=== PATIENT | female | born 1940 | race Caucasian/White ===

== ENCOUNTER → 2023-06-25 11:31 | Outpatient (REF) | payer MEDICARE, OTHER, SELFPAY ==
[2023-06-25 15:02] LABS: % Basophils 0.6 % (0-2); % Immature Granulocytes 0.4 % (0-0.5); % Lymphocytes 13.4 % (20.5-51.1); % Monocytes 6.2 % (1.7-9.3); % Neutrophils 77.4 % (42.2-75.2); Absolute Basophils 0.1 10^3/uL (0-0.2); Absolute Eosinophils 0.2 10^3/uL (0-0.7); Absolute Lymphocytes 1.5 10^3/uL (1.2-3.4); Absolute Monocytes 0.7 10^3/uL (0.1-0.6); Absolute Neutrophils 8.6 10^3/uL (1.4-6.5); Hematocrit 37.7 % (37.0-47.0); Hemoglobin 12.6 g/dL (12.0-16.0); Mean Corp Hgb Conc. 33.4 g/dL (33.0-37.0); Mean Corpuscular Hgb 29.5 pg (27.0-31.0); Mean Corpuscular Volume 88.3 fL (81.0-99.0); Mean Platelet Volume 9.8 fL (7.4-10.4); Nucleated Red Blood Cells % 0 %; Platelet Count 238 10^3/uL (130-400); Red Blood Cell Count 4.27 10^6/uL (4.20-5.40); Red Cell Dist. Width 14.4 % (11.5-14.5); White Blood Cell Count 11.2 10^3/uL (4.8-10.8)
[2023-06-25 15:28] LABS: ALT (SGPT) 12 U/L (0-35); AST (SGOT) 21 U/L (14-36); Albumin 3.6 g/dl (3.5-5.0); Alkaline Phosphatase 104 U/L (38-126); Blood Urea Nitrogen 19 mg/dl (7-17); Calcium 10.4 mg/dl (8.4-10.2); Carbon Dioxide 27 mmol/L (22-30); Chloride 99 mmol/L (98-107); Glucose 121 mg/dl (70-99); Potassium 3.9 mmol/L (3.5-5.1); Sodium 134 mmol/L (135-145); Total Bilirubin 0.6 mg/dl (0.2-1.3); Total Protein 6.5 g/dl (6.3-8.2); eGFR 55.55
== END ==
LOC: HWLAB 11:31
PROVIDERS: ATTENDING PHYSICIAN Internal Medicine Hematology & Oncology; FAMILY PHYSICIAN Family Medicine
DX: C50.111 Malignant neoplasm of central portion of right female breast (principal); C34.31 Malignant neoplasm of lower lobe, right bronchus or lung; E55.9 Vitamin D deficiency, unspecified; R92.8 Other abnormal and inconclusive findings on diagnostic imaging of breast
CPT/HCPCS: 36415; 80053; 85025

== ENCOUNTER → 2023-07-15 11:36 | Outpatient (REF) | payer MEDICARE, OTHER, SELFPAY ==
[2023-07-15 16:03] LABS: % Basophils 0.8 % (0-2); % Eosinophils 1.6 % (0-6); % Immature Granulocytes 0.3 % (0-0.5); % Monocytes 7.7 % (1.7-9.3); % Neutrophils 75.6 % (42.2-75.2); Absolute Basophils 0.1 10^3/uL (0-0.2); Absolute Eosinophils 0.2 10^3/uL (0-0.7); Absolute Lymphocytes 1.4 10^3/uL (1.2-3.4); Absolute Monocytes 0.8 10^3/uL (0.1-0.6); Absolute Neutrophils 7.4 10^3/uL (1.4-6.5); Hematocrit 37.9 % (37.0-47.0); Hemoglobin 12.6 g/dL (12.0-16.0); Mean Corp Hgb Conc. 33.2 g/dL (33.0-37.0); Mean Corpuscular Hgb 29.4 pg (27.0-31.0); Mean Corpuscular Volume 88.3 fL (81.0-99.0); Mean Platelet Volume 10.8 fL (7.4-10.4); Nucleated Red Blood Cells % 0 %; Platelet Count 246 10^3/uL (130-400); Red Blood Cell Count 4.29 10^6/uL (4.20-5.40); Red Cell Dist. Width 14.9 % (11.5-14.5); White Blood Cell Count 9.7 10^3/uL (4.8-10.8)
[2023-07-15 16:18] LABS: ALT (SGPT) 11 U/L (0-35); AST (SGOT) 20 U/L (14-36); Albumin 3.9 g/dl (3.5-5.0); Alkaline Phosphatase 103 U/L (38-126); Blood Urea Nitrogen 24 mg/dl (7-17); Calcium 10.1 mg/dl (8.4-10.2); Carbon Dioxide 26 mmol/L (22-30); Chloride 98 mmol/L (98-107); Glucose 111 mg/dl (70-99); Potassium 3.8 mmol/L (3.5-5.1); Sodium 135 mmol/L (135-145); Total Bilirubin 0.7 mg/dl (0.2-1.3); Total Protein 6.7 g/dl (6.3-8.2); eGFR 49.55
== END ==
LOC: HWLAB 11:36
PROVIDERS: ATTENDING PHYSICIAN Internal Medicine Hematology & Oncology; FAMILY PHYSICIAN Family Medicine
DX: C50.111 Malignant neoplasm of central portion of right female breast (principal); C34.31 Malignant neoplasm of lower lobe, right bronchus or lung; E55.9 Vitamin D deficiency, unspecified; R92.8 Other abnormal and inconclusive findings on diagnostic imaging of breast
CPT/HCPCS: 36415; 80053; 85025

== ENCOUNTER → 2023-08-06 12:01 | Outpatient (REF) | payer MEDICARE, OTHER, SELFPAY ==
[2023-08-06 16:40] LABS: % Basophils 0.6 % (0-2); % Eosinophils 1.2 % (0-6); % Immature Granulocytes 0.5 % (0-0.5); % Lymphocytes 8.5 % (20.5-51.1); % Neutrophils 79.2 % (42.2-75.2); Absolute Basophils 0.1 10^3/uL (0-0.2); Absolute Eosinophils 0.1 10^3/uL (0-0.7); Absolute Immature Granulocytes 0.1 10^3/uL (0-0.05); Absolute Lymphocytes 0.9 10^3/uL (1.2-3.4); Absolute Monocytes 1.1 10^3/uL (0.1-0.6); Absolute Neutrophils 8.4 10^3/uL (1.4-6.5); Hemoglobin 11.2 g/dL (12.0-16.0); Mean Corp Hgb Conc. 32.9 g/dL (33.0-37.0); Mean Corpuscular Hgb 29.1 pg (27.0-31.0); Mean Corpuscular Volume 88.3 fL (81.0-99.0); Mean Platelet Volume 10.7 fL (7.4-10.4); Nucleated Red Blood Cells % 0 %; Platelet Count 236 10^3/uL (130-400); Red Blood Cell Count 3.85 10^6/uL (4.20-5.40); Red Cell Dist. Width 15.3 % (11.5-14.5); White Blood Cell Count 10.5 10^3/uL (4.8-10.8)
[2023-08-06 17:17] LABS: ALT (SGPT) 10 U/L (0-35); AST (SGOT) 19 U/L (14-36); Albumin 3.2 g/dl (3.5-5.0); Alkaline Phosphatase 99 U/L (38-126); Blood Urea Nitrogen 28 mg/dl (7-17); Carbon Dioxide 25 mmol/L (22-30); Chloride 100 mmol/L (98-107); Creatine Phosphokinase 50 U/L (30-135); Glucose 97 mg/dl (70-99); Sodium 132 mmol/L (135-145); Total Bilirubin 0.6 mg/dl (0.2-1.3); Total Protein 5.9 g/dl (6.3-8.2); eGFR > 60.00
[2023-08-06 17:31] LABS: TSH 0.35 uIU/ml (0.47-4.68)
== END ==
LOC: HWLAB 12:01
PROVIDERS: ATTENDING PHYSICIAN Internal Medicine Hematology & Oncology; FAMILY PHYSICIAN Family Medicine
DX: C50.111 Malignant neoplasm of central portion of right female breast (principal); C34.31 Malignant neoplasm of lower lobe, right bronchus or lung; E55.9 Vitamin D deficiency, unspecified; R92.8 Other abnormal and inconclusive findings on diagnostic imaging of breast; E03.9 Hypothyroidism, unspecified; M79.10 Myalgia, unspecified site; T46.6X5A Adverse effect of antihyperlipidemic and antiarteriosclerotic drugs, initial encounter; M54.2 Cervicalgia; M54.59 Other low back pain
CPT/HCPCS: 36415; 72052; 72072; 72110; 80053; 82550; 84443; 85025

== ENCOUNTER 2023-08-09 15:56 | Outpatient (RCR) | payer MEDICARE, OTHER, SELFPAY ==
[2023-08-09 17:28] LABS: Blood Urea Nitrogen 26 mg/dl (7-17); Calcium 8.9 mg/dl (8.4-10.2); Carbon Dioxide 22 mmol/L (22-30); Chloride 103 mmol/L (98-107); Glucose 85 mg/dl (70-99); Potassium 3.1 mmol/L (3.5-5.1); Sodium 133 mmol/L (135-145); eGFR 55.55
== END 2023-09-07 23:59 | disposition home or self-care (01) ==
LOC: OID 15:56
PROVIDERS: ATTENDING PHYSICIAN Internal Medicine Hematology & Oncology
DX: C50.411 Malignant neoplasm of upper-outer quadrant of right female breast (principal)
CPT/HCPCS: 80048

== ENCOUNTER → 2023-08-11 11:44 | Outpatient (REF) | payer MEDICARE, OTHER, SELFPAY | LOC: HWLAB 11:44 | PROVIDERS: ATTENDING PHYSICIAN Internal Medicine Hematology & Oncology; FAMILY PHYSICIAN Family Medicine | DX: C50.111 Malignant neoplasm of central portion of right female breast (principal); C34.31 Malignant neoplasm of lower lobe, right bronchus or lung | CPT/HCPCS: 87045; 87046; 87324; 87427; 87449 ==

== ENCOUNTER → 2023-08-13 12:28 | Outpatient (REF) | payer MEDICARE, OTHER, SELFPAY ==
[2023-08-13 16:07] LABS: % Basophils 0.2 % (0-2); % Eosinophils 0.9 % (0-6); % Immature Granulocytes 0.6 % (0-0.5); % Lymphocytes 7.2 % (20.5-51.1); % Monocytes 8.8 % (1.7-9.3); % Neutrophils 82.3 % (42.2-75.2); Absolute Eosinophils 0.1 10^3/uL (0-0.7); Absolute Immature Granulocytes 0.1 10^3/uL (0-0.05); Absolute Lymphocytes 0.9 10^3/uL (1.2-3.4); Absolute Monocytes 1.1 10^3/uL (0.1-0.6); Absolute Neutrophils 10.6 10^3/uL (1.4-6.5); Hematocrit 31.7 % (37.0-47.0); Hemoglobin 10.6 g/dL (12.0-16.0); Mean Corp Hgb Conc. 33.4 g/dL (33.0-37.0); Mean Corpuscular Hgb 28.9 pg (27.0-31.0); Mean Corpuscular Volume 86.4 fL (81.0-99.0); Mean Platelet Volume 10.1 fL (7.4-10.4); Nucleated Red Blood Cells % 0 %; Platelet Count 286 10^3/uL (130-400); Red Blood Cell Count 3.67 10^6/uL (4.20-5.40); Red Cell Dist. Width 15.8 % (11.5-14.5); White Blood Cell Count 12.9 10^3/uL (4.8-10.8)
[2023-08-13 16:34] LABS: ALT (SGPT) 11 U/L (0-35); AST (SGOT) 18 U/L (14-36); Albumin 2.9 g/dl (3.5-5.0); Alkaline Phosphatase 101 U/L (38-126); Blood Urea Nitrogen 32 mg/dl (7-17); Calcium 9.1 mg/dl (8.4-10.2); Carbon Dioxide 22 mmol/L (22-30); Chloride 105 mmol/L (98-107); Glucose 84 mg/dl (70-99); Sodium 131 mmol/L (135-145); Total Bilirubin 0.5 mg/dl (0.2-1.3); Total Protein 5.5 g/dl (6.3-8.2); eGFR 49.55
== END ==
LOC: HWLAB 12:28
PROVIDERS: ATTENDING PHYSICIAN Internal Medicine Hematology & Oncology; FAMILY PHYSICIAN Family Medicine
DX: C50.111 Malignant neoplasm of central portion of right female breast (principal); C34.31 Malignant neoplasm of lower lobe, right bronchus or lung; E55.9 Vitamin D deficiency, unspecified; R92.8 Other abnormal and inconclusive findings on diagnostic imaging of breast
CPT/HCPCS: 36415; 74022; 80053; 85025

== ENCOUNTER 2023-08-16 18:16 | Inpatient (IN) | payer MEDICARE, OTHER, SELFPAY ==
[2023-08-16] VITALS (8 sets, daily range): BP systolic 95–130; BP diastolic 46–55; BMI 22.3; BMI 23.1
--- NOTE | 2023-08-16 11:40 | ED.GENMED ---
History of Present Illness
General
Chief Complaint: Abdominal Pain
Source: patient
Exam Limitations: none
Time Seen by Provider: 08/16/23 10:28
Nursing documentation reviewed up to this point in time: agreed with
Travel History
Have you had any contact with someone who has COVID-19?: No
Do you have any symptoms of coronavirus? Fever > 100 degrees, chills, cough, shortness of breath, sore throat, loss of taste or smell, muscle aches, or headache?: No
History of Present Illness
History of Present Illness:
Patient presents ED secondary to increased generalized weakness, along with decreased appetite and intermittent nonbloody diarrhea over the past 3 weeks. Patient also reports abdominal pain, radiating up to her shoulder, similar to when she
experienced pancreatitis in the past. 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 In addition, patient had an outpatient x-ray, which has showed 'constipation'. However, in light of patient's ongoing
symptoms, patient was referred to ED for further evaluation and treatment. Denies headache. Denies dizziness. Patient has been experiencing mild shortness of breath with exertion recently. Denies back pain. Denies leg pain or swelling. Denies
recent change in medications or diet.
Past History
Past History
ED Past Medical History: Other
ED Past Surgical History: Cholecystectomy
Social History
Tobacco: Non-smoker
Alcohol: None
Drug: None
Living: with family
Review of Systems
Review of Systems
Allergies reviewed?: Yes
All Other Systems: ROS reviewed and negative except as documented in HPI and ROS
Constitutional: Reports no symptoms
EENT: Reports no symptoms
Respiratory: Reports no symptoms
Cardiac: Reports no symptoms
ABD/GI: Reports abdominal pain and diarrhea; Denies nausea or vomiting
: Reports no symptoms
Musculoskeletal: Reports no symptoms
Skin: Reports no symptoms
Neurological: Reports weakness
Phy Exam
Physical Exam
Physical Exam:
Physical Exam
General: mild distress, not acutely ill. afebrile.
Head: nc/at. eomi
Neck: supple. no meningeal signs.
Heart: s1/s2 regular rate and rhythm, no murmur. equal radial pulses.
Lungs: no acute respiratory distress. clear bilaterally
Abdomen: normal bowel sounds. not tender.
Neuro: alert and oriented. no focal neurological deficits
Skin: no rash
Psychiatric: well kept. interactive and cooperative
Extremities: no edema. no calf tenderness.
Course
Orders/Labs/Results
Orders:
Orders
08/16/23 10:41
CT Abd/pel W Iv And Oral Contr Urgent
Comment:
Reason For Exam: midabdominal pain
Norovirus by PCR Urgent
CLEVE Source: Feces/Stool
Specimen Description:
Date Specimen was Collected: 08/17/23
Time Specimen was Collected: 03:16
0.9% Sodium Chloride 1000 ml [Nss] 1,000 ml IV BOLUS
Iohexol [Omnipaque] See Protocol PO NOW STA
08/16/23 11:29
Dexamethasone Sod Phosphate [Decadron] 10 mg IV NOW STA
Diphenhydramine [Benadryl] 25 mg IV NOW STA
08/16/23 11:44
Lactic Acid Q4H
Comment: CANCEL 2nd LACTIC ACID IF 1st LACTIC ACID IS LESS THAN 2
08/16/23 12:36
Complete Blood Count/With Diff Urgent
Comprehensive Metabolic Panel Urgent
Lipase Urgent
Magnesium Urgent
08/16/23 15:06
Magnesium Sulfate 1 grams 0.9% Sodium Chloride 100 ml [Nss] 100 ml IV NOW
08/16/23 15:55
Dextrose 50%-Water [Dextrose 50% Syringe] 25 grams IV NOW STA
08/16/23 16:00
Dextrose 5%/0.9%Sodchl 1000 ml [D5/0.9% Sodium Chloride] 1,000 ml IV 100 mls/hr
08/16/23 17:10
Add On- LAB Urgent
Tests Added?: tsh w/ reflex
Magnesium Sulfate 4 Gram/100Ml [Magnesium Sulfate] 4 gram in 100 ml IV NOW
08/16/23 17:16
ECG [Electrocardiogram (*1)] Urgent
Reason for Study: Bradycardia / Tachycardia
08/16/23 17:17
TSH Reflex To Free T4 Urgent
Comment: ADD ON
08/16/23 17:38
Admit/Transfer Patient As Directed
Co-Sign Provider:
Level of Care: Inpatient admission
Assign to:: Telemetry
Physician / Group: Quintin
Diagnosis: C Diff Colitis/Enteritis
Reason for Telemetry: Arrhythmia
Date to Stop Telemetry: 08/19/23
Time to Stop Telemetry: 11:00
Reason for Hospitalization: IVFs, oral vancomycin
Expected length of stay greater than two midnights?: Yes
ELOS- Estimated Length of Stay in days: 3
I certify the patient meets the requirements for IP care: Yes
Vancomycin HCl [Firvanq] 125 mg PO NOW STA
08/16/23 17:39
Code Status As Directed
Resuscitation Status: Full Code
08/16/23 19:45
Acetaminophen [Tylenol] 650 mg PO Q4HPRN PRN
Dextrose 50%-Water [Dextrose 50% Syringe] 12.5 grams IV [id number] PRN
Enoxaparin Sodium [Lovenox] 40 mg SC QPM
Glucagon [GlucaGen] 1 mg IM PRN PRN
08/16/23 19:45
Activity As Directed
Activity Level: Out of Bed-Early Mobility
With Assistance
Bedside Glucose Monitoring As Directed
Frequency: AC&HS
Comment: Change to q6h if pt on TPN, tube feeding or not eating
I&O [Intake/ Output] As Directed
Frequency: q12h
Vital Signs As Directed
Frequency: Per unit guidelines
Additional Instructions:: BPs with manual cuff
Weight As Directed
Frequency: Daily
Ot Eval And Treat Routine
Pt Eval And Treat Routine
Activity Level: Out of Bed-Early Mobility
DX Deep Vein Thrombosis Video Routine
08/16/23 22:00
Amlodipine [Norvasc] 5 mg PO HS
08/17/23 05:20
Basic Metabolic Panel IN AM
Complete Blood Count/No Diff IN AM
Magnesium IN AM
08/17/23 Breakfast
Low Residue
At Your Request: Full Participation
Levothyroxine [Synthroid] 100 mcg PO DAILY @ 0600
08/17/23 08:00
Lactobac/Bifidobac [Visbiome] 1 cap PO DAILY
Lisinopril [Zestril] 10 mg PO DAILY
08/17/23 10:00
Potassium Chloride [KCl] 20 meq PO DAILY@1000
08/17/23 15:00
Aspirin Low Dose EC [Aspir Low (Enteric Coated)] 81 mg PO DAILY@1500
08/19/23 11:00
DC Protocol for Telemetry ONCE
Abnormal Lab Results
08/16/23 08/16/23 08/16/23
12:36 15:54 16:20
WBC 12.5 H 10^3/uL
(4.8-10.8)
RBC 3.52 L 10^6/uL
(4.20-5.40)
Hgb 10.2 L g/dL
(12.0-16.0)
Hct 30.0 L %
(37.0-47.0)
RDW 15.9 H %
(11.5-14.5)
Abs Immat Gran (auto) 0.1 H 10^3/uL
(0-0.05)
Absolute Neuts (auto) 10.4 H 10^3/uL
(1.4-6.5)
Absolute Lymphs (auto) 1.0 L 10^3/uL
(1.2-3.4)
Absolute Monos (auto) 0.8 H 10^3/uL
(0.1-0.6)
Immature Gran % 0.6 H %
(0-0.5)
Neutrophils % 83.7 H %
(42.2-75.2)
Lymphocytes % 8.0 L %
(20.5-51.1)
Sodium 132 L mmol/L
(135-145)
Carbon Dioxide 20 L mmol/L
(22-30)
BUN 28 H mg/dl
(7-17)
Glucose 66 L mg/dl
(70-99)
Magnesium 1.1 L mg/dl
(1.6-2.3)
Total Protein 5.3 L g/dl
(6.3-8.2)
Albumin 2.7 L g/dl
(3.5-5.0)
POC Glucose 34 L* mg/dl 109 H mg/dl
(70-99) (70-99)
08/16/23
17:22
WBC
RBC
Hgb
Hct
RDW
Abs Immat Gran (auto)
Absolute Neuts (auto)
Absolute Lymphs (auto)
Absolute Monos (auto)
Immature Gran %
Neutrophils %
Lymphocytes %
Sodium
Carbon Dioxide
BUN
Glucose
Magnesium
Total Protein
Albumin
POC Glucose 155 H mg/dl
(70-99)
04/08/24 12:36
08/16/23 12:36
Vital Signs
Initial and Last Documented VS:
Initial Vital Signs
Temp Pulse Resp BP
97.9 F 69 16 95/55
08/16/23 10:02 08/16/23 10:02 08/16/23 10:02 08/16/23 10:02
Last Documented Vital Signs
Temp Pulse Resp BP Pulse Ox
97.4 F 62 18 147/66 99
08/17/23 03:13 08/17/23 03:13 08/17/23 03:13 08/17/23 03:13 08/17/23 03:13
MDM/Problems Addressed
MDM/Problems Addressed:
CT report reviewed: sig. colitis. Will start abx, along with IVF
Accucheck: 35. D50 amp given. In light of ongoing diarrhea, along with decreased appetite and oral intake, along with noted hypoglycemia, patient will be admitted for further evaluation and treatment. Will start D5NS gtt, along with frequent
accuchecks, until BS stabilizes.
Pt will need to be in isolation, until c.dif toxin study available.
Critical care statement: A total of 40 minutes of critical care time was provided for this patient. This includes management of unstable vital signs, evaluation of the patient at bedside, reviewing the patient's pertinent medical records, review of
old EKGs and review of pertinent medical records. This time with separate from time utilized to perform the aforementioned documented procedures
*Critical Care Note
Total Time (30-74mins, 75-104mins- exclusive of procedures): 40 min
ED Attending Note
-
Portions of this chart may have been created with voice recognition software.� Occasional wrong word or��sound alike� substitutions may have occurred due to the inherent limitations of voice recognition software.
Discharge Plan
Departure
Patient Disposition: Admit
Date of Disposition: 08/16/23
Time of Disposition: 16:11
Presentation/result/management discussed w/ accepting MD/DO: Hospitalist
Discharge Problem:
Colitis, Hypoglycemia
Interventions
Interventions:
*Risk Screen - Suicide Last Done: 08/16/23 20:26
*General Assessment Last Done: 08/16/23 13:00
*Neglect/Abuse Screening Last Done: 08/16/23 13:00
ED- Fall Risk Assessment Last Done: 08/16/23 13:00
*ED COVID-19 Vaccine History Last Done: 08/16/23 20:26
*Nursing Disposition Last Done: 08/16/23 19:24
[facility] Assessment Last Done: 08/16/23 16:00
Discharge Date and Time
Discharge Date/Time: 08/16/23 19:25
[2023-08-16] MEDS: OMNIPAQUE 50 ML PO (11:52)
[2023-08-16 12:12] LABS: Lactic Acid 1.1 mmol/L (0.7-2.0)
[2023-08-16 12:48] LABS: % Basophils 0.6 % (0-2); % Eosinophils 0.7 % (0-6); % Immature Granulocytes 0.6 % (0-0.5); % Monocytes 6.4 % (1.7-9.3); % Neutrophils 83.7 % (42.2-75.2); Absolute Basophils 0.1 10^3/uL (0-0.2); Absolute Eosinophils 0.1 10^3/uL (0-0.7); Absolute Immature Granulocytes 0.1 10^3/uL (0-0.05); Absolute Monocytes 0.8 10^3/uL (0.1-0.6); Absolute Neutrophils 10.4 10^3/uL (1.4-6.5); Hemoglobin 10.2 g/dL (12.0-16.0); Mean Corpuscular Volume 85.2 fL (81.0-99.0); Mean Platelet Volume 9.3 fL (7.4-10.4); Nucleated Red Blood Cells % 0 %; Platelet Count 274 10^3/uL (130-400); Red Blood Cell Count 3.52 10^6/uL (4.20-5.40); Red Cell Dist. Width 15.9 % (11.5-14.5); White Blood Cell Count 12.5 10^3/uL (4.8-10.8)
[2023-08-16] MEDS: NSS 1000 IV (12:50)
[2023-08-16] MEDS: BENADRYL 25 MG IV (12:50)
[2023-08-16] MEDS: DECADRON 10 MG IV (12:50)
[2023-08-16 13:01] LABS: ALT (SGPT) < 10 U/L (0-35); AST (SGOT) 16 U/L (14-36); Albumin 2.7 g/dl (3.5-5.0); Alkaline Phosphatase 107 U/L (38-126); Blood Urea Nitrogen 28 mg/dl (7-17); Calcium 9.1 mg/dl (8.4-10.2); Carbon Dioxide 20 mmol/L (22-30); Chloride 104 mmol/L (98-107); Glucose 66 mg/dl (70-99); Magnesium 1.1 mg/dl (1.6-2.3); Potassium 3.7 mmol/L (3.5-5.1); Sodium 132 mmol/L (135-145); Total Bilirubin 0.6 mg/dl (0.2-1.3); Total Protein 5.3 g/dl (6.3-8.2); eGFR > 60.00
[2023-08-16 13:17] LABS: Lipase 155 U/L (23-300)
[2023-08-16] MEDS: MAGNESIUM SULFATE 102 GRAMS IV (15:47)
[2023-08-16 15:56] LABS: Glucose - Point of Care 34 mg/dl (70-99)
[2023-08-16] MEDS: DEXTROSE 50% SYRINGE 25 GRAMS IV (15:58)
[2023-08-16 16:22] LABS: Glucose - Point of Care 109 mg/dl (70-99)
[2023-08-16] MEDS: D5/0.9% SODIUM CHLORIDE 1000 IV (16:46)
--- NOTE | 2023-08-16 17:23 | HPS.HSE ---
Addendum entered and electronically signed by Donnie Ribeiro MD 08/16/23 18:06:
see update note addendum
Original Note:
Family Physician
-
Family Physician: Chriss Dobson
Chief Complaint
-
Diarrhea
History of Present Illness
Patient is an 83 y/o female past medical history of metastatic lung cancer, breast cancer, hypertension and hypothyroidism who presents with diarrhea. Patient reports diarrhea for last several weeks. She describes the stools as watery, but
non-bloody. She reports generalized weakness and fatigue, and poor appetite. She denies any fevers, sweats or chills. She denies abdominal pain. She is currently receiving Keytruda every 3 weeks. She denies recent travel or recent antibiotics.
Medical History
Past Medical History
Past Medical History: Reports Other
Additional Past Medical History:
Metastatic Non-Small Cell Lung CA s/p Right Upper Lobectomy
Breast CA s/p lumpectomy and radiation
Renal Cancer s/p Ablation
Essential Hypertension
Hyperlipidemia
Hypothyroidism
Raynaud's
Past Surgical History: Reports Other
Additional Past Surgical History:
Hysterectomy
Lumpectomy
Right Upper Lobectomy
Social History
Tobacco: Smoker (1/2 PPD)
Alcohol: None
Family History
Family History: Not pertinent
Allergies / Home Medications
Allergies reflects when Allergies were last updated in [employer].
Home Medications with original date entered in [employer]
Allergy/Medication List:
Allergies
Allergy/AdvReac Type Severity Reaction Status Date / Time
Iodinated Contrast Media Allergy Rash Verified 08/16/23 10:04
[IV Dye, Iodine Containing]
Home Medications
amlodipine 5 mg tablet 5 mg PO HS Blood pressure 07/04/10
levothyroxine 100 mcg tablet 100 mcg PO DAILY Thyroid 07/04/10
Bifidobacterium infantis 4 mg capsule (Align) 4 mg PO DAILY Supplement 02/19/22
aspirin 81 mg tablet,delayed release 81 mg PO DAILY@1500 Blood clot prevention/tx 02/19/22
ibuprofen 200 mg tablet 400 mg PO BIDPRN PRN mild pain 02/19/22
lisinopril 20 mg-hydrochlorothiazide 25 mg tablet 0.5 tab PO HS Blood pressure 02/19/22
loperamide 2 mg capsule 2 - 4 mg PO DAILYPRN PRN diarrhea 08/16/23
potassium chloride 10 mEq tablet,extended release 20 meq PO DAILY@1000 08/16/23
Review of Systems
-
A 12 point ROS was completed and negative except as noted: Yes
Constitutional: Denies Fever or Chills
Respiratory: Denies Cough or Trouble Breathing
Cardiac: Denies Chest Pain or Palpitations
Abdomen/GI: Reports See HPI
Physical Exam
Vital Signs
Vital Signs
Temp Pulse Resp BP Pulse Ox
97.1 F 50 11 121/51 95
08/16/23 14:46 08/16/23 16:45 08/16/23 16:45 08/16/23 16:07 08/16/23 16:00
Physical Exam
General: Comfortable and Conversant
HEENT: Anicteric and Moist mucous membranes
Respiratory: Clear and Non Labored Respirations
Cardiac: S1/S2, Regular Rhythm and Bradycardia
GI: Soft, Non Tender, Non Distended and Other (Bowel sounds hyperactive slightly high pitched)
Musculoskeletal: No Clubbing, Cyanosis (Bilateral fingers, chronic per patient) and No Edema
Skin: Warm and Dry
Neuro: Awake, Alert, Oriented and Nonfocal/grossly intact
Psych: Calm
Laboratory Results
-
08/16/23 12:36
08/16/23 12:36
Laboratory Results
Lactic Acid Cancelled 08/16/23 14:45
Total Bilirubin 0.6 mg/dl (0.2-1.3) 08/16/23 12:36
AST 16 U/L (14-36) 08/16/23 12:36
ALT < 10 U/L (0-35) 08/16/23 12:36
Alkaline Phosphatase 107 U/L (38-126) 08/16/23 12:36
Lipase 155 U/L (23-300) 08/16/23 12:36
Data Reviewed
-
Lab Data: Labs Reviewed by me
Impression/Plan
-
Enteritis/Colitis likely secondary to C Diff
-Stool cultures was C diff antigen positive, but toxin negative however given persistent symptoms and CT scan findings
-Start Vancomycin 125mg PO Q6h
Hypoglycemia
-Encourage oral intake
-Continue D5 IVFs
-Monitor sugars
Hypomagnesemia
-Continue replacement
-Recheck level in AM
Metastatic Non-Small Cell Lung CA
-Patient on Keytruda as outpatient
Essential Hypertension
-Continue lisinopril and amlodipine with hold parameters
-Hold HCTZ
Hypothyroidism
-Check TSH
-Continue levothyroxine
DVT Proph: Lovenox
Code Status: Full Code
[2023-08-16 17:24] LABS: Glucose - Point of Care 155 mg/dl (70-99)
--- NOTE | 2023-08-16 17:39 | W.PN.UPDATE ---
Update Note
Progress Note Update
I saw and examined the patient.
The ABEBA Leong's note was reviewed and I agree with the note.
Comment: 83 y/o F with hx of non small cell Lung ca on Keytruda, presents with abd pain and 3 weeks of nonbloody diarrhea. Recent outpatient workup revealed Cdiff Ag+, toxin -. Today a CT showed colitis. She denies any other complaints.
In ER, patient was low on mag and repleted, also fluids were given. An amp of dextrose was given for hypoglycemia. Patient was admitted.
Physical Exam
General: Comfortable and Conversant
HEENT: Anicteric and Moist mucous membranes
Respiratory: Clear and Non Labored Respirations
Cardiac: S1/S2, Regular Rhythm and Bradycardia
GI: Soft, Non Tender, Non Distended and Other (Bowel sounds hyperactive slightly high pitched)
Musculoskeletal: No Clubbing, Cyanosis (Bilateral fingers, chronic per patient) and No Edema
Skin: Warm and Dry
Neuro: Awake, Alert, Oriented and Nonfocal/grossly intact
Psych: Calm
Assessment:
Presumptive C. Diff colitis
Hypomagnesemia
Hyponatremia, hypovolemic
Asymptomatic sinus bradycardia
Hx non small cell Lung ca on Keytruda
Hypothyroidism
Essential HTN
Plan:
for bradycardia, check EKG and monitor on tele
replete Mag; repeat AM level
IVF (with dextrose)
hold Keytruda
start empiric PO Vanco for suspected C diff colitis
continue BP meds; but hold HCTZ
continue thyroid replacement; check TSH
DVT ppx: Lovenox
Code: Full
[2023-08-16 18:22] LABS: TSH Reflex To Free T4 0.78 uIU/ml (0.47-4.68)
[2023-08-16] MEDS: FIRVANQ 125 MG PO (18:37)
[2023-08-16] MEDS: MAGNESIUM SULFATE 100 IV (18:39)
--- NOTE | 2023-08-16 20:46 | PTCARENOTE ---
Patient admitted from ED. Patient is AAO x3, on RA, in no acute distress. Tele monitor applied. Enhanced contact precautions initiated for c. diff. Patient oriented to room and call byers is within reach.
[2023-08-16] MEDS: NORVASC PO (20:59)
[2023-08-16] MEDS: LOVENOX 40 MG SC (21:02)
[2023-08-17] MEDS: D5/0.9% SODIUM CHLORIDE 1000 IV (02:14)
[2023-08-17 03:11] LABS: Glucose - Point of Care 255 mg/dl (70-99)
[2023-08-17 03:13] VITALS: BP 147/66
[2023-08-17 05:42] LABS: Hematocrit 27.3 % (37.0-47.0); Hemoglobin 9.2 g/dL (12.0-16.0); Mean Corp Hgb Conc. 33.7 g/dL (33.0-37.0); Mean Corpuscular Hgb 29.2 pg (27.0-31.0); Mean Corpuscular Volume 86.7 fL (81.0-99.0); Mean Platelet Volume 9.6 fL (7.4-10.4); Platelet Count 230 10^3/uL (130-400); Red Blood Cell Count 3.15 10^6/uL (4.20-5.40); Red Cell Dist. Width 15.3 % (11.5-14.5); White Blood Cell Count 10.6 10^3/uL (4.8-10.8)
[2023-08-17 06:00] VITALS: BMI 23.1
[2023-08-17] MEDS: SYNTHROID 100 MCG PO (06:05)
[2023-08-17 06:15] LABS: Blood Urea Nitrogen 25 mg/dl (7-17); Calcium 8.7 mg/dl (8.4-10.2); Carbon Dioxide 18 mmol/L (22-30); Chloride 106 mmol/L (98-107); Estimated Creatinine Clearance 37 ml/min; Glucose 217 mg/dl (70-99); Magnesium 2.4 mg/dl (1.6-2.3); Potassium 3.7 mmol/L (3.5-5.1); Sodium 130 mmol/L (135-145); eGFR > 60.00
[2023-08-17 07:30] VITALS: BP 141/66
--- NOTE | 2023-08-17 07:32 | W.PN.HOSP.TC ---
Today's Communication/Plan
-
low residue diet
imodium prn
monitor off abx as per ID
PT/OT
Assessment / Plan
Assessment / Plan
Physical Exam
General: Comfortable and Conversant
HEENT: Anicteric and Moist mucous membranes
Respiratory: Clear and Non Labored Respirations
Cardiac: S1/S2, Regular Rhythm and Bradycardia
GI: Soft, Non Tender, Non Distended, Bowel Sounds present
Musculoskeletal: No Clubbing, Cyanosis Bilateral fingers (chronic per patient), No Edema
Skin: Warm and Dry
Neuro: Awake, Alert, Oriented and Nonfocal/grossly intact
Psych: Calm
83F metastatic lung cancer, breast cancer, hypertension, and hypothyroidism who presents with diarrhea several weeks. reportedly watery non-bloody. Pt also reports generalized weakness fatigue poor appetite. She denies fevers, sweats, chills,
abdominal pain. Receiving Keytruda every 3 weeks. Denied recent travel or recent antibiotics.
Enteritis/Colitis unclear etiology
-CT appreciated signs suggestive infectious vs inflammatory enterocolitis, stable cystic lesion RLQ likely mucocele, multiple nodular opacities each lung base unchange from PET/CT 03/26/23, calcification ectasia abd aorta 2.8 cm
-Stool cultures C diff antigen positive, but toxin negative
-ID eval appreciated monitoring off abx
-Oncology eval appreciated possible side effect Keytruda, considering steroid tx immune mediated colitis
-GI eval appreciated prn imodium, considering flex sig/bx
Hypoglycemia
Mild hyperglycemia
-A1c 5.6 non-diabetic
-Encourage oral intake
-Monitor sugars
-low dose sliding scale for now
Hypomagnesemia
-repleted
-resolved
Metastatic Non-Small Cell Lung CA
-Patient on Keytruda as outpatient
Essential Hypertension
-Continue lisinopril and amlodipine with hold parameters
-Hold HCTZ
Hypothyroidism
-TSH wnl
-Continue levothyroxine
DVT Proph: Lovenox
PT/OT appreciated SNF rehab
Code Status: Full Code
I spent a total of 58 minutes with the patient or on the floor. More than 50% of this time involved counseling and coordination of care.
Anticipated Discharge: 24 - 48 hours
Subjective/Interval History
-
Date of Service: August 17, 2023
Reports feeling relatively well, diarrhea improving, sitting up comfortably in bed.
Objective Data
-
Labs:
Laboratory Results
08/17/23
05:20
WBC 10.6
Hgb 9.2 L
Hct 27.3 L
Plt Count 230
Sodium 130 L
Potassium 3.7
Chloride 106
Carbon Dioxide 18 L
BUN 25 H
Creatinine 0.9
Glucose 217 H
Calcium 8.7
Vital Signs:
Vital Signs
Temp Pulse Resp BP Pulse Ox
97.4 F 62 18 147/66 99
08/17/23 03:13 08/17/23 03:13 08/17/23 03:13 08/17/23 03:13 08/17/23 03:13
I&O
08/16/23 08/17/23 08/18/23
06:59 06:59 06:59
Intake Total 2099
Balance 2099
[2023-08-17] MEDS: VISBIOME 1 CAP PO (08:36)
[2023-08-17] MEDS: ZESTRIL 10 MG PO (08:36)
--- NOTE | 2023-08-17 09:45 | CON.ONC ---
Impression
Impression
Non small cell lung cancer (Keytruda)
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
Infectious or inflammatory enterocolitis seen on imaging
C. diff antigen+, toxin -
Anemia (baseline Hgb 12-13)
Current smoker 1/2 ppd
Leukocytosis (improved)
Neutrophilia
Muscle weakness
Plan
Plan
08/16 WBC 10.6, Hgb 9.2, Hct 27.3, PLT 230
Monitor CBC w/ diff daily
Holding Keytruda
GI consult
Continue oral vanco
Monitor stools
Consider steroids
Await GI consult. [facility] office updated of patient's admission. We will follow.
Patient History
History of Present Illness
Dee Dunn is an 83 year old female known to Dr. Altamirano at [facility] for history of lung cancer controlled on Keytruda; last dose received on 07/19/23. She was seen in the office yesterday, 08/15, with Dr. Altamirano. Her Keytruda was held due to
complaints of persistent abdominal pain, diarrhea, and bloating. Stool culture and C. diff were collected at the office. Outpatient obstruction series showed nonspecific gas pattern and patient with reports of poor oral intake/unable to hydrate. She
was referred to the ER for further evaluation to rule out pancreatitis. In the ED, she reported generalized weakness, decreased appetite, intermittent nonbloody diarrhea x3 weeks with abdominal pain radiating up to her shoulder, similar to when she
experienced pancreatitis in the past. Denies fever/chills. She has been admitted for further evaluation and treatment.
Past-Medical/Surgical History
Stage�IB�non�small�cell�lung�carcinoma
Synchronous�right�breast�carcinoma
Hyperlipidemia
Raynaud's�syndrome
Hypothyroidism
Hypertension
Vitamin D deficiency
Tonsillectomy
Hysterectomy
Cholecystectomy
Patient Medication
�Medication �Instructions �Recorded �Confirmed �Last Taken �Type
amlodipine 5 mg tablet 5 mg PO HS Blood pressure 07/04/10 08/16/23 08/15/23 History
levothyroxine 100 mcg tablet 100 mcg PO DAILY Thyroid 07/04/10 08/16/23 08/15/23 History
Bifidobacterium infantis 4 mg 4 mg PO DAILY Supplement 02/19/22 08/16/23 08/15/23 History
capsule (Align)
aspirin 81 mg tablet,delayed 81 mg PO DAILY@1500 Blood clot 02/19/22 08/16/23 08/15/23 History
release prevention/tx
ibuprofen 200 mg tablet 400 mg PO BIDPRN PRN mild pain 02/19/22 08/16/23 08/16/23 History
lisinopril 20 0.5 tab PO HS Blood pressure 02/19/22 08/16/23 08/15/23 History
mg-hydrochlorothiazide 25 mg tablet
loperamide 2 mg capsule 2 - 4 mg PO DAILYPRN PRN diarrhea 08/16/23 08/16/23 2 Days Ago History
~08/14/23
potassium chloride 10 mEq 20 meq PO DAILY@1000 08/16/23 08/16/23 08/15/23 History
tablet,extended release
Active Medications
Generic Name Dose Route Start Last Admin
Trade Name Freq PRN Reason Stop Dose Admin
Acetaminophen 650 mg 08/16/23 19:45
Acetaminophen 325 Mg Tablet PO 09/13/23 19:44
Q4HPRN PRN
mild pain/ fever>100.5F
Amlodipine Besylate 5 mg 08/16/23 22:00 08/16/23 20:59
Amlodipine 5 Mg Tablet PO 09/13/23 21:59 Not Given
HS MARIIA
Aspirin 81 mg 08/17/23 15:00
Aspirin 81 Mg (Enteric Coated) Tablet PO 09/14/23 14:59
DAILY@1500 MARIIA
Dextrose 12.5 grams 08/16/23 19:45
Dextrose 50% (0.5 Grams/Ml) 50 Ml Syringe IV 09/13/23 19:44
[id number] PRN
hypoglycemia
Protocol
Enoxaparin Sodium 40 mg 08/16/23 19:45 08/16/23 21:02
Enoxaparin Sodium 40 Mg/0.4 Ml Syringe SC 09/13/23 19:44 40 mg
QPM MARIIA Administration
Glucagon 1 mg 08/16/23 19:45
Glucagon 1 Mg Vial IM 09/13/23 19:44
PRN PRN
hypoglycemia
Protocol
Insulin Aspart 0 units 08/17/23 11:30
Insulin Aspart Low Resistance 300 Units/3 Ml Pen.Injctr SC 09/14/23 11:29
AC MARIIA
Protocol
Lactobacillus/Bifidobacterium 1 cap 08/17/23 08:00 08/17/23 08:36
Lactobac/Bifidobac (Visbiome) PO 09/14/23 07:59 1 cap
DAILY MARIIA Administration
Levothyroxine Sodium 100 mcg 08/17/23 06:00 08/17/23 06:05
Levothyroxine 100 Mcg Tablet PO 09/14/23 05:59 100 mcg
DAILY @ 0600 MARIIA Administration
Lisinopril 10 mg 08/17/23 08:00 08/17/23 08:36
Lisinopril 10 Mg Tablet PO 09/14/23 07:59 10 mg
DAILY MARIIA Administration
Potassium Chloride 20 meq 08/17/23 10:00
Potassium Chloride 10 Meq Extended Release Tablet PO 09/14/23 09:59
DAILY@1000 MARIIA
Sodium Chloride 0 flush 08/16/23 20:00
Sodium Chloride 0.9% (Flush) Syringe IV 09/13/23 19:59
PER PROTOCOL MARIIA
Vancomycin HCl 125 mg 08/17/23 08:15
Vancomycin Oral Solution 50 Mg/Ml In Oral Syringe PO
Q6 MARIIA
Review of Systems
-
History Source: Patient, Family, Physician, Coordinated Provider and Records
Constitutional: Reports No Appetite
EENT: Reports No Symptoms
Respiratory: Reports No Symptoms
Cardiac: Reports No Symptoms
GI: Reports Pain and Bloated
Breast: Reports N/A
: Reports No Symptoms
Musculoskeletal: Reports Muscle Weakness
Skin: Reports No Symptoms
Neuro: Reports Dizzy
Endocrine: Reports No Symptoms
Hematologic/Lymphatic: Reports No Symptoms
Allergy / Immunology: Reports No Symptoms
Psych: Reports No Symptoms
Physical Exam
-
Patient is sitting in the chair. She states she feels bloated/gassy and experiences worse discomfort with consuming meals. She has tolerated cream of wheat, jello, coffee, and water. Last BM was this morning which she describes as 'pile of green
mush'. She denies fever, chills, evidence of blood in urine or stool. She has history of Raynaud's and notes her fingertips are usually blue/purple with the left hand being colder than the right hand.
General: No Apparent Distress, Comfortable, Conversant and Appears Chronically Ill
HEENT: Negative Jaundice
Cardiology: S1 and S2
Pulmonary: Clear
GI: Normal Bowel Sounds and Distended (softly distended, bloating/belching)
Genito-Urinary: Deferred by me
Musculoskeletal: Cyanosis (fingertips), Edema, Right Lower Extrem (trace) and Edema, Left Lower Extrem (trace)
Extremities: Pulses Present
Neurology: Non Focal
Skin: Warm, Dry and Other (Hx raynauds, blue/purple finger tips with trace edema of hands)
Hematologic / Lymphatic: No Lymphadenopathy and No Petechiae
Psych: Calm
Labs
Lab Results
WBC 10.6 10^3/uL (4.8-10.8) 08/17/23 05:20
RBC 3.15 10^6/uL (4.20-5.40) L 08/17/23 05:20
Hgb 9.2 g/dL (12.0-16.0) L 08/17/23 05:20
Hct 27.3 % (37.0-47.0) L 08/17/23 05:20
MCV 86.7 fL (81.0-99.0) 08/17/23 05:20
MCH 29.2 pg (27.0-31.0) 08/17/23 05:20
MCHC 33.7 g/dL (33.0-37.0) 08/17/23 05:20
RDW 15.3 % (11.5-14.5) H 08/17/23 05:20
Plt Count 230 10^3/uL (130-400) 08/17/23 05:20
MPV 9.6 fL (7.4-10.4) 08/17/23 05:20
Abs Immat Gran (auto) 0.1 10^3/uL (0-0.05) H 08/16/23 12:36
Absolute Neuts (auto) 10.4 10^3/uL (1.4-6.5) H 08/16/23 12:36
Absolute Lymphs (auto) 1.0 10^3/uL (1.2-3.4) L 08/16/23 12:36
Absolute Monos (auto) 0.8 10^3/uL (0.1-0.6) H 08/16/23 12:36
Absolute Eos (auto) 0.1 10^3/uL (0-0.7) 08/16/23 12:36
Absolute Basos (auto) 0.1 10^3/uL (0-0.2) 08/16/23 12:36
Immature Gran % 0.6 % (0-0.5) H 08/16/23 12:36
Neutrophils % 83.7 % (42.2-75.2) H 08/16/23 12:36
Lymphocytes % 8.0 % (20.5-51.1) L 08/16/23 12:36
Monocytes % 6.4 % (1.7-9.3) 08/16/23 12:36
Eosinophils % 0.7 % (0-6) 08/16/23 12:36
Basophils % 0.6 % (0-2) 08/16/23 12:36
Creatinine 0.9 mg/dL (0.6-1.0) 08/17/23 05:20
Vital Signs
Vital Signs
Temp Pulse Resp BP Pulse Ox
97.4 F 60 14 141/66 97
08/17/23 07:30 08/17/23 07:30 08/17/23 07:30 08/17/23 08:36 08/17/23 07:30
08/13/23 CXR/Abd xray: Nonspecific bowel gas pattern with several dilated small bowel loops identified measuring up to 4.3 cm. There also appears to be a large amount of stool within the distal colon.Mild volume loss within the right hemithorax with
mild bibasilar ground glass opacities which represent chronic scarring/atelectasis. Presence of airspace disease/pneumonia cannot be entirely excluded. No large effusions.
08/16/23 CT abdomen/pelvis: Bowel wall thickening involving both large and small intestine as detailed above, most consistent with infectious or inflammatory enterocolitis. No evidence of intestinal obstruction. No extraluminal air or intra-abdominal
abscess formation. Stable cystic lesion within the right lower quadrant, likely representing mucocele. Multiple nodular opacities at each lung base as detailed above, grossly unchanged compared to prior PET/CT dated 03/26/2023. Please see discussion
from prior PET/CT.Advanced calcification and ectasia of the abdominal aorta, which measures 2.8 cm in greatest orthogonal dimension.Small hiatal hernia.
[2023-08-17] MEDS: KCL 20 MEQ PO (09:50)
[2023-08-17] MEDS: FIRVANQ 125 MG PO ×2 (09:50→12:34)
[2023-08-17 09:51] VITALS: BP 120/60; BP 125/60; PULSE 74
[2023-08-17 10:35] LABS: Erythrocyte Sed Rate 40 mm/hour (0-20)
[2023-08-17 11:03] VITALS: BP 94/43
[2023-08-17 11:13] LABS: Glycohemoglobin (HgbA1c) 5.6 % (4.0-5.6)
--- NOTE | 2023-08-17 11:39 | CM ---
Patient seen bedside.
IA completed.
Patient lives alone in an apartment with elevator access.
Patient does not use assistive devices.
Patient does not drive.
Patient has had [facility] in the past, not current.
PCP: Dr Lundberg
Pharmacy: [facility]
Plan: home with possible VN needs, sister will transport.
[2023-08-17 11:59] LABS: Glucose - Point of Care 215 mg/dl (70-99)
[2023-08-17] MEDS: NOVOLOG FLEXPEN-LOW RESISTANCE 2 UNITS SC (12:49)
--- NOTE | 2023-08-17 15:05 | CON.ID ---
Consultation
-
Date/Time Consultation Requested: 08/17/2023 08:51
Date/Time Consultation Performed: 08/17/23 1421
Requesting Provider: Dr. Avalos
Performing Provider: Dr. Gonzalez
Reason for Consultation: Diarrhea
Chief Complaint / Past History
History of Present Illness
Dee Dunn is an 83-year-old female being evaluated at the request of Dr. Avalos in regards to diarrhea. History is obtained from chart review, along with patient interview. The patient has an underlying history of metastatic non-small cell lung
cancer, and reports that she has been on Keytruda for approximately 1-1/2 years. She notes over the past 3 to 4 weeks she has had some increasing weakness along with decreasing appetite. Approximately 3 weeks ago she developed more soft stool that
she describes as 'ragged', but was not liquid. Over the past 2 weeks she has had some intermittent soft 'pudding-like' stool. During this period of time she has not had any liquid stool. She denies any fevers or chills. She denies any shortness
of breath. She denies any abdominal discomfort.
She reports over the past several days that her stooling has improved. Outpatient C. difficile testing on 08/11/2023 was antigen positive/toxin negative.
Past History
Additional Past Medical History:
Metastatic NSCLC
Hx breast CA
HTN
Hypothyroidism
Dyslipidemia
Renal CA s/p ablation
Additional Past Surgical History:
Right upper lobe lobectomy
Lumpectomy/XRT
Allergy History:
Iodinated Contrast Media [IV Dye, Iodine Containing] Allergy (Verified 08/16/23 10:04)
Rash
Medications Reviewed: Yes
Current Antibiotics:
Vancomycin p.o.
Social History
Tobacco: Smoker (1/2 PPD)
Alcohol: None
Drug: None
Living: With Family
Employment: Retired
Review of Systems
Vital Signs
Temp Pulse Resp BP Pulse Ox
97.5 F 62 16 94/43 95
08/17/23 11:03 08/17/23 11:03 08/17/23 11:03 08/17/23 11:03 08/17/23 11:03
Physical Exam
Physical Exam
Constitutional: No Acute Distress, Comfortable, Non-toxic and Other (frail)
Eyes: Pupils Equal, Pupils Round, No Conjunctival Hemorrhage and Sclera Anicteric
Oral: No Thrush and No Ulcers
Cardiovascular: Regular Rate and S1/S2; Negative S3/S4
Pulmonary: Clear; Negative Wheezes, Rales or Rhonchi
Gastrointestinal: Soft, Non Tender, Non Distended, Normal Bowel Sounds, No Rebound and No Guarding
Genito-Urinary: Negative Kelly
Extremities: Edema (race); Negative Cyanosis or Erythema
Neurological: Awake, Alert and Oriented
Psychological: Calm
Lab / Diagnostic Study Results
08/17/23 05:20
08/17/23 05:20
Abs Immat Gran (auto) 0.1 10^3/uL (0-0.05) H 08/16/23 12:36
Absolute Neuts (auto) 10.4 10^3/uL (1.4-6.5) H 08/16/23 12:36
Absolute Lymphs (auto) 1.0 10^3/uL (1.2-3.4) L 08/16/23 12:36
Absolute Monos (auto) 0.8 10^3/uL (0.1-0.6) H 08/16/23 12:36
Absolute Basos (auto) 0.1 10^3/uL (0-0.2) 08/16/23 12:36
Immature Gran % 0.6 % (0-0.5) H 08/16/23 12:36
Neutrophils % 83.7 % (42.2-75.2) H 08/16/23 12:36
Lymphocytes % 8.0 % (20.5-51.1) L 08/16/23 12:36
Monocytes % 6.4 % (1.7-9.3) 08/16/23 12:36
Eosinophils % 0.7 % (0-6) 08/16/23 12:36
Basophils % 0.6 % (0-2) 08/16/23 12:36
ESR Cancelled 08/17/23 10:11
Lactic Acid Cancelled 08/16/23 14:45
C-Reactive Protein 41.90 mg/L (0.0-10.00) H 08/17/23 05:20
Microbiology Results
Micro:
08/17/23 03:20 - Final
Feces/Stool Negative for Norovirus GI and GII.
Imaging:
08/16/2023 CT abdomen/pelvis with IV and oral contrast: Bowel wall thickening involving both large and small intestines is most consistent with infectious or inflammatory enterocolitis. No evidence of intestinal obstruction. No extraluminal air or
intra-abdominal abscess formation. Multiple nodular opacities at each lung base are noted. These are grossly unchanged when compared to a prior PET/CT dated 03/26/2023.
Assessment / Plan
Generalized weakness
Loose stool / reported 'darrhea'
Metastatic NSCLC; on Keytruda
Hx breast CA
HTN
Hypothyroidism
Dyslipidemia
Renal CA s/p ablation
Recommendations:
Currently, clinical symptomatology is not entirely consistent with active C. difficile infection, as one would expect more consistent diarrhea and scottie watery stool rather than intermittent, soft stooling. Leukocytosis would also be expected.
Testing is consistent with the presence of the C. difficile, but without toxin formation.
Suspect bowel inflammation may be secondary to another etiology, possibly Keytruda.
For now, will discontinue further vancomycin with close observation.
Monitor white count and temperature curve.
Monitor stool output and consistency.
[2023-08-17 15:34] VITALS: BP 139/61
--- NOTE | 2023-08-17 16:11 | CON.GI ---
Consultation
-
Date/Time Consultation Requested: 08/17/23 3:50pm
Date/Time Consultation Performed: 08/17/23 4:12pm
Requesting Provider: Obdulia Bazzi
Performing Provider: Hugh Najera
Reason for Consultation: Colitis, Keytruda
Medical History
Chief Complaint / HPI
Chief Complaint: Colitis, Keytruda
History of Present Illness:
Patient is an 83-year-old female who presents with loose stools over the last 3 weeks. She has been on Keytruda for the the last 18 months for metastatic lung cancer. She has been responding well to the medication and wasn't having issues until the
last 3 weeks. Her stools have been up to 3 times per day now, where she typically had been more constipated. They will be loose at times but never really watery. She denies abdominal pain or bleeding or weight loss. She had her last Keytruda
dose in the middle of July. Her most recent dose was supposed to be August 08 but was held due to the change in bowel movement. She had stool studies checked that were positive for C. difficile antigen but negative for toxin. Stool culture was
negative. She presented to the ER due to ongoing symptoms and dehydration. CAT scan shows colitis and enteritis. She had colonoscopy in [address] Monroy. This showed diverticulosis and several polyps (adenoma, serrated
adenoma).
Past Medical History
Past Medical History: HTN, Hypercholesterolemia, Hypothyroidism and Other (Metastatic non-small cell lung CA, Breast CA, Renal CA)
Past Surgical History: Other (RUL lobectomy, lumpectomy, hysterectomy)
Social History
Tobacco: Smoker
Alcohol: None
Family History
Family History: Reviewed & Not Pertinent
Allergies / Home Medications
Allergy/AdvReac Type Severity Reaction Status Date / Time
Iodinated Contrast Media Allergy Rash Verified 08/16/23 10:04
[IV Dye, Iodine Containing]
�Medication �Instructions �Recorded
amlodipine 5 mg tablet 5 mg PO HS Blood pressure 07/04/10
levothyroxine 100 mcg tablet 100 mcg PO DAILY Thyroid 07/04/10
Bifidobacterium infantis 4 mg 4 mg PO DAILY Supplement 02/19/22
capsule (Align)
aspirin 81 mg tablet,delayed 81 mg PO DAILY@1500 Blood clot 02/19/22
release prevention/tx
ibuprofen 200 mg tablet 400 mg PO BIDPRN PRN mild pain 02/19/22
lisinopril 20 0.5 tab PO HS Blood pressure 02/19/22
mg-hydrochlorothiazide 25 mg tablet
loperamide 2 mg capsule 2 - 4 mg PO DAILYPRN PRN diarrhea 08/16/23
potassium chloride 10 mEq 20 meq PO DAILY@1000 08/16/23
tablet,extended release
Review of Systems
-
All other systems: A 12 pt ROS was Negative except as stated above in HPI
Vital Signs
Temp Pulse Resp BP Pulse Ox
97.6 F 55 14 139/61 99
08/17/23 15:34 08/17/23 15:34 08/17/23 15:34 08/17/23 15:34 08/17/23 15:34
Physical Exam
Exam
General: No Apparent Distress
HEENT: Normocephalic and Atraumatic
Respiratory: Non Labored Respirations
GI: Soft, Non Tender and Non Distended
Skin: Warm and Dry
Neuro: Awake and Alert
Psych: Calm
Results
WBC 10.6 10^3/uL (4.8-10.8) 08/17/23 05:20
Hgb 9.2 g/dL (12.0-16.0) L 08/17/23 05:20
Hct 27.3 % (37.0-47.0) L 08/17/23 05:20
MCV 86.7 fL (81.0-99.0) 08/17/23 05:20
Plt Count 230 10^3/uL (130-400) 08/17/23 05:20
Absolute Neuts (auto) 10.4 10^3/uL (1.4-6.5) H 08/16/23 12:36
Sodium 130 mmol/L (135-145) L 08/17/23 05:20
Potassium 3.7 mmol/L (3.5-5.1) 08/17/23 05:20
Chloride 106 mmol/L (98-107) 08/17/23 05:20
Carbon Dioxide 18 mmol/L (22-30) L 08/17/23 05:20
BUN 25 mg/dl (7-17) H 08/17/23 05:20
Creatinine 0.9 mg/dL (0.6-1.0) 08/17/23 05:20
Calcium 8.7 mg/dl (8.4-10.2) 08/17/23 05:20
Total Bilirubin 0.6 mg/dl (0.2-1.3) 08/16/23 12:36
AST 16 U/L (14-36) 08/16/23 12:36
ALT < 10 U/L (0-35) 08/16/23 12:36
Alkaline Phosphatase 107 U/L (38-126) 08/16/23 12:36
Lipase 155 U/L (23-300) 08/16/23 12:36
Diagnostic Image Results:
Prior GI Procedures:
EGD:
Colonoscopy:
Assessment / Plan
-
Summary: 83yo female presents with loose stools over last 3 weeks. She is on Keytruday for metastatic lung CA and most recent dose August 08 was held due to loose stools. OP C diff 4/3 Ag positive, but toxin negative. Stool Cx negative. She denies
abd pain, rectal bleeding, wt loss, f/c, recent abx. CT shows colitis/enteritis. Colonoscopy 2020- diverticulosis, polyps. She was initially started on PO vanco, which was stopped by ID since her presentation was not consistent with acute C diff
(intermittent soft stooling rather than consistent scottie watery stool). CRP 41.9
08/16/23 CT AP- Mild thickening sigmoid, descending, transverse colon and multiple SB loops predominantly L abdomen.
Impression:
Loose stools x 3 weeks
C diff Ag positive, toxin negative 08/10
Metastatic lung CA on Keytruda, dose held 08/08
Recommendations:
I would agree that her symptoms are fairly mild and not entirely consistent with acute C diff
Monitor BMs on low residue diet
If having scottie diarrhea, check repeat stool C diff to see if she is indeed toxin positive.
If C diff negative, then may need to initiate steroids to treat possible immune checkpoint inhibitor colitis, though a little unusual 18 months into rx, and Oncology would like to continue Keytruda since she is responding well.
If symptoms remain fairly mild, can treat symptomatically, prn imodium, pepto bismol.
If diagnosis unclear, consider flex sig/bx
-
-
Thank you for consultation and allowing me to participate in the patient's care. Please call the teacher of family and consumer science GI physician during the after hours with any questions or concerns.
[2023-08-17] MEDS: ASPIR LOW (ENTERIC COATED) 81 MG PO (16:13)
[2023-08-17 16:44] LABS: Glucose - Point of Care 114 mg/dl (70-99)
[2023-08-17] MEDS: NOVOLOG FLEXPEN-LOW RESISTANCE SC (16:49)
[2023-08-17] MEDS: LOVENOX 40 MG SC (17:30)
[2023-08-17 20:08] VITALS: BP 135/60
[2023-08-17 21:48] LABS: Glucose - Point of Care 145 mg/dl (70-99)
[2023-08-17] MEDS: NORVASC 5 MG PO (22:17)
[2023-08-18] VITALS (7 sets, daily range): BP systolic 140–168; BP diastolic 51–89; BMI 23.5
[2023-08-18 05:22] LABS: Hemoglobin 8.7 g/dL (12.0-16.0); Mean Corp Hgb Conc. 32.2 g/dL (33.0-37.0); Mean Corpuscular Hgb 28.2 pg (27.0-31.0); Mean Corpuscular Volume 87.4 fL (81.0-99.0); Mean Platelet Volume 9.5 fL (7.4-10.4); Platelet Count 242 10^3/uL (130-400); Red Blood Cell Count 3.09 10^6/uL (4.20-5.40); Red Cell Dist. Width 15.7 % (11.5-14.5); White Blood Cell Count 14.8 10^3/uL (4.8-10.8)
[2023-08-18 05:45] LABS: Blood Urea Nitrogen 26 mg/dl (7-17); Calcium 9.1 mg/dl (8.4-10.2); Carbon Dioxide 22 mmol/L (22-30); Chloride 109 mmol/L (98-107); Estimated Creatinine Clearance 37 ml/min; Glucose 88 mg/dl (70-99); Magnesium 1.8 mg/dl (1.6-2.3); Phosphorus 2.4 mg/dl (2.5-4.5); Potassium 4.1 mmol/L (3.5-5.1); Sodium 133 mmol/L (135-145); eGFR > 60.00
[2023-08-18] MEDS: SYNTHROID 100 MCG PO (06:08)
[2023-08-18] MEDS: TYLENOL 650 MG PO ×2 (06:29→21:23)
--- NOTE | 2023-08-18 07:28 | W.PN.HOSP.TC ---
Today's Communication/Plan
-
npo after midnight flex sigmoidoscopy
ok to discontinue routine FS and sliding scale
monitor H&H
follow up Iron TIBC B12
Assessment / Plan
Assessment / Plan
Physical Exam
General: Comfortable and Conversant
HEENT: Anicteric and Moist mucous membranes
Respiratory: Clear and Non Labored Respirations
Cardiac: S1/S2, Regular Rhythm and Bradycardia
GI: Soft, Non Tender, Non Distended, Bowel Sounds present
Musculoskeletal: No Clubbing, Cyanosis Bilateral fingers (chronic per patient), No Edema
Skin: Warm and Dry
Neuro: Awake, Alert, Oriented and Nonfocal/grossly intact
Psych: Calm
83F metastatic lung cancer, breast cancer, hypertension, and hypothyroidism who presents with diarrhea several weeks. reportedly watery non-bloody. Pt also reports generalized weakness fatigue poor appetite. She denies fevers, sweats, chills,
abdominal pain. Receiving Keytruda every 3 weeks. Denied recent travel or recent antibiotics.
Enteritis/Colitis unclear etiology
-CT appreciated signs suggestive infectious vs inflammatory enterocolitis, stable cystic lesion RLQ likely mucocele, multiple nodular opacities each lung base unchange from PET/CT 03/26/23, calcification ectasia abd aorta 2.8 cm
-Stool cultures C diff antigen positive, but toxin negative
-ID eval appreciated monitoring off abx
-Oncology eval appreciated possible side effect Keytruda, considering steroid tx immune mediated colitis
-GI eval appreciated prn imodium, npo after midnight for flex sig/bx 08/18
Hypoglycemia
Mild hyperglycemia
-A1c 5.6 non-diabetic
-Encourage oral intake
-Monitor sugars
-sugars relatively well controlled at this time
-ok to discontinue routine FS, sliding scale Insulin discontinued
Hypomagnesemia
-repleted
-resolved
mild hypophosphatemia
-monitor and replete as necessary
-neutrophos PO ordered for 1 day
Metastatic Non-Small Cell Lung CA
-Patient on Keytruda as outpatient
Mild Anemia
check Iron studies, B12
monitor H&H
Essential Hypertension
-Continue lisinopril and amlodipine with hold parameters
-Hold HCTZ
Hypothyroidism
-TSH wnl
-Continue levothyroxine
DVT Proph: Lovenox
PT/OT appreciated SNF rehab
Code Status: Full Code
I spent a total of 58 minutes with the patient or on the floor. More than 50% of this time involved counseling and coordination of care.
Anticipated Discharge: 24 - 48 hours
Subjective/Interval History
-
Date of Service: August 18, 2023
No acute distress resting comfortably in bed. Reports diarrhea resolved.
Objective Data
-
Labs:
Laboratory Results
08/18/23
04:45
WBC 14.8 H
Hgb 8.7 L
Hct 27.0 L
Plt Count 242
Sodium 133 L
Potassium 4.1
Chloride 109 H
Carbon Dioxide 22
BUN 26 H
Creatinine 0.9
Glucose 88
Calcium 9.1
Vital Signs:
Vital Signs
Temp Pulse Resp BP Pulse Ox
98.3 F 54 16 143/51 97
08/18/23 03:48 08/18/23 03:48 08/18/23 03:48 08/18/23 03:48 08/18/23 03:48
I&O
08/17/23 08/18/23 08/19/23
06:59 06:59 06:59
Intake Total 2099 600 / 600
Balance 2099 600 / 600
[2023-08-18 07:43] LABS: Glucose - Point of Care 98 mg/dl (70-99)
--- NOTE | 2023-08-18 08:46 | W.PN.GI.CBS2 ---
Today's Communication / Plan
-
-- Collect stools for WBCs, flexible sigmoidoscopy tomorrow
Assessment / Plan
-
Summary: 83yo female presents with loose stools over last 3 weeks. She is on Keytruda for metastatic lung CA and most recent dose August 08 was held due to loose stools. OP C diff 08/10 Ag positive, but toxin negative. Stool Cx negative. She denies
abd pain, rectal bleeding, wt loss, f/c, recent abx. CT shows colitis/enteritis. Colonoscopy 2020- diverticulosis, polyps. She was initially started on PO vanco, which was stopped by ID since her presentation was not consistent with acute C diff
(intermittent soft stooling rather than consistent scottie watery stool). CRP 41.9
08/16/23 CT AP- Mild thickening sigmoid, descending, transverse colon and multiple SB loops predominantly L abdomen.
Impression:
Loose stools x 3 weeks
C diff Ag positive, toxin negative 08/10
Metastatic lung CA on Keytruda, dose held 08/08
Recommendations:
I would agree that her symptoms are fairly mild and not entirely consistent with acute C diff
Monitor BMs on low residue diet
If having scottie diarrhea, check repeat stool C diff to see if she is indeed toxin positive.
If C diff negative, then may need to initiate steroids to treat possible immune checkpoint inhibitor colitis, though a little unusual 18 months into rx, and Oncology would like to continue Keytruda since she is responding well.
If symptoms remain fairly mild, can treat symptomatically, prn imodium, pepto bismol.
If diagnosis unclear, consider flex sig/bx
08/18/23 -agree with Dr. Najera, I doubt this is checkpoint inhibitor colitis based on the timing. She would have grade 1 symptoms which she could continue the Keytruda. Since her diagnosis is in question and this led to her hospitalization we will
perform a flexible sigmoidoscopy tomorrow to help with diagnosis. N.p.o. after midnight, 2 enemas in the morning. Check stools for WBCs.
-Discussed with Dr. Moreno who was in the room
Subjective
Subjective
Date of Service: August 18, 2023
Not having diarrhea but more bloody like stools but multiple which is out of her ordinary. Is always been constipated in the past. Some mild bloating but no significant abdominal pain. No bleeding.
Objective
Data Reviewed
Laboratory Data:
Laboratory Results
08/18/23 04:45
08/18/23 04:45
Laboratory Results
Phosphorus 2.4 mg/dl (2.5-4.5) L 08/18/23 04:45
Magnesium 1.8 mg/dl (1.6-2.3) 08/18/23 04:45
Total Bilirubin 0.6 mg/dl (0.2-1.3) 08/16/23 12:36
AST 16 U/L (14-36) 08/16/23 12:36
ALT < 10 U/L (0-35) 08/16/23 12:36
Alkaline Phosphatase 107 U/L (38-126) 08/16/23 12:36
Lipase 155 U/L (23-300) 08/16/23 12:36
Vital Signs and I&O:
Vital Signs
Temp Pulse Resp BP Pulse Ox
98.3 F 54 16 143/51 97
08/18/23 03:48 08/18/23 03:48 08/18/23 03:48 08/18/23 03:48 08/18/23 03:48
I&O
08/17/23 08/18/23 08/19/23
06:59 06:59 06:59
Intake Total 2099 600 / 600
Balance 2099 600 / 600
Physical Exam
Physical Exam
HEENT: Anicteric
Cardiology: Normal Sinus Rhythm
Pulmonary: Wheezes
GI: Soft
Extremities: No Edema
Neuro: Non Focal
--- NOTE | 2023-08-18 09:13 | W.PN.ONC2 ---
Today's Communication / Plan
-
Flex sig 08/18
Impression
Impression
Non small cell lung cancer (Keytruda)
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
Infectious or inflammatory enterocolitis seen on imaging
C. diff antigen+, toxin -
Anemia (baseline Hgb 12-13)
Current smoker 1/2 ppd
Leukocytosis (improved)
Neutrophilia
Muscle weakness
Plan
Plan
Agree w Flex sig. Last Keytruda on 07/19/2023 (cycle # 20). Has received since 06/01/2022.
Suspect not immunotherapy related colitis but Flex sig w biopsy can help determine if I/O should be restarted or stopped particularly as she has received 75% (18 /24 mo) of her treatment.
Subjective/Objective
Chief Complaint
ACS Heme Onc
Subjective
just 1x stool. Soft and mushy. Seen with Dr. Bolanos. For Flex sig in 08/18
Vital Signs:
Vital Signs
Temp Pulse Resp BP Pulse Ox
97.5 F 46 16 161/56 98
08/18/23 08:00 08/18/23 08:00 08/18/23 08:00 08/18/23 08:00 08/18/23 08:00
Lab Results:
Laboratory Data
WBC 14.8 10^3/uL (4.8-10.8) H 08/18/23 04:45
Hgb 8.7 g/dL (12.0-16.0) L 08/18/23 04:45
Plt Count 242 10^3/uL (130-400) 08/18/23 04:45
eGFR > 60.00 08/18/23 04:45
Physical Exam
HEENT: No Jaundice
Cardiology: S1 and S2
Pulmonary: Clear
Extremities: No C/C/E
[2023-08-18] MEDS: NOVOLOG FLEXPEN-LOW RESISTANCE SC ×2 (09:17→13:12)
[2023-08-18] MEDS: VISBIOME 1 CAP PO (09:28)
[2023-08-18] MEDS: ZESTRIL 10 MG PO (09:28)
[2023-08-18] MEDS: KCL 20 MEQ PO (09:37)
--- NOTE | 2023-08-18 11:54 | W.PN.ID1 ---
Date of Service
Date of Service: August 18, 2023
Today's Communication
Observe off abx.
Assessment / Plan
Generalized weakness
Loose stool / reported 'darrhea'
Leukocytosis.
Metastatic NSCLC; on Keytruda
Hx breast CA
HTN
Hypothyroidism
Dyslipidemia
Renal CA s/p ablation
Recommendations:
Currently, clinical symptomatology is not entirely consistent with active C. difficile infection, as one would expect more consistent diarrhea and scottie watery stool rather than intermittent, soft stooling. Patient reports no stool since yesterday.
Testing is consistent with the presence of the C. difficile, but without toxin formation.
Suspect bowel inflammation may be secondary to another etiology, possibly Keytruda.
Observe off abx.
Monitor white count and temperature curve.
Monitor stool output and consistency.
Await flex sig.
Chief Complaint
-: Other (Diarrhea)
Subjective / Review of Systems
Seen / examined. No abdominal pain. No stooling since yesterday.
Review of Systems: No Fever, No Chills and No Abdominal Pain
Vital Signs / Physical Exam
Vital Signs
Vital Signs
Temp Pulse Resp BP Pulse Ox
97.5 F 46 16 161/56 98
08/18/23 08:00 08/18/23 08:00 08/18/23 08:00 08/18/23 08:00 08/18/23 08:00
Physical Exam
Constitutional: No Acute Distress, Comfortable, Chronically Ill and Non-toxic
Cardiovascular: S1/S2; Negative S3/S4
Pulmonary: Non Labored
Gastrointestinal: Soft, Non Tender, Non Distended, Normal Bowel Sounds, No Rebound and No Guarding
Neurological: Awake and Alert
Psychological: Calm
Objective Data
Lab Data
Lab Results
08/18/23 04:45
ESR Cancelled 04/09/24 10:11
Estimated Creat Clear 37 ml/min 08/18/23 04:45
Lactic Acid Cancelled 08/16/23 14:45
Total Bilirubin 0.6 mg/dl (0.2-1.3) 08/16/23 12:36
AST 16 U/L (14-36) 08/16/23 12:36
ALT < 10 U/L (0-35) 08/16/23 12:36
Alkaline Phosphatase 107 U/L (38-126) 08/16/23 12:36
C-Reactive Protein 41.90 mg/L (0.0-10.00) H 08/17/23 05:20
Most recent labs reviewed.
Micro Results:
08/17/23 03:20 - Final
Feces/Stool Negative for Norovirus GI and GII.
Imaging:
08/16/2023 CT abdomen/pelvis with IV and oral contrast: Bowel wall thickening involving both large and small intestines is most consistent with infectious or inflammatory enterocolitis. No evidence of intestinal obstruction. No extraluminal air or
intra-abdominal abscess formation. Multiple nodular opacities at each lung base are noted. These are grossly unchanged when compared to a prior PET/CT dated 03/26/2023.
[2023-08-18 12:01] LABS: Glucose - Point of Care 114 mg/dl (70-99)
[2023-08-18] MEDS: NEUTRA-PHOS POWDER PACKET 250 MG PO ×3 (13:16→21:24)
[2023-08-18 14:00] LABS: Hematocrit 29.7 % (37.0-47.0); Hemoglobin 9.7 g/dL (12.0-16.0)
--- NOTE | 2023-08-18 15:16 | CM ---
Addendum entered by Yadira Garvey 08/18/23 16:25:
Patient is on Keytruda q 3 weeks, patient with questions if this could be completed in a skilled facility, she receives the medication at [facility] and has already missed 2 appointments. She will discuss with her Oncologist as she does not wish to
miss doses.
Will f/u with patient in am.
Original Note:
Patient seen bedside.
PT/OT recommending skilled rehab.
Options list reviewed with patient. she wants to discuss with family.
patient for a procedure tomorrow, will touch base with patient in am.
Plan: possible skilled rehab vs home with [facility].
[2023-08-18] MEDS: ASPIR LOW (ENTERIC COATED) 81 MG PO (15:27)
[2023-08-18 17:03] LABS: Glucose - Point of Care 150 mg/dl (70-99)
[2023-08-18] MEDS: NOVOLOG FLEXPEN-LOW RESISTANCE 1 UNITS SC (19:10)
[2023-08-18] MEDS: LOVENOX 40 MG SC (19:11)
[2023-08-18 21:17] LABS: Glucose - Point of Care 122 mg/dl (70-99)
[2023-08-18] MEDS: NORVASC 5 MG PO (21:24)
[2023-08-19] VITALS (10 sets, daily range): BP systolic 16–168; BP diastolic 45–70; PULSE 61; BMI 23.5
[2023-08-19 05:02] LABS: Hematocrit 27.3 % (37.0-47.0); Mean Corpuscular Hgb 28.4 pg (27.0-31.0); Mean Corpuscular Volume 86.1 fL (81.0-99.0); Mean Platelet Volume 9.5 fL (7.4-10.4); Platelet Count 221 10^3/uL (130-400); Red Blood Cell Count 3.17 10^6/uL (4.20-5.40); Red Cell Dist. Width 15.7 % (11.5-14.5); White Blood Cell Count 11.7 10^3/uL (4.8-10.8)
[2023-08-19] MEDS: SYNTHROID 100 MCG PO (05:11)
[2023-08-19 05:33] LABS: Blood Urea Nitrogen 22 mg/dl (7-17); Calcium 8.9 mg/dl (8.4-10.2); Carbon Dioxide 23 mmol/L (22-30); Chloride 105 mmol/L (98-107); Estimated Creatinine Clearance 47 ml/min; Glucose 75 mg/dl (70-99); Iron 44 ug/dl (37-170); Magnesium 1.5 mg/dl (1.6-2.3); Phosphorus 2.5 mg/dl (2.5-4.5); Potassium 4.1 mmol/L (3.5-5.1); Sodium 132 mmol/L (135-145); eGFR > 60.00
[2023-08-19 05:42] LABS: Percent Saturation 21 % (20-50); Total Iron Binding Capacity 208 ug/dl (265-497)
[2023-08-19 06:16] LABS: Vitamin B12 558 pg/ml (239-931)
[2023-08-19 08:22] LABS: Glucose - Point of Care 79 mg/dl (70-99)
[2023-08-19] MEDS: ZESTRIL 10 MG PO (08:53)
[2023-08-19] MEDS: VISBIOME 1 CAP PO (08:53)
[2023-08-19] MEDS: KCL 20 MEQ PO (09:06)
--- NOTE | 2023-08-19 09:48 | W.PN.HOSP.TC ---
Today's Communication/Plan
-
await further recs from GI/ID/Onc
Assessment / Plan
Assessment / Plan
83F metastatic lung cancer, breast cancer, hypertension, and hypothyroidism who presents with diarrhea several weeks. reportedly watery non-bloody. Pt also reports generalized weakness fatigue poor appetite. She denies fevers, sweats, chills,
abdominal pain. Receiving Keytruda every 3 weeks. Denied recent travel or recent antibiotics.
Enteritis/Colitis unclear etiology
- CT appreciated signs suggestive infectious vs inflammatory enterocolitis, stable cystic lesion RLQ likely mucocele, multiple nodular opacities each lung base unchanged from PET/CT 03/26/23, calcification ectasia abd aorta 2.8 cm
- Stool cultures C diff antigen positive, but toxin negative
- off Abx per ID
- GI/Onc/ID following
- stool studies so far negative
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 Biopsies pending.
Hypoglycemia
Mild hyperglycemia
- A1c 5.6 non-diabetic
- Encourage oral intake
- Monitor sugars
- sugars relatively well controlled at this time
Hypomagnesemia
- add daily Mag
mild hypophosphatemia
- monitor and replete as necessary
- neutrophos PO ordered for 1 day
Metastatic Non-Small Cell Lung CA
- Patient on Keytruda as outpatient for nearly 18 months
- Onc following
Acute anemia, suspected malignancy related
- iron, B12 ok
- follow H/H
Essential Hypertension
- Continue lisinopril and amlodipine with hold parameters
- Hold HCTZ
Hypothyroidism
- TSH normal
- continue levothyroxine
DVT Proph: Lovenox
Code Status: Full Code
Anticipated Discharge: 24 - 48 hours
Subjective/Interval History
-
Date of Service: August 19, 2023
doing well, for flex sig today
Objective Data
-
Labs:
Laboratory Results
08/19/23 08/19/23
04:36 04:37
WBC 11.7 H
Hgb 9.0 L
Hct 27.3 L
Plt Count 221
Sodium 132 L
Potassium 4.1
Chloride 105
Carbon Dioxide 23
BUN 22 H
Creatinine 0.7
Glucose 75
Calcium 8.9
Vital Signs:
Vital Signs
Temp Pulse Resp BP Pulse Ox
98.4 F 50 16 146/63 97
08/19/23 07:30 08/19/23 07:30 08/19/23 07:30 08/19/23 07:30 08/19/23 07:30
I&O
08/18/23 08/19/23 08/20/23
06:59 06:59 06:59
Intake Total 600 / 600 480 / 480
Balance 600 / 600 480 / 480
Physical Exam
-
General: No Apparent Distress
HEENT: Normocephalic and Atraumatic
Respiratory: Negative Wheezes or Rales
Cardiac: Regular Rhythm and S1/S2
GI: Soft and Nontender
Musculoskeletal: No Edema
Neuro: AO x 3
Hematologic / Lymphatic: No Lymphadenopathy
Psych: Calm
Data Reviewed
-
Total Time Spent with Patient (in minutes): 42
Labs: Labs Reviewed by me
--- NOTE | 2023-08-19 11:15 | W.PN.ONC ---
Today's Communication / Plan
-
Would favor treatment of C. difficile despite lack of toxin
Patient has had has had significant efficacy from pembrolizumab battling an otherwise fatal disease
Suspect there may be some synergies between infection and PD-L1 colonic inflammation
Appreciate that the colitis appeared mild on direct visualization
Continue symptomatic management
Replete sodium
Monitor chemistries and CBC
Impression
Impression
Non small cell lung cancer (Keytruda)
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
Infectious or inflammatory enterocolitis seen on imaging
C. diff antigen+, toxin -
Anemia (baseline Hgb 12-13)
Current smoker 1/2 ppd
Leukocytosis (improved)
Neutrophilia
Muscle weakness
Plan
Plan
Agree w Flex sig. Last Keytruda on 07/19/2023 (cycle # 20). Has received since 06/01/2022.
Suspect not immunotherapy related colitis but Flex sig w biopsy can help determine if I/O should be restarted or stopped particularly as she has received 75% (18 /24 mo) of her treatment.
Subjective/Objective
Subjective/Objective
No cramping pain still having watery stool. Results of sigmoidoscopy appreciated
Vital Signs:
Vital Signs
Temp Pulse Resp BP Pulse Ox
97.6 F 48 23 139/49 95
08/19/23 10:47 08/19/23 11:00 08/19/23 11:00 08/19/23 11:00 08/19/23 11:02
Physical exam unchanged
Lab Results:
Laboratory Data
WBC 11.7 10^3/uL (4.8-10.8) H 08/19/23 04:37
Hgb 9.0 g/dL (12.0-16.0) L 08/19/23 04:37
Plt Count 221 10^3/uL (130-400) 08/19/23 04:37
eGFR > 60.00 08/19/23 04:36
[2023-08-19] MEDS: NEUTRA-PHOS POWDER PACKET 250 MG PO (11:44)
[2023-08-19] MEDS: MAGNESIUM OXIDE 500 MG PO (11:49)
[2023-08-19 12:10] LABS: Glucose - Point of Care 45 mg/dl (70-99)
[2023-08-19 12:38] LABS: Glucose - Point of Care 55 mg/dl (70-99)
[2023-08-19 12:57] LABS: Glucose - Point of Care 53 mg/dl (70-99)
[2023-08-19 13:32] LABS: Glucose - Point of Care 71 mg/dl (70-99)
[2023-08-19 15:53] LABS: Glucose - Point of Care 102 mg/dl (70-99)
--- NOTE | 2023-08-19 16:36 | W.PN.ID1 ---
Date of Service
Date of Service: August 19, 2023
Today's Communication
Begin 14-day course of enteral vancomycin.
Assessment / Plan
Generalized weakness
Loose stool / reported 'darrhea'
Leukocytosis.
Metastatic NSCLC; on Keytruda
Hx breast CA
HTN
Hypothyroidism
Dyslipidemia
Renal CA s/p ablation
Recommendations:
Currently, clinical symptomatology is not entirely consistent with active C. difficile infection, as one would expect more consistent diarrhea and scottie watery stool rather than intermittent, soft stooling.
Testing is consistent with the presence of the C. difficile organism, but without toxin formation.
Flex sig showed no ulcerations, and only scattered erythema.
Discussed with [facility].
Given immunosuppression, and the low risk of oral vancomycin with potential benefit, will initiate a 14-day course.
Monitor white count and temperature curve.
Monitor stool output and consistency.
����������������������������������������������������������
Chief Complaint
-: Other (Diarrhea)
Subjective / Review of Systems
Review of Systems: No Fever, No Chills, Abdominal Pain (mild) and No Diarrhea
Vital Signs / Physical Exam
Vital Signs
Vital Signs
Temp Pulse Resp BP Pulse Ox
97.4 F 51 16 164/64 96
08/19/23 11:30 08/19/23 11:30 08/19/23 11:30 08/19/23 11:30 08/19/23 11:30
Physical Exam
Constitutional: No Acute Distress, Comfortable, Chronically Ill and Non-toxic
Eyes: Sclera Anicteric
Cardiovascular: S1/S2; Negative S3/S4
Pulmonary: Clear and Non Labored
Gastrointestinal: Soft, Non Distended, Normal Bowel Sounds, No Rebound and No Guarding
Neurological: Awake and Alert
Psychological: Calm
Objective Data
Lab Data
Lab Results
08/19/23 04:37
08/19/23 04:36
ESR Cancelled 08/17/23 10:11
Estimated Creat Clear 47 ml/min 08/19/23 04:36
Lactic Acid Cancelled 08/16/23 14:45
Total Bilirubin 0.6 mg/dl (0.2-1.3) 08/16/23 12:36
AST 16 U/L (14-36) 08/16/23 12:36
ALT < 10 U/L (0-35) 08/16/23 12:36
Alkaline Phosphatase 107 U/L (38-126) 08/16/23 12:36
C-Reactive Protein 41.90 mg/L (0.0-10.00) H 08/17/23 05:20
Most recent labs reviewed.
Micro Results:
08/19/23 09:44 Stool Leukocytes - Final
Feces/Stool
08/17/23 03:20 - Final
Feces/Stool Negative for Norovirus GI and GII.
Imaging:
08/16/2023 CT abdomen/pelvis with IV and oral contrast: Bowel wall thickening involving both large and small intestines is most consistent with infectious or inflammatory enterocolitis. No evidence of intestinal obstruction. No extraluminal air or
intra-abdominal abscess formation. Multiple nodular opacities at each lung base are noted. These are grossly unchanged when compared to a prior PET/CT dated 03/26/2023.
[2023-08-19] MEDS: LOVENOX 40 MG SC (18:32)
[2023-08-19] MEDS: ASPIR LOW (ENTERIC COATED) 81 MG PO (18:32)
[2023-08-19] MEDS: FIRVANQ 125 MG PO ×2 (18:35→22:53)
[2023-08-19 18:49] LABS: Glucose - Point of Care 64 mg/dl (70-99)
[2023-08-19 19:09] LABS: Glucose - Point of Care 108 mg/dl (70-99)
[2023-08-19 21:01] LABS: Glucose - Point of Care 140 mg/dl (70-99)
[2023-08-19] MEDS: NORVASC 5 MG PO (22:53)
[2023-08-19 22:57] LABS: Glucose - Point of Care 136 mg/dl (70-99)
[2023-08-20] VITALS (7 sets, daily range): BP systolic 119–162; BP diastolic 59–66; PULSE 83; BMI 23.3
[2023-08-20 03:43] LABS: Glucose - Point of Care 109 mg/dl (70-99)
[2023-08-20 05:08] LABS: Mean Corp Hgb Conc. 33.3 g/dL (33.0-37.0); Mean Corpuscular Hgb 28.7 pg (27.0-31.0); Mean Platelet Volume 9.6 fL (7.4-10.4); Platelet Count 224 10^3/uL (130-400); Red Blood Cell Count 3.14 10^6/uL (4.20-5.40); Red Cell Dist. Width 15.5 % (11.5-14.5); White Blood Cell Count 14.3 10^3/uL (4.8-10.8)
[2023-08-20 05:38] LABS: Blood Urea Nitrogen 19 mg/dl (7-17); Calcium 8.4 mg/dl (8.4-10.2); Carbon Dioxide 25 mmol/L (22-30); Chloride 99 mmol/L (98-107); Estimated Creatinine Clearance 47 ml/min; Glucose 86 mg/dl (70-99); Magnesium 1.2 mg/dl (1.6-2.3); Phosphorus 2.6 mg/dl (2.5-4.5); Potassium 3.8 mmol/L (3.5-5.1); Sodium 129 mmol/L (135-145); eGFR > 60.00
[2023-08-20] MEDS: SYNTHROID 100 MCG PO (06:04)
[2023-08-20] MEDS: FIRVANQ 125 MG PO ×4 (06:04→23:14)
[2023-08-20 07:58] LABS: Glucose - Point of Care 88 mg/dl (70-99)
[2023-08-20] MEDS: MAGNESIUM OXIDE 500 MG PO (08:48)
[2023-08-20] MEDS: MAGNESIUM SULFATE 108 GRAMS IV (08:48)
[2023-08-20] MEDS: VISBIOME 1 CAP PO (08:48)
[2023-08-20] MEDS: KCL 20 MEQ PO (08:48)
[2023-08-20] MEDS: ZESTRIL 10 MG PO (08:48)
--- NOTE | 2023-08-20 09:52 | W.PN.HOSP.TC ---
Today's Communication/Plan
-
continue C. Diff treatment with PO vanco; monitor stools/output
Mag repletion
repeat Labs in AM
Assessment / Plan
Assessment / Plan
Assessment:
Enteritis/Colitis
- CT appreciated signs suggestive infectious vs inflammatory enterocolitis, stable cystic lesion RLQ likely mucocele, multiple nodular opacities each lung base unchanged from PET/CT 03/26/23, calcification ectasia abd aorta 2.8 cm
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 Biopsies pending.
- Stool cultures C diff antigen positive, but toxin negative
- d/w GI/ID/Onc - will empirically treat with PO Vanco and assess for response. Continue contact precautions.
Hypoglycemia
Mild hyperglycemia
- A1c 5.6 non-diabetic
- Encourage oral intake
- Monitor sugars
Hypomagnesemia
- continue PO Mag
- IV 4gm Mag x 1
mild hypophosphatemia
- repleted, now resolved
Metastatic Non-Small Cell Lung CA
- Patient on Keytruda as outpatient for nearly 18 months
- resume outpatient per Oncology schedule
Acute anemia, suspected malignancy related
- iron, B12 ok
- follow H/H
Essential Hypertension
- Continue lisinopril and amlodipine with hold parameters
- Hold HCTZ
Hypothyroidism
- TSH normal
- continue levothyroxine
Hyponatremia, hypovolemic in setting of diarrhea
- encourage oral intake, hydration
DVT ppx: Lovenox
Code Status: Full Code
Anticipated Discharge: 24 - 48 hours
Subjective/Interval History
-
Date of Service: August 20, 2023
on commode with diarrhea, multiple movements last evening
denies any pain
no fever/chills
Objective Data
-
Labs:
Laboratory Results
08/20/23
04:33
WBC 14.3 H
Hgb 9.0 L
Hct 27.0 L
Plt Count 224
Sodium 129 L
Potassium 3.8
Chloride 99
Carbon Dioxide 25
BUN 19 H
Creatinine 0.7
Glucose 86
Calcium 8.4
Vital Signs:
Vital Signs
Temp Pulse Resp BP Pulse Ox
98.2 F 59 14 146/59 96
08/20/23 07:00 08/20/23 07:00 08/20/23 07:00 08/20/23 07:00 08/20/23 07:00
I&O
08/19/23 08/20/23 08/21/23
06:59 06:59 06:59
Intake Total 480 / 480 900 / 900
Balance 480 / 480 900 / 900
Physical Exam
-
General: No Apparent Distress
HEENT: Normocephalic and Atraumatic
Respiratory: Negative Wheezes or Rales
Cardiac: Regular Rhythm and S1/S2
GI: Soft and Nontender
Musculoskeletal: No Edema
Neuro: AO x 3
Hematologic / Lymphatic: No Lymphadenopathy
Psych: Calm
Data Reviewed
-
Total Time Spent with Patient (in minutes): 42
Labs: Labs Reviewed by me
--- NOTE | 2023-08-20 09:56 | W.PN.GI.CBS2 ---
Addendum entered and electronically signed by Sera Vera Do, MD 08/20/23 13:49:
I saw and examined the patient.
The TRANSPORTATION ECONOMICS TEACHER's note was reviewed and I agree with the note.
Comment: Only had 2 'pudding' like stools entire admission. Denies abd pain. Tolerating diet. Vitals stable, exam NTTP port in R chest
Impression
- Diarrhea
Ddx Cdiff +/- immunotherapy colitis.
Recommendations
- Await bx from flex sigm
- Tolerating diet
- C/w oral vanco per ID
At this juncture no new GI recs, will sign off. Dr Bolanos will call her with results of bx next week. Please call for questions.
Original Note:
Today's Communication / Plan
-
s/p flex as noted less likely checkpoint inhibitor colitis await bx
cont diet as tolerated
only 2 loose stools since admission and eating well
biggest complaint is fatigue
for mag replacement
encouraged ambulation
cont PO vanco, probiotics stopped
Assessment / Plan
-
Summary: 83yo female presents with loose stools over last 3 weeks. She is on Keytruda for metastatic lung CA and most recent dose August 08 was held due to loose stools. OP C diff 4/3 Ag positive, but toxin negative. Stool Cx negative. She denies
abd pain, rectal bleeding, wt loss, f/c, recent abx. CT shows colitis/enteritis. Colonoscopy 2020- diverticulosis, polyps. She was initially started on PO vanco, which was stopped by ID since her presentation was not consistent with acute C diff
(intermittent soft stooling rather than consistent scottie watery stool). CRP 41.9
08/16/23 CT AP- Mild thickening sigmoid, descending, transverse colon and multiple SB loops predominantly L abdomen.
08/19/23 flex sig Doubt check point inhibitor colits. No ulcerations seen, scattered erythema, poor prep, hemorrhoid, congested mucosa in colon, erythema in sigmoid bx pending
Impression:
Loose stools x 3 weeks s/p flex 08/18
C diff Ag positive, toxin negative 08/10
Metastatic lung CA on Keytruda, dose held 08/08
Recommendations:
s/p flex as noted less likely checkpoint inhibitor colitis await bx
cont diet as tolerated
only 2 loose stools since admission and eating well
biggest complaint is fatigue
for mag replacement
encouraged ambulation
cont PO vanco, probiotics stopped
Subjective
Subjective
Date of Service: August 20, 2023
some diarrhea this am but only 2 stools since admission, low lactose diet -- complaints of increased fatigue
Objective
Data Reviewed
Laboratory Data:
Laboratory Results
08/20/23 04:33
08/20/23 04:33
Laboratory Results
Phosphorus 2.6 mg/dl (2.5-4.5) 08/20/23 04:33
Magnesium 1.2 mg/dl (1.6-2.3) L 08/20/23 04:33
Total Bilirubin 0.6 mg/dl (0.2-1.3) 08/16/23 12:36
AST 16 U/L (14-36) 08/16/23 12:36
ALT < 10 U/L (0-35) 08/16/23 12:36
Alkaline Phosphatase 107 U/L (38-126) 08/16/23 12:36
Lipase 155 U/L (23-300) 08/16/23 12:36
Vital Signs and I&O:
Vital Signs
Temp Pulse Resp BP Pulse Ox
98.2 F 59 14 146/59 96
08/20/23 07:00 08/20/23 07:00 08/20/23 07:00 08/20/23 07:00 08/20/23 07:00
I&O
08/19/23 08/20/23 08/21/23
06:59 06:59 06:59
Intake Total 480 / 480 900 / 900
Balance 480 / 480 900 / 900
Physical Exam
Physical Exam
HEENT: Anicteric and Moist mucous membranes
Cardiology: Normal Sinus Rhythm
Pulmonary: Clear
GI: Soft, Non Distended and Non Tender
Extremities: No Edema
Neuro: Non Focal
[2023-08-20 11:41] LABS: Glucose - Point of Care 119 mg/dl (70-99)
[2023-08-20] MEDS: ASPIR LOW (ENTERIC COATED) 81 MG PO (14:10)
--- NOTE | 2023-08-20 15:22 | W.PN.ID1 ---
Date of Service
Date of Service: August 20, 2023
Today's Communication
Continue abx.
Assessment / Plan
Generalized weakness
Loose stool / darrhea
Leukocytosis.
C. diff testing : Ag (+) / Toxin (-)
Metastatic NSCLC; on Keytruda
Hx breast CA
HTN
Hypothyroidism
Dyslipidemia
Renal CA s/p ablation
Recommendations:
Testing is consistent with the presence of the C. difficile organism, but without toxin formation.
Flex sig showed no ulcerations, and only scattered erythema.
Given immunosuppression, and the low risk of oral vancomycin with potential benefit, continue with 14-day course.
Monitor white count and temperature curve.
Monitor stool output and consistency.
����������������������������������������������������������
Chief Complaint
-: Other (Diarrhea)
Subjective / Review of Systems
Review of Systems: No Fever, No Chills, No Abdominal Pain and No Diarrhea
Vital Signs / Physical Exam
Vital Signs
Vital Signs
Temp Pulse Resp BP Pulse Ox
98.2 F 56 16 143/64 95
08/20/23 11:00 08/20/23 11:00 08/20/23 11:00 08/20/23 11:00 08/20/23 11:00
Physical Exam
Constitutional: No Acute Distress, Cachetic and Other (frail)
Eyes: No Conjunctival Hemorrhage and Sclera Anicteric
Cardiovascular: S1/S2; Negative S3/S4
Pulmonary: Non Labored
Gastrointestinal: Soft, Non Distended, Normal Bowel Sounds, No Rebound and No Guarding
Neurological: Awake and Alert
Psychological: Calm
Objective Data
Lab Data
Lab Results
08/20/23 04:33
08/20/23 04:33
ESR Cancelled 08/17/23 10:11
Estimated Creat Clear 47 ml/min 08/20/23 04:33
Lactic Acid Cancelled 08/16/23 14:45
Total Bilirubin 0.6 mg/dl (0.2-1.3) 08/16/23 12:36
AST 16 U/L (14-36) 08/16/23 12:36
ALT < 10 U/L (0-35) 08/16/23 12:36
Alkaline Phosphatase 107 U/L (38-126) 08/16/23 12:36
C-Reactive Protein 41.90 mg/L (0.0-10.00) H 08/17/23 05:20
Most recent labs reviewed.
Micro Results:
08/19/23 09:44 Stool Leukocytes - Final
Feces/Stool
08/17/23 03:20 - Final
Feces/Stool Negative for Norovirus GI and GII.
Imaging:
08/16/2023 CT abdomen/pelvis with IV and oral contrast: Bowel wall thickening involving both large and small intestines is most consistent with infectious or inflammatory enterocolitis. No evidence of intestinal obstruction. No extraluminal air or
intra-abdominal abscess formation. Multiple nodular opacities at each lung base are noted. These are grossly unchanged when compared to a prior PET/CT dated 03/26/2023.
--- NOTE | 2023-08-20 15:26 | CM ---
Addendum entered by Dahlia Galvan 08/20/23 16:22:
referrals sent, [facility] is intrested pending patient being negative for CDIFF.
Original Note:
Patient is asking for referrals to local facilities for her to review which facility has an opening. CM will send referrals to SNF options.
[2023-08-20 16:55] LABS: Glucose - Point of Care 115 mg/dl (70-99)
[2023-08-20] MEDS: LOVENOX 40 MG SC (17:54)
[2023-08-20] MEDS: NORVASC 5 MG PO (21:00)
[2023-08-20 21:40] LABS: Glucose - Point of Care 102 mg/dl (70-99)
[2023-08-20] MEDS: MELATONIN 3 MG PO (21:48)
[2023-08-21 04:43] VITALS: BP 146/60
[2023-08-21 04:48] VITALS: BMI 23.3
[2023-08-21] MEDS: FIRVANQ 125 MG PO ×4 (05:58→23:10)
[2023-08-21] MEDS: SYNTHROID 100 MCG PO (05:58)
[2023-08-21 07:20] VITALS: BP 135/67
[2023-08-21] MEDS: ZESTRIL 10 MG PO (07:53)
[2023-08-21] MEDS: MAGNESIUM OXIDE 500 MG PO (07:53)
[2023-08-21 08:12] LABS: Glucose - Point of Care 81 mg/dl (70-99)
[2023-08-21 08:29] LABS: Hematocrit 29.5 % (37.0-47.0); Hemoglobin 10.1 g/dL (12.0-16.0); Mean Corp Hgb Conc. 34.2 g/dL (33.0-37.0); Mean Corpuscular Hgb 29.7 pg (27.0-31.0); Mean Corpuscular Volume 86.8 fL (81.0-99.0); Mean Platelet Volume 9.7 fL (7.4-10.4); Platelet Count 255 10^3/uL (130-400); Red Cell Dist. Width 15.4 % (11.5-14.5); White Blood Cell Count 16.7 10^3/uL (4.8-10.8)
[2023-08-21 08:55] LABS: Blood Urea Nitrogen 16 mg/dl (7-17); Calcium 9.4 mg/dl (8.4-10.2); Carbon Dioxide 26 mmol/L (22-30); Chloride 96 mmol/L (98-107); Estimated Creatinine Clearance 47 ml/min; Glucose 116 mg/dl (70-99); Magnesium 1.9 mg/dl (1.6-2.3); Phosphorus 2.5 mg/dl (2.5-4.5); Potassium 4.1 mmol/L (3.5-5.1); Sodium 129 mmol/L (135-145); eGFR > 60.00
[2023-08-21] MEDS: KCL 20 MEQ PO (09:10)
--- NOTE | 2023-08-21 11:02 | W.PN.HOSP.TC ---
Today's Communication/Plan
-
IVF x 1 bag
DC planning to SNF
Assessment / Plan
Assessment / Plan
Assessment:
Enteritis/Colitis
- CT appreciated signs suggestive infectious vs inflammatory enterocolitis, stable cystic lesion RLQ likely mucocele, multiple nodular opacities each lung base unchanged from PET/CT 03/26/23, calcification ectasia abd aorta 2.8 cm
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 Biopsies pending.
- Stool cultures C diff antigen positive, but toxin negative
- d/w GI/ID/Onc - will empirically treat with PO Vanco x 2 weeks and assess for response. Continue contact precautions.
Hypoglycemia
Mild hyperglycemia
- A1c 5.6 non-diabetic
- Encourage oral intake
- Monitor sugars
Hypomagnesemia
- s/p IV riders
- continue PO Mag
- todays level 1.9
mild hypophosphatemia
- repleted, now resolved
Metastatic Non-Small Cell Lung CA
- Patient on Keytruda as outpatient for nearly 18 months
- resume outpatient after C. Diff treatment and after SNF stay - this was discussed with Dr. Pretty Oncology.
Acute anemia, suspected malignancy related
- iron, B12 ok
- follow H/H
Essential Hypertension
- Continue lisinopril and amlodipine with hold parameters
- Hold HCTZ
Hypothyroidism
- TSH normal
- continue levothyroxine
Hyponatremia, hypovolemic in setting of diarrhea
- encourage oral intake, hydration
- IVF x 1 bag today
DVT ppx: Lovenox
Code Status: Full Code
Anticipated Discharge: 24 - 48 hours
Subjective/Interval History
-
Date of Service: August 21, 2023
diarrhea improving, reports stools are less watery
Objective Data
-
Labs:
Laboratory Results
08/21/23
08:04
WBC 16.7 H
Hgb 10.1 L
Hct 29.5 L
Plt Count 255
Sodium 129 L
Potassium 4.1
Chloride 96 L
Carbon Dioxide 26
BUN 16
Creatinine 0.7
Glucose 116 H
Calcium 9.4
Vital Signs:
Vital Signs
Temp Pulse Resp BP Pulse Ox
99.5 F 60 14 146/60 98
08/21/23 07:20 08/21/23 07:53 08/21/23 07:20 08/21/23 07:53 08/21/23 07:20
I&O
08/20/23 08/21/23 08/22/23
06:59 06:59 06:59
Intake Total 900 / 900 300 / 300
Balance 900 / 900 300 / 300
Physical Exam
-
General: No Apparent Distress
HEENT: Normocephalic and Atraumatic
Respiratory: Negative Wheezes or Rales
Cardiac: Regular Rhythm and S1/S2
GI: Soft
Genito-urinary: No Costovertebral Tender
Musculoskeletal: No Edema
Neuro: AO x 3
Hematologic / Lymphatic: No Lymphadenopathy
Psych: Calm
Data Reviewed
-
Total Time Spent with Patient (in minutes): 42
Labs: Labs Reviewed by me
[2023-08-21 11:10] VITALS: BP 147/67
[2023-08-21] MEDS: NSS 1000 IV (11:10)
[2023-08-21 12:30] LABS: Glucose - Point of Care 62 mg/dl (70-99)
[2023-08-21 12:48] LABS: Glucose - Point of Care 64 mg/dl (70-99)
[2023-08-21 13:04] LABS: Glucose - Point of Care 70 mg/dl (70-99)
--- NOTE | 2023-08-21 13:48 | W.PN.ID1 ---
Date of Service
Date of Service: August 21, 2023
Today's Communication
plan for oral vancomycin finalized
Assessment / Plan
Generalized weakness
Loose stool / darrhea
Leukocytosis.
C. diff testing : Ag (+) / Toxin (-)
Metastatic NSCLC; on Keytruda
Hx breast CA
HTN
Hypothyroidism
Dyslipidemia
Renal CA s/p ablation
Recommendations:
Testing is consistent with the presence of the C. difficile organism, but without toxin formation.
Flex sig showed no ulcerations, and only scattered erythema.
Given immunosuppression continue with 14-day course.
Monitor white count and temperature curve.
Monitor stool output and consistency.
����������������������������������������������������������
Chief Complaint
-: Other (Diarrhea)
Subjective / Review of Systems
afebrile
bp stable
mild increase in leukocytosis
cr stable
Vital Signs / Physical Exam
Vital Signs
Vital Signs
Temp Pulse Resp BP Pulse Ox
99.7 F 57 14 147/67 91
08/21/23 11:10 08/21/23 11:10 08/21/23 11:10 08/21/23 11:10 08/21/23 11:10
Physical Exam
Constitutional: No Acute Distress and Chronically Ill
Cardiovascular: Regular Rate
Pulmonary: Symmetric and Non Labored
Gastrointestinal: Non Distended
Neurological: Awake
Objective Data
Lab Data
Lab Results
08/21/23 08:04
08/21/23 08:04
ESR Cancelled 08/17/23 10:11
Estimated Creat Clear 47 ml/min 08/21/23 08:04
Lactic Acid Cancelled 08/16/23 14:45
Total Bilirubin 0.6 mg/dl (0.2-1.3) 08/16/23 12:36
AST 16 U/L (14-36) 08/16/23 12:36
ALT < 10 U/L (0-35) 08/16/23 12:36
Alkaline Phosphatase 107 U/L (38-126) 08/16/23 12:36
C-Reactive Protein 41.90 mg/L (0.0-10.00) H 08/17/23 05:20
Most recent labs reviewed.
Micro Results:
08/19/23 09:44 Stool Leukocytes - Final
Feces/Stool
08/17/23 03:20 - Final
Feces/Stool Negative for Norovirus GI and GII.
Imaging:
08/16/2023 CT abdomen/pelvis with IV and oral contrast: Bowel wall thickening involving both large and small intestines is most consistent with infectious or inflammatory enterocolitis. No evidence of intestinal obstruction. No extraluminal air or
intra-abdominal abscess formation. Multiple nodular opacities at each lung base are noted. These are grossly unchanged when compared to a prior PET/CT dated 03/26/2023.
[2023-08-21] MEDS: ASPIR LOW (ENTERIC COATED) 81 MG PO (14:22)
[2023-08-21 15:30] VITALS: BP 136/103
[2023-08-21] MEDS: LOVENOX 40 MG SC (16:47)
[2023-08-21 17:03] LABS: Glucose - Point of Care 48 mg/dl (70-99)
[2023-08-21 17:24] LABS: Glucose - Point of Care 70 mg/dl (70-99)
[2023-08-21 19:20] VITALS: BP 154/76
[2023-08-21 21:19] LABS: Glucose - Point of Care 174 mg/dl (70-99)
[2023-08-21] MEDS: NORVASC 5 MG PO (21:24)
[2023-08-21] MEDS: TYLENOL 650 MG PO (23:11)
[2023-08-21 23:22] VITALS: BP 163/57
[2023-08-22 03:15] VITALS: BP 147/59
[2023-08-22 05:40] LABS: Hematocrit 24.1 % (37.0-47.0); Hemoglobin 8.1 g/dL (12.0-16.0); Mean Corp Hgb Conc. 33.6 g/dL (33.0-37.0); Mean Corpuscular Hgb 28.9 pg (27.0-31.0); Mean Corpuscular Volume 86.1 fL (81.0-99.0); Mean Platelet Volume 9.8 fL (7.4-10.4); Platelet Count 214 10^3/uL (130-400); Red Cell Dist. Width 15.8 % (11.5-14.5); White Blood Cell Count 12.1 10^3/uL (4.8-10.8)
[2023-08-22 06:00] VITALS: BMI 23.7
[2023-08-22 06:01] LABS: Blood Urea Nitrogen 19 mg/dl (7-17); Calcium 8.9 mg/dl (8.4-10.2); Carbon Dioxide 25 mmol/L (22-30); Chloride 101 mmol/L (98-107); Estimated Creatinine Clearance 41 ml/min; Glucose 98 mg/dl (70-99); Potassium 4.4 mmol/L (3.5-5.1); Sodium 129 mmol/L (135-145); eGFR > 60.00
[2023-08-22] MEDS: FIRVANQ 125 MG PO ×4 (06:09→23:14)
[2023-08-22] MEDS: SYNTHROID 100 MCG PO (06:09)
[2023-08-22 07:15] LABS: Glucose - Point of Care 99 mg/dl (70-99)
[2023-08-22 07:25] VITALS: BP 161/65
[2023-08-22] MEDS: ZESTRIL 10 MG PO (07:36)
[2023-08-22] MEDS: MAGNESIUM OXIDE 500 MG PO (07:36)
[2023-08-22] MEDS: KCL 20 MEQ PO (10:31)
[2023-08-22] MEDS: TYLENOL 650 MG PO ×2 (10:34→21:11)
[2023-08-22 11:10] VITALS: BP 134/57
--- NOTE | 2023-08-22 11:42 | W.PN.HOSP.TC ---
Today's Communication/Plan
-
OFR and monitor Na
DC planning SNF
Assessment / Plan
Assessment / Plan
Assessment:
Enteritis/Colitis
- CT appreciated signs suggestive infectious vs inflammatory enterocolitis, stable cystic lesion RLQ likely mucocele, multiple nodular opacities each lung base unchanged from PET/CT 03/26/23, calcification ectasia abd aorta 2.8 cm
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 Biopsies pending.
- Stool cultures C diff antigen positive, but toxin negative
- d/w GI/ID/Onc - will empirically treat with PO Vanco x 2 weeks and assess for response. Continue contact precautions.
Hypoglycemia
Mild hyperglycemia
- A1c 5.6 non-diabetic
- Encourage oral intake
- Monitor sugars
Hypomagnesemia
- s/p IV riders
- continue PO Mag
- todays level 1.9
mild hypophosphatemia
- repleted, now resolved
Metastatic Non-Small Cell Lung CA
- Patient on Keytruda as outpatient for nearly 18 months
- resume outpatient after C. Diff treatment and after SNF stay - this was discussed with Dr. Pretty Oncology.
Acute anemia, suspected malignancy related
- iron, B12 ok
- follow H/H
Essential Hypertension
- Continue lisinopril and amlodipine with hold parameters
- Hold HCTZ
Hypothyroidism
- TSH normal
- continue levothyroxine
Hyponatremia, hypovolemic in setting of diarrhea
- s/p IVF
- oral fluid restriction added
DVT ppx: Lovenox
Code Status: Full Code
Anticipated Discharge: 24 - 48 hours
Subjective/Interval History
-
Date of Service: August 22, 2023
denies any new complaints
stools firming up she reports
Objective Data
-
Labs:
Laboratory Results
08/22/23
04:50
WBC 12.1 H
Hgb 8.1 L
Hct 24.1 L
Plt Count 214
Sodium 129 L
Potassium 4.4
Chloride 101
Carbon Dioxide 25
BUN 19 H
Creatinine 0.8
Glucose 98
Calcium 8.9
Vital Signs:
Vital Signs
Temp Pulse Resp BP Pulse Ox
98.1 F 57 16 134/57 97
08/22/23 11:10 08/22/23 11:10 08/22/23 11:10 08/22/23 11:10 08/22/23 11:10
I&O
08/21/23 08/22/23 08/23/23
06:59 06:59 06:59
Intake Total 300 / 300 1640 / 1640
Balance 300 / 300 1640 / 1640
Physical Exam
-
General: No Apparent Distress
HEENT: Normocephalic and Atraumatic
Respiratory: Negative Wheezes or Rales
Cardiac: Regular Rhythm and S1/S2
GI: Soft and Nontender
Musculoskeletal: No Edema
Neuro: AO x 3
Hematologic / Lymphatic: No Lymphadenopathy
Psych: Calm
Data Reviewed
-
Total Time Spent with Patient (in minutes): 41
Labs: Labs Reviewed by me
[2023-08-22 11:59] LABS: Glucose - Point of Care 109 mg/dl (70-99)
[2023-08-22] MEDS: ASPIR LOW (ENTERIC COATED) 81 MG PO (13:42)
--- NOTE | 2023-08-22 15:04 | CM ---
Patient with Dx Enteritis/Colitis. PT & OT recommend skilled rehab. Confirmed with nurse patient has no further diarrhea.
Per Dr Ribeiro notes: resume outpatient Keytruda after C. Diff treatment and after SNF stay.
Spoke with [facility]; they are able to accept the patient tomorrow. The for report [phone], fax [phone]. They are hoping patient can arrive at 11a-12noon - informed her that patient's sister will provide transport 12
noon time was suggested.
Met with patient and informed her that [facility] has accepted and can take her tomorrow- patient agrees to [facility] tomorrow. She is happiest about the location of [facility] over other SNFs. IMM completed.
Patient aware that she will not qualify for ambulance (ambulance form submitted to [facility] at patient's insistance, and they declined ambulance saying she would not qualify), she was given information provided by [facility] that w/c van would be
$120 and she would need to call with payment- she does not have her CC with her and does not want to ask her sister to pay (phone # to pay for w/c van- [phone], their first available time is 3:30pm). She called her sister for a ride by her
vehicle and sister agrees to transport- suggested noon transport time.
Plan [facility] tomorrow with sister transporting by noon.
[2023-08-22 16:22] VITALS: BP 155/83
[2023-08-22] MEDS: LOVENOX 40 MG SC (17:07)
[2023-08-22 19:00] VITALS: BP 147/64
[2023-08-22 21:09] LABS: Glucose - Point of Care 159 mg/dl (70-99)
[2023-08-22] MEDS: NORVASC 5 MG PO (21:10)
[2023-08-22 23:00] VITALS: BP 132/49
[2023-08-23 03:00] VITALS: BP 142/59
[2023-08-23 05:20] LABS: Hemoglobin 7.9 g/dL (12.0-16.0); Mean Corp Hgb Conc. 32.9 g/dL (33.0-37.0); Mean Corpuscular Hgb 28.8 pg (27.0-31.0); Mean Corpuscular Volume 87.6 fL (81.0-99.0); Mean Platelet Volume 9.6 fL (7.4-10.4); Platelet Count 222 10^3/uL (130-400); Red Blood Cell Count 2.74 10^6/uL (4.20-5.40); Red Cell Dist. Width 15.8 % (11.5-14.5); White Blood Cell Count 10.8 10^3/uL (4.8-10.8)
[2023-08-23 05:50] LABS: Blood Urea Nitrogen 20 mg/dl (7-17); Calcium 8.8 mg/dl (8.4-10.2); Carbon Dioxide 23 mmol/L (22-30); Chloride 107 mmol/L (98-107); Estimated Creatinine Clearance 47 ml/min; Glucose 79 mg/dl (70-99); Potassium 4.1 mmol/L (3.5-5.1); Sodium 131 mmol/L (135-145); eGFR > 60.00
[2023-08-23] MEDS: FIRVANQ 125 MG PO ×2 (06:11→11:22)
[2023-08-23] MEDS: SYNTHROID 100 MCG PO (06:11)
[2023-08-23 07:30] VITALS: BP 146/52
[2023-08-23 08:15] LABS: Glucose - Point of Care 166 mg/dl (70-99)
[2023-08-23] MEDS: ZESTRIL 10 MG PO (08:28)
[2023-08-23] MEDS: MAGNESIUM OXIDE 500 MG PO (08:28)
--- NOTE | 2023-08-23 09:13 | W.PN.ONC ---
Today's Communication / Plan
-
08/22 WBC 10.8, Hgb 7.9, Hct 24, PLT 222
Monitor CBC at SNF
Discharge to SNF ([facility])
Follow up with Dr. Altamirano is planned for 08/29 at 0800 in the [place] office for resumption of Keytruda. Office updated. Will coordinate follow up care via SNF.
Impression
Impression
Non small cell lung cancer (Keytruda)
Infectious or inflammatory enterocolitis seen on imaging
C. diff antigen+, toxin -
Anemia (baseline Hgb 12-13)
Current smoker 1/2 ppd
Weakness
Subjective/Objective
Subjective/Objective
patient is eager for discharge. she states she is feeling better as far as diarrhea and ambulating with a walker. she notes weakness.
Vital Signs:
Vital Signs
Temp Pulse Resp BP Pulse Ox
98.1 F 57 18 146/52 97
08/23/23 07:30 08/23/23 07:30 08/23/23 07:30 08/23/23 08:28 08/23/23 07:30
physical exam unchanged.
Lab Results:
Laboratory Data
WBC 10.8 10^3/uL (4.8-10.8) 08/23/23 04:49
Hgb 7.9 g/dL (12.0-16.0) L 08/23/23 04:49
Plt Count 222 10^3/uL (130-400) 08/23/23 04:49
eGFR > 60.00 08/23/23 04:49
[2023-08-23] MEDS: KCL 20 MEQ PO (09:55)
--- NOTE | 2023-08-23 11:11 | CM ---
Addendum entered by Yadira Garvey 08/23/23 11:30:
Updates and PASRR via [facility].
Original Note:
Patient seen bedside.
Patient for transfer to [facility] today.
Patients sister will transport.
Per patient, she is interested in [facility] skilled stay, Tess from [facility] updated.
[facility]
report# [phone]
fax# [phone].
[2023-08-23 11:15] VITALS: BP 131/80
--- NOTE | 2023-08-23 11:19 | W.PN.HOSP.TC ---
Today's Communication/Plan
-
dc to SNF
Assessment / Plan
Assessment / Plan
Assessment:
Enteritis/Colitis
- CT appreciated signs suggestive infectious vs inflammatory enterocolitis, stable cystic lesion RLQ likely mucocele, multiple nodular opacities each lung base unchanged from PET/CT 03/26/23, calcification ectasia abd aorta 2.8 cm
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 Biopsies pending.
- Stool cultures C diff antigen positive, but toxin negative
- d/w GI/ID/Onc - will empirically treat with PO Vanco x 5/14 days. continue contact precautions.
Hypoglycemia
Mild hyperglycemia
- A1c 5.6 non-diabetic
- Encourage oral intake
- Monitor sugars
Hypomagnesemia
- s/p IV riders
- continue PO Mag
mild hypophosphatemia
- repleted, now resolved
Metastatic Non-Small Cell Lung CA
- Patient on Keytruda as outpatient for nearly 18 months
- resume outpatient after C. Diff treatment and after SNF stay - this was discussed with Dr. Pretty Oncology.
Acute anemia, suspected malignancy related
- iron, B12 ok
- follow H/H
Essential Hypertension
- Continue lisinopril and amlodipine with hold parameters
- stop HCTZ
Hypothyroidism
- TSH normal
- continue levothyroxine
Hyponatremia, hypovolemic in setting of diarrhea
- s/p IVF
- oral fluid restriction; 1500 cc
DVT ppx: Lovenox
Code Status: Full Code
Anticipated Discharge: Today
Subjective/Interval History
-
Date of Service: August 23, 2023
denies any new complaints
for SNF today
Objective Data
-
Labs:
Laboratory Results
08/23/23
04:49
WBC 10.8
Hgb 7.9 L
Hct 24.0 L
Plt Count 222
Sodium 131 L
Potassium 4.1
Chloride 107
Carbon Dioxide 23
BUN 20 H
Creatinine 0.7
Glucose 79
Calcium 8.8
Vital Signs:
Vital Signs
Temp Pulse Resp BP Pulse Ox
98.1 F 57 18 146/52 97
08/23/23 07:30 08/23/23 07:30 08/23/23 07:30 08/23/23 08:28 08/23/23 07:30
I&O
08/22/23 08/23/23 08/24/23
06:59 06:59 06:59
Intake Total 1640 / 1640 1080 / 1080
Balance 1640 / 1640 1080 / 1080
Physical Exam
-
General: No Apparent Distress
HEENT: Normocephalic and Atraumatic
Respiratory: Negative Wheezes or Rales
Cardiac: Regular Rhythm and S1/S2
GI: Soft and Nontender
Musculoskeletal: No Edema
Neuro: AO x 3
Hematologic / Lymphatic: No Lymphadenopathy
Psych: Calm
Data Reviewed
-
Total Time Spent with Patient (in minutes): 42
Labs: Labs Reviewed by me
--- NOTE | 2023-08-23 11:25 | W.DS.TRANS ---
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
-
Discharge Instructions:
Discharge Diagnosis/Procedures C. Diff colitis
Diet Restrict fluids to 64 oz,Other diet
Additional Diets low lactose
Activity As tolerated
Bathing Restrictions None
Other Services PT,OT
Instructions:
Stand-Alone Forms:
Changes to Home Medications: Yes
Discharge Medications:
DC Medications w/original date entered in [employer]
amlodipine 5 mg tablet 5 mg PO HS Blood pressure 07/04/10
levothyroxine 100 mcg tablet 100 mcg PO DAILY Thyroid 07/04/10
aspirin 81 mg tablet,delayed release 81 mg PO DAILY@1500 Blood clot prevention/tx 02/19/22
potassium chloride 10 mEq tablet,extended release 20 meq PO DAILY@1000 08/16/23
lisinopril 10 mg tablet 10 mg PO DAILY #30 tabs 08/23/23
magnesium oxide 500 mg PO DAILY #30 tabs 08/23/23
vancomycin 50 mg/mL oral solution (Firvanq) 125 mg (2.5 mL) PO Q6 #40 mL 08/23/23
Home Medication Changes
HCTZ stopped
Pending Results: No
Total time spent discharging patient (in min): 42
== END 2023-08-23 12:49 | DRG 372 ==
LOC: 4 WEST ACU 18:16
PROVIDERS: Internal Medicine; Nurse Practitioner Family; Physician Assistant Medical; ADMITTING PHYSICIAN Internal Medicine; CONSULT PHYSICIAN Internal Medicine; CONSULT PHYSICIAN Internal Medicine Hematology & Oncology; CONSULT PHYSICIAN Internal Medicine Infectious Disease; EMERGENCY PHYSICIAN Emergency Medicine; FAMILY PHYSICIAN Family Medicine
PROC: 0DBN8ZX Excision of Sigmoid Colon, Via Natural or Artificial Opening Endoscopic, Diagnostic (ICD-10-PCS; 2023-08-19)
DX: A04.72 Enterocolitis due to Clostridium difficile, not specified as recurrent (principal); C34.90 Malignant neoplasm of unspecified part of unspecified bronchus or lung; E87.1 Hypo-osmolality and hyponatremia; E16.2 Hypoglycemia, unspecified; E83.42 Hypomagnesemia; E03.9 Hypothyroidism, unspecified; I10 Essential (primary) hypertension; M62.81 Muscle weakness (generalized); D63.0 Anemia in neoplastic disease; E83.39 Other disorders of phosphorus metabolism; T50.905A Adverse effect of unspecified drugs, medicaments and biological substances, initial encounter; K64.9 Unspecified hemorrhoids; Z79.82 Long term (current) use of aspirin
CPT/HCPCS: 88305; 36415; 74022; 74177; 80048; 80053; 82607; 82962; 83036; 83540; 83550; 83605; 83690; 83735; 84100; 84443; 85014; 85018; 85025; 85027; 85652; 86140; 86850; 86900; 86901; 87798; 88342; 89055; 93005; 96361; 96374; 96375; 97110; 97116; 97163; 97166; 97535; 99291; Q9967

== ENCOUNTER → 2023-09-10 12:45 | Outpatient (REF) | payer MEDICARE, OTHER, SELFPAY ==
[2023-09-10 15:15] LABS: % Basophils 0.7 % (0-2); % Eosinophils 3.1 % (0-6); % Immature Granulocytes 0.6 % (0-0.5); % Monocytes 7.3 % (1.7-9.3); % Neutrophils 77.3 % (42.2-75.2); Absolute Basophils 0.1 10^3/uL (0-0.2); Absolute Eosinophils 0.3 10^3/uL (0-0.7); Absolute Immature Granulocytes 0.1 10^3/uL (0-0.05); Absolute Lymphocytes 1.2 10^3/uL (1.2-3.4); Absolute Monocytes 0.8 10^3/uL (0.1-0.6); Absolute Neutrophils 8.4 10^3/uL (1.4-6.5); Hematocrit 31.5 % (37.0-47.0); Hemoglobin 10.7 g/dL (12.0-16.0); Mean Corpuscular Hgb 31.3 pg (27.0-31.0); Mean Corpuscular Volume 92.1 fL (81.0-99.0); Mean Platelet Volume 9.5 fL (7.4-10.4); Nucleated Red Blood Cells % 0 %; Platelet Count 367 10^3/uL (130-400); Red Blood Cell Count 3.42 10^6/uL (4.20-5.40); Red Cell Dist. Width 17.2 % (11.5-14.5); White Blood Cell Count 10.8 10^3/uL (4.8-10.8)
[2023-09-10 15:24] LABS: ALT (SGPT) 15 U/L (0-35); AST (SGOT) 21 U/L (14-36); Albumin 3.6 g/dl (3.5-5.0); Alkaline Phosphatase 120 U/L (38-126); Blood Urea Nitrogen 21 mg/dl (7-17); Calcium 10.4 mg/dl (8.4-10.2); Carbon Dioxide 22 mmol/L (22-30); Chloride 102 mmol/L (98-107); Glucose 96 mg/dl (70-99); Potassium 5.4 mmol/L (3.5-5.1); Sodium 132 mmol/L (135-145); Total Bilirubin 0.4 mg/dl (0.2-1.3); Total Protein 6.6 g/dl (6.3-8.2); eGFR > 60.00
== END ==
LOC: HWLAB 12:45
PROVIDERS: ATTENDING PHYSICIAN Internal Medicine Hematology & Oncology; FAMILY PHYSICIAN Family Medicine
DX: C50.111 Malignant neoplasm of central portion of right female breast (principal); C34.31 Malignant neoplasm of lower lobe, right bronchus or lung; E55.9 Vitamin D deficiency, unspecified; R92.8 Other abnormal and inconclusive findings on diagnostic imaging of breast
CPT/HCPCS: 36415; 80053; 85025

== ENCOUNTER → 2023-09-24 12:15 | Outpatient (REF) | payer MEDICARE, OTHER, SELFPAY ==
[2023-09-24 15:40] LABS: ALT (SGPT) 10 U/L (0-35); AST (SGOT) 19 U/L (14-36); Albumin 3.9 g/dl (3.5-5.0); Alkaline Phosphatase 124 U/L (38-126); Blood Urea Nitrogen 26 mg/dl (7-17); Calcium 10.5 mg/dl (8.4-10.2); Carbon Dioxide 25 mmol/L (22-30); Chloride 99 mmol/L (98-107); Glucose 87 mg/dl (70-99); Sodium 132 mmol/L (135-145); Total Bilirubin 0.4 mg/dl (0.2-1.3); Total Protein 6.9 g/dl (6.3-8.2); eGFR > 60.00
[2023-09-24 15:52] LABS: % Basophils 0.7 % (0-2); % Eosinophils 3.3 % (0-6); % Immature Granulocytes 0.4 % (0-0.5); % Monocytes 6.6 % (1.7-9.3); Absolute Basophils 0.1 10^3/uL (0-0.2); Absolute Eosinophils 0.3 10^3/uL (0-0.7); Absolute Lymphocytes 1.2 10^3/uL (1.2-3.4); Absolute Monocytes 0.6 10^3/uL (0.1-0.6); Absolute Neutrophils 7.5 10^3/uL (1.4-6.5); Hematocrit 34.6 % (37.0-47.0); Hemoglobin 11.2 g/dL (12.0-16.0); Mean Corp Hgb Conc. 32.4 g/dL (33.0-37.0); Mean Corpuscular Hgb 29.6 pg (27.0-31.0); Mean Corpuscular Volume 91.5 fL (81.0-99.0); Mean Platelet Volume 10.7 fL (7.4-10.4); Nucleated Red Blood Cells % 0 %; Platelet Count 284 10^3/uL (130-400); Red Blood Cell Count 3.78 10^6/uL (4.20-5.40); Red Cell Dist. Width 16.5 % (11.5-14.5); White Blood Cell Count 9.8 10^3/uL (4.8-10.8)
== END ==
LOC: HWLAB 12:15
PROVIDERS: ATTENDING PHYSICIAN Internal Medicine Hematology & Oncology; FAMILY PHYSICIAN Family Medicine
DX: C50.111 Malignant neoplasm of central portion of right female breast (principal); C34.31 Malignant neoplasm of lower lobe, right bronchus or lung; E55.9 Vitamin D deficiency, unspecified; R92.8 Other abnormal and inconclusive findings on diagnostic imaging of breast
CPT/HCPCS: 36415; 80053; 85025

== ENCOUNTER → 2023-10-15 11:58 | Outpatient (REF) | payer MEDICARE, OTHER, SELFPAY ==
[2023-10-15 15:09] LABS: % Basophils 0.7 % (0-2); % Eosinophils 1.8 % (0-6); % Immature Granulocytes 0.3 % (0-0.5); % Lymphocytes 10.7 % (20.5-51.1); % Monocytes 5.7 % (1.7-9.3); % Neutrophils 80.8 % (42.2-75.2); Absolute Basophils 0.1 10^3/uL (0-0.2); Absolute Eosinophils 0.2 10^3/uL (0-0.7); Absolute Monocytes 0.5 10^3/uL (0.1-0.6); Absolute Neutrophils 7.4 10^3/uL (1.4-6.5); Hematocrit 36.3 % (37.0-47.0); Hemoglobin 12.1 g/dL (12.0-16.0); Mean Corp Hgb Conc. 33.3 g/dL (33.0-37.0); Mean Corpuscular Hgb 30.6 pg (27.0-31.0); Mean Corpuscular Volume 91.9 fL (81.0-99.0); Nucleated Red Blood Cells % 0 %; Platelet Count 257 10^3/uL (130-400); Red Blood Cell Count 3.95 10^6/uL (4.20-5.40); Red Cell Dist. Width 14.2 % (11.5-14.5); White Blood Cell Count 9.1 10^3/uL (4.8-10.8)
[2023-10-15 15:30] LABS: ALT (SGPT) < 10 U/L (0-35); AST (SGOT) 20 U/L (14-36); Alkaline Phosphatase 121 U/L (38-126); Blood Urea Nitrogen 32 mg/dl (7-17); Calcium 10.8 mg/dl (8.4-10.2); Carbon Dioxide 24 mmol/L (22-30); Chloride 97 mmol/L (98-107); Glucose 106 mg/dl (70-99); Potassium 4.7 mmol/L (3.5-5.1); Sodium 129 mmol/L (135-145); Total Bilirubin 0.6 mg/dl (0.2-1.3); Total Protein 6.9 g/dl (6.3-8.2); eGFR > 60.00
== END ==
LOC: HWLAB 11:58
PROVIDERS: ATTENDING PHYSICIAN Internal Medicine Hematology & Oncology; FAMILY PHYSICIAN Family Medicine
DX: C50.111 Malignant neoplasm of central portion of right female breast (principal); C34.31 Malignant neoplasm of lower lobe, right bronchus or lung; E55.9 Vitamin D deficiency, unspecified; R92.8 Other abnormal and inconclusive findings on diagnostic imaging of breast
CPT/HCPCS: 36415; 80053; 85025

== ENCOUNTER → 2023-10-22 12:06 | Outpatient (REF) | payer MEDICARE, OTHER, SELFPAY ==
[2023-10-22 15:37] LABS: % Basophils 0.6 % (0-2); % Eosinophils 2.4 % (0-6); % Immature Granulocytes 0.4 % (0-0.5); % Lymphocytes 9.4 % (20.5-51.1); % Monocytes 1.7 % (1.7-9.3); % Neutrophils 85.5 % (42.2-75.2); Absolute Basophils 0.1 10^3/uL (0-0.2); Absolute Eosinophils 0.2 10^3/uL (0-0.7); Absolute Lymphocytes 0.8 10^3/uL (1.2-3.4); Absolute Monocytes 0.2 10^3/uL (0.1-0.6); Absolute Neutrophils 7.6 10^3/uL (1.4-6.5); Hematocrit 34.1 % (37.0-47.0); Hemoglobin 11.3 g/dL (12.0-16.0); Mean Corp Hgb Conc. 33.1 g/dL (33.0-37.0); Mean Corpuscular Hgb 29.7 pg (27.0-31.0); Mean Corpuscular Volume 89.5 fL (81.0-99.0); Mean Platelet Volume 11.2 fL (7.4-10.4); Nucleated Red Blood Cells % 0 %; Platelet Count 237 10^3/uL (130-400); Red Blood Cell Count 3.81 10^6/uL (4.20-5.40); White Blood Cell Count 8.9 10^3/uL (4.8-10.8)
[2023-10-22 15:41] LABS: ALT (SGPT) 10 U/L (0-35); AST (SGOT) 21 U/L (14-36); Albumin 3.9 g/dl (3.5-5.0); Alkaline Phosphatase 108 U/L (38-126); Blood Urea Nitrogen 28 mg/dl (7-17); Calcium 10.2 mg/dl (8.4-10.2); Carbon Dioxide 26 mmol/L (22-30); Chloride 96 mmol/L (98-107); Glucose 107 mg/dl (70-99); Potassium 4.5 mmol/L (3.5-5.1); Sodium 130 mmol/L (135-145); Total Bilirubin 0.4 mg/dl (0.2-1.3); Total Protein 6.6 g/dl (6.3-8.2); eGFR > 60.00
== END ==
LOC: HWLAB 12:06
PROVIDERS: ATTENDING PHYSICIAN Internal Medicine Hematology & Oncology; FAMILY PHYSICIAN Family Medicine
DX: C50.111 Malignant neoplasm of central portion of right female breast (principal); C34.31 Malignant neoplasm of lower lobe, right bronchus or lung; E55.9 Vitamin D deficiency, unspecified; R92.8 Other abnormal and inconclusive findings on diagnostic imaging of breast
CPT/HCPCS: 36415; 80053; 85025

== ENCOUNTER → 2023-10-25 11:08 | Outpatient (REF) | payer MEDICARE, OTHER, SELFPAY | LOC: DHVS 11:08 | PROVIDERS: ATTENDING PHYSICIAN Surgery Vascular Surgery; FAMILY PHYSICIAN Internal Medicine Hematology & Oncology; REFERRING PHYSICIAN Family Medicine | DX: I71.43 Infrarenal abdominal aortic aneurysm, without rupture (principal) | CPT/HCPCS: 76770 ==

== ENCOUNTER → 2023-11-05 12:29 | Outpatient (REF) | payer MEDICARE, OTHER, SELFPAY ==
[2023-11-05 15:17] LABS: % Basophils 1.4 % (0-2); % Eosinophils 2.4 % (0-6); % Immature Granulocytes 0.5 % (0-0.5); % Monocytes 7.6 % (1.7-9.3); % Neutrophils 68.1 % (42.2-75.2); Absolute Basophils 0.1 10^3/uL (0-0.2); Absolute Eosinophils 0.1 10^3/uL (0-0.7); Absolute Lymphocytes 0.8 10^3/uL (1.2-3.4); Absolute Monocytes 0.3 10^3/uL (0.1-0.6); Absolute Neutrophils 2.9 10^3/uL (1.4-6.5); Hematocrit 30.9 % (37.0-47.0); Hemoglobin 10.9 g/dL (12.0-16.0); Mean Corp Hgb Conc. 35.3 g/dL (33.0-37.0); Mean Corpuscular Hgb 31.3 pg (27.0-31.0); Mean Corpuscular Volume 88.8 fL (81.0-99.0); Mean Platelet Volume 10.2 fL (7.4-10.4); Nucleated Red Blood Cells % 0 %; Platelet Count 261 10^3/uL (130-400); Red Blood Cell Count 3.48 10^6/uL (4.20-5.40); Red Cell Dist. Width 13.6 % (11.5-14.5); White Blood Cell Count 4.2 10^3/uL (4.8-10.8)
[2023-11-05 15:25] LABS: ALT (SGPT) 14 U/L (0-35); AST (SGOT) 24 U/L (14-36); Alkaline Phosphatase 109 U/L (38-126); Blood Urea Nitrogen 25 mg/dl (7-17); Calcium 10.4 mg/dl (8.4-10.2); Carbon Dioxide 24 mmol/L (22-30); Chloride 94 mmol/L (98-107); Glucose 93 mg/dl (70-99); Sodium 127 mmol/L (135-145); Total Bilirubin 0.4 mg/dl (0.2-1.3); Total Protein 6.6 g/dl (6.3-8.2); eGFR > 60.00
== END ==
LOC: HWLAB 12:29
PROVIDERS: ATTENDING PHYSICIAN Internal Medicine Hematology & Oncology; FAMILY PHYSICIAN Family Medicine
DX: C50.111 Malignant neoplasm of central portion of right female breast (principal); C34.31 Malignant neoplasm of lower lobe, right bronchus or lung; E55.9 Vitamin D deficiency, unspecified; R92.8 Other abnormal and inconclusive findings on diagnostic imaging of breast
CPT/HCPCS: 36415; 80053; 85025

== ENCOUNTER → 2023-11-12 12:05 | Outpatient (REF) | payer MEDICARE, OTHER, SELFPAY ==
[2023-11-12 14:49] LABS: % Basophils 0.8 % (0-2); % Eosinophils 0.8 % (0-6); % Immature Granulocytes 0.3 % (0-0.5); % Lymphocytes 12.1 % (20.5-51.1); % Monocytes 2.2 % (1.7-9.3); % Neutrophils 83.8 % (42.2-75.2); Absolute Basophils 0.1 10^3/uL (0-0.2); Absolute Eosinophils 0.1 10^3/uL (0-0.7); Absolute Lymphocytes 0.9 10^3/uL (1.2-3.4); Absolute Monocytes 0.2 10^3/uL (0.1-0.6); Absolute Neutrophils 6.1 10^3/uL (1.4-6.5); Hematocrit 33.9 % (37.0-47.0); Mean Corp Hgb Conc. 32.4 g/dL (33.0-37.0); Mean Corpuscular Hgb 30.1 pg (27.0-31.0); Mean Corpuscular Volume 92.6 fL (81.0-99.0); Mean Platelet Volume 10.4 fL (7.4-10.4); Nucleated Red Blood Cells % 0 %; Platelet Count 213 10^3/uL (130-400); Red Blood Cell Count 3.66 10^6/uL (4.20-5.40); Red Cell Dist. Width 13.7 % (11.5-14.5); White Blood Cell Count 7.3 10^3/uL (4.8-10.8)
[2023-11-12 14:56] LABS: ALT (SGPT) 13 U/L (0-35); AST (SGOT) 24 U/L (14-36); Albumin 3.9 g/dl (3.5-5.0); Alkaline Phosphatase 117 U/L (38-126); Blood Urea Nitrogen 30 mg/dl (7-17); Calcium 10.1 mg/dl (8.4-10.2); Carbon Dioxide 23 mmol/L (22-30); Chloride 97 mmol/L (98-107); Glucose 96 mg/dl (70-99); Potassium 4.3 mmol/L (3.5-5.1); Sodium 130 mmol/L (135-145); Total Bilirubin 0.5 mg/dl (0.2-1.3); Total Protein 6.6 g/dl (6.3-8.2); eGFR > 60.00
== END ==
LOC: HWLAB 12:05
PROVIDERS: ATTENDING PHYSICIAN Internal Medicine Hematology & Oncology; FAMILY PHYSICIAN Family Medicine
DX: C50.111 Malignant neoplasm of central portion of right female breast (principal); C34.31 Malignant neoplasm of lower lobe, right bronchus or lung; E55.9 Vitamin D deficiency, unspecified; R92.8 Other abnormal and inconclusive findings on diagnostic imaging of breast
CPT/HCPCS: 36415; 80053; 85025

== ENCOUNTER → 2023-11-23 12:27 | Outpatient (REF) | payer MEDICARE, OTHER, SELFPAY | LOC: HWWDC 12:27 | PROVIDERS: ATTENDING PHYSICIAN Family Medicine Geriatric Medicine; FAMILY PHYSICIAN Family Medicine | DX: Z12.31 Encounter for screening mammogram for malignant neoplasm of breast (principal) | CPT/HCPCS: 77063; 77067 ==

== ENCOUNTER → 2023-11-26 12:05 | Outpatient (REF) | payer MEDICARE, OTHER, SELFPAY ==
[2023-11-26 16:01] LABS: AST (SGOT) 23 U/L (14-36); Albumin 3.9 g/dl (3.5-5.0); Blood Urea Nitrogen 20 mg/dl (7-17); Carbon Dioxide 24 mmol/L (22-30); Glucose 97 mg/dl (70-99); Total Bilirubin 0.3 mg/dl (0.2-1.3); Total Protein 6.3 g/dl (6.3-8.2); eGFR > 60.00
[2023-11-26 16:09] LABS: % Basophils 1.3 % (0-2); % Eosinophils 2.5 % (0-6); % Immature Granulocytes 0.5 % (0-0.5); % Lymphocytes 17.5 % (20.5-51.1); % Monocytes 8.8 % (1.7-9.3); % Neutrophils 69.4 % (42.2-75.2); ALT (SGPT) 15 U/L (0-35); Absolute Basophils 0.1 10^3/uL (0-0.2); Absolute Eosinophils 0.2 10^3/uL (0-0.7); Absolute Monocytes 0.5 10^3/uL (0.1-0.6); Absolute Neutrophils 4.1 10^3/uL (1.4-6.5); Alkaline Phosphatase 100 U/L (38-126); Chloride 96 mmol/L (98-107); Hematocrit 31.8 % (37.0-47.0); Hemoglobin 10.9 g/dL (12.0-16.0); Mean Corp Hgb Conc. 34.3 g/dL (33.0-37.0); Mean Corpuscular Hgb 30.8 pg (27.0-31.0); Mean Corpuscular Volume 89.8 fL (81.0-99.0); Mean Platelet Volume 10.5 fL (7.4-10.4); Nucleated Red Blood Cells % 0 %; Platelet Count 294 10^3/uL (130-400); Red Blood Cell Count 3.54 10^6/uL (4.20-5.40); Red Cell Dist. Width 13.9 % (11.5-14.5); Sodium 128 mmol/L (135-145); White Blood Cell Count 5.9 10^3/uL (4.8-10.8)
== END ==
LOC: HWLAB 12:05
PROVIDERS: ATTENDING PHYSICIAN Internal Medicine Hematology & Oncology; FAMILY PHYSICIAN Family Medicine
DX: C50.111 Malignant neoplasm of central portion of right female breast (principal); C34.31 Malignant neoplasm of lower lobe, right bronchus or lung; E55.9 Vitamin D deficiency, unspecified; R92.8 Other abnormal and inconclusive findings on diagnostic imaging of breast
CPT/HCPCS: 36415; 80053; 85025

== ENCOUNTER → 2023-11-30 13:34 | Outpatient (REF) | payer MEDICARE, OTHER, SELFPAY ==
[2023-11-30 11:14] LABS: Magnesium 1.6 mg/dl (1.6-2.3)
== END ==
LOC: OIDL 13:34
PROVIDERS: ATTENDING PHYSICIAN Internal Medicine Hematology & Oncology
DX: C50.111 Malignant neoplasm of central portion of right female breast (principal)
CPT/HCPCS: 83735

== ENCOUNTER → 2023-12-03 12:09 | Outpatient (REF) | payer MEDICARE, OTHER, SELFPAY ==
[2023-12-03 15:58] LABS: % Basophils 1.3 % (0-2); % Eosinophils 1.9 % (0-6); % Immature Granulocytes 0.1 % (0-0.5); % Lymphocytes 12.3 % (20.5-51.1); % Monocytes 3.4 % (1.7-9.3); Absolute Basophils 0.1 10^3/uL (0-0.2); Absolute Eosinophils 0.1 10^3/uL (0-0.7); Absolute Lymphocytes 0.8 10^3/uL (1.2-3.4); Absolute Monocytes 0.2 10^3/uL (0.1-0.6); Absolute Neutrophils 5.5 10^3/uL (1.4-6.5); Hemoglobin 11.1 g/dL (12.0-16.0); Mean Corp Hgb Conc. 33.6 g/dL (33.0-37.0); Mean Corpuscular Hgb 30.4 pg (27.0-31.0); Mean Corpuscular Volume 90.4 fL (81.0-99.0); Mean Platelet Volume 10.5 fL (7.4-10.4); Nucleated Red Blood Cells % 0 %; Platelet Count 258 10^3/uL (130-400); Red Blood Cell Count 3.65 10^6/uL (4.20-5.40); Red Cell Dist. Width 14.4 % (11.5-14.5); White Blood Cell Count 6.8 10^3/uL (4.8-10.8)
[2023-12-03 17:09] LABS: ALT (SGPT) 12 U/L (0-35); AST (SGOT) 20 U/L (14-36); Albumin 3.9 g/dl (3.5-5.0); Alkaline Phosphatase 107 U/L (38-126); Blood Urea Nitrogen 27 mg/dl (7-17); Calcium 10.1 mg/dl (8.4-10.2); Carbon Dioxide 24 mmol/L (22-30); Chloride 100 mmol/L (98-107); Glucose 101 mg/dl (70-99); Potassium 4.1 mmol/L (3.5-5.1); Sodium 131 mmol/L (135-145); Total Bilirubin 0.4 mg/dl (0.2-1.3); Total Protein 6.4 g/dl (6.3-8.2); eGFR > 60.00
== END ==
LOC: HWLAB 12:09
PROVIDERS: ATTENDING PHYSICIAN Internal Medicine Hematology & Oncology; FAMILY PHYSICIAN Family Medicine
DX: C50.111 Malignant neoplasm of central portion of right female breast (principal); C34.31 Malignant neoplasm of lower lobe, right bronchus or lung; E55.9 Vitamin D deficiency, unspecified; R92.8 Other abnormal and inconclusive findings on diagnostic imaging of breast
CPT/HCPCS: 36415; 80053; 85025

== ENCOUNTER 2023-12-08 16:18 | Observation (INO) | payer MEDICARE, OTHER, SELFPAY ==
--- NOTE | 2023-12-08 09:14 | ED.GENMED ---
History of Present Illness
General
Chief Complaint: Back Pain
Source: patient and ambulance crew
Exam Limitations: none
Time Seen by Provider: 12/08/23 09:12
Nursing documentation reviewed up to this point in time: agreed with
History of Present Illness
History of Present Illness:
83 yo female from [facility] where she lives alone, hx of breast CA, lung CA, HTN, HLD Spinal stenosis, L5-6 herniation, being treated for lung CA w [place], on Katruda and ? States she coughed hard once this a.m. and
felt sudden severe pain in mid back at level of umbilicus and has had severe pain here since with any movement. Denies saddle anesthesia, loss of bowel or bladder control.
Past History
Past History
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
ED Past Surgical History: Cholecystectomy, Gynecological and Other ( hysterectomy, R lumpectomy with CA treated, now 11/2023 suspicious spot on mammogram, awaiting f/u mammogram,)
Social History
Tobacco: Smoker
Alcohol: None
Drug: None
Living: alone
Review of Systems
Review of Systems
Allergies reviewed?: Yes
All Other Systems: ROS reviewed and negative except as documented in HPI and ROS
Constitutional: Denies fever or chills
Respiratory: Denies trouble breathing
Cardiac: Denies chest pain
ABD/GI: Denies abdominal pain, nausea, vomiting, diarrhea or constipated
: Denies dysuria, frequency, incontinence or difficulty voiding
Musculoskeletal: Reports back pain (low back )
Skin: Reports no symptoms
Neurological: Reports no symptoms
Phy Exam
Physical Exam
Physical Exam:
GENERAL: No acute distress. A&Ox3.
CONSTITUTIONAL: Afebrile.
EYES: clear, conjunctivae normal
ENMT: moist mucus membranes
RESPIRATORY: Regular respirations, nonlabored, lungs clear.
CARDIOVASCULAR: Regular rate and rhythm, no murmurs, no rubs.
GI: Soft, nontender, normal BS
MUSCULOSKELETAL: Wincing with pain with any movement. No spinal bony tenderness, hips nontender, tender area mid upper left buttock and left lower back ST. Well perfused.
SKIN: Warm, dry, pink
PSYCH: Normal mood and affect. Well kept, interactive and appropriate
NEUROLOGIC: Awake, alert and oriented. No focal neurological deficits. Sensation to touch equal bilaterally
Course
Orders/Labs/Results
Orders:
Orders
12/08/23 09:31
Morphine Sulfate 4 mg IV NOW STA
12/08/23 09:32
CR Lumbar Spine 2 Or 3 Views Urgent
Comment:
Reason For Exam: pain post cough, being tx for lung ca
CR Thoracic Spine 3 Views Urgent
Comment:
Reason For Exam: pain post cough, being tx for lung ca
12/08/23 13:18
Physical Therapy Consult [Pt Eval And Treat] Urgent
Activity Level: Ambulate
12/08/23 13:20
Hydrocodone 5/APAP 325 [[place] 5/325] 1 tablet PO NOW STA
12/08/23 13:26
Case Management Consult ONCE
Case Management Consult: Discharge Planning
Comment: Pt with back pain, unable to move without pain, P/T to eval, she lives alone, will need rehab if she
can't walk
12/08/23 15:33
CBC/No Diff [Complete Blood Count/No Diff] Stat
CMP [Comprehensive Metabolic Panel] Stat
12/08/23 15:52
Dexamethasone Sod Phosphate [Decadron] 10 mg IV NOW STA
12/08/23 15:55
Admit/Transfer Patient As Directed
Co-Sign Provider:
Level of Care: Observation services
Assign to:: Medical/Surgical
Physician / Group: DO
Diagnosis: back pain
PRN Pain Medication Management As Directed
May give lesser potent ordered pain med per pt: Yes
preference::
Protocol:: Medication orders for pain may be administered in a
manner that supports deferring to patient preference
when the pt is:
- Requesting an ordered lesser potent pain medication.
Least to most potent pain medications are defined
as: acetaminophen < NSAID < tramadol < opioids
(morphine, oxycodone, hydromorphone).
- Requesting a lesser dose of the same medication IF
ORDERED.
- Requesting a less intrusive route of administration
if both routes are prescribed by the provider (PO <
IV).
12/08/23 15:56
Code Status As Directed
Resuscitation Status: Do not resuscitate
Reached after discussion with pt or family/Healthcare POA: Yes
DNR Bracelet Application ONCE
Vital Signs
Initial and Last Documented VS:
Initial Vital Signs
Temp Pulse Resp
98.1 F 61 16
12/08/23 09:12 12/08/23 09:12 12/08/23 09:12
Last Documented Vital Signs
Temp Pulse Resp BP
98.1 F 61 16 157/63
12/08/23 09:12 12/08/23 09:12 12/08/23 09:12 12/08/23 09:37
MDM/Problems Addressed
Differential Diagnosis Includes:
L or T spine pathologic fracture, low back strain
MDM/Problems Addressed:
83 yo female from [facility] where she lives alone, hx of breast CA, lung CA, HTN, HLD Spinal stenosis, L5-6 herniation, being treated for lung CA w [place], on Katruda and ? States she coughed hard once this a.m. and
felt sudden severe pain in mid back at level of umbilicus and has had severe pain here since with any movement. Denies saddle anesthesia, loss of bowel or bladder control.
Afebrile, pain with any movement
No cauda equina
1:15 PM:
X-ray thoracic spine radiology report read: No acute fracture or malalignment radiographically noted
X-ray lumbar spine radiology report read: No acute fracture or malalignment identified. 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 Large volume of stool within the colon
Patient informed of results
Patient is wondering how she is going to get around at home as she lives alone and she is having significant pain.
PT consulted for evaluation
1:45 PM:
Physical therapy and, patient is unable to stand due to pain
Case management consulted
2:45 PM: Case management in, patient does not qualify for rehab at this time, hospitalist notified of admission
*Critical Care Note
Total Time (30-74mins, 75-104mins- exclusive of procedures): Not Applicable
ED Attending Note
-
Portions of this chart may have been created with voice recognition software.� Occasional wrong word or��sound alike� substitutions may have occurred due to the inherent limitations of voice recognition software.
Discharge Plan
Departure
Patient Disposition: Admit
Date of Disposition: 12/08/23
Time of Disposition: 14:43
Admit to: Med/Surg
Presentation/result/management discussed w/ accepting MD/DO: Hospitalist
Patient with high blood pressure during this ER visit?: No
Condition: Fair
Discharge Problem:
Acute low back pain, Intractable low back pain
Prescriptions:
No Action
amlodipine 5 MG tablet
5 mg PO HS
levothyroxine 100 MCG tablet
100 mcg PO DAILY
aspirin 81 mg Tablet,Delayed Release (Dr/Ec)
81 mg PO DAILY@1600
polyethylene glycol 3350 [Miralax] 17 gram Powder In Packet
17 g PO DAILY PRN (Reason: CONSTIPATION)
ibuprofen [Ibuprofen IB] 200 mg Tablet
400 mg PO TIDPRN PRN (Reason: MILD PAIN)
lisinopril-hydrochlorothiazide 20-25 mg tablet
0.5 tab PO HS
Align 4 mg Capsule
4 mg PO DAILY
Keytruda 25 mg/mL Solution
200 mg IV Q3W
magnesium oxide 500 mg magnesium tablet
400 mg PO DAILY
Referrals:
Chriss Dobson MD [Family Provider] -
Interventions
Interventions:
*Risk Screen - Suicide Last Done: 12/08/23 09:12
*General Assessment Last Done: 12/08/23 09:12
*Neglect/Abuse Screening Last Done: 12/08/23 09:12
ED- Fall Risk Assessment Last Done: 12/08/23 11:47
*ED COVID-19 Vaccine History Last Done: 12/08/23 09:12
ED-Musculoskeletal Assessment Last Done: 12/08/23 09:12
Discharge Date and Time
Print Language: NOR[place] KORE[place]
[2023-12-08 09:37] VITALS: BP 157/63
[2023-12-08] MEDS: MORPHINE SULFATE 4 MG IV (09:40)
[2023-12-08] MEDS: NORCO 5/325 1 TABLET PO (13:26)
[2023-12-08 13:57] VITALS: BP 145/65; PULSE 86; O2SAT 100
--- NOTE | 2023-12-08 15:01 | CM ---
Addendum entered by Susanna Son RN 12/08/23 18:04:
OBS letter given. CM spoke with patient and updated that SNF could be covered through waiver. Patient stated that she would prefer to return home with [facility] home care. She is worried that she will not be able to get her chemo if she is in SNF. CM
will continue to follow as needed.
Addendum entered by Susanna Son RN 12/08/23 17:42:
CM reviewed medical records. Patient lives alone in an apartment. Patient has had a history of [facility]. Patient was reluctant to go to SNF due to potential cost. Patient as per Dayana is eligible for SNF waiver. CM will continue to follow as
needed.
Original Note:
CM received update from Dayana at [facility]. Patient is eligible for [facility] Waiver program.
--- NOTE | 2023-12-08 15:31 | HPS.HSE ---
Addendum entered and electronically signed by John Newton MD 12/08/23 16:33:
83-year-old female with a past medical history of non-small cell lung cancer on Keytruda and chemo, hypertension, anemia, and cigarette nicotine dependency presents with intractable back pain radiating her left thigh and buttock after coughing.
Lumbar spinal x-rays shows degenerative disc disease, large volume of stool within the colon.
Will give IV dexamethasone 10 mg x 1, start prednisone 40 mg p.o. tomorrow.
Treat with Tylenol 1 g 3 times daily, lidocaine patch, Toradol 15 mg IV every 6 hours as needed, oxycodone as needed.
Consult PT.
I have personally seen and examined the patient, and agree with the plan of care as documented by OTTONIEL Bazzi.
Advance care planning discussed, patient is a DNR.
All other issues as outlined by the advanced care practitioner.
Original Note:
Family Physician
-
Family Physician: Chriss Dobson
Chief Complaint
-
right sided hip pain radiating to left LE butt, thigh
History of Present Illness
83 yo female from [facility] where she lives alone, hx of breast CA, lung CA, HTN, HLD Spinal stenosis, L5-6 herniation, lung cancer presented to us with sudden severe left sided back, buttocks, left LE thigh pain since the
cough last night. patient stated constant pain since then, worsening with movement. she can barely walk. denied any numbness, tingling. denied any incontinence of urine and stool. denied FREIRE, dizzy or syncopal episode.denied chest pain, sob.denied
abdominal pain,n,v,d. denied dysuria or hematuria.
admitting for further management.
Medical History
Past Medical History
Past Medical History: Reports Other
Additional Past Medical History:
Metastatic Non-Small Cell Lung CA s/p
Breast CA s/p lumpectomy and radiation
Renal Cancer s/p Ablation
Essential Hypertension
Hyperlipidemia
Hypothyroidism
Raynaud's
Past Surgical History: Reports Other
Additional Past Surgical History:
Right Upper Lobectomy
lumpectomy
Hysterectomy
Social History
Tobacco: Smoker
Alcohol: None
Drug: None
Personal: Single
Living: Alone
Family History
Family History: Not pertinent
Allergies / Home Medications
Allergies reflects when Allergies were last updated in [facility].
Home Medications with original date entered in [facility]
Allergy/Medication List:
Allergies
Allergy/AdvReac Type Severity Reaction Status Date / Time
Iodinated Contrast Media Allergy Rash Verified 08/16/23 10:04
[IV Dye, Iodine Containing]
Home Medications
amlodipine 5 mg tablet 5 mg PO HS Blood pressure 07/04/10
levothyroxine 100 mcg tablet 100 mcg PO DAILY Thyroid 07/04/10
aspirin 81 mg tablet,delayed release 81 mg PO DAILY@1600 Blood clot prevention/tx 02/19/22
Bifidobacterium infantis 4 mg capsule (Align) 4 mg PO DAILY Supplement 12/08/23
ibuprofen 200 mg tablet 400 mg PO TIDPRN PRN MILD PAIN 12/08/23
lisinopril 20 mg-hydrochlorothiazide 25 mg tablet 0.5 tab PO HS Blood Pressure 12/08/23
magnesium oxide 400 mg PO DAILY Supplement 12/08/23
pembrolizumab 25 mg/mL intravenous solution (Keytruda) 200 mg IV Q3W Cancer 12/08/23
polyethylene glycol 3350 17 gram oral powder packet (Miralax) 17 g PO DAILY PRN CONSTIPATION 12/08/23
Review of Systems
-
Constitutional: Reports No Symptoms
EENT: Reports No Symptoms
Respiratory: Reports No Symptoms
Cardiac: Reports No Symptoms
Abdomen/GI: Reports No Symptoms
: Reports No Symptoms
Musculoskeletal: Reports Other (back pain radiaing to left thigh, buttocks)
Skin: Reports No Symptoms
Neurological: Reports No Symptoms
Endocrine: Reports No Symptoms
Hematologic/Lymphatic: Reports No Symptoms
Psych: Reports No Symptoms
Physical Exam
Vital Signs
Vital Signs
Temp Pulse Resp BP
98.1 F 61 16 157/63
12/08/23 09:12 12/08/23 09:12 12/08/23 09:12 12/08/23 09:37
Physical Exam
General: Well Developed, Well Nourished and No Apparent Distress
HEENT: NormoCephalic, Moist mucous membranes and Atraumatic
Respiratory: Clear
Cardiac: S1/S2 and Regular Rhythm; No Murmur or Rub
GI: Soft, Non Tender, Non Distended and Normal Bowel Sounds; No Organomegaly
Rectal: Deferred by Provider
Musculoskeletal: No Clubbing, No Cyanosis and No Edema
Skin: No Rash
Neuro: AO x 3 and Nonfocal/grossly intact
Psych: Calm
Data Reviewed
-
Diagnostic Radiology: Report Reviewed by me
Impression/Plan
-
#intractable low back pain likely nerve branch are muscle spasm
-thoracic spine x ray with No acute fracture or malalignment thoracic spine identified radiographically.
-lumbar spine x ray with o acute fracture or malalignment identified radiographically. Multilevel advanced degenerative changes as seen prior.Large volume of stool within the colon.
-Dexamethasone 10 Mg IV x 1 in the ER
-Initiated on prednisone 40 Mg daily from tomorrow
-Tylenol 1 g 3 times daily
-Lidocaine patch total 50
-toradol Every 6 hours as needed for pain
-Oxy as needed for breakthrough pain
- PT/OT consulted
# Constipation
= MiraLAX and senna,Colace twice a day
#Metastatic Non-Small Cell Lung CA
- Patient on Keytruda as outpatient for nearly 18 months
-[facility]
#Essential Hypertension
- Continue lisinopril and amlodipine with hold parameters
#Hypothyroidism
- continue levothyroxine
DVT ppx: Lovenox
Code Status: DNR
[2023-12-08] MEDS: DECADRON 10 MG IV (16:03)
[2023-12-08 16:28] LABS: Hematocrit 31.5 % (37.0-47.0); Hemoglobin 10.7 g/dL (12.0-16.0); Mean Corpuscular Hgb 29.2 pg (27.0-31.0); Mean Corpuscular Volume 86.1 fL (81.0-99.0); Mean Platelet Volume 10.8 fL (7.4-10.4); Platelet Count 233 10^3/uL (130-400); Red Blood Cell Count 3.66 10^6/uL (4.20-5.40); Red Cell Dist. Width 14.4 % (11.5-14.5); White Blood Cell Count 6.5 10^3/uL (4.8-10.8)
[2023-12-08 16:40] LABS: ALT (SGPT) 13 U/L (0-35); Albumin 3.7 g/dl (3.5-5.0); Alkaline Phosphatase 103 U/L (38-126); Blood Urea Nitrogen 26 mg/dl (7-17); Calcium 9.5 mg/dl (8.4-10.2); Carbon Dioxide 24 mmol/L (22-30); Estimated Creatinine Clearance 47 ml/min; Potassium 4.5 mmol/L (3.5-5.1); Sodium 130 mmol/L (135-145); Total Bilirubin 0.5 mg/dl (0.2-1.3); Total Protein 6.3 g/dl (6.3-8.2); eGFR > 60.00
[2023-12-08 16:50] LABS: AST (SGOT) 27 U/L (14-36); Chloride 98 mmol/L (98-107); Glucose 56 mg/dl (70-99)
[2023-12-08 18:22] VITALS: BP 145/64
[2023-12-08 20:55] VITALS: BP 136/57; BMI 21.2
[2023-12-08] MEDS: LOVENOX 40 MG SC (20:57)
[2023-12-08] MEDS: ASPIR LOW (ENTERIC COATED) 81 MG PO (20:57)
[2023-12-08] MEDS: SENOKOT-S 2 TABLET PO (20:58)
[2023-12-08] MEDS: COLACE 100 MG PO (20:58)
[2023-12-08] MEDS: MIRALAX 17 GRAMS PO (20:58)
[2023-12-08] MEDS: NORVASC 5 MG PO (22:36)
[2023-12-08] MEDS: ORETIC 12.5 MG PO (22:37)
[2023-12-08] MEDS: ZESTRIL 10 MG PO (22:37)
[2023-12-08] MEDS: ROXICODONE 5 MG PO (22:38)
[2023-12-08] MEDS: TYLENOL PO (22:41)
[2023-12-08 23:24] VITALS: BP 136/56
[2023-12-09 05:25] VITALS: BMI 21.2
[2023-12-09 06:00] VITALS: BMI 21.2
[2023-12-09 06:17] LABS: Hematocrit 32.7 % (37.0-47.0); Hemoglobin 11.2 g/dL (12.0-16.0); Mean Corp Hgb Conc. 34.3 g/dL (33.0-37.0); Mean Corpuscular Hgb 29.3 pg (27.0-31.0); Mean Corpuscular Volume 85.6 fL (81.0-99.0); Mean Platelet Volume 10.2 fL (7.4-10.4); Platelet Count 241 10^3/uL (130-400); Red Blood Cell Count 3.82 10^6/uL (4.20-5.40); White Blood Cell Count 5.1 10^3/uL (4.8-10.8)
[2023-12-09] MEDS: SYNTHROID 100 MCG PO (06:26)
[2023-12-09 06:53] LABS: Blood Urea Nitrogen 32 mg/dl (7-17); Carbon Dioxide 23 mmol/L (22-30); Chloride 101 mmol/L (98-107); Estimated Creatinine Clearance 43 ml/min; Glucose 133 mg/dl (70-99); Potassium 4.9 mmol/L (3.5-5.1); Sodium 130 mmol/L (135-145); eGFR > 60.00
[2023-12-09] MEDS: ROXICODONE 5 MG PO ×4 (07:58→20:23)
[2023-12-09] MEDS: SENOKOT-S 2 TABLET PO ×2 (07:58→20:23)
[2023-12-09] MEDS: DELTASONE 40 MG PO (07:58)
[2023-12-09] MEDS: MIRALAX 17 GRAMS PO ×2 (07:58→20:23)
[2023-12-09] MEDS: TYLENOL 1000 MG PO (07:58)
[2023-12-09] MEDS: VISBIOME 1 CAP PO (07:58)
[2023-12-09] MEDS: COLACE 100 MG PO ×2 (07:58→20:22)
[2023-12-09 08:00] VITALS: BP 139/58
--- NOTE | 2023-12-09 08:51 | W.PN.HOSP.TC ---
Today's Communication/Plan
-
see bold
Assessment / Plan
Assessment / Plan
HPI: 83-year-old female with a past medical history of non-small cell lung cancer on Keytruda and chemo, hypertension, anemia, and cigarette nicotine dependency presents with intractable back pain radiating her left thigh and buttock after coughing.
Lumbar spinal x-rays shows degenerative disc disease, large volume of stool within the colon.
#Intractable low back pain likely nerve branch are muscle spasm
thoracic spine x ray with No acute fracture or malalignment thoracic spine identified radiographically.
lumbar spine x ray with o acute fracture or malalignment identified radiographically. Multilevel advanced degenerative changes as seen prior.Large volume of stool within the colon.
S/p dexamethasone 10 Mg IV x 1 in the ER, continue prednisone 40 mg daily for 5 days
Continue Toradol 15 mg every 6 hours as needed, oxycodone as needed
PT/OT
#Acute urinary retention
Requiring straight cath x 1 on 12/08
Treat constipation, continue bladder scan protocol
# Constipation
MiraLAX and senna,Colace twice a day
#Metastatic Non-Small Cell Lung CA
- Patient on Keytruda as outpatient for nearly 18 months
-[facility]
#Essential Hypertension
- Continue lisinopril and amlodipine with hold parameters
#Hypothyroidism
- continue levothyroxine
DVT ppx: Lovenox
Code Status: DNR
Total time spent to see the patient on the floor, examine the patient, review data and lab results, discuss treatment plan with patient, nursing staff around 50 minutes.
Physical Exam
General: No acute distress
HEENT: Normocephalic, Atraumatic, EOMI, MMM
Respiratory: Clear to Auscultation bilaterally
Cardiac: Normal S1/S2, Regular Rate and Rhythm
GI: Soft, Nontender, Nondistended, Normal Bowel Sounds
Musculoskeletal: Tenderness to palpation of right lower back
Extremities: No Clubbing, Cyanosis, or Edema
Neuro: Nonfocal/Grossly Intact
Psych: Calm, Cooperative
Derm: No Visible lesions
Anticipated Discharge: 24 - 48 hours
Subjective/Interval History
-
Date of Service: December 09, 2023
Patient had urinary retention, requiring straight cath draining 600 cc. No bowel movement. Continues to have severe lower back pain radiating down her left thigh and buttock. No fever, no vomiting.
Objective Data
-
Labs:
Laboratory Results
12/09/23
05:36
WBC 5.1
Hgb 11.2 L
Hct 32.7 L
Plt Count 241
Sodium 130 L
Potassium 4.9
Chloride 101
Carbon Dioxide 23
BUN 32 H
Creatinine 0.8
Glucose 133 H
Calcium 10.0
Vital Signs:
Vital Signs
Temp Pulse Resp BP Pulse Ox
97.5 F 52 18 139/58 99
12/09/23 08:00 12/09/23 08:00 12/09/23 08:00 12/09/23 08:00 12/09/23 08:00
I&O
12/08/23 12/09/23 12/10/23
06:59 06:59 06:59
Output Total 600 / 600
Balance -600 / -600
[2023-12-09] MEDS: TUMS EX (EXTRA STRENGTH) CHEWABLE 2 TABLET PO ×3 (11:23→20:23)
[2023-12-09] MEDS: MAGNESIUM OXIDE 500 MG PO (12:00)
[2023-12-09 15:00] VITALS: BP 153/62
[2023-12-09] MEDS: ASPIR LOW (ENTERIC COATED) 81 MG PO (15:36)
[2023-12-09] MEDS: LOVENOX 40 MG SC (17:54)
[2023-12-09] MEDS: LIDOCAINE 4% PATCH 1 PATCH TOPICAL (20:22)
[2023-12-09] MEDS: ZOFRAN 4 MG IV (20:34)
[2023-12-09] MEDS: NORVASC 5 MG PO (21:44)
[2023-12-09] MEDS: ZESTRIL 10 MG PO (21:44)
[2023-12-09] MEDS: ORETIC 12.5 MG PO (21:45)
[2023-12-09 23:30] VITALS: BP 144/58
[2023-12-10] MEDS: TUMS EX (EXTRA STRENGTH) CHEWABLE 2 TABLET PO ×3 (00:30→19:45)
[2023-12-10] MEDS: ROXICODONE 5 MG PO ×5 (00:31→22:39)
[2023-12-10 05:31] VITALS: BMI 21.6
[2023-12-10] MEDS: SYNTHROID 100 MCG PO (06:03)
[2023-12-10 07:20] VITALS: BP 139/56
[2023-12-10] MEDS: DELTASONE 40 MG PO (07:57)
[2023-12-10] MEDS: MAGNESIUM OXIDE 500 MG PO (07:58)
[2023-12-10] MEDS: VISBIOME 1 CAP PO (07:58)
[2023-12-10] MEDS: COLACE 100 MG PO ×2 (07:58→19:45)
[2023-12-10] MEDS: SENOKOT-S 2 TABLET PO ×2 (07:58→19:44)
[2023-12-10] MEDS: MIRALAX 17 GRAMS PO ×2 (07:58→19:44)
--- NOTE | 2023-12-10 08:38 | W.PN.HOSP.TC ---
Today's Communication/Plan
-
see bold
Assessment / Plan
Assessment / Plan
HPI: 83-year-old female with a past medical history of non-small cell lung cancer on Keytruda and chemo, hypertension, anemia, and cigarette nicotine dependency presents with intractable back pain radiating her left thigh and buttock after coughing.
Lumbar spinal x-rays shows degenerative disc disease, large volume of stool within the colon.
#Intractable low back pain likely nerve branch are muscle spasm
thoracic spine x ray with No acute fracture or malalignment thoracic spine identified radiographically.
lumbar spine x ray with o acute fracture or malalignment identified radiographically. Multilevel advanced degenerative changes as seen prior.Large volume of stool within the colon.
S/p dexamethasone 10 Mg IV x 1 in the ER, continue prednisone 40 mg daily for 5 days
Continue Toradol 15 mg every 6 hours as needed, oxycodone as needed
PT/OT - rec SNF. Patient declined SNF, wants to go home so she can continue chemo
#Acute urinary retention
Requiring straight cath x 1 on 12/08, now voiding
Treat constipation, continue bladder scan protocol
#Constipation
Add magnesium citrate, continue miraLAX and senna,Colace twice a day
#Chronic hyponatremia
Continue fluid restriction
#Metastatic Non-Small Cell Lung CA
- Patient on Keytruda as outpatient for nearly 18 months
-[facility]
#Essential Hypertension
- Continue lisinopril and amlodipine with hold parameters
#Hypothyroidism
- continue levothyroxine
DVT ppx: Lovenox
Code Status: DNR
Total time spent to see the patient on the floor, examine the patient, review data and lab results, discuss treatment plan with patient, nursing staff around 40 minutes.
Physical Exam
General: No acute distress
HEENT: Normocephalic, Atraumatic, EOMI, MMM
Respiratory: Clear to Auscultation bilaterally
Cardiac: Normal S1/S2, Regular Rate and Rhythm
GI: Soft, Nontender, Nondistended, Normal Bowel Sounds
Musculoskeletal: Tenderness to palpation of right lower back
Extremities: No Clubbing, Cyanosis, or Edema
Neuro: Nonfocal/Grossly Intact
Psych: Calm, Cooperative
Derm: No Visible lesions
Anticipated Discharge: 24 - 48 hours
Subjective/Interval History
-
Date of Service: December 09, 2023
No bowel movement. She has been able to void. Continues to have severe right lower back pain, mildly improved. No fever, no vomiting.
Objective Data
-
Labs:
Laboratory Results
12/09/23
05:36
WBC 5.1
Hgb 11.2 L
Hct 32.7 L
Plt Count 241
Sodium 130 L
Potassium 4.9
Chloride 101
Carbon Dioxide 23
BUN 32 H
Creatinine 0.8
Glucose 133 H
Calcium 10.0
Vital Signs:
Vital Signs
Temp Pulse Resp BP Pulse Ox
97.5 F 52 18 139/58 99
12/09/23 08:00 12/09/23 08:00 12/09/23 08:00 12/09/23 08:00 12/09/23 08:00
I&O
12/08/23 12/09/23 12/10/23
06:59 06:59 06:59
Output Total 600 / 600
Balance -600 / -600
[2023-12-10] MEDS: CITROMA 300 ML PO (09:57)
[2023-12-10 11:55] VITALS: BP 139/70; PULSE 51
--- NOTE | 2023-12-10 14:21 | CM ---
Case management following for d/c planning
PT recs - SNF at d/c
Discussed with pt - declining snf - reports she will have assist at home with friends and family. Pt does not want to stop chemo and is adamant about going home. Pt will accept home care - requesting [facility]
CM will send referral in [facility] for home care needs
Plan - anticipate home with [facility] when medically stable
[2023-12-10 15:35] VITALS: BP 136/56
[2023-12-10] MEDS: ASPIR LOW (ENTERIC COATED) 81 MG PO (16:22)
[2023-12-10] MEDS: LOVENOX 40 MG SC (18:32)
[2023-12-10] MEDS: LIDOCAINE 4% PATCH 1 PATCH TOPICAL (19:44)
[2023-12-10] MEDS: ORETIC 12.5 MG PO (22:40)
[2023-12-10] MEDS: ZESTRIL 10 MG PO (22:40)
[2023-12-10] MEDS: NORVASC 5 MG PO (22:40)
[2023-12-10 22:48] VITALS: BP 143/59
[2023-12-11] MEDS: SYNTHROID 100 MCG PO (05:42)
[2023-12-11 07:00] VITALS: BP 170/72
--- NOTE | 2023-12-11 08:34 | W.PN.HOSP.TC ---
Today's Communication/Plan
-
Hopeful for discharge tomorrow with continued improvement
Assessment / Plan
Assessment / Plan
HPI: 83-year-old female with a past medical history of non-small cell lung cancer on Keytruda and chemo, hypertension, anemia, and cigarette nicotine dependency presents with intractable back pain radiating her left thigh and buttock after coughing.
Lumbar spinal x-rays shows degenerative disc disease, large volume of stool within the colon.
#Intractable low back pain likely nerve branch are muscle spasm
thoracic spine x ray with No acute fracture or malalignment thoracic spine identified radiographically.
lumbar spine x ray with o acute fracture or malalignment identified radiographically. Multilevel advanced degenerative changes as seen prior.Large volume of stool within the colon.
S/p dexamethasone 10 Mg IV x 1 in the ER, continue prednisone 40 mg daily for 5 days
Continue Toradol 15 mg every 6 hours as needed, oxycodone as needed
PT/OT - rec SNF. Patient declined SNF, wants to go home so she can continue chemo
#Acute urinary retention
Requiring straight cath x 1 on 12/08, now voiding
Treat constipation, continue bladder scan protocol
#Constipation
Add magnesium citrate, continue miraLAX and senna,Colace twice a day
#Chronic hyponatremia
Continue fluid restriction
#Metastatic Non-Small Cell Lung CA
-Patient on Keytruda as outpatient for nearly 18 months
-[facility]
#Essential Hypertension
- Continue lisinopril and amlodipine with hold parameters
#Hypothyroidism
- continue levothyroxine
DVT ppx: Lovenox
Code Status: DNR
Total time spent to see the patient on the floor, examine the patient, review data and lab results, discuss treatment plan with patient, nursing staff around 39 minutes.
Physical Exam
General: No acute distress
HEENT: Normocephalic, Atraumatic, EOMI, MMM
Respiratory: Clear to Auscultation bilaterally
Cardiac: Normal S1/S2, Regular Rate and Rhythm
GI: Soft, Nontender, Nondistended, Normal Bowel Sounds
Musculoskeletal: Tenderness to palpation of right lower back
Extremities: No Clubbing, Cyanosis, or Edema
Neuro: Nonfocal/Grossly Intact
Psych: Calm, Cooperative
Derm: No Visible lesions
Anticipated Discharge: Within 24 hours
Subjective/Interval History
-
Date of Service: December 11, 2023
Patient's pain has mildly improved. She was able to ambulate to her commode. She is able to urinate. Still having constipation, no bowel movement yet. No fever, no vomiting.
Objective Data
-
Vital Signs:
Vital Signs
Temp Pulse Resp BP Pulse Ox
97.5 F 56 16 170/72 93
12/11/23 07:00 12/11/23 07:00 12/11/23 07:00 12/11/23 07:00 12/10/23 22:48
I&O
12/10/23 12/11/23 12/12/23
06:59 06:59 06:59
Intake Total 300 / 300 1140 / 1140
Balance 300 / 300 1140 / 1140
[2023-12-11] MEDS: DELTASONE 40 MG PO (08:40)
[2023-12-11] MEDS: MAGNESIUM OXIDE 500 MG PO (08:40)
[2023-12-11] MEDS: SENOKOT-S 2 TABLET PO ×2 (08:40→21:02)
[2023-12-11] MEDS: MIRALAX 17 GRAMS PO (08:41)
[2023-12-11] MEDS: COLACE 100 MG PO ×2 (08:41→21:02)
[2023-12-11] MEDS: VISBIOME 1 CAP PO (08:41)
[2023-12-11] MEDS: ZOFRAN 4 MG IV (08:56)
[2023-12-11] MEDS: ROXICODONE 5 MG PO ×2 (08:56→16:09)
[2023-12-11 09:00] VITALS: BP 154/67
--- NOTE | 2023-12-11 11:12 | PTCARENOTE ---
Purwick removed. pt incontinent of urine around purwick. some clear yellow urine drained
[2023-12-11 15:00] VITALS: BP 168/79
[2023-12-11] MEDS: ASPIR LOW (ENTERIC COATED) 81 MG PO (16:10)
[2023-12-11] MEDS: LOVENOX 40 MG SC (17:49)
[2023-12-11 20:41] LABS: Urine Albumin Negative (Neg - Trace); Urine Bilirubin Negative (Negative); Urine Character Slightly Cloudy (Clear); Urine Color Yellow; Urine Glucose Negative (Negative); Urine Ketone Negative (Negative); Urine Leukocyte 1+ (Negative); Urine Nitrite Positive (Negative); Urine Occult Blood Negative (Negative); Urine Specific Gravity 1.015 (<1.030); Urine Urobilinogen Negative (Neg - 1+); Urine pH 6.5 (5.0-9.0)
[2023-12-11 21:01] LABS: Urine Bacteria Many (Negative); Urine Red Blood Cell 0-2 /HPF (0-2); Urine White Cell 16-20 /HPF (0-5)
[2023-12-11] MEDS: LIDOCAINE 4% PATCH 1 PATCH TOPICAL (21:02)
[2023-12-11] MEDS: MIRALAX PO (21:03)
[2023-12-11] MEDS: ZESTRIL 10 MG PO (23:37)
[2023-12-11] MEDS: ORETIC 12.5 MG PO (23:37)
[2023-12-11] MEDS: NORVASC 5 MG PO (23:37)
[2023-12-11] MEDS: TORADOL 15 MG IV (23:41)
[2023-12-11 23:42] VITALS: BP 159/65
[2023-12-12] MEDS: SYNTHROID 100 MCG PO (04:21)
[2023-12-12] MEDS: ROXICODONE 5 MG PO ×2 (04:21→14:23)
[2023-12-12 08:00] VITALS: BP 170/60
--- NOTE | 2023-12-12 08:40 | W.PN.HOSP.TC ---
Today's Communication/Plan
-
Discharge
Assessment / Plan
Assessment / Plan
HPI: 83-year-old female with a past medical history of non-small cell lung cancer on Keytruda and chemo, hypertension, anemia, and cigarette nicotine dependency presents with intractable back pain radiating her left thigh and buttock after coughing.
Lumbar spinal x-rays shows degenerative disc disease, large volume of stool within the colon.
#Intractable low back pain likely nerve branch are muscle spasm
thoracic spine x ray with No acute fracture or malalignment thoracic spine identified radiographically.
lumbar spine x ray with o acute fracture or malalignment identified radiographically. Multilevel advanced degenerative changes as seen prior.Large volume of stool within the colon.
S/p dexamethasone 10 Mg IV x 1 in the ER, continue prednisone 40 mg daily for 5 days
Her pain is much improved, she is medically stable for discharge on prednisone 40 mg daily for 1 more day, and oxycodone prn
Follow-up with her primary care doctor in 1 week
PT/OT - rec HH
#Acute urinary tract infection
Currently on IV Rocephin, will discharge on cefdinir to complete a 5-day course
#Acute urinary retention
Requiring straight cath x 1 on 12/08, now voiding
Treat constipation, continue bladder scan protocol
#Constipation
Resolved, continue miraLAX and senna,Colace twice a day
#Chronic hyponatremia
Continue fluid restriction
#Metastatic Non-Small Cell Lung CA
-Patient on Keytruda as outpatient
-[facility]
#Essential Hypertension
- Continue lisinopril and amlodipine with hold parameters
#Hypothyroidism
- continue levothyroxine
DVT ppx: Lovenox
Code Status: DNR
Physical Exam
General: No acute distress
HEENT: Normocephalic, Atraumatic, EOMI, MMM
Respiratory: Clear to Auscultation bilaterally
Cardiac: Normal S1/S2, Regular Rate and Rhythm
GI: Soft, Nontender, Nondistended, Normal Bowel Sounds
Musculoskeletal: Tenderness to palpation of right lower back
Extremities: No Clubbing, Cyanosis, or Edema
Neuro: Nonfocal/Grossly Intact
Psych: Calm, Cooperative
Derm: No Visible lesions
Anticipated Discharge: Today
Subjective/Interval History
-
Date of Service: December 12, 2023
Patient denies dysuria to me, but complains of dysuria to the nurse. Her back pain has improved, her ambulation has improved. No fever, no vomiting.
Objective Data
-
Vital Signs:
Vital Signs
Temp Pulse Resp BP Pulse Ox
97.9 F 62 18 170/60 93
12/12/23 08:00 12/12/23 08:00 12/12/23 08:00 12/12/23 08:00 12/12/23 08:00
I&O
12/11/23 12/12/23 12/13/23
06:59 06:59 06:59
Intake Total 1140 / 1140 660 / 660
Output Total 500 / 500
Balance 1140 / 1140 160 / 160
[2023-12-12] MEDS: MIRALAX 17 GRAMS PO (08:51)
[2023-12-12] MEDS: MAGNESIUM OXIDE 500 MG PO (08:52)
[2023-12-12] MEDS: DELTASONE 40 MG PO (08:52)
[2023-12-12] MEDS: COLACE 100 MG PO (08:52)
[2023-12-12] MEDS: VISBIOME 1 CAP PO (08:52)
[2023-12-12] MEDS: STERILE WATER FOR INJECTION 10 ML IV (08:53)
[2023-12-12] MEDS: SENOKOT-S 2 TABLET PO (08:53)
[2023-12-12] MEDS: ROCEPHIN 1000 MG IV (08:53)
[2023-12-12 09:00] VITALS: BP 161/125; PULSE 72; O2SAT 94
[2023-12-12] MEDS: MYLICON 80 MG PO ×2 (09:57→14:23)
--- NOTE | 2023-12-12 13:13 | W.DCSUMMARY ---
Discharge Summary
Discharge Data
Date of Admission: 12/08/23
Date of Discharge: 12/12/23
-
Pending Results: No
Hospital Course
Discharge diagnosis:
Intractable back pain with radiculopathy
Acute urinary tract infection
Acute urinary retention
Constipation
Chronic hyponatremia
Non-small cell lung cancer
Benign essential hypertension
Lumbar spine x-rays:
1. Limited as above. No acute fracture or malalignment identified radiographically. Multilevel advanced degenerative changes as seen prior.
2. Large volume of stool within the colon.
Hospital course:
83-year-old female with a past medical history of non-small cell lung cancer on Keytruda and chemo, hypertension, anemia, and cigarette nicotine dependency was admitted for intractable back pain with radiculopathy after coughing. Lumbar spine
x-rays were negative for fracture or dislocation. She was treated with IV dexamethasone, oxycodone, and Tylenol.
Patient's hospital course was complicated by acute urinary retention, requiring straight cath x 1. She was able to void afterwards.
Patient also has chronic constipation. She received an aggressive bowel regimen. She did have a bowel movement. She will be discharged on MiraLAX twice a day, and sennosides�docusate twice a day.
Patient was also found to have a urinary tract infection. She received IV Rocephin, and will be discharged on cefdinir to complete a 5-day course.
Patient was seen in conjunction with PT. Initially PT recommended short-term rehab. Patient declined short-term rehab, as she wished to continue receiving chemo for her lung cancer. After several days, her pain improved, and she was able to
ambulate more. PT changed their recommendation to home care.
Patient is medically stable for discharge. She will be discharged on prednisone 40 mg daily for 1 more day, oxycodone as needed. Tylenol was discontinued as she states that it did not help her pain. She needs to continue her bowel regimen as
above. She has been instructed to follow-up with her primary care doctor in 1 week.
Disposition: Home with home care
Discharge planning: Required 42 minutes
Discharge Plan
-
Patient Disposition: Home with Home Care
Discharge Diagnosis/Procedures: Intractable back pain, acute urinary retention, constipation, acute urinary tract infection, chronic hyponatremia, lung cancer
Condition: Fair
Diet: Regular
Activity: As tolerated
Driving Restrictions: As prior to admission
Activity Restrictions/Additional Instructions:
Start your cefdinir/antibiotic and prednisone 12/13/2023.
Follow-up with your primary care doctor in 3-5 days.
Referrals:
Chriss Dobson MD [Family Provider] - in less than 1 week
Prescriptions:
New
lidocaine 4 % Adhesive Patch,Medicated
1 patch topical DAILY@1999 Qty: 30 0RF
cefdinir 300 mg capsule
300 mg PO BID 4 Days Qty: 8 0RF
prednisone 20 mg tablet
40 mg PO DAILY 1 Days Qty: 2 0RF
sennosides-docusate sodium [Stool Softener-Laxative] 8.6-50 mg Tablet
2 tab PO BID Qty: 120 0RF
oxycodone 5 mg tablet
5 mg PO BID PRN (Reason: Pain) Qty: 30 0RF
phenazopyridine [Pyridium] 100 mg tablet
100 mg PO TID PRN (Reason: burning with urination) Qty: 6 0RF
Continued
amlodipine 5 MG tablet
5 mg PO HS
levothyroxine 100 MCG tablet
100 mcg PO DAILY
aspirin 81 mg Tablet,Delayed Release (Dr/Ec)
81 mg PO DAILY@1600
ibuprofen 200 mg Tablet
400 mg PO TIDPRN PRN (Reason: MILD PAIN)
lisinopril-hydrochlorothiazide 20-25 mg tablet
0.5 tab PO HS
Align 4 mg Capsule
4 mg PO DAILY
Keytruda 25 mg/mL Solution
200 mg IV Q3W
magnesium oxide 500 mg magnesium tablet
400 mg PO DAILY
Changed
polyethylene glycol 3350 [Miralax] 17 gram Powder In Packet
17 g PO BID Qty: 0 0RF
Discharge Orders:
Discharge Patient (As Directed); Ordered 12/12/23
Ordered By: John Newton
Discharge Date and Time
Discharge Date/Time: 12/12/23 15:20
Print Language: UPPER SORBIAN
--- NOTE | 2023-12-12 13:19 | CM ---
CM following re: discharge planning.
Reviewed pt's chart, met with pt.
Discharge order noted. Pt is aware and she stated her sister is coming to transport home. Pt is OBS status, no IMM form required.
PT and OT evaluations noted - home PT/OT recommended. pt is aware and she stated she is known to [facility] and she is in contact with them to coordinate services.
A referral to [facility] noted on [facility] and acceptance for services confirmed.
Please fax discharge instructions to [facility] at [phone]
D/C plan: home with [facility] and family support. Sister to transport
[2023-12-12] MEDS: ZOFRAN 4 MG IV (14:23)
[2023-12-12 15:12] VITALS: BP 164/70
== END 2023-12-12 15:20 | disposition home health service (06) ==
LOC: 3 WEST ACU 16:18
PROVIDERS: Registered Nurse; ADMITTING PHYSICIAN Family Medicine; EMERGENCY PHYSICIAN Emergency Medicine; FAMILY PHYSICIAN Family Medicine
DX: M54.9 Dorsalgia, unspecified (principal); N39.0 Urinary tract infection, site not specified; R33.9 Retention of urine, unspecified; K59.09 Other constipation; E87.1 Hypo-osmolality and hyponatremia; I10 Essential (primary) hypertension; E78.5 Hyperlipidemia, unspecified; M54.10 Radiculopathy, site unspecified; M48.061 Spinal stenosis, lumbar region without neurogenic claudication; M51.26 Other intervertebral disc displacement, lumbar region; F17.200 Nicotine dependence, unspecified, uncomplicated; E78.00 Pure hypercholesterolemia, unspecified; E03.9 Hypothyroidism, unspecified; M47.816 Spondylosis without myelopathy or radiculopathy, lumbar region; I73.00 Raynaud's syndrome without gangrene; R05.9 Cough, unspecified; C34.90 Malignant neoplasm of unspecified part of unspecified bronchus or lung; Z60.2 Problems related to living alone; Z85.3 Personal history of malignant neoplasm of breast; Z66 Do not resuscitate; Z79.890 Hormone replacement therapy; Z79.82 Long term (current) use of aspirin; Z92.21 Personal history of antineoplastic chemotherapy; Z85.528 Personal history of other malignant neoplasm of kidney; Z92.3 Personal history of irradiation; Z91.041 Radiographic dye allergy status
CPT/HCPCS: 72072; 72100; 80048; 80053; 81003; 81015; 85027; 87077; 87086; 87186; 96374; 97167; 97530; 99284; 99406

== ENCOUNTER → 2023-12-17 12:18 | Outpatient (REF) | payer MEDICARE, OTHER, SELFPAY ==
[2023-12-17 15:41] LABS: % Basophils 0.4 % (0-2); % Eosinophils 2.8 % (0-6); % Lymphocytes 11.6 % (20.5-51.1); % Monocytes 10.5 % (1.7-9.3); % Neutrophils 70.7 % (42.2-75.2); Absolute Eosinophils 0.3 10^3/uL (0-0.7); Absolute Immature Granulocytes 0.4 10^3/uL (0-0.05); Absolute Monocytes 0.9 10^3/uL (0.1-0.6); Absolute Neutrophils 6.3 10^3/uL (1.4-6.5); Hemoglobin 10.7 g/dL (12.0-16.0); Mean Corp Hgb Conc. 34.5 g/dL (33.0-37.0); Mean Corpuscular Hgb 30.5 pg (27.0-31.0); Mean Corpuscular Volume 88.3 fL (81.0-99.0); Mean Platelet Volume 10.5 fL (7.4-10.4); Nucleated Red Blood Cells % 0 %; Platelet Count 297 10^3/uL (130-400); Red Blood Cell Count 3.51 10^6/uL (4.20-5.40); Red Cell Dist. Width 15.1 % (11.5-14.5)
[2023-12-17 15:50] LABS: ALT (SGPT) 16 U/L (0-35); AST (SGOT) 22 U/L (14-36); Albumin 3.7 g/dl (3.5-5.0); Alkaline Phosphatase 112 U/L (38-126); Blood Urea Nitrogen 37 mg/dl (7-17); Calcium 9.9 mg/dl (8.4-10.2); Carbon Dioxide 25 mmol/L (22-30); Chloride 93 mmol/L (98-107); Glucose 82 mg/dl (70-99); Sodium 124 mmol/L (135-145); Total Bilirubin 0.4 mg/dl (0.2-1.3); Total Protein 6.2 g/dl (6.3-8.2); eGFR 55.55
== END ==
LOC: HWLAB 12:18
PROVIDERS: ATTENDING PHYSICIAN Internal Medicine Hematology & Oncology; FAMILY PHYSICIAN Family Medicine
DX: C50.111 Malignant neoplasm of central portion of right female breast (principal); C34.31 Malignant neoplasm of lower lobe, right bronchus or lung; E55.9 Vitamin D deficiency, unspecified; R92.8 Other abnormal and inconclusive findings on diagnostic imaging of breast
CPT/HCPCS: 36415; 80053; 85025

== ENCOUNTER → 2023-12-21 15:54 | Outpatient (REF) | payer MEDICARE, OTHER, SELFPAY ==
[2023-12-21 16:51] LABS: Urine Albumin Negative (Neg - Trace); Urine Bilirubin Negative (Negative); Urine Character Clear (Clear); Urine Color Yellow; Urine Glucose Negative (Negative); Urine Ketone Negative (Negative); Urine Leukocyte Trace (Negative); Urine Nitrite Negative (Negative); Urine Occult Blood Negative (Negative); Urine Urobilinogen Negative (Neg - 1+)
[2023-12-21 17:03] LABS: Urine Red Blood Cell 0-2 /HPF (0-2); Urine Squamous Cell 16-20 /LPF (Few)
[2023-12-21 17:04] LABS: Urine Bacteria Few (Negative); Urine White Cell 0-2 /HPF (0-5)
== END ==
LOC: REG 15:54
PROVIDERS: ATTENDING PHYSICIAN Internal Medicine Hematology & Oncology; FAMILY PHYSICIAN Family Medicine
DX: C50.111 Malignant neoplasm of central portion of right female breast (principal); C34.31 Malignant neoplasm of lower lobe, right bronchus or lung; E55.9 Vitamin D deficiency, unspecified; R92.8 Other abnormal and inconclusive findings on diagnostic imaging of breast; E87.6 Hypokalemia
CPT/HCPCS: 80053; 81003; 81015; 83735; 87086

== ENCOUNTER → 2024-01-07 12:11 | Outpatient (REF) | payer MEDICARE, OTHER, SELFPAY ==
[2024-01-07 15:50] LABS: % Eosinophils 4.4 % (0-6); % Immature Granulocytes 0.4 % (0-0.5); % Lymphocytes 10.5 % (20.5-51.1); % Monocytes 6.1 % (1.7-9.3); % Neutrophils 77.6 % (42.2-75.2); Absolute Basophils 0.1 10^3/uL (0-0.2); Absolute Eosinophils 0.4 10^3/uL (0-0.7); Absolute Monocytes 0.6 10^3/uL (0.1-0.6); Absolute Neutrophils 7.2 10^3/uL (1.4-6.5); Hematocrit 32.8 % (37.0-47.0); Mean Corp Hgb Conc. 33.5 g/dL (33.0-37.0); Mean Corpuscular Hgb 30.1 pg (27.0-31.0); Mean Corpuscular Volume 89.6 fL (81.0-99.0); Mean Platelet Volume 9.8 fL (7.4-10.4); Nucleated Red Blood Cells % 0 %; Platelet Count 326 10^3/uL (130-400); Red Blood Cell Count 3.66 10^6/uL (4.20-5.40); Red Cell Dist. Width 16.6 % (11.5-14.5); White Blood Cell Count 9.2 10^3/uL (4.8-10.8)
[2024-01-07 15:56] LABS: ALT (SGPT) 11 U/L (0-35); AST (SGOT) 22 U/L (14-36); Alkaline Phosphatase 113 U/L (38-126); Blood Urea Nitrogen 26 mg/dl (7-17); Calcium 10.4 mg/dl (8.4-10.2); Carbon Dioxide 27 mmol/L (22-30); Chloride 98 mmol/L (98-107); Glucose 99 mg/dl (70-99); HDL Cholesterol 65 mg/dl; LDL Cholesterol, Calculated 129 mg/dl; Potassium 4.6 mmol/L (3.5-5.1); Sodium 134 mmol/L (135-145); Total Bilirubin 0.5 mg/dl (0.2-1.3); Total Cholesterol 221 mg/dl (50-199); Total Protein 6.6 g/dl (6.3-8.2); Triglyceride 135 mg/dl (10-149); Very Low Density Lipoprotein 27 mg/dl (0-30); eGFR > 60.00
[2024-01-07 16:27] LABS: TSH 2.34 uIU/ml (0.47-4.68)
== END ==
LOC: HWLAB 12:11
PROVIDERS: ATTENDING PHYSICIAN Internal Medicine Hematology & Oncology; FAMILY PHYSICIAN Family Medicine
DX: M54.9 Dorsalgia, unspecified (principal); C50.919 Malignant neoplasm of unspecified site of unspecified female breast; C34.31 Malignant neoplasm of lower lobe, right bronchus or lung; I10 Essential (primary) hypertension; E03.9 Hypothyroidism, unspecified; C34.90 Malignant neoplasm of unspecified part of unspecified bronchus or lung; C79.89 Secondary malignant neoplasm of other specified sites; C50.111 Malignant neoplasm of central portion of right female breast; E55.9 Vitamin D deficiency, unspecified; R92.8 Other abnormal and inconclusive findings on diagnostic imaging of breast
CPT/HCPCS: 36415; 80053; 80061; 84443; 85025

== ENCOUNTER → 2024-01-14 12:14 | Outpatient (REF) | payer MEDICARE, OTHER, SELFPAY ==
[2024-01-14 15:53] LABS: % Basophils 0.9 % (0-2); % Eosinophils 2.5 % (0-6); % Immature Granulocytes 1.7 % (0-0.5); % Monocytes 2.4 % (1.7-9.3); % Neutrophils 82.5 % (42.2-75.2); Absolute Basophils 0.1 10^3/uL (0-0.2); Absolute Eosinophils 0.2 10^3/uL (0-0.7); Absolute Immature Granulocytes 0.2 10^3/uL (0-0.05); Absolute Lymphocytes 0.9 10^3/uL (1.2-3.4); Absolute Monocytes 0.2 10^3/uL (0.1-0.6); Absolute Neutrophils 7.7 10^3/uL (1.4-6.5); Hematocrit 32.9 % (37.0-47.0); Hemoglobin 11.2 g/dL (12.0-16.0); Mean Corpuscular Hgb 31.5 pg (27.0-31.0); Mean Corpuscular Volume 92.7 fL (81.0-99.0); Mean Platelet Volume 10.3 fL (7.4-10.4); Nucleated Red Blood Cells % 0 %; Platelet Count 242 10^3/uL (130-400); Red Blood Cell Count 3.55 10^6/uL (4.20-5.40); Red Cell Dist. Width 17.2 % (11.5-14.5); White Blood Cell Count 9.3 10^3/uL (4.8-10.8)
[2024-01-14 15:59] LABS: ALT (SGPT) 11 U/L (0-35); AST (SGOT) 24 U/L (14-36); Alkaline Phosphatase 121 U/L (38-126); Blood Urea Nitrogen 30 mg/dl (7-17); Calcium 9.9 mg/dl (8.4-10.2); Carbon Dioxide 25 mmol/L (22-30); Chloride 101 mmol/L (98-107); Glucose 94 mg/dl (70-99); Potassium 4.2 mmol/L (3.5-5.1); Sodium 137 mmol/L (135-145); Total Bilirubin 0.5 mg/dl (0.2-1.3); Total Protein 6.5 g/dl (6.3-8.2); eGFR 55.55
== END ==
LOC: HWLAB 12:14
PROVIDERS: ATTENDING PHYSICIAN Internal Medicine Hematology & Oncology; FAMILY PHYSICIAN Family Medicine
DX: C50.111 Malignant neoplasm of central portion of right female breast (principal); C34.31 Malignant neoplasm of lower lobe, right bronchus or lung; E55.9 Vitamin D deficiency, unspecified; R92.8 Other abnormal and inconclusive findings on diagnostic imaging of breast
CPT/HCPCS: 80053; 85025

== ENCOUNTER → 2024-02-04 12:01 | Outpatient (REF) | payer MEDICARE, OTHER, SELFPAY ==
[2024-02-04 15:28] LABS: ALT (SGPT) 12 U/L (0-35); AST (SGOT) 20 U/L (14-36); Albumin 4.3 g/dl (3.5-5.0); Alkaline Phosphatase 127 U/L (38-126); Blood Urea Nitrogen 20 mg/dl (7-17); Calcium 10.4 mg/dl (8.4-10.2); Carbon Dioxide 25 mmol/L (22-30); Chloride 98 mmol/L (98-107); Glucose 111 mg/dl (70-99); Potassium 3.6 mmol/L (3.5-5.1); Sodium 136 mmol/L (135-145); Total Bilirubin 0.7 mg/dl (0.2-1.3); eGFR > 60.00
[2024-02-04 15:30] LABS: % Basophils 1.4 % (0-2); % Eosinophils 1.6 % (0-6); % Immature Granulocytes 0.7 % (0-0.5); % Lymphocytes 11.7 % (20.5-51.1); % Monocytes 7.8 % (1.7-9.3); % Neutrophils 76.8 % (42.2-75.2); Absolute Basophils 0.1 10^3/uL (0-0.2); Absolute Eosinophils 0.1 10^3/uL (0-0.7); Absolute Immature Granulocytes 0.1 10^3/uL (0-0.05); Absolute Monocytes 0.7 10^3/uL (0.1-0.6); Absolute Neutrophils 6.7 10^3/uL (1.4-6.5); Hematocrit 34.6 % (37.0-47.0); Hemoglobin 11.5 g/dL (12.0-16.0); Mean Corp Hgb Conc. 33.2 g/dL (33.0-37.0); Mean Corpuscular Hgb 29.4 pg (27.0-31.0); Mean Corpuscular Volume 88.5 fL (81.0-99.0); Mean Platelet Volume 10.7 fL (7.4-10.4); Nucleated Red Blood Cells % 0 %; Platelet Count 302 10^3/uL (130-400); Red Blood Cell Count 3.91 10^6/uL (4.20-5.40); Red Cell Dist. Width 17.3 % (11.5-14.5); White Blood Cell Count 8.8 10^3/uL (4.8-10.8)
== END ==
LOC: HWLAB 12:01
PROVIDERS: ATTENDING PHYSICIAN Internal Medicine Hematology & Oncology; FAMILY PHYSICIAN Family Medicine
DX: C50.111 Malignant neoplasm of central portion of right female breast (principal); C34.31 Malignant neoplasm of lower lobe, right bronchus or lung; E55.9 Vitamin D deficiency, unspecified; R92.8 Other abnormal and inconclusive findings on diagnostic imaging of breast; E87.6 Hypokalemia
CPT/HCPCS: 36415; 80053; 85025

== ENCOUNTER → 2024-02-18 12:03 | Outpatient (REF) | payer MEDICARE, OTHER, SELFPAY ==
[2024-02-18 15:46] LABS: % Basophils 1.2 % (0-2); % Eosinophils 5.5 % (0-6); % Immature Granulocytes 0.4 % (0-0.5); % Lymphocytes 10.4 % (20.5-51.1); % Monocytes 4.2 % (1.7-9.3); % Neutrophils 78.3 % (42.2-75.2); Absolute Basophils 0.1 10^3/uL (0-0.2); Absolute Eosinophils 0.7 10^3/uL (0-0.7); Absolute Immature Granulocytes 0.1 10^3/uL (0-0.05); Absolute Lymphocytes 1.3 10^3/uL (1.2-3.4); Absolute Monocytes 0.5 10^3/uL (0.1-0.6); Absolute Neutrophils 9.5 10^3/uL (1.4-6.5); Hematocrit 33.1 % (37.0-47.0); Hemoglobin 10.9 g/dL (12.0-16.0); Mean Corp Hgb Conc. 32.9 g/dL (33.0-37.0); Mean Platelet Volume 10.6 fL (7.4-10.4); Nucleated Red Blood Cells % 0 %; Platelet Count 276 10^3/uL (130-400); Red Blood Cell Count 3.76 10^6/uL (4.20-5.40); Red Cell Dist. Width 16.2 % (11.5-14.5); White Blood Cell Count 12.1 10^3/uL (4.8-10.8)
[2024-02-18 15:48] LABS: ALT (SGPT) 10 U/L (0-35); AST (SGOT) 18 U/L (14-36); Albumin 3.9 g/dl (3.5-5.0); Alkaline Phosphatase 116 U/L (38-126); Blood Urea Nitrogen 34 mg/dl (7-17); Calcium 10.2 mg/dl (8.4-10.2); Carbon Dioxide 28 mmol/L (22-30); Chloride 102 mmol/L (98-107); Glucose 109 mg/dl (70-99); Potassium 3.4 mmol/L (3.5-5.1); Sodium 140 mmol/L (135-145); Total Bilirubin 0.3 mg/dl (0.2-1.3); Total Protein 6.6 g/dl (6.3-8.2); eGFR 49.55
[2024-02-18 16:43] LABS: TSH 1.43 uIU/ml (0.47-4.68)
== END ==
LOC: HWLAB 12:03
PROVIDERS: ATTENDING PHYSICIAN Internal Medicine Hematology & Oncology; FAMILY PHYSICIAN Family Medicine
DX: C50.111 Malignant neoplasm of central portion of right female breast (principal); C34.31 Malignant neoplasm of lower lobe, right bronchus or lung; E55.9 Vitamin D deficiency, unspecified; R92.8 Other abnormal and inconclusive findings on diagnostic imaging of breast; E87.6 Hypokalemia; E03.9 Hypothyroidism, unspecified
CPT/HCPCS: 36415; 80053; 84443; 85025

== ENCOUNTER → 2024-02-25 11:59 | Outpatient (REF) | payer MEDICARE, OTHER, SELFPAY ==
[2024-02-25 16:02] LABS: % Eosinophils 6.2 % (0-6); % Immature Granulocytes 0.4 % (0-0.5); % Lymphocytes 11.3 % (20.5-51.1); % Monocytes 6.4 % (1.7-9.3); % Neutrophils 74.7 % (42.2-75.2); Absolute Basophils 0.1 10^3/uL (0-0.2); Absolute Eosinophils 0.6 10^3/uL (0-0.7); Absolute Lymphocytes 1.1 10^3/uL (1.2-3.4); Absolute Monocytes 0.6 10^3/uL (0.1-0.6); Hematocrit 32.1 % (37.0-47.0); Hemoglobin 10.6 g/dL (12.0-16.0); Mean Corpuscular Hgb 30.1 pg (27.0-31.0); Mean Corpuscular Volume 91.2 fL (81.0-99.0); Mean Platelet Volume 10.7 fL (7.4-10.4); Nucleated Red Blood Cells % 0 %; Platelet Count 245 10^3/uL (130-400); Red Blood Cell Count 3.52 10^6/uL (4.20-5.40); Red Cell Dist. Width 16.4 % (11.5-14.5); White Blood Cell Count 9.4 10^3/uL (4.8-10.8)
[2024-02-25 16:16] LABS: ALT (SGPT) < 10 U/L (0-35); AST (SGOT) 19 U/L (14-36); Alkaline Phosphatase 116 U/L (38-126); Blood Urea Nitrogen 26 mg/dl (7-17); Calcium 10.3 mg/dl (8.4-10.2); Carbon Dioxide 29 mmol/L (22-30); Chloride 104 mmol/L (98-107); Glucose 112 mg/dl (70-99); Potassium 3.6 mmol/L (3.5-5.1); Sodium 143 mmol/L (135-145); Total Bilirubin 0.4 mg/dl (0.2-1.3); Total Protein 6.8 g/dl (6.3-8.2); eGFR > 60.00
== END ==
LOC: HWLAB 11:59
PROVIDERS: ATTENDING PHYSICIAN Internal Medicine Hematology & Oncology; FAMILY PHYSICIAN Family Medicine
DX: C50.111 Malignant neoplasm of central portion of right female breast (principal); C34.31 Malignant neoplasm of lower lobe, right bronchus or lung; E55.9 Vitamin D deficiency, unspecified; R92.8 Other abnormal and inconclusive findings on diagnostic imaging of breast; E87.6 Hypokalemia
CPT/HCPCS: 36415; 80053; 85025

== ENCOUNTER → 2024-05-02 15:09 | Outpatient (REF) | payer MEDICARE, OTHER, SELFPAY ==
[2024-05-02 12:21] LABS: Iron 36 ug/dl (37-170)
[2024-05-02 12:30] LABS: Percent Saturation 10 % (20-50); Total Iron Binding Capacity 330 ug/dl (265-497)
== END ==
LOC: OIDL 15:09
PROVIDERS: ATTENDING PHYSICIAN Internal Medicine Hematology & Oncology
DX: C50.111 Malignant neoplasm of central portion of right female breast (principal)
CPT/HCPCS: 82728; 83540; 83550

== ENCOUNTER → 2024-09-12 15:29 | Outpatient (REF) | payer MEDICARE, OTHER, SELFPAY | LOC: RAD 15:29 | PROVIDERS: ATTENDING PHYSICIAN Nurse Practitioner Adult Health; FAMILY PHYSICIAN Family Medicine | DX: C50.111 Malignant neoplasm of central portion of right female breast (principal); C34.31 Malignant neoplasm of lower lobe, right bronchus or lung; E55.9 Vitamin D deficiency, unspecified; R92.8 Other abnormal and inconclusive findings on diagnostic imaging of breast; E87.6 Hypokalemia; R60.9 Edema, unspecified | CPT/HCPCS: 93971 ==

== ENCOUNTER → 2024-09-26 12:39 | Outpatient (REF) | payer MEDICARE, OTHER, SELFPAY ==
[2024-09-26 16:08] LABS: Urine Albumin 2+ (Neg - Trace); Urine Bilirubin Negative (Negative); Urine Character Clear (Clear); Urine Color Yellow; Urine Glucose Negative (Negative); Urine Ketone Negative (Negative); Urine Leukocyte 3+ (Negative); Urine Nitrite Negative (Negative); Urine Occult Blood Negative (Negative); Urine Specific Gravity 1.015 (<1.030); Urine Urobilinogen 1+ (Neg - 1+)
[2024-09-26 16:13] LABS: Creatine Phosphokinase 39 U/L (30-135); Uric Acid 7.5 mg/dl (2.5-6.2)
[2024-09-26 16:22] LABS: Urine Urothelial Cell 0-2 /LPF (FEW)
[2024-09-26 16:23] LABS: Urine Bacteria Few (Negative); Urine Red Blood Cell 0-2 /HPF (0-2)
[2024-09-26 16:43] LABS: Vitamin D, 25-OH*** 14.9 ng/mL (30-80)
[2024-09-28 11:22] LABS: Rheumatoid Agglutinin Positive (<10 IU)
[2024-09-28 12:03] LABS: Rheumatoid Agg. Semi-quant 512 IU
[2024-09-28 13:11] LABS: Lyme Antibody Screen, EIA Negative (Negative)
[2024-09-28 23:49] LABS: ANA, IgG Reflex to HEp-2 None Detected (None Detected)
[2024-09-29 01:36] LABS: CCP Antibody IgG/IgA 7 Units (0-19)
== END ==
LOC: HWLAB 12:39
PROVIDERS: ATTENDING PHYSICIAN Internal Medicine Rheumatology; FAMILY PHYSICIAN Family Medicine; REFERRING PHYSICIAN Internal Medicine Hematology & Oncology
DX: M19.041 Primary osteoarthritis, right hand (principal); M19.042 Primary osteoarthritis, left hand; M19.90 Unspecified osteoarthritis, unspecified site; C34.00 Malignant neoplasm of unspecified main bronchus; E55.9 Vitamin D deficiency, unspecified; L29.9 Pruritus, unspecified; M79.89 Other specified soft tissue disorders; T14.8XXA Other injury of unspecified body region, initial encounter; Z51.11 Encounter for antineoplastic chemotherapy; Z85.3 Personal history of malignant neoplasm of breast; Z85.858 Personal history of malignant neoplasm of other endocrine glands
CPT/HCPCS: 36415; 73130; 81003; 81015; 82306; 82550; 84550; 86038; 86140; 86200; 86430; 86431; 86618

== ENCOUNTER → 2024-10-16 12:26 | Outpatient (REF) | payer MEDICARE, OTHER, SELFPAY | LOC: WOUND 12:26 | PROVIDERS: ATTENDING PHYSICIAN Surgery; FAMILY PHYSICIAN Family Medicine | DX: T81.31XA Disruption of external operation (surgical) wound, not elsewhere classified, initial encounter (principal); L97.212 Non-pressure chronic ulcer of right calf with fat layer exposed; D41.01 Neoplasm of uncertain behavior of right kidney; I71.43 Infrarenal abdominal aortic aneurysm, without rupture; N18.31 Chronic kidney disease, stage 3a; C78.00 Secondary malignant neoplasm of unspecified lung; C34.90 Malignant neoplasm of unspecified part of unspecified bronchus or lung; I87.2 Venous insufficiency (chronic) (peripheral); Y83.8 Other surgical procedures as the cause of abnormal reaction of the patient, or of later complication, without mention of misadventure at the time of the procedure | CPT/HCPCS: 99214 ==

== ENCOUNTER → 2024-10-26 12:46 | Outpatient (REF) | payer MEDICARE, OTHER, SELFPAY | LOC: WOUND 12:46 | PROVIDERS: ATTENDING PHYSICIAN Surgery; FAMILY PHYSICIAN Family Medicine | DX: T81.31XA Disruption of external operation (surgical) wound, not elsewhere classified, initial encounter (principal); L97.212 Non-pressure chronic ulcer of right calf with fat layer exposed; I87.2 Venous insufficiency (chronic) (peripheral); I73.9 Peripheral vascular disease, unspecified; C50.919 Malignant neoplasm of unspecified site of unspecified female breast; D41.01 Neoplasm of uncertain behavior of right kidney; I71.43 Infrarenal abdominal aortic aneurysm, without rupture; N18.31 Chronic kidney disease, stage 3a; C78.00 Secondary malignant neoplasm of unspecified lung; C34.90 Malignant neoplasm of unspecified part of unspecified bronchus or lung; Y83.8 Other surgical procedures as the cause of abnormal reaction of the patient, or of later complication, without mention of misadventure at the time of the procedure | CPT/HCPCS: 11043 ==

== ENCOUNTER → 2024-11-02 13:48 | Outpatient (REF) | payer MEDICARE, OTHER, SELFPAY | LOC: RAD 13:48 | PROVIDERS: ATTENDING PHYSICIAN Surgery; FAMILY PHYSICIAN Family Medicine; REFERRING PHYSICIAN Registered Nurse | DX: T81.31XA Disruption of external operation (surgical) wound, not elsewhere classified, initial encounter (principal); I87.2 Venous insufficiency (chronic) (peripheral); I71.43 Infrarenal abdominal aortic aneurysm, without rupture | CPT/HCPCS: 76770; 93922; 93970 ==

== ENCOUNTER → 2024-11-06 14:12 | Outpatient (REF) | payer MEDICARE, OTHER, SELFPAY | LOC: WOUND 14:12 | PROVIDERS: ATTENDING PHYSICIAN Surgery; FAMILY PHYSICIAN Family Medicine | DX: T81.31XA Disruption of external operation (surgical) wound, not elsewhere classified, initial encounter (principal); L97.212 Non-pressure chronic ulcer of right calf with fat layer exposed; I87.2 Venous insufficiency (chronic) (peripheral); I73.9 Peripheral vascular disease, unspecified; C50.919 Malignant neoplasm of unspecified site of unspecified female breast; D41.01 Neoplasm of uncertain behavior of right kidney; I71.43 Infrarenal abdominal aortic aneurysm, without rupture; N18.31 Chronic kidney disease, stage 3a; C78.00 Secondary malignant neoplasm of unspecified lung; C34.90 Malignant neoplasm of unspecified part of unspecified bronchus or lung; Y83.8 Other surgical procedures as the cause of abnormal reaction of the patient, or of later complication, without mention of misadventure at the time of the procedure | CPT/HCPCS: 11043 ==

== ENCOUNTER → 2024-11-16 14:50 | Outpatient (REF) | payer MEDICARE, OTHER, SELFPAY | LOC: WOUND 14:50 | PROVIDERS: ATTENDING PHYSICIAN Surgery; FAMILY PHYSICIAN Family Medicine | DX: T81.31XA Disruption of external operation (surgical) wound, not elsewhere classified, initial encounter (principal); L97.212 Non-pressure chronic ulcer of right calf with fat layer exposed; I87.2 Venous insufficiency (chronic) (peripheral); I73.9 Peripheral vascular disease, unspecified; C50.919 Malignant neoplasm of unspecified site of unspecified female breast; D41.01 Neoplasm of uncertain behavior of right kidney; I71.43 Infrarenal abdominal aortic aneurysm, without rupture; N18.31 Chronic kidney disease, stage 3a; C78.00 Secondary malignant neoplasm of unspecified lung; C34.90 Malignant neoplasm of unspecified part of unspecified bronchus or lung; Y83.8 Other surgical procedures as the cause of abnormal reaction of the patient, or of later complication, without mention of misadventure at the time of the procedure | CPT/HCPCS: 11043 ==

== ENCOUNTER → 2024-11-23 13:45 | Outpatient (REF) | payer MEDICARE, OTHER, SELFPAY | LOC: WOUND 13:45 | PROVIDERS: ATTENDING PHYSICIAN Surgery; FAMILY PHYSICIAN Family Medicine | DX: T81.31XA Disruption of external operation (surgical) wound, not elsewhere classified, initial encounter (principal); L97.212 Non-pressure chronic ulcer of right calf with fat layer exposed; I87.2 Venous insufficiency (chronic) (peripheral); I73.9 Peripheral vascular disease, unspecified; C50.919 Malignant neoplasm of unspecified site of unspecified female breast; D41.01 Neoplasm of uncertain behavior of right kidney; I71.43 Infrarenal abdominal aortic aneurysm, without rupture; N18.31 Chronic kidney disease, stage 3a; C78.00 Secondary malignant neoplasm of unspecified lung; C34.90 Malignant neoplasm of unspecified part of unspecified bronchus or lung | CPT/HCPCS: 99213 ==

== ENCOUNTER → 2024-12-05 13:12 | Outpatient (REF) | payer MEDICARE, OTHER, SELFPAY | LOC: WOUND 13:12 | PROVIDERS: ATTENDING PHYSICIAN Surgery; FAMILY PHYSICIAN Family Medicine | DX: T81.31XA Disruption of external operation (surgical) wound, not elsewhere classified, initial encounter (principal); I87.2 Venous insufficiency (chronic) (peripheral); I73.9 Peripheral vascular disease, unspecified; C50.919 Malignant neoplasm of unspecified site of unspecified female breast; D41.01 Neoplasm of uncertain behavior of right kidney; I71.43 Infrarenal abdominal aortic aneurysm, without rupture; N18.31 Chronic kidney disease, stage 3a; C78.00 Secondary malignant neoplasm of unspecified lung; C34.90 Malignant neoplasm of unspecified part of unspecified bronchus or lung; Y83.8 Other surgical procedures as the cause of abnormal reaction of the patient, or of later complication, without mention of misadventure at the time of the procedure | CPT/HCPCS: 99213 ==

== ENCOUNTER 2024-12-19 06:04 | Day surgery (SDC) | payer MEDICARE, OTHER, SELFPAY ==
[2024-12-19] VITALS (16 sets, daily range): BP systolic 107–177; BP diastolic 46–80
[2024-12-19 07:08] LABS: Hematocrit 35.2 % (37.0-47.0); Hemoglobin 11.2 g/dL (12.0-16.0); Mean Corp Hgb Conc. 31.8 g/dL (33.0-37.0); Mean Corpuscular Volume 84.0 fL (81.0-99.0); Platelet Count 250 10^3/uL (130-400); Red Cell Dist. Width 15.4 % (11.5-14.5)
--- NOTE | 2024-12-19 07:11 | PTCARENOTE ---
R CW port intact.
[2024-12-19 07:15] LABS: APTT 28.6 Sec (23.4-35.0); INR 0.97; PT 13.2 Sec (11.4-14.6)
--- NOTE | 2024-12-19 07:23 | W.SUR.PREOP ---
Pre-Operative Surgical Note
-
I have examined this patient prior to the performance of the scheduled procedure.
The patient's condition is unchanged from the time of the current History and
Physical and the patient is able to undergo the scheduled procedure.
[2024-12-19 07:30] LABS: Blood Urea Nitrogen 41 mg/dl (7-17); Calcium 9.9 mg/dl (8.4-10.2); Carbon Dioxide 23 mmol/L (22-30); Chloride 107 mmol/L (98-107); Estimated Creatinine Clearance 33 ml/min; Glucose 143 mg/dl (70-99); Potassium 4.0 mmol/L (3.5-5.1); Sodium 139 mmol/L (135-145); eGFR 55.21
--- NOTE | 2024-12-19 09:53 | W.IMMPOSTOP ---
Surgical Immed Post Op Note
-
Primary Surgeon: Leticia
Assisting Surgeon: Tess
Pre-op Diagnosis: Non-healing wound, chronic limb-threatening ischemia
Post-op Diagnosis: Chronic occlusion of R SFA, chronic limb-threatening ischemia
Procedure Performed: IVL + balloon angioplasty of occluded R SFA segment, IVL of R [employer]
Anesthesia Type: Local/sedation
Specimen / Cultures: None
Estimated Blood Loss: 2 cc
Complications: None
Operative Findings: Chronic occlusion of R SFA, IVL + balloon angioplasty of R SFA and IVL of [employer]
[2024-12-19] MEDS: PLAVIX 300 MG PO (11:15)
[2024-12-19] MEDS: NSS 1000 IV (12:07)
[2024-12-19] MEDS: NSS 500 IV (12:07)
--- NOTE | 2024-12-19 17:25 | OR.RPT ---
Operative Report
Operative Report
Date of Operation: 12/19/2024
Pre Op Diagnosis:
1. [place] artery atherosclerosis with right amin wound, nonhealing
2. Limb threatening ischemia, right lower extremity
Post Op Diagnosis:
1. [place] artery atherosclerosis with right amin wound, nonhealing
2. Limb threatening ischemia, right lower extremity
Procedure:
1. Intravascular lithotripsy to right popliteal artery and superficial femoral artery (6 mm x 80 mm E8 Shockwave)
2. Intravascular lithotripsy to right common femoral artery (7 mm x 60 mm M5+ Shockwave)
3. Intravascular lithotripsy to right external iliac artery, iliac bifurcation and distal common iliac artery (7 mm x 60 mm M5+ Shockwave)
4. Drug-eluting balloon angioplasty and stenting of right popliteal artery and superficial femoral artery (overlapping Zilver PTX stents 6 mm x 140 mm, 6 mm x 140 mm, 6 mm x 120 mm)
5. Diagnostic aortobiiliac arteriogram
6. Diagnostic right lower extremity arteriogram
7. Ultrasound-guided percutaneous access to the left common femoral artery
Surgeon: Rosendo Kelly III, MD
Boatbuilder Apprentice Wood: Stefan Pulido MD PGY2
Anesthesia: Sedation with local
Fluoroscopy:
54.4 min
197 mGy
44.99 gy.cm2
Complications: None
Estimated Blood Loss: Less than 20 cc
History and Indications for Procedure: 84-year-old female with nonhealing right amin wound. Preoperative lower extremity arterial studies were abnormal. She was brought to the operating room for arteriogram and possible endovascular intervention
Procedure in Detail: Dee Dunn was correctly identified and placed supine on the operating table. After adequate induction of anesthesia the bilateral groins were prepped and draped in the usual sterile fashion. A timeout was performed with the
nursing and anesthesia staff confirming the patient's identity as well as the nature and laterality of the procedure.
The left common femoral artery was identified under ultrasound guidance. The artery was patent. The superior and inferior aspects of the femoral head were identified with radiographic guidance and marked at the skin level. The proposed puncture site
was infiltrated with local anesthesia. Under ultrasound guidance we accessed the left common femoral artery with a micropuncture needle and upsized to a 5 Fr sheath over a Multispectral Imaging wire. The wire and a Shepherds hook flush catheter were advanced into
the distal abdominal aorta and a diagnostic aorto-biiliac arteriogram was performed:
AORTO-ILIAC ARTERIOGRAM:
Aorta: Abdominal aortic aneurysm. Heavily calcified. No significant stenosis identified
Right common iliac artery: Heavily calcified. Mild stenosis at the origin. Moderate to high-grade stenosis near the iliac bifurcation
Right external iliac artery: Heavily calcified. High-grade stenosis identified in the proximal and mid aspect
Left common iliac artery: Heavily calcified. Patent.
Left external iliac artery: Heavily calcified. Patent.
Under roadmap guidance using a Glidewire and the Shepherds hook catheter we selected the right common iliac artery followed by the external iliac artery and then the common femoral artery. A catheter was tracked up and over the aortic bifurcation
and placed in the common femoral artery. A diagnostic right lower extremity arteriogram was then performed which demonstrated the following:
RIGHT LOWER EXTREMITY:
Common femoral artery: Bulky calcified plaque contributing to high-grade stenosis
Profunda femoral artery: Patent. No significant stenosis identified. Robust branch network identified in the thigh.
Superficial femoral artery: Patent stump but occluded thereafter. Heavily calcified
Popliteal artery: Heavily calcified. Reconstitutes above the knee. Calcified behind the knee with moderate to high-grade stenosis. Patent below the knee with no significant stenosis identified
Anterior tibial artery: Occluded with no meaningful distal reconstitution
Tibioperoneal trunk: Patent
Peroneal artery: Patent with no significant stenosis identified
Posterior tibial artery: No significant stenosis identified
ENDOVASCULAR INTERVENTION: Systemic heparin was administered. Exchanged out for a 6 Fr 45 cm sheath over a Storq wire. Selected the superficial femoral artery stump under roadmap guidance. The SFA occlusion was crossed with a Quickcross and
Glidewire. The bulky calcified plaque in the popliteal artery at the point of reconstitution above the knee was crossed with a Mold Presser 50 0.014 wire and 0.014 Quickcross. The wire was advanced into the popliteal artery below the knee. The occluded
SFA/popliteal artery was pre-dliated with a 2 mm angioplasty balloon.
Due to the heavily calcified nature of the superficial femoral and popliteal artery disease and in an effort to modify the calcium to achieve maximum luminal gain with endovascular intervention I elected to proceed with intravascular lithotripsy. A
6 mm x 80 mm Shockwave balloon was advanced and the occlusion across under roadmap guidance and positioned in the above-knee popliteal artery to start. Alternating rounds of lithotripsy pulse delivery at sub-nominal pressure and angioplasty at
nominal pressure was performed across the occluded segment. In between rounds of pulse delivery and angioplasty the balloon was deflated and repositioned under roadmap guidance. The entire length of superficial femoral artery and popliteal artery
occlusion was treated. All 400 pulses were delivered. Subsequent arteriogram demonstrated significantly improved result with a now patent superficial femoral artery and popliteal artery. I then followed this with overlapping Zilver PTX stents. A
6 mm x 140 mm Zilver PTX was positioned in the popliteal artery under roadmap guidance and deployed. This was extended proximally with an additional 6 mm x 140 mm Zilver PTX. A 6 mm x 120 mm Zilver PTX was then extended to the SFA origin. The
stents were profiled with a 6 mm angioplasty balloon. Subsequent arteriogram demonstrated an excellent technical result with widely patent stents and brisk flow throughout the superficial femoral artery and popliteal artery.
We then focused our attention on the disease in the iliacs and common femoral artery. The 6 Georgian sheath was pulled back into the distal common iliac artery. Due to the heavily calcified nature of the common femoral artery and external iliac
artery disease and in an effort to modify the calcium to achieve maximum luminal gain with endovascular intervention I elected to proceed with intravascular lithotripsy. A 7 mm x 60 mm Shockwave balloon was positioned across the common femoral
artery under roadmap guidance to start. Alternating rounds of lithotripsy pulse delivery at sub-nominal pressure and angioplasty at nominal pressure was performed across the stenosis. The common femoral artery, entire external iliac artery, iliac
bifurcation and distal common iliac artery were treated. In between rounds of pulse delivery and angioplasty the balloon was deflated and repositioned under roadmap guidance. All 300 pulses were delivered.
COMPLETION ARTERIOGRAM: Excellent technical result. Widely patent iliac bifurcation, external iliac artery, common femoral artery with no significant residual stenosis remaining. No flow-limiting dissection identified. Brisk flow throughout the
superficial femoral artery and popliteal artery stents with only mild residual stenosis remaining. Brisk outflow through the popliteal artery below the knee and into the peroneal and posterior tibial arteries. Significantly improved flow compared
to pretreatment.
Satisfied with this result we concluded the procedure. The sheath tip was pulled back into the left external iliac artery. Protamine was administered. The sheath was secured in place with the plan to pull it in the recovery room.
The patient tolerated the procedure well and was taken to the recovery area in stable condition.
Attestation: I was present and responsible for the entire procedure.
Signed:
Rosendo Kelly III, MD
Vascular Surgery
[facility]
== END 2024-12-19 15:50 | disposition home or self-care (01) ==
LOC: CATH 06:04
PROVIDERS: ATTENDING PHYSICIAN Surgery Vascular Surgery; OTHER PHYSICIAN Internal Medicine Cardiovascular Disease; PRIMARYCARE PHYSICIAN Family Medicine
DX: I70.238 Atherosclerosis of native arteries of right leg with ulceration of other part of lower leg (principal); L97.819 Non-pressure chronic ulcer of other part of right lower leg with unspecified severity; I10 Essential (primary) hypertension; I71.40 Abdominal aortic aneurysm, without rupture, unspecified; I25.84 Coronary atherosclerosis due to calcified coronary lesion; Z91.041 Radiographic dye allergy status
CPT/HCPCS: C9765; 75625; 75710; 80048; 85027; 85610; 85730; 93005; C1725; C1769; C1874; C1894; Q9967

== ENCOUNTER 2024-12-20 08:12 | Inpatient (IN) | payer MEDICARE, OTHER, SELFPAY ==
[2024-12-19 22:20] VITALS: BP 187/81
[2024-12-19 22:30] VITALS: BMI 23.0
[2024-12-19 22:31] VITALS: BP 187/81
[2024-12-19 23:00] VITALS: BP 152/74
[2024-12-19 23:07] LABS: Hematocrit 42.7 % (37.0-47.0); Hemoglobin 13.6 g/dL (12.0-16.0); Mean Corp Hgb Conc. 31.9 g/dL (33.0-37.0); Mean Corpuscular Volume 84.7 fL (81.0-99.0); Platelet Count 335 10^3/uL (130-400); Red Cell Dist. Width 15.8 % (11.5-14.5)
[2024-12-19 23:44] LABS: Blood Urea Nitrogen 47 mg/dl (7-17); Calcium 9.7 mg/dl (8.4-10.2); Carbon Dioxide 19 mmol/L (22-30); Chloride 106 mmol/L (98-107); Estimated Creatinine Clearance 38 ml/min; Glucose 147 mg/dl (70-99); Sodium 139 mmol/L (135-145); eGFR > 60.00
[2024-12-20] VITALS (19 sets, daily range): BP systolic 98–140; BP diastolic 40–62; BMI 22.0
[2024-12-20 03:23] LABS: Nucleated Red Blood Cells % 0 %
--- NOTE | 2024-12-20 04:00 | ED.GENMED ---
History of Present Illness
General
Chief Complaint: Abdominal Symptoms
Source: patient and previous hospital records
Exam Limitations: none
Time Seen by Provider: 12/20/24 01:18
Nursing documentation reviewed up to this point in time: agreed with
History of Present Illness
History of Present Illness:
Note:
CHIEF COMPLAINT(S)
Abdominal pain.
HISTORY OF PRESENT ILLNESS
The patient is an 84-year-old female who presented with abdominal pain. She noted having tenderness in her abdomen. Although initially questioned about increased urination, she clarified that she was not experiencing this symptom but had undergone a
recent vascular procedure, during which contrast was administered. She reported an allergic reaction to contrast media, resulting in a pronounced rash rather than experiencing any respiratory distress. The patient expressed confusion regarding
whether she had undergone a computed tomography scan that day, but it was clarified that she had not. She is being considered for a computed tomography scan of the abdomen. She has been receiving intravenous fluids. The patient also reported feeling
unsure if she is experiencing nausea.
ALLERGIES
The patient reports an allergic reaction to contrast media, characterized by a red rash on the chest.
REVIEW OF SYSTEMS
- Gastrointestinal: Abdominal pain, tenderness.
- Allergic/Immunological: Rash in response to contrast media.
- Genitourinary: Denied increased urination.
- General: Uncertainty regarding nausea.
PHYSICAL EXAM
General: Alert, no acute distress.
Skin: Warm, dry.
Head: Normocephalic, atraumatic.
Neck: Supple, trachea midline.
Eye Ears, nose, mouth and throat: Oral mucosa moist.
Cardiovascular: Normal peripheral perfusion, No edema.
Respiratory: Respirations are non-labored.
Gastrointestinal: Abdomen tender on palpation.
Back: Normal range of motion, Normal alignment.
Musculoskeletal: Normal range of motion, normal strength.
Neurological: Alert and oriented to person, place, time, and situation, No focal neurological deficit observed.
Psychiatric: Cooperative, appropriate mood & affect.
PLAN
1. Arrange for a computed tomography scan of the abdomen to assess abdominal pain.
2. Continue intravenous fluid therapy.
3. Monitor for signs of nausea and administer anti-nausea medication if necessary.
DIFFERENTIAL DIAGNOSIS
The Differential Diagnosis includes, in no particular order and is not limited to:
1. Acute abdominal syndrome
2. Abdominal aortic aneurysm
3. Bowel obstruction
4. Gastroenteritis
5. Diverticulitis
6. Urinary tract infection
7. Pancreatitis
8. Cholecystitis
9. Perforated viscus
10. Ischemic bowel disease
Disposition:
SUMMARY OF ENCOUNTER
The patient is an 84-year-old female who presented to the emergency department with complaints of abdominal pain and persistent non-bloody diarrhea. She had undergone recent vascular procedures including lithotripsy to the right popliteal artery,
common femoral artery, and right external iliac artery, as well as iliac ulceration and angioplasty with stenting of the right popliteal artery. Following these procedures, she developed intractable diarrhea and abdominal pain. A computed tomography
(CT) scan of the abdomen was performed, and the patient received intravenous fluids and a Kelly catheter due to urinary retention.
DISPOSITION
Admit to hospital service.
ASSESSMENT
The patient continues to experience abdominal pain and diarrhea post-vascular procedures. Possible causes include gastrointestinal disturbance due to contrast media or procedural stress; differential diagnoses being considered are those related to
acute abdominal pain.
PLAN
1. Continue monitoring and manage abdominal pain and diarrhea.
2. Evaluate and treat any underlying causes as identified through testing.
3. Maintain supportive care including IV fluids.
INDEPENDENT REVIEW OF LABS AND INTERPRETATION OF TESTS
A computed tomography (CT) scan was performed as part of the evaluation.
MEDICAL DECISION MAKING
- Number and Complexity of Problems Addressed: Chronic conditions affecting care include post-procedural abdominal pain and vascular intervention. Differential diagnosis includes acute abdominal syndrome, abdominal aortic aneurysm, bowel
obstruction, and gastroenteritis, among others.
- Data:
- Category 1: A CT scan of the abdomen was reviewed.
- Risk: Consideration was given to the patients complex presentation, including recent surgery and post-procedural symptoms, when deciding to admit for further observation and management.
DIAGNOSIS
Post-procedural abdominal pain and diarrhea. Further investigation required for a definitive diagnosis, pending additional test results. Potential differential includes gastroenteritis, bowel obstruction, or other complications secondary to the
vascular procedures.
Past History
Past History
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
ED Past Surgical History: Cholecystectomy, Gynecological and Other ( hysterectomy, R lumpectomy with CA treated, now 11/2023 suspicious spot on mammogram, awaiting f/u mammogram,)
Social History
Tobacco: Smoker
Alcohol: None
Drug: None
Living: alone
Phy Exam
Physical Exam
Physical Exam:
.
General Physical Exam
General Presentation: moderate distress
General age: appears stated age
General Skin: warm and dry
General Habitus: normal
General Hydration: dry mucous membranes
Musculoskeletal Exam
Musculoskeletal Exam: full ROM
Skin Exam
Skin Exam: normal color and warm/dry
Psychiatric Exam
Psychiatric Exam: anxious
Course
Orders/Labs/Results
Orders:
Orders
12/19/24 22:35
Basic Metabolic Panel Urgent
Comment: NO K
Complete Blood Count/With Diff Urgent
12/19/24 22:51
STOOL [C difficile Antigen & Toxins] Urgent
CLEVE Source: Feces/Stool
Specimen Description:
Date Specimen was Collected: 12/19/24
Time Specimen was Collected: 22:50
Stool Culture Urgent
CLEVE Source: ST
Specimen Description:
Date Specimen was Collected: 12/19/24
Time Specimen was Collected: 22:50
Comment: Add on per Moises Green MD
12/20/24 00:41
Lactic Acid Urgent
12/20/24 02:00
CT Abd/pel Without Iv Or Oral Urgent
Comment:
Reason For Exam: abd pain, Contrast allergy
12/20/24 Breakfast
NPO
Allow oral meds: Yes
Allow clear liquids: Sips of Clears
12/20/24 07:06
Consult Surgery [SURGICAL CONSULT] Urgent
Consulting Provider: Carlos Alcantara
Was physician already notified: Yes
12/20/24 07:49
Admit/Transfer Patient As Directed
Co-Sign Provider:
Level of Care: Inpatient admission
Assign to:: IMU- Intermediate Care
Physician / Group: Duane
Diagnosis: Enteritis, Lactic Acidosis
Reason for Hospitalization: Enteritis, Lactic Acidosis
Expected length of stay greater than two midnights?: Yes
ELOS- Estimated Length of Stay in days: 3
I certify the patient meets the requirements for IP care: Yes
PRN Pain Medication Management As Directed
May give lesser potent ordered pain med per pt: Yes
preference::
Protocol:: Medication orders for pain may be administered in a
manner that supports deferring to patient preference
when the pt is:
- Requesting an ordered lesser potent pain medication.
Least to most potent pain medications are defined
as: acetaminophen < NSAID < tramadol < opioids
(morphine, oxycodone, hydromorphone).
- Requesting a lesser dose of the same medication IF
ORDERED.
- Requesting a less intrusive route of administration
if both routes are prescribed by the provider (PO <
IV).
12/20/24 07:50
Code Status As Directed
Resuscitation Status: Do not resuscitate
Reached after discussion with pt or family/Healthcare POA: Yes
DNR Bracelet Application ONCE
12/20/24 08:20
Urinalysis Reflex To Culture Urgent
Date Specimen was Collected: 12/20/24
Time Specimen was Collected: 08:03
Urine Microscopic Reflex Cult Urgent
Urine Culture Urgent
CLEVE Source: U
Specimen Description:
Date Specimen was Collected: 12/20/24
Time Specimen was Collected: 08:03
12/20/24 08:22
0.9% Sodium Chloride 1000 ml [Nss] 1,000 ml IV 125 mls/hr
Acetaminophen [Tylenol] 650 mg PO Q4HPRN PRN
HYDROmorphone [Dilaudid] 0.5 mg IV Q4HPRN PRN
Ondansetron Injectable [Zofran] 4 mg IV Q6HPRN PRN
12/20/24 08:22
Activity As Directed
Activity Level: Bedrest
Bladder Scan As Directed
Follow Bladder Retention/Intermittent Cath Algorithm?: Yes
PRN if no void in __ hours: 6
Frequency: Per Retention Algorithm
If Bladder Scan Result >: 400
then:: Straight cath
EKG with chest pain [ECG as needed] As Directed
ECG as needed for:: Chest Pain
Hemetest Stools As Directed
I/O [Intake/ Output] As Directed
Frequency: Per unit guidelines
Pneumatic Compression Sleeves As Directed
Type: Knee high
Straight Cath As Directed
Frequency: Per Retention Algorithm
Additional Instructions: straight cath as needed per acute urinary retention algorithm for 24 hrs
Additional Instructions: for bladder scan greater than 400 mL
Vital Signs As Directed
Frequency: Per unit guidelines
Oxygen Therapy [O2 Therapy] [RESP] Routine
Titrate/Wean O2 to maintain O2 sat greater than (%): 94
DX Deep Vein Thrombosis Video Routine
12/20/24 08:35
TSH Reflex To Free T4 Routine
12/20/24 08:36
Lactic Acid Q6H
12/20/24 12:00
Levothyroxine [Synthroid] 100 mcg PO DAILY
12/20/24 14:09
Lactic Acid Q6H
12/20/24 16:00
Aspirin Low Dose EC [Aspir Low (Enteric Coated)] 81 mg PO DAILY@1600
12/21/24 06:00
EKG [Electrocardiogram (*1)] IN AM
Reason for Study: Chest Pain
Magnesium IN AM
Abnormal Lab Results
12/19/24 12/20/24
22:35 00:41
WBC 28.6 H 10^3/uL
(4.8-10.8)
MCHC 31.9 L g/dL
(33.0-37.0)
RDW 15.8 H %
(11.5-14.5)
Abs Immat Gran (auto) 0.4 H 10^3/uL
(0-0.05)
Absolute Neuts (auto) 26.9 H 10^3/uL
(1.4-6.5)
Absolute Lymphs (auto) 0.8 L 10^3/uL
(1.2-3.4)
Immature Gran % 1.3 H %
(0-0.5)
Neutrophils % 93.9 H %
(42.2-75.2)
Lymphocytes % 2.7 L %
(20.5-51.1)
Carbon Dioxide 19 L mmol/L
(22-30)
BUN 47 H mg/dl
(7-17)
Glucose 147 H mg/dl
(70-99)
Lactic Acid 4.4 H* mmol/L
(0.7-2.0)
12/19/24 22:35
12/19/24 22:35
Vital Signs
Initial and Last Documented VS:
Initial Vital Signs
Pulse
76
12/19/24 22:09
Last Documented Vital Signs
Temp Pulse Resp BP Pulse Ox
97.5 F 47 19 126/46 92
12/20/24 15:35 12/20/24 18:15 12/20/24 18:15 12/20/24 18:00 12/20/24 16:39
*Pulse Oximetry
SaO2: 99
Oxygen Mode of Delivery: Room air
Patient hypoxic: no
*Critical Care Note
Total Time (30-74mins, 75-104mins- exclusive of procedures): Not Applicable
Update Note
Update Note:
NAME: SEVERO CRUZ
DATE OF EXAM: 12/20/2024
Patient No: [id number]
Physician: ELLEN
Date of : 1940
Past Medical History (entered by Technologist):
Reason For Exam (entered by Technologist):
Other Notes (entered by Technologist): pt via ems from home for n/v/d that started around 6pm. Pt was here all day after stent placement @ 630 am. pt states she went home @ 5pm, ate some soup, then started with n/v/d.
Additional Information (per [facility] Radiologist):
CT ABDOMEN/PELVIS wo CONTRAST
IMPRESSION:
1. Wall thickening of loops of small bowel and throughout the majority of the colon, compatible with enterocolitis. Wall thickening of the proximal duodenum, may represent duodenitis.
2. No bowel obstruction. Status post cholecystectomy.
Incidentals:
- Unchanged cystic peripherally calcified lesion within the right lower quadrant
- No obstructive uropathy.
- Hepatic hypodensities, too small to characterize. Small ascites
- Infrarenal abdominal aortic aneurysm measuring up to 2.9 cm
- No acute osseous abnormality.
- Again seen is consolidation within the right lower lobe, and left lower lobe pulmonary nodule measuring up to 9 mm. Other small scattered groundglass opacities, which may be infectious or inflammatory.
- No acute abnormality within the visualized soft tissues.
Case finalized on Dec 20 2024 3:41AM ET
Femi Rios M.D.
This report has been electronically signed and verified by the Radiologist whose name is printed above.
Spoke with vascular surgery via [facility] text and telephone. They will come see her this morning.
ED Attending Note
-
Portions of this chart may have been created with voice recognition software.� Occasional wrong word or��sound alike� substitutions may have occurred due to the inherent limitations of voice recognition software.
Discharge Plan
Departure
Patient Disposition: Admit
Date of Disposition: 12/20/24
Time of Disposition: 04:14
Presentation/result/management discussed w/ accepting MD/DO: Hospitalist
Condition: Serious
Discharge Problem:
Colitis, Abdominal pain, Acidosis, lactic, Acute dehydration
Interventions
Interventions:
*Risk Screen - Suicide Last Done: 12/19/24 22:09
*General Assessment Last Done: 12/19/24 22:09
*Neglect/Abuse Screening Last Done: 12/19/24 22:09
*ED- Fall Risk Assessment Last Done: 12/19/24 22:09
*ED COVID-19 Vaccine History Last Done: 12/19/24 22:09
*Nursing Disposition Last Done: 12/20/24 13:30
FU-Zbgaia-Vbezhiylsh Assessment Last Done: 12/20/24 12:23
Discharge Date and Time
Discharge Date/Time: 12/20/24 13:30
--- NOTE | 2024-12-20 07:53 | HPS.HSE ---
Family Physician
-
Family Physician: Chriss Dobson
Chief Complaint
-
Abd Pain, N/V/D
History of Present Illness
Patient is an 84y F with PMH significant for ASCVD / PAD, breast cancer, lung cancer and hypertension who presents to ED complaining of abdominal pain with N/V/D. Patient was at on 12/19 when she underwent vascular surgery procedure to the
RLE. She states that she felt fairly well upon returning home. Last night when preparing for bed she felt the urge to move her bowels. She became lightheaded, sweaty and nauseated. She had a bowel movement and then returned to bed. Once back in
bed her symptoms worsened. She had multiple episodes of emesis and loose stools while in bed - unable to get up. She denies any blood in the stool or the emesis. She complained of severe, crampy abdominal pain and 'felt like I might pass out'.
She denies any actual syncope, fall, injury, etc.
Patient called 911. She had to get OOB to let EMS into the house. She was incontinent of stool while walking to the door.
Patient was brought to the ED for further evaluation and treatment. She continues to complain of significant abdominal discomfort / tenderness. She complains of nausea. She has had loose, bowel movements here in the ED - not grossly bloody.
Patient took prednisone and Benadryl as prep prior to her vascular procedure (IV dye allergy). Otherwise she denies any new / recent medications.
Medical History
Past Medical History
Past Medical History: Reports Other
Additional Past Medical History:
ASCVD / PAD
Metastatic Non-Small Cell Lung CA s/p Lobectomy and on Keytruda
Breast CA s/p lumpectomies and radiation
Renal Cancer s/p Ablation
Hypertension
Hyperlipidemia
Hypothyroidism
Raynaud's
Past Surgical History: Reports Other
Additional Past Surgical History:
Right Upper Lobectomy
Bilateral Lumpectomies / Axillary Dissections
Hysterectomy
T&A
Cholecystectomy
12/19/24:
1. Intravascular lithotripsy to right popliteal artery and superficial femoral artery (6 mm x 80 mm E8 Shockwave)
2. Intravascular lithotripsy to right common femoral artery (7 mm x 60 mm M5+ Shockwave)
3. Intravascular lithotripsy to right external iliac artery, iliac bifurcation and distal common iliac artery (7 mm x 60 mm M5+ Shockwave)
4. Drug-eluting balloon angioplasty and stenting of right popliteal artery and superficial femoral artery (overlapping Zilver PTX stents 6 mm x 140 mm, 6 mm x 140 mm, 6 mm x 120 mm)
5. Diagnostic aortobiiliac arteriogram
6. Diagnostic right lower extremity arteriogram
7. Ultrasound-guided percutaneous access to the left common femoral artery
Social History
Tobacco: Smoker (Current every day smoker.)
Alcohol: None
Drug: None
Family History
Family History: Not pertinent
Allergies / Home Medications
Allergies reflects when Allergies were last updated in [facility].
Home Medications with original date entered in [facility]
Allergy/Medication List:
Allergies
Allergy/AdvReac Type Severity Reaction Status Date / Time
Iodinated Contrast Media (IV Allergy Rash Verified 12/15/24 14:13
Dye, Iodine Containing)
Home Medications
amlodipine 5 mg tablet 5 mg PO HS Blood pressure 07/04/10
levothyroxine 100 mcg tablet 100 mcg PO DAILY Thyroid 07/04/10
aspirin 81 mg tablet,delayed release 81 mg PO DAILY@1600 Blood clot prevention/tx 02/19/22
ibuprofen 200 mg tablet 400 - 800 mg PO TIDPRN PRN MILD PAIN 12/08/23
lisinopril 20 mg-hydrochlorothiazide 25 mg tablet 0.5 tab PO HS Blood Pressure 12/08/23
pembrolizumab 25 mg/mL intravenous solution (Keytruda) 200 mg IV Q3W Cancer 12/08/23
Lactobacillus acidophilus-Bifidobac.animalis 2.5 billion cell capsule (Daily Probiotic) 1 cap PO DAILY 12/15/24
inulin 2 gram chewable tablet 2 g PO DAILY 12/15/24
oxycodone 5 mg tablet 5 mg PO HS 12/15/24
polyethylene glycol 3350 17 gram oral powder packet (Miralax) 17 g PO PRN PRN Constipation 12/15/24
clopidogrel 75 mg tablet 75 mg PO DAILY #90 tabs 12/19/24
Review of Systems
-
History Source: Patient
A 12 point ROS was completed and negative except as noted: Yes
Constitutional: Reports Fatigue; Denies Fever or Chills
EENT: Denies Sore Throat
Respiratory: Denies Cough or Trouble Breathing
Cardiac: Reports Syncope (lightheaded / near syncope); Denies Chest Pain or Palpitations
Abdomen/GI: Reports Abdominal Pain, Nausea, Vomiting and Diarrhea; Denies Bloody Stools or Black Stools
: Denies Dysuria or Flank Pain
Musculoskeletal: Denies Joint Pain or Edema
Neurological: Reports Dizzy; Denies Headache
Physical Exam
Vital Signs
Vital Signs
Temp Pulse Resp BP Pulse Ox
97.9 F 44 11 126/51 99
12/19/24 22:31 12/20/24 06:00 12/20/24 06:00 12/20/24 06:00 12/20/24 04:01
Physical Exam
General: Other (84y F in mild distres due to abdominal pain.)
HEENT: Other (Dry MM. Neck supple.)
Respiratory: Clear; No Wheezes, Rales or Rhonchi
Cardiac: S1/S2 and Bradycardia; No Murmur
GI: Other (Abdomen is soft but significantly tender to even light palpation. Tenderness is diffuse. No rebound. Bowel sounds are present but diminished.)
Musculoskeletal: Other (Dusky / purplish toes on b/l feet. L inguinal puncture site with dressing in place. No bleeding / strikethrough.)
Neuro: AO x 3 and Nonfocal/grossly intact
Laboratory Results
-
12/19/24 22:35
12/19/24 22:35
Laboratory Results
Lactic Acid 4.4 mmol/L (0.7-2.0) H* 12/20/24 00:41
Total Bilirubin Cancelled 12/19/24 22:35
AST Cancelled 12/19/24 22:35
ALT Cancelled 12/19/24 22:35
Alkaline Phosphatase Cancelled 12/19/24 22:35
Impression/Plan
-
A/P: Patient is an 84y F with PMH significant for ASCVD / PAD, hypertension and lung cancer on Keytruda who presents to ED complaining of abdominal pain with N/V/D.
Diffuse Enterocolitis
Lactic Acidosis
Leukocytosis
- Admit for further evaluation and treatment.
- Abrupt onset of diffuse abdominal pain with N/V/D, diaphoresis, near-syncope, etc.
- CT shows bowel thickening of small and large intestine. Non-contrast study - unable to assess for vascular insufficiency / occlusion.
- ? infectious v ischemic. Initial lactate is 4.4. Symptoms seem very abrupt in onset.
- IVFs, pain control, antiemetics.
- Surgery evaluation appreciated for additional assessment and recommendations.
- Empiric abx for now.
- Check stool studies including CDiff.
- Follow for clinical changes.
ASCVD / PAD
- Known vascular disease s/p RLE angio procedure on 12/19/24.
- Dusky appearance to bilateral feet / digits.
- L groin puncture site not bleeding.
- Continue ASA. Hold Plavix acutely pending further investigation of abdominal issue.
Bradycardia
- Sinus mag in the 40s - 50s on tele and EKG.
- Prior vitals trend show similar low heart rates.
- Not on AV jason / chronotropic medications.
- Monitor on telemetry.
- Check TFTs.
- Likely degree of vagal response given abdominal symptoms.
Benign Hypertension
- BP elevated on initial arrival - in part due to pain.
- Hold antihypertensive agents acutely. Avoid hypotension given concern for bowel ischemia.
Hypothyroidism
- Check TFTs as noted above. Continue T4 supplementation.
Lung Cancer
History of Breast Cancer
- s/p R upper lobectomy and XRT.
- s/p bilateral lumpectomies / axillary dissections.
- Now on Keytruda.
DVT Prophylaxis: SCDs
Code Status: DNR
[2024-12-20] MEDS: NSS 1000 IV ×2 (08:40→17:12)
[2024-12-20] MEDS: DILAUDID 0.5 MG IV (08:49)
[2024-12-20 09:07] LABS: Urine Character Clear (Clear)
--- NOTE | 2024-12-20 09:42 | CON.VAS ---
Addendum entered and electronically signed by Santos Kennedy MD 12/21/24 12:42:
Seen and examined with WILLIAM Peralta yesterday. This is a late entry. Findings and plan as discussed and noted below. Diffuse abdominal pain following lower extremity angiogram and endovascular intervention. Her exam demonstrated diffuse tenderness,
but no peritoneal signs per se though she did have a little bit of percussive tenderness. Her groin puncture site was flat. Her foot was warm with palpable PT pulse (right foot). I reviewed the CT scan as well that demonstrated no evidence of
hematoma or arterial extravasation or other procedural related potential complication. SMA looks generally patent. She has extensive atherosclerotic plaque throughout her abdominal and visceral arteries. However, no clear evidence of emboli or
anything to explain the cause from a vascular perspective. Not sure that her etiology here was vascular directly in nature. Therefore nothing further that I could offer. Recommend GI/general surgery evaluation and follow-up as needed.
Original Note:
Consultation
Consultation Request
Date/Time Consultation Performed: 12/20/2024 0930
Requesting Provider: Hospitalist
Performing Provider: Edna Peralta FIRST LEVELER-C for Santos Kennedy MD
Reason for Consultation: ABD pain with N/V s/p Angio
Medical History
-
Chief Complaint: ABD pain with N/V s/p Angio
History of Present Illness:
This is an 84 year old female with significant past medical history for ASCVD / PAD, breast cancer, lung cancer and hypertension who presents to [facility] ED complaining of abdominal pain with nausea, vomiting, and diarrhea since yesterday evening.
Patient is known to our service as she underwent Intravascular lithotripsy to right popliteal, common femoral, external iliac, and superficial femoral arteries with drug-eluting balloon angioplasty and stenting of right popliteal artery and
superficial femoral artery (overlapping Zilver PTX stents 6 mm x 140 mm, 6 mm x 140 mm, 6 mm x 120 mm), diagnostic aortobiiliac arteriogram, and diagnostic right lower extremity arteriogram yesterday on 12/19/2024 and was discharged around roughly
5pm. Patient endorses that she was doing well following procedure, went home and had dinner. She then states as she was getting ready for bed she began having loose stools accompanied with lightheadedness and nausea. However, after her bowel
movement she felt better and attempted to go back to bed but then nausea worsened and began with emesis and loose stool leading to her calling 911. While waiting for EMS she became incontinent of bowel and bladder, and now had abdominal pain.
Patient was brought to the ED for further evaluation and treatment. Currently, she reports ABD pain, emesis, and diarrhea have improved and she is no laying comfortably in bed. She endorses continued nausea. Endorsees epigastric discomfort, and
generalized ABD pain with palpation. Denies pain at left groin puncture site. Does note that she had similar ABD pain when she had pancreatitis 10 years ago.
Past Medical History
Past Medical History: Other (ASCVD / PAD, Metastatic Non-Small Cell Lung CA s/p Lobectomy and on Keytruda, Breast CA s/p lumpectomies and radiation, Renal Cancer s/p Ablation, Hypertension, Hyperlipidemia, Hypothyroidism, Raynaud's)
Past Surgical History: Other (Bilateral Lumpectomies / Axillary Dissections, Hysterectomy, T&A, Cholecystectomy)
Social History
Tobacco: Smoker
Alcohol: None
Drug: None
Allergies / Home Medications
Allergy/AdvReac Type Severity Reaction Status Date / Time
Iodinated Contrast Media (IV Allergy Rash Verified 12/15/24 14:13
Dye, Iodine Containing)
�Medication �Instructions �Recorded �Confirmed �Type
amlodipine 5 mg tablet 5 mg PO HS Blood pressure 07/04/10 12/20/24 History
levothyroxine 100 mcg tablet 100 mcg PO DAILY Thyroid 07/04/10 12/20/24 History
aspirin 81 mg tablet,delayed 81 mg PO QPM Blood clot 02/19/22 12/20/24 History
release prevention/tx
lisinopril 20 0.5 tab PO HS Blood Pressure 12/08/23 12/20/24 History
mg-hydrochlorothiazide 25 mg tablet
pembrolizumab 25 mg/mL intravenous 200 mg IV Q3W Cancer 12/08/23 12/20/24 History
solution (Keytruda)
inulin 2 gram chewable tablet 2 g PO DAILY 12/15/24 12/20/24 History
(Fiber Delights)
polyethylene glycol 3350 17 gram 17 g PO DAILYPRN PRN constipation 12/15/24 12/20/24 History
oral powder packet (Miralax)
clopidogrel 75 mg tablet 75 mg PO DAILY #90 tabs 12/19/24 12/20/24 Rx
Lactobac no.2-Bifidobac no.1-S. 1 cap PO DAILY 12/20/24 12/20/24 History
thermo 112.5 billion cell capsule
(Visbiome)
collagenase clostridium histo. 250 1 applic topical DAILY lower right 12/20/24 12/20/24 History
unit/gram topical ointment (Santyl) leg wound
meloxicam 7.5 mg tablet 7.5 mg PO BIDPRN PRN mild pain 12/20/24 12/20/24 History
Review of Systems
-
History Source: Patient
Constitutional: Reports No Symptoms
EENT: Reports No Symptoms
Respiratory: Reports No Symptoms
Cardiac: Reports No Symptoms
Abdomen/GI: Reports Abdominal Pain, Nausea, Vomiting and Diarrhea; Denies Bloody Stools or Black Stools
: Reports No Symptoms
Musculoskeletal: Reports No Symptoms
Skin: Reports No Symptoms
Neurological: Reports Dizzy
Endocrine: Reports No Symptoms
Physical Exam
Vital Signs
Temp Pulse Resp BP Pulse Ox
97.7 F 48 13 123/54 97
12/20/24 08:36 12/20/24 08:36 12/20/24 08:36 12/20/24 08:36 12/20/24 08:36
Lab Results
12/19/24 22:35
12/19/24 22:35
Physical Exam
General: No Apparent Distress
HEENT: Normocephalic, Anicteric and Atraumatic
Respiratory: Non Labored Respirations
Cardiac: Negative JVD
GI: Soft, Non Tender and Non Distended
Musculoskeletal: No Edema
Skin: Warm and Other (left groin puncture site clean, dry, and intact no evidence of hematoma )
Neuro: AO x 3
Pulses: Bilateral Posterior Tibial: Doppler
Assessment / Plan
-
Assessment: 84 year old female POD#1 Intravascular lithotripsy to right popliteal, common femoral, external iliac, and superficial femoral arteries with drug-eluting balloon angioplasty and stenting of right popliteal artery and superficial femoral
artery (overlapping Zilver PTX stents 6 mm x 140 mm, 6 mm x 140 mm, 6 mm x 120 mm), diagnostic aortobiiliac arteriogram, and diagnostic right lower extremity arteriogram, presented to ED reporting acute onset of ABD pain, nausea, vomiting, and
diarrhea. CT scan concerning for enterocolitis.
Plan:
Likely no relation to current enterocolitis and vascular procedure preformed yesterday, would recommend continued infectious workup. Added lipase and amylase as patient has history of pancreatitis.
Patient seen and examined at bedside with Dr. Santos Kennedy who agrees with above plan.
Patient should follow up in office as scheduled.
[2024-12-20 09:48] LABS: Urine White Cell 0-2 /HPF (0-5)
[2024-12-20] MEDS: ZOSYN 50 IV ×3 (10:26→21:05)
--- NOTE | 2024-12-20 10:47 | W.PN.UPDATE ---
Update Note
Progress Note Update
Seen and examined independent of overnight physician
Patient states of abdominal pain. States of multiple episodes of nausea, vomiting and diarrhea yesterday after procedure.
States mouth is dry
General: In mild distress due to pain
HEENT: Other (Dry MM. Neck supple.)
Respiratory: Clear; No Wheezes, Rales or Rhonchi
Cardiac: S1/S2 and Bradycardia; No Murmur
GI: Other (Abdomen is soft but significantly tender to even light palpation. Tenderness is diffuse. No rebound. Bowel sounds are present but diminished.)
Musculoskeletal: Other (Dusky / purplish toes on b/l feet. L inguinal puncture site with dressing in place. No bleeding / strikethrough.) positive Doppler pulses lower extremity
Neuro: AO x 3 and Nonfocal/grossly intact
A/P: Patient is an 84y F with PMH significant for ASCVD / PAD, hypertension and lung cancer on Keytruda who presents to ED complaining of abdominal pain with N/V/D.
Diffuse Enterocolitis
Lactic Acidosis
Leukocytosis
- Abrupt onset of diffuse abdominal pain with N/V/D, diaphoresis, near-syncope, etc.
- CT noncontrast shows bowel thickening of small and large intestine. Non-contrast study - unable to assess for vascular insufficiency / occlusion.
-Discussed with general surgery with plan to repeat CT scan with IV contrast. pre-treatment ordered. Patient will be continued on IV fluids. Will monitor creatinine closely.
- ? infectious v ischemic. Initial lactate is 4.4. Symptoms seem very abrupt in onset. Significant leukocytosis noted
- IVFs, pain control, antiemetics.
- Surgery evaluation appreciated for additional assessment and recommendations based on repeat CT scan.
- Empiric abx for now.
- Check stool studies including CDiff. cdiff negative.
- Follow for clinical changes.
Severe dehydration
- Dark urine color noted
- Currently with Kelly catheter
- Continue with IV fluid resuscitation. Monitor urinary output
ASCVD / PAD
- Known vascular disease s/p RLE angio procedure on 12/19/24 with lithotripsy right lower extremity and ALONDRA to right popliteal artery and superficial femoral artery.
- Dusky appearance to bilateral feet / digits.
- L groin puncture site not bleeding.
- Continue ASA. Discussed with Dr. Alcantara and joao to continue Plavix in the setting of fresh stents
Chronic bradycardia
- Sinus mag in the 40s - 50s on tele and EKG.
- Prior vitals trend show similar low heart rates.
- Not on AV jason / chronotropic medications.
- Monitor on telemetry.
- Check TFTs.
- Likely degree of vagal response given abdominal symptoms.
Benign Hypertension
- BP elevated on initial arrival - in part due to pain.
- Hold antihypertensive agents acutely. Avoid hypotension given concern for bowel ischemia.
Hypothyroidism
- Check TFTs as noted above. Continue T4 supplementation.
Lung Cancer
History of Breast Cancer
- s/p R upper lobectomy and XRT.
- s/p bilateral lumpectomies / axillary dissections.
- Now on Keytruda.
DVT Prophylaxis: SCDs
Code Status: DNR
Updated patient's sister over the phone in detail
Criticalyl ill.
[2024-12-20] MEDS: BENADRYL 50 MG IV (11:44)
[2024-12-20] MEDS: PLAVIX 75 MG PO (11:48)
[2024-12-20] MEDS: SOLU-CORTEF 200 MG IV (11:52)
[2024-12-20 11:53] LABS: Amylase 36 U/L (30-110); Lipase 15 U/L (23-300)
--- NOTE | 2024-12-20 12:10 | CON.GS ---
Addendum entered and electronically signed by Carlos Alacntara MD 12/20/24 14:56:
Rpt scan reviewed by me, Radiology read pending.
There is bowel wall thickening and edema in a diffuse distribution from duodenum to rectum, most severe at descending/sigmoid colon. Gut vasculature appears patent within limits of non-angio dedicated study. No free air, no pneumatosis, no PV gas.
Suspect enterocolitis of unknown etiology, most likely infectious vs drug induced. Recommend GI consult. No immediate plans for operative intervention. GS will follow.
Original Note:
Consultation
-
Date/Time Consultation Performed: 12/20/24
Requesting Provider: Luis
Performing Provider: Quinton
Reason for Consultation: enterocolitis
Medical History
-
Chief Complaint: abd pain n/v/d
History of Present Illness:
84F POD1 s/p RLE lithotripsy, angioplasty and stenting for PAD. The evening she was dc'ed she developed lightheadedness and felt impending syncope but denies LOC. Subsequently she had multiple BMs, followed by ad pain and then n/v. Repoertedly
having copious stool and emesis throughout the night in the ED as well as dark brown urine. She presently denies nausea, reports hewr abd pain is mostly her upper abdomen. Denies f/c. Reports this feels different than her enterocolitis episode about
a year and a half ago managed here non-operatively. At the time concern for c diff vs immunomodulator colitis (on keytruda) She remains on keytruda and reports no further issues since then.
Past Medical History
Past Medical History: Other (ASCVD / PAD, Metastatic Non-Small Cell Lung CA s/p Lobectomy and on Keytruda, Breast CA s/p lumpectomies and radiation, Renal Cancer s/p Ablation, Hypertension, Hyperlipidemia, Hypothyroidism, Raynaud's)
Past Surgical History: Other (Bilateral Lumpectomies / Axillary Dissections, Hysterectomy, T&A, Cholecystectomy, Right thoracotomy, right upper lobectomy, and as above)
Social History
Tobacco: Smoker
Alcohol: None
Drug: None
Family History
Family History: Reviewed & Noncontributory
Allergies / Home Medications
Allergy/AdvReac Type Severity Reaction Status Date / Time
Iodinated Contrast Media (IV Allergy Rash Verified 12/15/24 14:13
Dye, Iodine Containing)
�Medication �Instructions �Recorded �Confirmed �Type
amlodipine 5 mg tablet 5 mg PO HS Blood pressure 07/04/10 12/20/24 History
levothyroxine 100 mcg tablet 100 mcg PO DAILY Thyroid 07/04/10 12/20/24 History
aspirin 81 mg tablet,delayed 81 mg PO QPM Blood clot 02/19/22 12/20/24 History
release prevention/tx
lisinopril 20 0.5 tab PO HS Blood Pressure 12/08/23 12/20/24 History
mg-hydrochlorothiazide 25 mg tablet
pembrolizumab 25 mg/mL intravenous 200 mg IV Q3W Cancer 12/08/23 12/20/24 History
solution (Keytruda)
inulin 2 gram chewable tablet 2 g PO DAILY 12/15/24 12/20/24 History
(Fiber Delights)
polyethylene glycol 3350 17 gram 17 g PO DAILYPRN PRN constipation 12/15/24 12/20/24 History
oral powder packet (Miralax)
clopidogrel 75 mg tablet 75 mg PO DAILY #90 tabs 12/19/24 12/20/24 Rx
Lactobac no.2-Bifidobac no.1-S. 1 cap PO DAILY 12/20/24 12/20/24 History
thermo 112.5 billion cell capsule
(Visbiome)
collagenase clostridium histo. 250 1 applic topical DAILY lower right 12/20/24 12/20/24 History
unit/gram topical ointment (Santyl) leg wound
meloxicam 7.5 mg tablet 7.5 mg PO BIDPRN PRN mild pain 12/20/24 12/20/24 History
Review of Systems
-
A 10 point review of systems was completed, and was negative except as per HPI.
Physical Exam
Vital Signs
Temp Pulse Resp BP Pulse Ox
97.7 F 49 12 119/48 97
12/20/24 08:36 12/20/24 11:15 12/20/24 11:15 12/20/24 11:00 12/20/24 08:36
12/19/24 12/20/24 12/21/24
06:59 06:59 06:59
Actual Weight 59 kg
Body Mass Index (BMI) 23.0
Lab Results
12/19/24 22:35
12/19/24 22:35
WBC 28.6 10^3/uL (4.8-10.8) H 12/19/24 22:35
Hgb 13.6 g/dL (12.0-16.0) D 12/19/24 22:35
Hct 42.7 % (37.0-47.0) 12/19/24 22:35
Plt Count 335 10^3/uL (130-400) D 12/19/24 22:35
Abs Immat Gran (auto) 0.4 10^3/uL (0-0.05) H 12/19/24 22:35
Neutrophils % 93.9 % (42.2-75.2) H 12/19/24 22:35
Physical Exam
General: No Apparent Distress
GI: Soft, Tender (ttp, moderate, predominantly to LLQ) and Distended (mild)
Skin: Warm and Dry
Neuro: AO x 3
Psych: Calm
Data Reviewed
-
CT Scan: Image Personally Visualized and interpreted, Report Reviewed by me, Discussed with Physician, Discussed with Nurse and Discussed with Patient
Labs: Labs Reviewed by me, Discussed with Nurse and Discussed with Patient
Old Records: Reviewed
Assessment / Plan
-
84F with acute onset n/v/d with abd pain POD1 s/p RLE endovascular revasc procedure
AFVSS, reports improved nausea this am, primarily LLQ ttp on exam
WBC 28.6K, lactic 4.4 --> 2.1
CT non-con largely unhelpful, possible bowel wall thickening affecting duodenum, sb, and colon
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
Plan:
Hospitalist admit
IV abx
Rpt CT with IV contrast - requires pretreatment due to contrast allergy
Renal function WNL despite contrast load for procedure yesterday, benefit outweighs risk for IV contrast at this time
Further mgmt to be guided by imaging results
[2024-12-20] MEDS: SYNTHROID PO (14:10)
[2024-12-20 14:46] LABS: Blood Urea Nitrogen 48 mg/dl (7-17); Calcium 8.5 mg/dl (8.4-10.2); Carbon Dioxide 25 mmol/L (22-30); Chloride 110 mmol/L (98-107); Estimated Creatinine Clearance 27 ml/min; Glucose 109 mg/dl (70-99); Potassium 4.4 mmol/L (3.5-5.1); Sodium 140 mmol/L (135-145); eGFR 44.36
--- NOTE | 2024-12-20 15:28 | PTCARENOTE ---
Pt received from ED via stretcher. Assessment as documented. Sinus mag on tele monitor. IVF infusing as ordered. Sister at bedside, updated on plan of care. Call byers within reach. Bed alarm in place for safety.
[2024-12-20] MEDS: ASPIR LOW (ENTERIC COATED) 81 MG PO (17:12)
[2024-12-21] VITALS (11 sets, daily range): BP systolic 131–176; BP diastolic 49–76; BMI 22.4
[2024-12-21] MEDS: NSS 1000 IV (02:11)
--- NOTE | 2024-12-21 03:33 | PTCARENOTE ---
Patient AAOx3, drowsy, forgetful at times. NSR to SB on the monitor. HR 52. Doppler pulses. L groin site intact no signs of bleeding. Pt remains on room air 95%. Abd is firm slightly distended, tender while turning side to side. Kelly draining dark
tea colored urine. Full CHG bath given. Pt c/o itchy skin. Assessed skin, no notable rash just dry skin. Lotion applied. IVF cont. IV abx administered. Pt remains NPO. Call byers left within reach.
[2024-12-21] MEDS: ZOSYN 50 IV ×4 (04:25→21:09)
[2024-12-21 04:55] LABS: Hematocrit 29.8 % (37.0-47.0); Hemoglobin 9.6 g/dL (12.0-16.0); Mean Corp Hgb Conc. 32.2 g/dL (33.0-37.0); Mean Corpuscular Volume 84.7 fL (81.0-99.0); Nucleated Red Blood Cells % 0 %; Platelet Count 204 10^3/uL (130-400); Red Cell Dist. Width 15.9 % (11.5-14.5)
[2024-12-21 05:14] LABS: Blood Urea Nitrogen 47 mg/dl (7-17); Calcium 8.7 mg/dl (8.4-10.2); Carbon Dioxide 23 mmol/L (22-30); Chloride 115 mmol/L (98-107); Estimated Creatinine Clearance 30 ml/min; Glucose 80 mg/dl (70-99); Magnesium 2.1 mg/dl (1.6-2.3); Potassium 3.1 mmol/L (3.5-5.1); Sodium 144 mmol/L (135-145); eGFR 49.24
[2024-12-21] MEDS: KCL 270 MEQ IV (06:05)
--- NOTE | 2024-12-21 06:10 | PTCARENOTE ---
Hgb 9.6 from 13.6. OTTONIEL Hephziba notified via TT. Orders for repeat Hgb Q6H. No signs of bleeding. VSS.
[2024-12-21] MEDS: DEXTROSE 50% SYRINGE 12.5 GRAMS IV ×2 (07:45→10:29)
[2024-12-21 07:49] LABS: Glucose - Point of Care 58 mg/dl (70-99)
[2024-12-21 08:14] LABS: Glucose - Point of Care 90 mg/dl (70-99)
--- NOTE | 2024-12-21 08:38 | W.PN.GS2 ---
Today's Communication / Plan
-
`
Assessment / Plan
-
Assessment: 84 y/o female with probable nonocclusive, reversible mesenteric ischemia/ischemic colitis predominantly effecting the splenic flexure/descending colon light of medical history for ASCVD / PAD and degree of bowel thickening greatest in
the watershed region of the colon; ddx also includes infections/inflammatory etiologies
AFVSS
WBC improving, pain improving
no acidosis on BMP
CT without signs of irreversible ischemia ie pneumatosis, portal/mesenteric venous gas, no free air
stool cultures pending; cdiff negative
Plan: continue current supportive care maintaining adequate IVF hydration and avoiding hypotension
okay for clear liquid diet for comfort assuming does not exacerbate pain/nausea
Zosyn for empiric GI coverage
will follow
Subjective Data
-
Date of Service: December 21, 2024
pt seen and examined
reports abdominal discomfort and some radiation to left back area
improved from initial presentation but not resolved
no nausea
thirsty
Objective Data
-
Intake and Output
12/20/24 12/21/24 12/22/24
06:59 06:59 06:59
Intake Total 1850 / 1850
Output Total 950 / 950
Balance 900 / 900
Intake:
IV fluids (Total) 1700 / 1700
IV piggybacks 150 / 150
Output:
Urine, Kelly 950 / 950
Vital Signs
Temp Pulse Resp BP Pulse Ox
97.9 F 70 18 156/59 94
12/21/24 07:00 12/21/24 06:00 12/21/24 06:00 12/21/24 06:00 12/21/24 06:00
Lab Results
12/21/24 04:31
Calcium 8.7 mg/dl (8.4-10.2) 12/21/24 04:31
Magnesium 2.1 mg/dl (1.6-2.3) 12/21/24 04:31
Total Bilirubin Cancelled 12/19/24 22:35
AST Cancelled 12/19/24 22:35
ALT Cancelled 12/19/24 22:35
Alkaline Phosphatase Cancelled 12/19/24 22:35
Total Protein Cancelled 12/19/24 22:35
Albumin Cancelled 12/19/24 22:35
Physical Exam
-
NAD AAOx3
ABD: soft, TTP generalized, a bit more right sided
no rigidity, voluntary guarding only on deeper palpation
[2024-12-21] MEDS: NSS IV (08:58)
[2024-12-21 09:15] LABS: Hematocrit 30.1 % (37.0-47.0); Hemoglobin 9.5 g/dL (12.0-16.0)
[2024-12-21] MEDS: D5LR 1000 IV ×2 (09:17→21:44)
[2024-12-21] MEDS: PLAVIX 75 MG PO (09:17)
[2024-12-21] MEDS: SYNTHROID 100 MCG PO (09:17)
[2024-12-21 10:19] LABS: Glucose - Point of Care 65 mg/dl (70-99)
[2024-12-21 10:39] LABS: Glucose - Point of Care 50 mg/dl (70-99)
[2024-12-21 11:04] LABS: Glucose - Point of Care 434 mg/dl (70-99)
--- NOTE | 2024-12-21 11:06 | PTCARENOTE ---
Addendum entered by Olesya Lewis 12/21/24 11:33:
Stat glucose with result of 193. D/W Dr Green, no changes to plan at this time.
Original Note:
Pt hypoglycemic. Treated and re checked per protocol several times, pt then with result of RR high. Stat glucose drawn and sent to lab. Dr. Green notified, awaiting lab results.
[2024-12-21 11:26] LABS: Glucose 193 mg/dl (70-99)
--- NOTE | 2024-12-21 12:08 | CON.GI ---
Addendum entered and electronically signed by Ny Foster MD 12/21/24 17:21:
I saw and examined the patient.
The CHURN DRILL OPERATOR or PA's note was reviewed and I agree with the note.
Comment:
Pt is a 84 y/o woman with a hx of lung ca, breast ca, renal caner, on keytruda, had admission for colitis in 2023. She had recent vascular surgery 12/19 and had new abdominal pain, nausea, vomiting, diarrhea. Currently no vomiting, other symptoms
persist
abd: tender diffusely
impression:
abdominal pain: colitis vs mesenteric ischemia
anemia
Plan:
close surgical f/u
follow hgb which dropped on aspirin/plavix
stool studies neg so far
supportive care
Addendum entered and electronically signed by OTTONIEL Guzman 12/21/24 14:40:
some drop in hbg -- monitor closely with current ASA/Plavix use
will add PPi with increased GERD since onset of GI symptoms
Original Note:
Consultation
-
Date/Time Consultation Requested: 12/21/24 0820
Date/Time Consultation Performed: 12/21/24 1210
Requesting Provider: Moises Green MD
Performing Provider: OTTONIEL Quiñones, Ny Foster MD
Reason for Consultation: entercolitis
Medical History
Chief Complaint / HPI
Chief Complaint: nausea, vomiting, diarrhea, abdominal pain
History of Present Illness:
Pt is an 84yo with hx HTN, hypercholesterolemia, hypothyroidism, breast CA, lung CA(on Keytruda), renal CA, mohs surgery with LE wound, PAD/ASCVD, prior entercolitis-- c-diff vs other(flex with nonspecific chronic inflammation) 2023 with recent
vascular procedure 12/19 to [facility] with lithotripsy, arteriogram, and stent placement with addition of Plavix therapy. Pt did take Benadryl and Prednisone prep prior to procedure with hx Dye allergy. She initially felt well after procedure then noted
abdominal pain with lightheadedness, sweatiness and nausea with noted emesis and multiple stools. On admission noted with WBC 28,600. Ct without contrast with suspected wall thickening of loops of small bowel and large bowel possible enterocolitis
and possible duodenitis. CT was then repeat with IV contrast with moderate gastroenterocolitis with moderate free fluid in abdomen likely reactive some limitation of lack of oral contrast. small hepatic and renal lesions cyst vs hemangioma. Pt was
seen by vascular surgery with likely no correlation with recent procedure. Pt also seen by general surgery with further review of CT with edema in diffuse distribution from duodenum to rectum most severe at descending/sigmoid colon with patent
vasculature and concern for probable non occlusive reversible mesenteric ischemia and recommended to continued adequate perfusion, IVF, avoiding hypotension and cont abx. Stool studies with neg c-diff and ecoli with other cx pending and gram neg
bacilli in urine.
In review with patient she was admitted on 08/2023 with enteritis she completed flex for concern of checkpoint inhibitor colitis with noted bx non specific chronic inflammation. At that time c-diff was ag+ tox neg and pt improved with Vanco.
She was to consider follow up and Budesonide but recall feeling improved. She had a periods on Keytruda several months ago with trial of double dose every 6 week but did not tolerate and has been on every 3 weeks without any GI symptoms prior to
vascular procedure. She now admits to symptoms as above with sudden onset of weakness, nausea, vomiting, and diarrhea leading to admission. She admits to recent GERD over last day and dry mouth. She denies any issues with dysphagia, hematemesis,
or rectal bleeding. Last full colonoscopy in [address] Monroy. This showed diverticulosis and several polyps (adenoma, serrated adenoma).
Past Medical History
Past Medical History: Cancer (breast CA, lung CA, renal cell CA), HTN, Hypercholesterolemia, Hypothyroidism and Other ( ASCVD/PAD, colon polyps)
Past Surgical History: Other (RUL lobectomy, lumpectomy, hysterectomy, mohs surgery with LE wound )
Social History
Tobacco: Smoker
Alcohol: None
Living: Alone
Employment: Retired
Family History
Family History: Other (denies family hx GI issues or cancers )
Allergies / Home Medications
Allergy/AdvReac Type Severity Reaction Status Date / Time
Iodinated Contrast Media (IV Allergy Rash Verified 12/15/24 14:13
Dye, Iodine Containing)
�Medication �Instructions �Recorded
amlodipine 5 mg tablet 5 mg PO HS Blood pressure 07/04/10
levothyroxine 100 mcg tablet 100 mcg PO DAILY Thyroid 07/04/10
aspirin 81 mg tablet,delayed 81 mg PO QPM Blood clot 02/19/22
release prevention/tx
lisinopril 20 0.5 tab PO HS Blood Pressure 12/08/23
mg-hydrochlorothiazide 25 mg tablet
pembrolizumab 25 mg/mL intravenous 200 mg IV Q3W Cancer 12/08/23
solution (Keytruda)
inulin 2 gram chewable tablet 2 g PO DAILY Constipation 12/15/24
(Fiber Delights)
polyethylene glycol 3350 17 gram 17 g PO DAILYPRN PRN constipation 12/15/24
oral powder packet (Miralax)
clopidogrel 75 mg tablet 75 mg PO DAILY #90 tabs 12/19/24
Lactobac no.2-Bifidobac no.1-S. 1 cap PO DAILY Probiotic 12/20/24
thermo 112.5 billion cell capsule
(Visbiome)
collagenase clostridium histo. 250 1 applic topical DAILY lower right 12/20/24
unit/gram topical ointment (Santyl) leg wound
meloxicam 7.5 mg tablet 7.5 mg PO BIDPRN PRN mild pain 12/20/24
Review of Systems
-
History Source: Patient
Constitutional: Reports No Symptoms
EENT: Reports No Symptoms
Respiratory: Reports No Symptoms
Cardiac: Reports No Symptoms
Abdomen/GI: Reports Abdominal Pain, Nausea, Vomiting and Diarrhea
: Reports No Symptoms
Musculoskeletal: Reports No Symptoms
Skin: Reports No Symptoms
Neurological: Reports Dizzy and Weakness
Endocrine: Reports No Symptoms
Hematologic/Lymphatic: Reports No Symptoms
Vital Signs
Temp Pulse Resp BP Pulse Ox
97.7 F 50 14 162/59 100
12/21/24 11:13 12/21/24 10:00 12/21/24 10:00 12/21/24 10:00 12/21/24 10:00
Physical Exam
Exam
General: Well Developed, Well Nourished and Other (minimal distress with pain)
HEENT: Normocephalic and Anicteric
Respiratory: Clear
Cardiac: Other (bradycardia )
GI: Soft, Non Distended and Tender (diffuse worse right sided )
Musculoskeletal: No Clubbing and No Cyanosis
Skin: Warm and Dry
Neuro: Awake, Alert and AO x 3
Psych: Calm
Results
WBC 14.4 10^3/uL (4.8-10.8) H 12/21/24 04:31
Hgb 9.5 g/dL (12.0-16.0) L 12/21/24 09:06
Hct 30.1 % (37.0-47.0) L 12/21/24 09:06
MCV 84.7 fL (81.0-99.0) 12/21/24 04:31
Plt Count 204 10^3/uL (130-400) D 12/21/24 04:31
Absolute Neuts (auto) 12.6 10^3/uL (1.4-6.5) H 12/21/24 04:31
Sodium 144 mmol/L (135-145) 12/21/24 04:31
Potassium 3.1 mmol/L (3.5-5.1) L D 12/21/24 04:31
Chloride 115 mmol/L (98-107) H 12/21/24 04:31
Carbon Dioxide 23 mmol/L (22-30) 12/21/24 04:31
BUN 47 mg/dl (7-17) H 12/21/24 04:31
Creatinine 1.1 mg/dL (0.6-1.0) H 12/21/24 04:31
Calcium 8.7 mg/dl (8.4-10.2) 12/21/24 04:31
Total Bilirubin Cancelled 12/19/24 22:35
AST Cancelled 12/19/24 22:35
ALT Cancelled 12/19/24 22:35
Alkaline Phosphatase Cancelled 12/19/24 22:35
Amylase 36 U/L (30-110) 12/20/24 11:25
Lipase 15 U/L (23-300) L 12/20/24 11:25
Diagnostic Image Results:
12/20/[address] Abd/pel Without Iv Or Oral
Limited evaluation of the intestinal tract without oral contrast and with marked paucity of intra-abdominal/pelvic fat with some suspected wall thickening of loops of small bowel and to a lesser extent large bowel most likely representing
enterocolitis. No intestinal obstruction or free air. Some additional thickening of the wall of the duodenum which could represent duodenitis. Small volume mildly complex free fluid in the right upper quadrant, may be related to the
enterocolitis/duodenitis.
Calcific atherosclerotic changes of the abdominal aorta with mild aneurysmal dilatation up to 3.1 cm.
Bilateral renal as well as hepatic low-attenuation lesions only the largest of which can be confirmed as cysts.
Stable peripherally calcified lesion within the soft tissues of the right true pelvis.
Prior cholecystectomy with stable biliary tract dilatation likely the sequela of prior cholecystectomy.
12/20/[address] Abd/pelvis W Iv Cont
Findings suggesting moderate gastroenterocolitis
Moderate free fluid in the abdomen and pelvis likely reactive. Progressed.
Small bilateral pleural effusions. Progressed on the right. New on the left.
Too small to characterize hypodense hepatic lesions likely benign cysts or hemangiomas. Stable
Too small to characterize hypodense renal lesions likely benign cysts. Stable
addendum:Evaluation of the GI tract is limited without oral contrast. The appearance of wall thickening may be overestimated.
08/2023 CT Abd/pel W Iv And Oral Contr
1. Bowel wall thickening involving both large and small intestine as detailed above, most consistent with infectious or inflammatory enterocolitis. No evidence of intestinal obstruction. No extraluminal air or intra-abdominal abscess formation.
2. Stable cystic lesion within the right lower quadrant, likely representing mucocele.
3. Multiple nodular opacities at each lung base as detailed above, grossly unchanged compared to prior PET/CT dated 03/26/2023. Please see discussion from prior PET/CT.
4. Advanced calcification and ectasia of the abdominal aorta, which measures 2.8 cm in greatest orthogonal dimension.
5. Small hiatal hernia.
05/2024 PT Pet Wbi W/CT Skull-thigh
1. Foci of mild FDG uptake in the right lung appear relatively stable compared to the PET/CT from 01/31/2024.
2. 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
3. Resolution of the parenchymal opacity in the posterior left lower lobe.
4. New small focus of uptake in the region of the sigmoid colon. No definite anatomic correlate. Possible inflammation of a colonic diverticulum. However, malignancy is not completely excluded and a follow-up colonoscopy could be considered.
Prior GI Procedures:
EGD:
Colonoscopy: [address] Monroy. This showed diverticulosis and several polyps (adenoma, serrated adenoma).
flex si
Doubt check point inhibitor colitis. No ulcerations
seen. Just scattered erythema.
- Preparation of the colon was poor.
- Hemorrhoids found on perianal exam.
- Congested mucosa in the entire examined colon.
Biopsied.
- Erythematous mucosa in the sigmoid colon. Biopsied
bx non specific active chronic colitis-- per Dr. helm treat c-diff if stilli wth symptoms consider budesonide
Assessment / Plan
-
Pt is an 84yo with hx HTN, hypercholesterolemia, hypothyroidism, breast CA, lung CA(on Keytruda), renal CA, mohs surgery with LE wound, PAD/ASCVD, prior entercolitis-- c-diff vs possible keytruda related colitis other(flex with nonspecific chronic
inflammation) 2023 with recent vascular procedure 12/19 to [facility] with lithotripsy, arteriogram, and stent placement with addition of Plavix therapy. Pt did take Benadryl and Prednisone prep prior to procedure with hx Dye allergy. She initially felt
well after procedure then noted abdominal pain with lightheadedness, sweatiness and nausea with noted emesis and multiple stools. On admission noted with WBC 28,600. Ct without contrast with suspected wall thickening of loops of small bowel and
large bowel possible enterocolitis and possible duodenitis. CT was then repeat with IV contrast with moderate gastroenterocolitis with moderate free fluid in abdomen likely reactive some limitation of lack of oral contrast. small hepatic and renal
lesions cyst vs hemangioma. Pt was seen by vascular surgery with likely no correlation with recent procedure. Pt also seen by general surgery with further review of CT with edema in diffuse distribution from duodenum to rectum most severe at
descending/sigmoid colon with patent vasculature and concern for possible non occlusive reversible mesenteric ischemia and recommended to continued adequate perfusion, IVF, avoiding hypotension and cont abx. Stool studies with neg c-diff and
ecoli with other cx pending and gram neg bacilli in urine. Asked to see to assist with etiology.
-diffuse edema from duodenum to rectum
-PAD recent vascular LE procedure 12/19 lithotripsy, arteriogram, and stent placement with addition of Plavix therapy
-hx enterocolitis 2023 possible c-diff vs Keytruda flex bx with non specific active chronic colitis
-pet 05/2024 with sigmoid uptake diverticulum vs other
-lung CA on chronic Keytruda therapy
-bradycardia
-gram neg bacilli
other med problems
-HTN
-hypercholesterolemia
- hypothyroidism
-breast CA
-renal CA
- mohs surgery with LE wound
-cont tobacco use
-ASCVD
-hx colon polyps
PLAN:
Etiology of inflammatory process related to non occlusive reversible mesenteric ischemia, chronic process with prior enterocolitis in 2023 c-diff/keytruda/vs other (though no chronic symptoms over last year) vs med reaction though was premedicated
vs other
agree with maintain perfusion
reviewed procedure record no noted periods of hypotension before, during, or post-procedure
clear diet advanced as tolerated
pain control
updated Dr. Altamirano with current Keytruda therapy
support given
monitor stool output
c--diff and ecoli neg other cx pending
will review imaging with surgery with prior colitis noted last year
t/c eventual full colonoscopy with abnormal pet scan 05/2024 with concern for sigmoid uptake last full colonoscopy 2020
-
-
Thank you for consultation and allowing me to participate in the patient's care. Please call the tongue and quarter stitcher GI physician during the after hours with any questions or concerns.
--- NOTE | 2024-12-21 12:15 | CM ---
Spoke with patient's sister who was in to see patient this am. She provided information for assessment. Patient lives in low income housing in an apartment by herself. There are no steps. She described patient as Independent with her ADLs, personal
care, dressing and bathing. 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 Patient uses a walker but she stated that patient does not have any other DME. She has had VN in the past but is not current. She
has been to a SNF, Most recently at [facility] and patient's sister stated that she would not be willing to return there as she did not have a good experience.
Patient has a prescription plan and uses, [facility] in [place] for all of her medications.
Patient's PCP is, Chriss Dobson.
Plan: Case management will continue to assist with discharge planning. Possible SNF transfer. Patient and her sister will provide choices if indicated.
--- NOTE | 2024-12-21 12:42 | W.PN.HOSP.TC ---
Today's Communication/Plan
-
Switch IV fluid to D5 LR
Replete KCl
Diet advanced
Monitor sugars closely
Continue with antibiotics
Assessment / Plan
Assessment / Plan
General: In mild distress due to pain
HEENT: Other (Dry MM. Neck supple.) right chest wall port noted
Respiratory: Clear; No Wheezes, Rales or Rhonchi
Cardiac: S1/S2 and Bradycardia; No Murmur
GI: Positive bowel sounds, mild distention, tender to palp throughout. No rigidity.
Musculoskeletal: Other (Dusky / purplish toes on b/l feet. L inguinal puncture site with dressing in place. No bleeding / strikethrough.) positive Doppler pulses lower extremity
Neuro: AO x 3 and Nonfocal/grossly intact
A/P: Patient is an 84y F with PMH significant for ASCVD / PAD, hypertension and lung cancer on Keytruda who presents to ED complaining of abdominal pain with N/V/D.
Diffuse Enterocolitis
Lactic Acidosis
Leukocytosis
Nausea, vomiting and abdominal pain
Severe sepsis (leukocytosis, tachypnea, lactic acidosis)
- CT noncontrast shows bowel thickening of small and large intestine. Non-contrast study - unable to assess for vascular insufficiency / occlusion.
-Repeat CT scan with IV contrast with moderate enterocolitis.
- ? infectious v ischemic. Initial lactate is 4.4. Symptoms seem very abrupt in onset. Significant leukocytosis noted which has improved
- IVFs, pain control, antiemetics.
- Lactic acidosis resolved with aggressive IV fluid resuscitation
- Surgery evaluation and recommending GI evaluation. Diet currently on clears.
- Empiric abx for now.
- Check stool studies including CDiff. cdiff negative.
- Follow for clinical changes.
Severe dehydration
- Dark urine color noted
- Currently with Kelly catheter
- Continue with IV fluid resuscitation. Monitor urinary output
Acute kidney injury likely multifactorial secondary to contrast exposure, dehydration, urinary retention, enterocolitis, also on KEITH/HCTZ related
- Monitor urinary output. Continue Kelly until patient ambulatory.
- Hold off on blood pressure medication of lisinopril/HCTZ.
- Avoid hypotension
- Continue with IV fluids. Creatinine 1.1. Monitor closely.
Hypokalemia
- Replete and monitor
Hypoglycemia
- Continue with hypoglycemia protocol. D5 IV fluids started.
ASCVD / PAD
- Known vascular disease s/p RLE angio procedure on 12/19/24 with lithotripsy right lower extremity and ALONDRA to right popliteal artery and superficial femoral artery.
- Dusky appearance to bilateral feet / digits.
- L groin puncture site not bleeding.
- Continue ASA. Discussed with Dr. Alcantara and joao to continue Plavix in the setting of fresh stents
Chronic bradycardia
- Sinus mag in the 40s - 50s on tele and EKG.
- Prior vitals trend show similar low heart rates.
- Not on AV jason / chronotropic medications.
- Monitor on telemetry.
- Likely degree of vagal response given abdominal symptoms.
Benign Hypertension
- BP elevated on initial arrival - in part due to pain.
- Hold antihypertensive agents acutely. Avoid hypotension given concern for bowel ischemia.
Hypothyroidism
- Check TFTs as noted above. TSH normal continue T4 supplementation.
Lung Cancer
History of Breast Cancer
- s/p R upper lobectomy and XRT.
- s/p bilateral lumpectomies / axillary dissections.
- Now on Keytruda.
DVT Prophylaxis: heparin sc
Code Status: DNR
Anticipated Discharge: > 48 hours
Subjective/Interval History
-
Date of Service: December 21, 2024
States remains with abdominal pain
No nausea or vomiting
Hypoglycemic earlier today
Objective Data
-
Labs:
Laboratory Results
12/21/24 12/21/24 12/21/24
04:31 09:06 11:00
WBC 14.4 H
Hgb 9.6 L D 9.5 L
Hct 29.8 L 30.1 L
Plt Count 204 D
Sodium 144
Potassium 3.1 L D
Chloride 115 H
Carbon Dioxide 23
BUN 47 H
Creatinine 1.1 H
Glucose 80 193 H
Calcium 8.7
12/21/24 12/21/24
14:00 20:00
WBC
Hgb Pending Pending
Hct Pending Pending
Plt Count
Sodium
Potassium
Chloride
Carbon Dioxide
BUN
Creatinine
Glucose
Calcium
Vital Signs:
Vital Signs
Temp Pulse Resp BP Pulse Ox
97.7 F 50 14 162/59 100
12/21/24 11:13 12/21/24 10:00 12/21/24 10:00 12/21/24 10:00 12/21/24 10:00
I&O
12/20/24 12/21/24 12/22/24
06:59 06:59 06:59
Intake Total 1850 / 1850
Output Total 950 / 950
Balance 900 / 900
Data Reviewed
-
Total Time Spent with Patient (in minutes): 60
[2024-12-21 13:19] LABS: Glucose - Point of Care 150 mg/dl (70-99)
[2024-12-21] MEDS: PROTONIX IV 40 MG IV (14:22)
[2024-12-21] MEDS: NSS (PRESERVATIVE FREE) 10 ML IV (14:22)
[2024-12-21] MEDS: APRESOLINE 10 MG IV (14:30)
[2024-12-21] MEDS: ZOFRAN 4 MG IV (14:31)
[2024-12-21 14:40] LABS: Hematocrit 28.6 % (37.0-47.0); Hemoglobin 9.2 g/dL (12.0-16.0)
[2024-12-21] MEDS: DILAUDID 0.5 MG IV ×2 (15:21→20:09)
--- NOTE | 2024-12-21 16:02 | PTCARENOTE ---
Pt's assessment as documented. Sinus mag on tele monitor. IVF infusing as ordered. Glucose checks and treatment as documented, see labs/MAR. Sister at bedside, updated on plan of care. Pt hypertensive, Dr. Green notified and order received for
PRN Hydralazine, administered as ordered, see MAR. Call byers within reach. Bed alarm in place for safety.
[2024-12-21 16:23] LABS: Glucose - Point of Care 81 mg/dl (70-99)
[2024-12-21] MEDS: ASPIR LOW (ENTERIC COATED) 81 MG PO (17:54)
[2024-12-21 20:25] LABS: Hematocrit 28.7 % (37.0-47.0); Hemoglobin 9.1 g/dL (12.0-16.0)
[2024-12-21 21:49] LABS: Glucose - Point of Care 82 mg/dl (70-99)
--- NOTE | 2024-12-21 22:18 | PTCARENOTE ---
Patient's assessment and care as documented. AAOx3, forgetful at times. SB on the monitor. Pt experiencing severe abdominal pain and especially when repositioning. Pt rates pain 8/10 and described it as 'cramping' which radiates to back. Medicated
with PRN Dilaudid see MAR. Pt states she is passing flatus but no BM. IVF infusing. IV abx cont. Kelly draining lita urine which appears to be improving in color. Bed alarm on for safety. Call byers is within reach. Pt ringing appropriately.
[2024-12-22] VITALS (13 sets, daily range): BP systolic 121–158; BP diastolic 52–64; BMI 22.4
[2024-12-22] MEDS: ZOSYN 50 IV ×4 (03:45→21:10)
[2024-12-22 04:08] LABS: Hematocrit 28.8 % (37.0-47.0); Hemoglobin 9.1 g/dL (12.0-16.0); Mean Corp Hgb Conc. 31.6 g/dL (33.0-37.0); Mean Corpuscular Volume 86.0 fL (81.0-99.0); Nucleated Red Blood Cells % 0 %; Platelet Count 184 10^3/uL (130-400); Red Cell Dist. Width 15.9 % (11.5-14.5)
[2024-12-22] MEDS: ROXICODONE 5 MG PO ×2 (04:22→20:14)
[2024-12-22 04:35] LABS: Blood Urea Nitrogen 37 mg/dl (7-17); Calcium 9.1 mg/dl (8.4-10.2); Carbon Dioxide 25 mmol/L (22-30); Chloride 114 mmol/L (98-107); Estimated Creatinine Clearance 33 ml/min; Glucose 81 mg/dl (70-99); Potassium 3.5 mmol/L (3.5-5.1); Sodium 142 mmol/L (135-145); eGFR 55.21
--- NOTE | 2024-12-22 06:54 | W.PN.GI.CBS2 ---
Addendum entered and electronically signed by Balwinder Falcon MD 12/22/24 11:26:
I saw and examined the patient.
The PA's note was reviewed and I agree with the note.
Comment:
Her pain overall is stable. She started to have some flatus. She had similar presentation on 08/2023, had flex sig which showed scattered erythema in the sigmoid colon, biopsy was nonrevealing. CMV negative. He was empirically treated for C.
difficile with antigen positive toxin negative stool study. Her diarrhea eventually improved, unclear whether this was a spontaneous resolution versus actual response to empirical antibiotic therapy. She recently had vascular procedure prior to
her onset of symptoms, although vascular surgery thinks her symptoms are irrelevant. CT during this admission shows multiple areas of wall thickening starting from duodenum down to her entire GI tract, although it was reported that left-sided
(distal transv, desc/ sig) was more severe. She was recently on checkpoint inhibitor few months ago. 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
Surgery is following. Her clinical status may be improving spontaneously, we will hold off on Endo eval for now. Continue with supportive management.
Original Note:
Today's Communication / Plan
-
Etiology of inflammatory process related to non occlusive reversible mesenteric ischemia with recent procedure/dehydration but no noted periods of hypotension, chronic process with prior enterocolitis in 2023 c-diff/keytruda/vs other (though no
chronic symptoms over last year) vs med reaction though was premedicated vs other
agree with maintain perfusion/hydration
cont abx per medical team also noted gram neg UTI
cont diet today with enlive supplement
pain control
updated Dr. Altamirano 12/21 with current Keytruda therapy
monitor stool output
c--diff and ecoli neg other cx pending
reviewed case with surgical team discussed option of flex and bx if needed but WBC normalizingi today
t/c eventual full colonoscopy with abnormal pet scan 05/2024 with concern for sigmoid uptake last full colonoscopy 2020 but also had flex 2024 to sigmoid
Assessment / Plan
-
Pt is an 84yo with hx HTN, hypercholesterolemia, hypothyroidism, breast CA, lung CA(on Keytruda), renal CA, mohs surgery with LE wound, PAD/ASCVD, prior entercolitis-- c-diff vs possible keytruda related colitis other(flex with nonspecific chronic
inflammation) 2023 with recent vascular procedure 12/19 to RLQ with lithotripsy, arteriogram, and stent placement with addition of Plavix therapy. Pt did take Benadryl and Prednisone prep prior to procedure with hx Dye allergy. She initially felt
well after procedure then noted abdominal pain with lightheadedness, sweatiness and nausea with noted emesis and multiple stools. On admission noted with WBC 28,600. Ct without contrast with suspected wall thickening of loops of small bowel and
large bowel possible enterocolitis and possible duodenitis. CT was then repeat with IV contrast with moderate gastroenterocolitis with moderate free fluid in abdomen likely reactive some limitation of lack of oral contrast. small hepatic and renal
lesions cyst vs hemangioma. Pt was seen by vascular surgery with likely no correlation with recent procedure. Pt also seen by general surgery with further review of CT with edema in diffuse distribution from duodenum to rectum most severe at
descending/sigmoid colon with patent vasculature and concern for possible non occlusive reversible mesenteric ischemia and recommended to continued adequate perfusion, IVF, avoiding hypotension and cont abx. Stool studies with neg c-diff and
ecoli with other cx pending and gram neg bacilli in urine. Asked to see to assist with etiology.
-diffuse edema from duodenum to rectum
-PAD recent vascular LE procedure 12/19 lithotripsy, arteriogram, and stent placement with addition of Plavix therapy
-hx enterocolitis 2023 possible c-diff vs Keytruda flex bx with non specific active chronic colitis
-pet 05/2024 with sigmoid uptake diverticulum vs other
-lung CA on chronic Keytruda therapy
-bradycardia
-leukocytosis with concern for sepsis
-gram neg bacilli UTI
-lactic acidosis on admission
-CHELA on admission with dehydration
-anemia
other med problems
-HTN
-hypercholesterolemia
- hypothyroidism
-breast CA
-renal CA
- mohs surgery with LE wound
-cont tobacco use
-ASCVD
-hx colon polyps
PLAN:
Etiology of inflammatory process related to non occlusive reversible mesenteric ischemia with recent procedure/dehydration but no noted periods of hypotension, chronic process with prior enterocolitis in 2023 c-diff/keytruda/vs other (though no
chronic symptoms over last year) vs med reaction though was premedicated vs other
agree with maintain perfusion/hydration
cont abx per medical team also noted gram neg UTI
cont diet today with enlive supplement
pain control
updated Dr. Altamirano 12/21 with current Keytruda therapy
monitor stool output
c--diff and ecoli neg other cx pending
reviewed case with surgical team discussed option of flex and bx if needed but WBC normalizingi today
t/c eventual full colonoscopy with abnormal pet scan 05/2024 with concern for sigmoid uptake last full colonoscopy 2020 but also had flex 2023 to sigmoid
Subjective
Subjective
Date of Service: December 22, 2024
tolerating clear diet still with distention but passing gas and not vomiting
Objective
Data Reviewed
Laboratory Data:
Laboratory Results
12/22/24 03:54
12/22/24 03:54
Laboratory Results
Magnesium 2.1 mg/dl (1.6-2.3) 12/21/24 04:31
Total Bilirubin Cancelled 12/19/24 22:35
AST Cancelled 12/19/24 22:35
ALT Cancelled 12/19/24 22:35
Alkaline Phosphatase Cancelled 12/19/24 22:35
Amylase 36 U/L (30-110) 12/20/24 11:25
Lipase 15 U/L (23-300) L 12/20/24 11:25
Vital Signs and I&O:
Vital Signs
Temp Pulse Resp BP Pulse Ox
97.8 F 55 12 131/53 98
12/22/24 03:36 12/22/24 06:00 12/22/24 06:00 12/22/24 06:00 12/22/24 06:00
I&O
12/20/24 12/21/24 12/22/24
06:59 06:59 06:59
Intake Total 1850 / 1850 1020 / 1020
Output Total 950 / 950 1450 / 1450
Balance 900 / 900 -430 / -430
Physical Exam
Physical Exam
HEENT: Anicteric and Moist mucous membranes
Cardiology: Other (bradicardia )
Pulmonary: Clear
GI: Soft, Distended and Tender (diffuse now slight worse left side )
Extremities: No Edema
Neuro: Non Focal
[2024-12-22 07:30] LABS: Glucose - Point of Care 139 mg/dl (70-99)
[2024-12-22] MEDS: SYNTHROID 100 MCG PO (08:44)
[2024-12-22] MEDS: PLAVIX 75 MG PO (08:44)
[2024-12-22] MEDS: NSS (PRESERVATIVE FREE) 10 ML IV (08:46)
[2024-12-22] MEDS: PROTONIX IV 40 MG IV (08:47)
[2024-12-22] MEDS: D5LR 1000 IV ×2 (10:38→23:14)
--- NOTE | 2024-12-22 10:56 | W.PN.GS2 ---
Addendum entered and electronically signed by Carlos Alcantara MD 12/22/24 14:21:
I saw and examined the patient.
The Car Painter's note was reviewed and I agree with the note.
Comment: pain improved, she reports it shifted to llq again after more right sided pain yesterday. more distended today. denies n/v. passing flatus. no loose stools. ttp to llq remains, but improved. would cont iv abx and cld for now. will follow
Original Note:
Today's Communication / Plan
-
clears as tolerated
Assessment / Plan
-
Assessment: 84 y/o female with probable nonocclusive, reversible mesenteric ischemia/ischemic colitis predominantly effecting the splenic flexure/descending colon light of medical history for ASCVD / PAD and degree of bowel thickening greatest in
the watershed region of the colon; ddx also includes infections/inflammatory etiologies
AFVSS
WBC improving, pain improving
no acidosis on BMP
CT without signs of irreversible ischemia ie pneumatosis, portal/mesenteric venous gas, no free air
stool cultures negative; cdiff negative
Low colony count (10,000 cfu) bacteruria with klebsiella
Plan: continue current supportive care maintaining adequate IVF hydration and avoiding hypotension
okay for clear liquid diet for comfort assuming does not exacerbate pain/nausea, would not advance further today given distention
Zosyn for empiric GI coverage
No plans for emergent surgery at this time
case discussed with GI team at bedside
Subjective Data
-
Date of Service: December 22, 2024
Pt seen and examined at bedside with Dr. Alcantara. Does not feel that pain is much better but less tender than prior exams. She denies nausea. She has been passing some gas. No further diarrhea.
Objective Data
-
Intake and Output
12/21/24 12/22/24 12/23/24
06:59 06:59 06:59
Intake Total 1850 / 1850 1020 / 1020
Output Total 950 / 950 1450 / 1450
Balance 900 / 900 -430 / -430
Intake:
Oral fluids 1020 / 1020
IV fluids (Total) 1700 / 1700
IV piggybacks 150 / 150
Output:
Urine, Kelly 950 / 950 1450 / 1450
Vital Signs
Temp Pulse Resp BP Pulse Ox
97.8 F 56 11 149/55 98
12/22/24 07:25 12/22/24 10:00 12/22/24 10:00 12/22/24 10:00 12/22/24 10:00
Lab Results
12/22/24 03:54
12/22/24 03:54
Calcium 9.1 mg/dl (8.4-10.2) 12/22/24 03:54
Magnesium 2.1 mg/dl (1.6-2.3) 12/21/24 04:31
Total Bilirubin Cancelled 12/19/24 22:35
AST Cancelled 12/19/24 22:35
ALT Cancelled 12/19/24 22:35
Alkaline Phosphatase Cancelled 12/19/24 22:35
Total Protein Cancelled 12/19/24 22:35
Albumin Cancelled 12/19/24 22:35
Physical Exam
-
NAD AAOx3
ABD: soft, TTP generalized, a bit more left sided, mild to mod distention
no rigidity, voluntary guarding only on deeper palpation
--- NOTE | 2024-12-22 11:39 | W.PN.HOSP.TC ---
Today's Communication/Plan
-
Continue with clears
Continue with IV fluids
Continue with broad-spectrum antibiotic
Monitor abdominal examination closely
Assessment / Plan
Assessment / Plan
General: In mild distress due to pain
HEENT: Other (Dry MM. Neck supple.) right chest wall port noted
Respiratory: Clear; No Wheezes, Rales or Rhonchi
Cardiac: S1/S2 and Bradycardia; No Murmur
GI: Positive bowel sounds, mild distention, remains with tender to palpation. No rigidity.
Musculoskeletal: Other (Dusky / purplish toes on b/l feet. L inguinal puncture site with dressing in place. No bleeding / strikethrough.) positive Doppler pulses lower extremity
Neuro: AO x 3 and Nonfocal/grossly intact
A/P: Patient is an 84y F with PMH significant for ASCVD / PAD, hypertension and lung cancer on Keytruda who presents to ED complaining of abdominal pain with N/V/D.
Diffuse Enterocolitis likely secondary to mesenteric ischemia suspected versus Keytruda associated
Lactic Acidosis
Leukocytosis
Nausea, vomiting and abdominal pain
Severe sepsis (leukocytosis, tachypnea, lactic acidosis)
- CT noncontrast shows bowel thickening of small and large intestine. Non-contrast study - unable to assess for vascular insufficiency / occlusion.
-Repeat CT scan with IV contrast with moderate enterocolitis.
- ? infectious v ischemic. Initial lactate is 4.4. Symptoms seem very abrupt in onset. Leukocytosis resolved
- IVFs, pain control, antiemetics.
- Lactic acidosis resolved with aggressive IV fluid resuscitation
- Surgery evaluation and recommending GI evaluation. Diet currently on clears.
- Continue with Zosyn
- C. difficile negative
- Follow for clinical changes.
Severe dehydration
- Dark urine color noted
- Currently with Kelly catheter
- Continue with IV fluid resuscitation. Monitor urinary output
Acute kidney injury likely multifactorial secondary to contrast exposure, dehydration, urinary retention, enterocolitis, also on KEITH/HCTZ related
- Monitor urinary output. Continue Kelly until patient ambulatory.
- Hold off on blood pressure medication of lisinopril/HCTZ.
- Avoid hypotension
- Continue with IV fluids. Creatinine 1.0 Monitor closely.
Klebsiella UTI
- Low cfu. Already on antibiotics
Hypokalemia
- Replete and monitor
Hypoglycemia
- Continue with hypoglycemia protocol. D5 IV fluids started.
ASCVD / PAD
- Known vascular disease s/p RLE angio procedure on 12/19/24 with lithotripsy right lower extremity and ALONDRA to right popliteal artery and superficial femoral artery.
- Dusky appearance to bilateral feet / digits.
- L groin puncture site not bleeding.
- Continue ASA. Discussed with Dr. Alcantara and joao to continue Plavix in the setting of fresh stents
Chronic bradycardia
- Sinus mag in the 40s - 50s on tele and EKG.
- Prior vitals trend show similar low heart rates.
- Not on AV jason / chronotropic medications.
- Monitor on telemetry.
- Likely degree of vagal response given abdominal symptoms.
Benign Hypertension
- BP elevated on initial arrival - in part due to pain.
- Hold antihypertensive agents acutely. Avoid hypotension given concern for bowel ischemia.
- prn for sbp>150 only for now
Hypothyroidism
- Check TFTs as noted above. TSH normal continue T4 supplementation.
Lung Cancer
History of Breast Cancer
- s/p R upper lobectomy and XRT.
- s/p bilateral lumpectomies / axillary dissections.
- Now on Keytruda.
DVT Prophylaxis: heparin sc
Code Status: DNR
Anticipated Discharge: > 48 hours
Subjective/Interval History
-
Date of Service: December 22, 2024
States of abdominal pain
States passing flatulence
Objective Data
-
Labs:
Laboratory Results
12/22/24
03:54
WBC 10.8
Hgb 9.1 L
Hct 28.8 L
Plt Count 184
Sodium 142
Potassium 3.5
Chloride 114 H
Carbon Dioxide 25
BUN 37 H
Creatinine 1.0
Glucose 81
Calcium 9.1
Vital Signs:
Vital Signs
Temp Pulse Resp BP Pulse Ox
98 F 56 11 149/55 96
12/22/24 11:24 12/22/24 10:00 12/22/24 10:00 12/22/24 10:00 12/22/24 10:00
I&O
12/21/24 12/22/24 12/23/24
06:59 06:59 06:59
Intake Total 1850 / 1850 1020 / 1020 50 / 50
Output Total 950 / 950 1450 / 1450
Balance 900 / 900 -430 / -430 50 / 50
Data Reviewed
-
Total Time Spent with Patient (in minutes): 55
[2024-12-22 11:58] LABS: Glucose - Point of Care 142 mg/dl (70-99)
[2024-12-22 14:31] LABS: Glycohemoglobin (HgbA1c) 5.6 % (4.0-5.6)
[2024-12-22] MEDS: ASPIR LOW (ENTERIC COATED) 81 MG PO (15:49)
[2024-12-22 17:10] LABS: Glucose - Point of Care 159 mg/dl (70-99)
--- NOTE | 2024-12-22 20:00 | PTCARENOTE ---
Received pt from previous shift. Systems reviewed, see flowsheets. Pt appeared to be going in and out of an AFib/AFlutter rhythm on heart monitor. NSR 60s at times, then back into an AFib/AFlutter 100s-120s. Pt was asymptomatic. House Provider,
Cleopatra Horan notified, and an EKG and labs were obtained. EKG initially showed NSR 60s, but as I took the leads and stickers off, pt appeared to go into the irregular rhythm. EKG reapplied and obtained, showing AFlutter. Confirmed with patient
that she does not have a history of AFib/AFlutter. Labs revealed K= 3.5, Mg= 1.7. Potassium 20 mEq PO given, see MAR.
Otherwise, pt is comfortable. She reported 7/10 ankle and R calf pain, for which she was given 5mg PO oxy, see MAR. On 2L NC, SaO2 97%. Kelly remains in place for retention, due to be removed 12/23 at 06:00. R SQ port has D5LR infusing at 80mL/hr. R
wrist PIV flushed and patent. RLE has a small wound with a foam on, dated 12/20, but pt does not wound care done at this time, as she wants to touch base with vascular. Will continue to monitor.
[2024-12-22 20:06] LABS: Hematocrit 29.0 % (37.0-47.0); Hemoglobin 9.1 g/dL (12.0-16.0); Mean Corp Hgb Conc. 31.4 g/dL (33.0-37.0); Mean Corpuscular Volume 86.1 fL (81.0-99.0); Platelet Count 180 10^3/uL (130-400); Red Cell Dist. Width 16.0 % (11.5-14.5)
--- NOTE | 2024-12-22 20:09 | W.PN.UPDATE ---
Update Note
Progress Note Update
Patient is a-fib/ a flutter on tele monitor with hr rate up to 100s-130s for few sec then back down to 60s. Patient is asymptomatic, no history of a-fib/ aflutter.
Ekg, cbc, bmp, and mag Ordered.
Cardio consult placed.
[2024-12-22 20:19] LABS: Blood Urea Nitrogen 28 mg/dl (7-17); Calcium 8.6 mg/dl (8.4-10.2); Carbon Dioxide 27 mmol/L (22-30); Chloride 111 mmol/L (98-107); Estimated Creatinine Clearance 33 ml/min; Glucose 104 mg/dl (70-99); Magnesium 1.7 mg/dl (1.6-2.3); Potassium 3.5 mmol/L (3.5-5.1); Sodium 139 mmol/L (135-145); eGFR 55.21
[2024-12-22] MEDS: KCL 20 MEQ PO (21:10)
[2024-12-22 21:50] LABS: Glucose - Point of Care 115 mg/dl (70-99)
[2024-12-23] VITALS (19 sets, daily range): BP systolic 112–189; BP diastolic 49–119; PULSE 97; O2SAT 98
--- NOTE | 2024-12-23 02:00 | PTCARENOTE ---
Pt had a 9 beat run of VTach then resumed back to SB rhythm. VSS otherwise. House Provider aware. Cardiology consulted.
[2024-12-23] MEDS: ZOSYN 50 IV ×4 (03:59→21:03)
[2024-12-23 04:30] LABS: Hematocrit 28.7 % (37.0-47.0); Hemoglobin 8.8 g/dL (12.0-16.0); Mean Corp Hgb Conc. 30.7 g/dL (33.0-37.0); Mean Corpuscular Volume 86.7 fL (81.0-99.0); Nucleated Red Blood Cells % 0 %; Platelet Count 179 10^3/uL (130-400); Red Cell Dist. Width 15.9 % (11.5-14.5)
[2024-12-23 04:55] LABS: Blood Urea Nitrogen 27 mg/dl (7-17); Calcium 8.7 mg/dl (8.4-10.2); Carbon Dioxide 26 mmol/L (22-30); Chloride 112 mmol/L (98-107); Estimated Creatinine Clearance 33 ml/min; Glucose 79 mg/dl (70-99); Potassium 3.8 mmol/L (3.5-5.1); Sodium 140 mmol/L (135-145); eGFR 55.21
--- NOTE | 2024-12-23 07:06 | W.PN.GI.CBS2 ---
Addendum entered and electronically signed by Balwinder Falcon MD 12/23/24 12:23:
I saw and examined the patient.
The PA's note was reviewed and I agree with the note.
Comment:
Pain is somewhat better. Continues to have flatus, no BM yet. Tolerating CLD. Surgery following. Re-assess tomorrow for possible advancement in diet. Continue supportive mx.
Original Note:
Today's Communication / Plan
-
Etiology of inflammatory process related to non occlusive reversible mesenteric ischemia with recent procedure/dehydration but no noted periods of hypotension, chronic process with prior enterocolitis in 2023 c-diff/keytruda/vs other (though no
chronic symptoms over last year) vs med reaction though was premedicated vs other
slow improvement
cont to maintain perfusion/hydration
cont abx per medical team
clear diet-- t/c advance to full liquid -await surgical eval
monitor stool output
stool cx neg
t/c eventual full colonoscopy with abnormal pet scan 05/2024 with concern for sigmoid uptake last full colonoscopy 2020 but also had flex 2023 to sigmoid -- OP follow up after admission
Assessment / Plan
-
Pt is an 84yo with hx HTN, hypercholesterolemia, hypothyroidism, breast CA, lung CA(on Keytruda), renal CA, mohs surgery with LE wound, PAD/ASCVD, prior entercolitis-- c-diff vs possible keytruda related colitis other(flex with nonspecific chronic
inflammation) 2023 with recent vascular procedure 12/19 to RLQ with lithotripsy, arteriogram, and stent placement with addition of Plavix therapy. Pt did take Benadryl and Prednisone prep prior to procedure with hx Dye allergy. She initially felt
well after procedure then noted abdominal pain with lightheadedness, sweatiness and nausea with noted emesis and multiple stools. On admission noted with WBC 28,600. Ct without contrast with suspected wall thickening of loops of small bowel and
large bowel possible enterocolitis and possible duodenitis. CT was then repeat with IV contrast with moderate gastroenterocolitis with moderate free fluid in abdomen likely reactive some limitation of lack of oral contrast. small hepatic and renal
lesions cyst vs hemangioma. Pt was seen by vascular surgery with likely no correlation with recent procedure. Pt also seen by general surgery with further review of CT with edema in diffuse distribution from duodenum to rectum most severe at
descending/sigmoid colon with patent vasculature and concern for possible non occlusive reversible mesenteric ischemia and recommended to continued adequate perfusion, IVF, avoiding hypotension and cont abx. Stool studies with neg c-diff and
ecoli with other cx pending and gram neg bacilli in urine. Asked to see to assist with etiology. Dr. Altamirano updated 12/21
-diffuse edema from duodenum to rectum
-PAD recent vascular LE procedure 12/19 lithotripsy, arteriogram, and stent placement with addition of Plavix therapy
-hx enterocolitis 2023 possible c-diff vs Keytruda flex bx with non specific active chronic colitis
-pet 05/2024 with sigmoid uptake diverticulum vs other
-lung CA on chronic Keytruda therapy
-bradycardia
-leukocytosis with concern for sepsis
-gram neg bacilli UTI
-lactic acidosis on admission
-CHELA on admission with dehydration
-anemia
other med problems
-HTN
-hypercholesterolemia
- hypothyroidism
-breast CA
-renal CA
- mohs surgery with LE wound
-cont tobacco use
-ASCVD
-hx colon polyps
PLAN:
Etiology of inflammatory process related to non occlusive reversible mesenteric ischemia with recent procedure/dehydration but no noted periods of hypotension, chronic process with prior enterocolitis in 2023 c-diff/keytruda/vs other (though no
chronic symptoms over last year) vs med reaction though was premedicated vs other
slow improvement
cont to maintain perfusion/hydration
cont abx per medical team
clear diet-- t/c advance to full liquid -await surgical eval
monitor stool output
stool cx neg
t/c eventual full colonoscopy with abnormal pet scan 05/2024 with concern for sigmoid uptake last full colonoscopy 2020 but also had flex 2023 to sigmoid -- OP follow up after admission
Subjective
Subjective
Date of Service: December 23, 2024
on clear diet with supplement still with abdominal pain but about the same as yesterday + flatus no stools
Objective
Data Reviewed
Laboratory Data:
Laboratory Results
12/23/24 04:07
12/23/24 04:07
Laboratory Results
Magnesium 1.7 mg/dl (1.6-2.3) 12/22/24 19:58
Total Bilirubin Cancelled 12/19/24 22:35
AST Cancelled 12/19/24 22:35
ALT Cancelled 12/19/24 22:35
Alkaline Phosphatase Cancelled 12/19/24 22:35
Amylase 36 U/L (30-110) 12/20/24 11:25
Lipase 15 U/L (23-300) L 12/20/24 11:25
Vital Signs and I&O:
Vital Signs
Temp Pulse Resp BP Pulse Ox
98.7 F 58 13 158/58 98
12/23/24 06:44 12/23/24 06:00 12/23/24 06:00 12/23/24 06:00 12/23/24 06:00
I&O
12/22/24 12/23/24 12/24/24
06:59 06:59 06:59
Intake Total 1020 / 1020 2120 / 2120
Output Total 1450 / 1450 800 / 800
Balance -430 / -430 1320 / 1320
Physical Exam
Physical Exam
HEENT: Anicteric and Moist mucous membranes
Cardiology: Normal Sinus Rhythm
Pulmonary: Clear
GI: Soft, Distended and Tender (diffuse mild - slight improvement from exam 12/22 )
Neuro: Non Focal
[2024-12-23 07:44] LABS: Glucose - Point of Care 94 mg/dl (70-99)
[2024-12-23] MEDS: NSS (PRESERVATIVE FREE) 10 ML IV (08:30)
[2024-12-23] MEDS: PLAVIX 75 MG PO (08:30)
[2024-12-23] MEDS: PROTONIX IV 40 MG IV (08:30)
[2024-12-23] MEDS: SYNTHROID 100 MCG PO (08:30)
[2024-12-23] MEDS: MAGNESIUM SULFATE 50 IV (08:38)
--- NOTE | 2024-12-23 09:11 | CON.CAR ---
Addendum entered and electronically signed by Dariel Mitchell MD 12/23/24 13:12:
Patient seen and examined in collaboration with CRYSTALIZER OPERATOR; agree with below.
- 84-year-old female with hypertension, hyperlipidemia, lung cancer/resection, and PAD who underwent vascular procedure on 12/19/2024; currently being managed for possible mesenteric ischemia. Cardiology consulted for new onset paroxysmal atrial
fibrillation/flutter.
- Notable 3/6 systolic murmur on examination.
- Appears to be clinically stable at this time.
- Echocardiogram on Wednesday.
- Will start heparin drip; plan is to eventually transition to Eliquis in addition to Plavix, and discontinue aspirin--discussed with Vascular Surgery.
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 Will have EP Cardiology see patient on Wednesday (could ultimately need a pacemaker at some
point in the future--as an outpatient).
Original Note:
Consultation
Consultation Request
Date/Time Consultation Requested: 12/23/246
Date/Time Consultation Performed: 12/23/24 0912
Requesting Provider: Cleopatra Horan
Performing Provider: Opal ALCAZAR for Dr. Mitchell
Reason for Consultation: atrial fib/flutter
Medical History
-
Chief Complaint: abdominal discomfort
History of Present Illness:
84 y/o female (patient of Dr. Hopper, last seen 2018 in our office) with hx lung cancer with resection, smoking, hypertension, dyslipidemia, hypothyroidism, and PAD who had a vascular procedure on 12/19/24. Later that day, she developed abdominal
discomfort. There is concern for mesenteric ischemia/ischemic colitis. We are consulted since AFIB/flutter were noted overnight. She did not feel it and is currently in NSR.
Past Medical History
Past Medical History: Cancer, HTN, Hypercholesterolemia, Hypothyroidism and Other (as above)
Social History
Tobacco: Smoker
Family History
Family History: Reviewed & Not Pertinent
Allergies / Home Medications
Allergy/AdvReac Type Severity Reaction Status Date / Time
Iodinated Contrast Media (IV Allergy Rash Verified 12/15/24 14:13
Dye, Iodine Containing)
�Medication �Instructions �Recorded �Confirmed �Type
amlodipine 5 mg tablet 5 mg PO HS Blood pressure 07/04/10 12/20/24 History
levothyroxine 100 mcg tablet 100 mcg PO DAILY Thyroid 07/04/10 12/20/24 History
aspirin 81 mg tablet,delayed 81 mg PO QPM Blood clot 02/19/22 12/20/24 History
release prevention/tx
lisinopril 20 0.5 tab PO HS Blood Pressure 12/08/23 12/20/24 History
mg-hydrochlorothiazide 25 mg tablet
pembrolizumab 25 mg/mL intravenous 200 mg IV Q3W Cancer 12/08/23 12/20/24 History
solution (Keytruda)
inulin 2 gram chewable tablet 2 g PO DAILY Constipation 12/15/24 12/20/24 History
(Fiber Delights)
polyethylene glycol 3350 17 gram 17 g PO DAILYPRN PRN constipation 12/15/24 12/20/24 History
oral powder packet (Miralax)
clopidogrel 75 mg tablet 75 mg PO DAILY #90 tabs 12/19/24 12/20/24 Rx
Lactobac no.2-Bifidobac no.1-S. 1 cap PO DAILY Probiotic 12/20/24 12/20/24 History
thermo 112.5 billion cell capsule
(Visbiome)
collagenase clostridium histo. 250 1 applic topical DAILY lower right 12/20/24 12/20/24 History
unit/gram topical ointment (Santyl) leg wound
meloxicam 7.5 mg tablet 7.5 mg PO BIDPRN PRN mild pain 12/20/24 12/20/24 History
Review of Systems
-
History Source: Patient
All other systems: Negative unless noted
Abdomen/GI: Abdominal Pain
Physical Exam
Vital Signs
Temp Pulse Resp BP Pulse Ox
98.7 F 58 13 158/58 98
12/23/24 06:44 12/23/24 06:00 12/23/24 06:00 12/23/24 06:00 12/23/24 06:00
Lab Results
12/23/24 04:07
12/23/24 04:07
Physical Exam
General: Well Developed and No Apparent Distress
HEENT: Normocephalic and Anicteric
Respiratory: Wheezes, Non Labored Respirations and Other (on O2 by NC)
Cardiac: Regular Rhythm
Musculoskeletal: No Edema
Skin: Warm and Dry
Neuro: AO x 3
Psych: Calm
Impression / Plan
-
Abdominal pain:
-still present, but not severe
-GI, surgery, and IM on the case
-per surgery note: probable nonocclusive, reversible mesenteric ischemia/ischemic colitis. No plans for emergent surgery at this time.
-on abx
Atrial fibrillation, atrial flutter (type unknown), paroxysmal:
-in setting of acute illness, which is being treated. Currently in SR.
-asymptomatic, was fast at times, but baseline bradycardia, so will not add rate
-[id number] score is 5 for age, female, PAD, HTN- Eliquis 2.5 mg PO BID when able. Will start with IV heparin, which requires intensive monitoring. Denies any hx bleeding or falls.
-TSH WNL
-echo Wednesday
PAD:
-vascular consulted on patient with recent RLE procedure
-on ASA and Plavix- will have to discuss OAC addition with vascular
UTI:
-on abx
HTN:
-stable overall
-on CCB, ACEI/HCTZ as OP
-resume meds when appropriate
Hx Lung cancer
hx smoking
Data Reviewed
-
EKG: Tracing Personally Visualized and interpreted (SR with PAC's)
CT Scan: Report Reviewed by me ( Findings suggesting moderate gastroenterocolitis Moderate free fluid in the abdomen and pelvis likely reactive. Progressed. Small bilateral pleural effusions. Progressed on the right. New on the left. Too small to
characterize hypodense hepatic lesions likely benign cysts or hemangiomas. Stable )
Medical Tests (Nuc Med, Echo etc): Report Reviewed by me (echo 12/07/18: Normal left ventricular systolic function. Left ventricular ejection fraction is 60-65%. Mild tricuspid regurgitation. Aortic sclerosis without aortic stenosis.)
Labs: Labs Reviewed by me
[2024-12-23] MEDS: ROXICODONE 5 MG PO ×2 (09:55→17:40)
--- NOTE | 2024-12-23 10:11 | CM ---
Chart reviewed and patient may benefit from PT/OT evaluations to assist with discharge planning, patient lives alone.
Plan; Await PT/OT evaluations to assist with discharge planning for patient.
--- NOTE | 2024-12-23 10:19 | W.PN.GS2 ---
Addendum entered and electronically signed by Dariel Griffith MD 12/23/24 15:10:
I saw and examined the patient.
The RETURNER's note was reviewed and I agree with the note.
�Surgery to follow peripherally; please call for any questions or worsening clinical status
Original Note:
Today's Communication / Plan
-
clears
Assessment / Plan
-
Assessment: 84 y/o female with probable nonocclusive, reversible mesenteric ischemia/ischemic colitis predominantly effecting the splenic flexure/descending colon light of medical history for ASCVD / PAD and degree of bowel thickening greatest in
the watershed region of the colon; ddx also includes infections/inflammatory etiologies as well as related to recent dosing of checkpoint inhibitor
AFVSS
Leukocytosis resolved, pain improving. No further diarrhea but distention persists
CT without signs of irreversible ischemia ie pneumatosis, portal/mesenteric venous gas, no free air
stool cultures negative; cdiff negative
Low colony count (10,000 cfu) bacteruria with klebsiella
Plan: continue current supportive care maintaining adequate IVF hydration and avoiding hypotension
okay for clear liquid diet for comfort assuming does not exacerbate pain/nausea, would not advance further until distention improved then diet as per GI
Zosyn for empiric GI coverage
No plans for emergent surgery at this time
Surgery to follow peripherally, please call with questions/concerns
Subjective Data
-
Date of Service: December 23, 2024
Pt seen and examined at bedside with Dr. Griffith. Denies n/v. Passing some flatus but no BM's. Some pain this morning but better than previous. Notes that she feels 'fair'
Objective Data
-
Intake and Output
12/22/24 12/23/24 12/24/24
06:59 06:59 06:59
Intake Total 1020 / 1020 2120 / 2120
Output Total 1450 / 1450 800 / 800
Balance -430 / -430 1320 / 1320
Intake:
Oral fluids 1020 / 1020
IV fluids (Total) 1919 / 1919
IV piggybacks 200 / 200
Output:
Urine, Kelly 1450 / 1450 800 / 800
Vital Signs
Temp Pulse Resp BP Pulse Ox
98.7 F 58 13 158/58 98
12/23/24 06:44 12/23/24 06:00 12/23/24 06:00 12/23/24 06:00 12/23/24 06:00
Lab Results
12/23/24 04:07
Calcium 8.7 mg/dl (8.4-10.2) 12/23/24 04:07
Magnesium 1.7 mg/dl (1.6-2.3) 12/22/24 19:58
Total Bilirubin Cancelled 12/19/24 22:35
AST Cancelled 12/19/24 22:35
ALT Cancelled 12/19/24 22:35
Alkaline Phosphatase Cancelled 12/19/24 22:35
Total Protein Cancelled 12/19/24 22:35
Albumin Cancelled 12/19/24 22:35
Physical Exam
-
NAD AAOx3
ABD: soft, TTP generalized, a bit more left sided, mild to mod distention
no rigidity, voluntary guarding only on deeper palpation
[2024-12-23 11:08] LABS: Hematocrit 29.3 % (37.0-47.0); Hemoglobin 9.0 g/dL (12.0-16.0); Mean Corp Hgb Conc. 30.7 g/dL (33.0-37.0); Mean Corpuscular Volume 87.2 fL (81.0-99.0); Platelet Count 183 10^3/uL (130-400); Red Cell Dist. Width 15.9 % (11.5-14.5)
[2024-12-23] MEDS: HEPARIN 25000 UNITS/250 ML IV (11:21)
[2024-12-23 11:22] LABS: APTT 31.3 Sec (23.4-35.0)
[2024-12-23] MEDS: HEPARIN 3300 UNITS IV (11:22)
[2024-12-23 11:36] LABS: Glucose - Point of Care 114 mg/dl (70-99)
--- NOTE | 2024-12-23 11:42 | W.PN.HOSP.TC ---
Today's Communication/Plan
-
Diet per GI/Surgery
DC IVF
Hep gtt
monitor HR
IV abx for now
PPI
OOB/PT
Assessment / Plan
Assessment / Plan
General: In mild distress due to pain
HEENT: Other (Dry MM. Neck supple.) right chest wall port noted
Respiratory: Clear; No Wheezes, Rales or Rhonchi
Cardiac: S1/S2 and Bradycardia; No Murmur
GI: Positive bowel sounds, mild distention, remains with tender to palpation. No rigidity.
Musculoskeletal: Other (Dusky / purplish toes on b/l feet. L inguinal puncture site with dressing in place. No bleeding / strikethrough.) positive Doppler pulses lower extremity
Neuro: AO x 3 and Nonfocal/grossly intact
A/P: Patient is an 84y F with PMH significant for ASCVD / PAD, hypertension and lung cancer on Keytruda who presents to ED complaining of abdominal pain with N/V/D.
Diffuse Enterocolitis likely secondary to mesenteric ischemia suspected versus Keytruda associated
Lactic Acidosis
Leukocytosis
Nausea, vomiting and abdominal pain
Severe sepsis (leukocytosis, tachypnea, lactic acidosis)
- CT noncontrast shows bowel thickening of small and large intestine. Non-contrast study - unable to assess for vascular insufficiency / occlusion.
-Repeat CT scan with IV contrast with moderate enterocolitis.
- ? infectious v ischemic. Initial lactate is 4.4. Symptoms seem very abrupt in onset. Leukocytosis resolved
- pain control, antiemetics.
- Lactic acidosis resolved with aggressive IV fluid resuscitation
- Diet per GI. Currently on clears
- Continue with Zosyn
- C. difficile negative
- Follow for clinical changes.
Severe dehydration
Acute urinary retention
- Dark urine color noted on admission which improved.
-TOV today
New onset of atrial fibrillation/flutter
- Patient with history of chronic bradycardia and no plan to add rate control agents currently. Currently normal sinus rhythm heart rate is controlled.
- Plan to start heparin drip for now and then eventually DOAC
- Echocardiogram on Wednesday
- tele reviewed
- Cardiology following
Acute kidney injury likely multifactorial secondary to contrast exposure, dehydration, urinary retention, enterocolitis, also on KEITH/HCTZ related
- Monitor urinary output. Continue Kelly until patient ambulatory.
- Hold off on blood pressure medication of lisinopril/HCTZ.
- Avoid hypotension
- off IVF. Creatinine 1.0 Monitor closely.
Klebsiella UTI
- Low cfu. Already on antibiotics
Hypokalemia
- Replete and monitor
Hypoglycemia
- Continue with hypoglycemia protocol. D5 IV fluids started.
ASCVD / PAD
- Known vascular disease s/p RLE angio procedure on 12/19/24 with lithotripsy right lower extremity and ALONDRA to right popliteal artery and superficial femoral artery.
- Dusky appearance to bilateral feet / digits.
- L groin puncture site not bleeding.
- Continue ASA. Discussed with Dr. Alcantara and joao to continue Plavix in the setting of fresh stents
Chronic bradycardia
- Sinus mag in the 40s - 50s on tele and EKG.
- Prior vitals trend show similar low heart rates.
- Not on AV jason / chronotropic medications.
- Monitor on telemetry.
- Likely degree of vagal response given abdominal symptoms.
Benign Hypertension
- Hold antihypertensive agents acutely. Avoid hypotension.
Hypothyroidism
- TSH normal continue T4 supplementation.
Lung Cancer
History of Breast Cancer
- s/p R upper lobectomy and XRT.
- s/p bilateral lumpectomies / axillary dissections.
- Now on Keytruda.
DVT Prophylaxis: heparin sc
Code Status: DNR
Anticipated Discharge: > 48 hours
Subjective/Interval History
-
Date of Service: December 23, 2024
Overnight events noted
pt with episode of atrial flutter/afib
now in NSR
states of abd pain
passing flatulence
no bm
Objective Data
-
Labs:
Laboratory Results
12/23/24 12/23/24
04:07 10:59
WBC 7.3 8.8
Hgb 8.8 L 9.0 L
Hct 28.7 L 29.3 L
Plt Count 179 183
APTT 31.3
Sodium 140
Potassium 3.8
Chloride 112 H
Carbon Dioxide 26
BUN 27 H
Creatinine 1.0
Glucose 79
Calcium 8.7
Vital Signs:
Vital Signs
Temp Pulse Resp BP Pulse Ox
98.7 F 58 13 158/58 98
12/23/24 06:44 12/23/24 06:00 12/23/24 06:00 12/23/24 06:00 12/23/24 06:00
I&O
12/22/24 12/23/24 12/24/24
06:59 06:59 06:59
Intake Total 1020 / 1020 2120 / 2120
Output Total 1450 / 1450 800 / 800
Balance -430 / -430 1320 / 1320
Data Reviewed
-
Total Time Spent with Patient (in minutes): 55
[2024-12-23] MEDS: D5LR IV (11:50)
--- NOTE | 2024-12-23 15:36 | PTCARENOTE ---
pt remains >92% on room air.
[2024-12-23] MEDS: ASPIR LOW (ENTERIC COATED) 81 MG PO (17:16)
[2024-12-23 17:46] LABS: APTT 35.4 Sec (23.4-35.0)
[2024-12-23 18:49] LABS: Glucose - Point of Care 107 mg/dl (70-99)
--- NOTE | 2024-12-23 20:00 | PTCARENOTE ---
Received pt from previous shift. Systems reviewed, see flowsheets. SaO2 98% on 2L NC. NSR on heart monitor. Heparin gtt infusing at 850 units/hr through R forearm PIV. Next PTT to be checked at 23:50.
[2024-12-23] MEDS: APRESOLINE 10 MG IV (20:03)
[2024-12-23] MEDS: LIDOCAINE 4% PATCH 1 PATCH TOPICAL (21:03)
[2024-12-23 22:41] LABS: Glucose - Point of Care 135 mg/dl (70-99)
[2024-12-23] MEDS: DILAUDID 0.5 MG IV (23:45)
[2024-12-24] VITALS (15 sets, daily range): BP systolic 129–185; BP diastolic 48–119
[2024-12-24] LABS: APTT 50.4 Sec (23.4-35.0)
[2024-12-24] MEDS: ZOSYN 50 IV ×4 (03:18→21:24)
[2024-12-24 06:50] LABS: APTT 86.6 Sec (23.4-35.0)
[2024-12-24 07:53] LABS: Glucose - Point of Care 90 mg/dl (70-99)
[2024-12-24] MEDS: PROTONIX IV 40 MG IV (08:33)
[2024-12-24] MEDS: NSS (PRESERVATIVE FREE) 10 ML IV (08:33)
[2024-12-24] MEDS: ROXICODONE 5 MG PO ×2 (08:33→21:36)
[2024-12-24] MEDS: SYNTHROID 100 MCG PO (08:33)
[2024-12-24] MEDS: PLAVIX 75 MG PO (08:33)
--- NOTE | 2024-12-24 10:02 | W.PN.CD ---
Today's Communication / Plan
-
- Patient has remained in sinus rhythm since 4 PM yesterday.
- Has baseline bradycardia; will place on no rate-controlling medications.
- Continue Heparin drip; transition to Eliquis 2.5 mg PO BID when able.
- After discussion with Vascular Surgery: Continue Plavix, discontinue aspirin as patient is on heparin with plan to transition to Eliquis.
- Echocardiogram tomorrow (3/6 systolic murmur).
Impression / Plan
-
New onset paroxysmal atrial fibrillation/flutter (type unknown):
- In setting of acute illness, which is being treated.
- Asymptomatic PAF/flutter.
- Patient has remained in sinus rhythm since 4 PM yesterday.
- Has baseline bradycardia; will place on no rate-controlling medications.
- [id number] score is 5 for age, female, PAD, HTN.
- Continue Heparin drip; transition to Eliquis 2.5 mg PO BID when able.
- Echocardiogram tomorrow (3/6 systolic murmur).
PAD:
- Vascular consulted on patient with recent RLE procedure
- After discussion with Vascular Surgery: Continue Plavix, discontinue aspirin as patient is on heparin with plan to transition to Eliquis.
Probable nonocclusive, reversible mesenteric ischemia/ischemic colitis
-GI, surgery, and IM on the case
-No plans for emergent surgery at this time.
-on abx
UTI:
-on abx
HTN:
- Mildly elevated at times
- On CCB, ACEI/HCTZ as OP
- Resume meds once Kelly tolerating PO.
Hx Lung cancer -Keytruda
hx smoking
Physical Exam
Vital Signs/Labs
Vital Signs
Temp Pulse Resp BP Pulse Ox
97.9 F 65 14 159/57 98
12/24/24 03:41 12/24/24 06:00 12/24/24 06:00 12/24/24 06:00 12/24/24 06:00
12/23/24 10:59
12/23/24 04:07
APTT 86.6 Sec (23.4-35.0) H 12/24/24 06:28
Magnesium 1.7 mg/dl (1.6-2.3) 12/22/24 19:58
Physical Exam
Constitutional: No acute distress and Comfortable
EENT: Anicteric
Cardiovascular: Rhythm & rate is regular, Pedal edema is absent, Systolic murmur present (3/) and S1S2 is normal
Respiratory: Respiratory effort normal and Rhonchi Present (Bibasilar)
GI: Soft
Neuro/Psych: Alert
Other: Skin (Warm, dry)
Data Reviewed
-
Date of Service: December 24, 2024
EKG: Tracing Personally Visualized and interpreted (Telemetry: Sinus rhythm)
Medical Tests (PFT, Pathology etc): Discussed with Patient
Labs: Labs Reviewed by me
--- NOTE | 2024-12-24 10:14 | W.PN.HOSP.TC ---
Today's Communication/Plan
-
IV abx
hep gtt/asa/plavix
ECHO in am
Fulls? await GI input
Assessment / Plan
Assessment / Plan
General: In mild distress due to pain
HEENT: Other (Dry MM. Neck supple.) right chest wall port noted
Respiratory: Clear; No Wheezes, Rales or Rhonchi
Cardiac: S1/S2 and Bradycardia; + Murmur
GI: Positive bowel sounds, mild distention, remains with tender to palpation. No rigidity.
Musculoskeletal: Other (Dusky / purplish toes on b/l feet. L inguinal puncture site with dressing in place. No bleeding / strikethrough.) positive Doppler pulses lower extremity
Neuro: AO x 3 and Nonfocal/grossly intact
A/P: Patient is an 84y F with PMH significant for ASCVD / PAD, hypertension and lung cancer on Keytruda who presents to ED complaining of abdominal pain with N/V/D.
Diffuse Enterocolitis likely secondary to mesenteric ischemia suspected versus Keytruda associated
Lactic Acidosis
Leukocytosis
Nausea, vomiting and abdominal pain
Severe sepsis (leukocytosis, tachypnea, lactic acidosis)
- CT noncontrast shows bowel thickening of small and large intestine. Non-contrast study - unable to assess for vascular insufficiency / occlusion.
-Repeat CT scan with IV contrast with moderate enterocolitis.
- ? infectious v ischemic. Initial lactate is 4.4. Symptoms seem very abrupt in onset. Leukocytosis resolved
- pain control, antiemetics.
- Lactic acidosis resolved with aggressive IV fluid resuscitation
- Diet per GI. Currently on clears . ?advance to fulls.
- Continue with Zosyn
- C. difficile negative
- Follow for clinical changes.
Severe dehydration
Acute urinary retention
- Dark urine color noted on admission which improved.
-s/p hernandez catheter. Voiding.
New onset of atrial fibrillation/flutter
- Patient with history of chronic bradycardia and no plan to add rate control agents currently. Remains in normall sinus rhythm. heart rate is controlled.
- Plan to start heparin drip for now and then eventually DOAC. Once transition to [facility] plan is stop asa and cont plavix.
- Echocardiogram on Wednesday
- tele reviewed
- Cardiology following
Acute kidney injury likely multifactorial secondary to contrast exposure, dehydration, urinary retention, enterocolitis, also on KEITH/HCTZ related
- Monitor urinary output. Continue Hernandez until patient ambulatory.
- Hold off on blood pressure medication of lisinopril/HCTZ.
- Avoid hypotension
- off IVF. Creatinine 1.0 Monitor closely.
Klebsiella UTI
- Low cfu. Already on antibiotics
Hypokalemia
- Replete and monitor
Hypoglycemia
- Continue with hypoglycemia protocol. D5 IV fluids started.
ASCVD / PAD
- Known vascular disease s/p RLE angio procedure on 12/19/24 with lithotripsy right lower extremity and ALONDRA to right popliteal artery and superficial femoral artery.
- Dusky appearance to bilateral feet / digits.
- L groin puncture site not bleeding.
- Continue ASA. Once transition to [facility] plan is stop asa and cont plavix.
Benign Hypertension
- Hold antihypertensive agents acutely. Avoid hypotension.
Hypothyroidism
- TSH normal continue T4 supplementation.
Lung Cancer
History of Breast Cancer
- s/p R upper lobectomy and XRT.
- s/p bilateral lumpectomies / axillary dissections.
- Now on Keytruda.
DVT Prophylaxis: heparin gtt
Code Status: DNR
Anticipated Discharge: > 48 hours
Subjective/Interval History
-
Date of Service: December 24, 2024
states of abd distention
passing flatulence but no bm
denies any nausea or vomiting
Objective Data
-
Labs:
Laboratory Results
12/23/24 12/24/24 12/24/24
23:43 05:59 06:28
APTT 50.4 H Cancelled 86.6 H
12/24/24
12:30
APTT Pending
Vital Signs:
Vital Signs
Temp Pulse Resp BP Pulse Ox
97.9 F 65 14 159/57 98
12/24/24 03:41 12/24/24 06:00 12/24/24 06:00 12/24/24 06:00 12/24/24 06:00
I&O
12/23/24 12/24/24 12/25/24
06:59 06:59 06:59
Intake Total 2120 / 2120 100 / 100
Output Total 800 / 800 100 / 100
Balance 1320 / 1320 0 / 0
Data Reviewed
-
Total Time Spent with Patient (in minutes): 55
[2024-12-24] MEDS: HEPARIN 25000 UNITS/250 ML IV (12:36)
[2024-12-24 12:44] LABS: Glucose - Point of Care 113 mg/dl (70-99)
[2024-12-24 13:07] LABS: APTT 70.3 Sec (23.4-35.0)
--- NOTE | 2024-12-24 14:14 | W.PN.GI.CBS2 ---
Today's Communication / Plan
-
FLD
Assessment / Plan
-
Pt is an 84yo with hx HTN, hypercholesterolemia, hypothyroidism, breast CA, lung CA(on Keytruda), renal CA, mohs surgery with LE wound, PAD/ASCVD, prior entercolitis-- c-diff vs possible keytruda related colitis other(flex with nonspecific chronic
inflammation) 2023 with recent vascular procedure 12/19 to [facility] with lithotripsy, arteriogram, and stent placement with addition of Plavix therapy. Pt did take Benadryl and Prednisone prep prior to procedure with hx Dye allergy. She initially felt
well after procedure then noted abdominal pain with lightheadedness, sweatiness and nausea with noted emesis and multiple stools. On admission noted with WBC 28,600. Ct without contrast with suspected wall thickening of loops of small bowel and
large bowel possible enterocolitis and possible duodenitis. CT was then repeat with IV contrast with moderate gastroenterocolitis with moderate free fluid in abdomen likely reactive some limitation of lack of oral contrast. small hepatic and renal
lesions cyst vs hemangioma. Pt was seen by vascular surgery with likely no correlation with recent procedure. Pt also seen by general surgery with further review of CT with edema in diffuse distribution from duodenum to rectum most severe at
descending/sigmoid colon with patent vasculature and concern for possible non occlusive reversible mesenteric ischemia and recommended to continued adequate perfusion, IVF, avoiding hypotension and cont abx. Stool studies with neg c-diff and
ecoli with other cx pending and gram neg bacilli in urine. Asked to see to assist with etiology. Dr. Altamirano updated 12/21
Patient feels okay. Denies abdominal pain except for some cramping. Continues to pass flatus but no BMs yet. Her abdomen is soft and minimally tender on palpation. Will advance her diet to FLD today.
Total Time Spent with Patient (in minutes): 35
Subjective
Subjective
Date of Service: December 24, 2024
No events overnight. No BMs overnight.
Objective
Data Reviewed
Laboratory Data:
Laboratory Results
12/23/24 10:59
12/23/24 04:07
Laboratory Results
APTT 70.3 Sec (23.4-35.0) H 12/24/24 12:43
Magnesium 1.7 mg/dl (1.6-2.3) 12/22/24 19:58
Total Bilirubin Cancelled 12/19/24 22:35
AST Cancelled 12/19/24 22:35
ALT Cancelled 12/19/24 22:35
Alkaline Phosphatase Cancelled 12/19/24 22:35
Amylase 36 U/L (30-110) 12/20/24 11:25
Lipase 15 U/L (23-300) L 12/20/24 11:25
Vital Signs and I&O:
Vital Signs
Temp Pulse Resp BP Pulse Ox
97.9 F 65 14 159/57 98
12/24/24 03:41 12/24/24 06:00 12/24/24 06:00 12/24/24 06:00 12/24/24 06:00
I&O
12/23/24 12/24/24 12/25/24
06:59 06:59 06:59
Intake Total 2120 / 2120 100 / 100
Output Total 800 / 800 100 / 100
Balance 1320 / 1320 0 / 0
[2024-12-24 17:31] LABS: Glucose - Point of Care 147 mg/dl (70-99)
[2024-12-24] MEDS: DILAUDID 0.5 MG IV (20:09)
[2024-12-24 20:39] LABS: APTT 104.8 Sec (23.4-35.0)
[2024-12-24] MEDS: APRESOLINE 10 MG IV (20:46)
[2024-12-24 21:02] LABS: Blood Urea Nitrogen 22 mg/dl (7-17); Calcium 9.0 mg/dl (8.4-10.2); Carbon Dioxide 27 mmol/L (22-30); Chloride 107 mmol/L (98-107); Estimated Creatinine Clearance 41 ml/min; Glucose 102 mg/dl (70-99); Potassium 3.6 mmol/L (3.5-5.1); Sodium 136 mmol/L (135-145); eGFR > 60.00
[2024-12-24] MEDS: LIDOCAINE 4% PATCH 1 PATCH TOPICAL (21:24)
[2024-12-24 21:35] LABS: Glucose - Point of Care 108 mg/dl (70-99)
[2024-12-24] MEDS: ATARAX 10 MG PO (23:55)
[2024-12-25] VITALS (10 sets, daily range): BP systolic 121–166; BP diastolic 45–73
[2024-12-25] MEDS: ZOSYN 50 IV ×4 (04:57→21:53)
[2024-12-25 05:23] LABS: INR 1.05; PT 14.0 Sec (11.4-14.6)
[2024-12-25 05:25] LABS: APTT 108.7 Sec (23.4-35.0)
[2024-12-25 05:41] LABS: Hematocrit 28.4 % (37.0-47.0); Hemoglobin 9.0 g/dL (12.0-16.0); Mean Corp Hgb Conc. 31.7 g/dL (33.0-37.0); Mean Corpuscular Volume 85.3 fL (81.0-99.0); Platelet Count 194 10^3/uL (130-400); Red Cell Dist. Width 15.6 % (11.5-14.5)
[2024-12-25 06:10] LABS: ALT (SGPT) < 10 U/L (0-35); AST (SGOT) 15 U/L (14-36); Albumin 2.6 g/dl (3.5-5.0); Alkaline Phosphatase 67 U/L (38-126); Blood Urea Nitrogen 18 mg/dl (7-17); Calcium 8.3 mg/dl (8.4-10.2); Carbon Dioxide 26 mmol/L (22-30); Chloride 111 mmol/L (98-107); Estimated Creatinine Clearance 41 ml/min; Glucose 64 mg/dl (70-99); Magnesium 1.7 mg/dl (1.6-2.3); Potassium 3.3 mmol/L (3.5-5.1); Sodium 139 mmol/L (135-145); Total Protein 4.7 g/dl (6.3-8.2); eGFR > 60.00
--- NOTE | 2024-12-25 06:20 | PTCARENOTE ---
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 Pt having some pain in abd/back see mar for medical information specialist. Pt appearing to get sleep through out night. Respirations even unlabored spo2 94% RA. Call byers within reach.
--- NOTE | 2024-12-25 07:12 | W.PN.GI.CBS2 ---
Addendum entered and electronically signed by Balwinder Falcon MD 12/25/24 15:55:
I saw and examined the patient.
The PA's note was reviewed and I agree with the note.
Comment:
Patient had BM yesterday. Tolerated FLD. Abdominal discomfort persists but denies pain. Agree with advancing diet to low residue. 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 Follow-up as outpatient upon discharge. GI s/o, please call with
questions.
Original Note:
Today's Communication / Plan
-
Etiology of inflammatory process related to non occlusive reversible mesenteric ischemia with recent procedure/dehydration but no noted periods of hypotension, chronic process with prior enterocolitis in 2023 c-diff/keytruda/vs other (though no
chronic symptoms over last year) vs med reaction though was premedicated vs other
noted with urinary retention today
some decreased appetite
12/24 advanced to full liquid diet and large stool will increase to low residue diet
cont to maintain perfusion/hydration
stool cx neg
hbg stable 9 with continued Plavix and stools recorded as brown
t/c eventual full colonoscopy with abnormal pet scan 05/2024 with concern for sigmoid uptake last full colonoscopy 2020 but also had flex 2023 to sigmoid -- OP follow up after admission
Assessment / Plan
-
Pt is an 84yo with hx HTN, hypercholesterolemia, hypothyroidism, breast CA, lung CA(on Keytruda), renal CA, mohs surgery with LE wound, PAD/ASCVD, prior entercolitis-- c-diff vs possible keytruda related colitis other(flex with nonspecific chronic
inflammation) 2023 with recent vascular procedure 12/19 to RLQ with lithotripsy, arteriogram, and stent placement with addition of Plavix therapy. Pt did take Benadryl and Prednisone prep prior to procedure with hx Dye allergy. She initially felt
well after procedure then noted abdominal pain with lightheadedness, sweatiness and nausea with noted emesis and multiple stools. On admission noted with WBC 28,600. Ct without contrast with suspected wall thickening of loops of small bowel and
large bowel possible enterocolitis and possible duodenitis. CT was then repeat with IV contrast with moderate gastroenterocolitis with moderate free fluid in abdomen likely reactive some limitation of lack of oral contrast. small hepatic and renal
lesions cyst vs hemangioma. Pt was seen by vascular surgery with likely no correlation with recent procedure. Pt also seen by general surgery with further review of CT with edema in diffuse distribution from duodenum to rectum most severe at
descending/sigmoid colon with patent vasculature and concern for possible non occlusive reversible mesenteric ischemia and recommended to continued adequate perfusion, IVF, avoiding hypotension and cont abx. Stool studies with neg and klebsiella
in urine with retention. Asked to see to assist with etiology. Dr. Altamirano updated 12/21
-diffuse edema from duodenum to rectum
-PAD recent vascular LE procedure 12/19 lithotripsy, arteriogram, and stent placement with addition of Plavix therapy
-hx enterocolitis 2023 possible c-diff vs Keytruda flex bx with non specific active chronic colitis
-pet 05/2024 with sigmoid uptake diverticulum vs other
-lung CA on chronic Keytruda therapy
-bradycardia
-leukocytosis with concern for sepsis on admission
-klebsiella UTI with urinary retention
-lactic acidosis on admission
-CHELA on admission with dehydration
-anemia
other med problems
-HTN
-hypercholesterolemia
- hypothyroidism
-breast CA
-renal CA
- mohs surgery with LE wound
-cont tobacco use
-ASCVD
-hx colon polyps
PLAN:
Etiology of inflammatory process related to non occlusive reversible mesenteric ischemia with recent procedure/dehydration but no noted periods of hypotension, chronic process with prior enterocolitis in 2023 c-diff/keytruda/vs other (though no
chronic symptoms over last year) vs med reaction though was premedicated vs other
noted with urinary retention today
some decreased appetite
12/24 advanced to full liquid diet and large stool will increase to low residue diet
cont to maintain perfusion/hydration
stool cx neg
hbg stable 9 with continued Plavix and stools recorded as brown
t/c eventual full colonoscopy with abnormal pet scan 05/2024 with concern for sigmoid uptake last full colonoscopy 2020 but also had flex 2023 to sigmoid -- OP follow up after admission
Subjective
Subjective
Date of Service: December 25, 2024
on full liquid diet, 8.17 large stool current urinary retention s/p cath for 500ml/ c/o decreased appetite
Objective
Data Reviewed
Laboratory Data:
Laboratory Results
12/25/24 05:04
12/25/24 05:04
Laboratory Results
PT 14.0 Sec (11.4-14.6) 12/25/24 05:04
INR 1.05 12/25/24 05:04
APTT 108.7 Sec (23.4-35.0) H 12/25/24 05:04
Magnesium 1.7 mg/dl (1.6-2.3) 12/25/24 05:04
Total Bilirubin 0.4 mg/dl (0.2-1.3) 12/25/24 05:04
AST 15 U/L (14-36) 12/25/24 05:04
ALT < 10 U/L (0-35) 12/25/24 05:04
Alkaline Phosphatase 67 U/L (38-126) 12/25/24 05:04
Amylase 36 U/L (30-110) 12/20/24 11:25
Lipase 15 U/L (23-300) L 12/20/24 11:25
Vital Signs and I&O:
Vital Signs
Temp Pulse Resp BP Pulse Ox
97.9 F 58 24 148/65 92
12/25/24 04:05 12/25/24 06:00 12/25/24 06:00 12/25/24 06:00 12/25/24 06:00
I&O
12/24/24 12/25/24 12/26/24
06:59 06:59 06:59
Intake Total 100 / 100 398 / 398
Output Total
Balance 0 0 /
Physical Exam
Physical Exam
HEENT: Anicteric and Moist mucous membranes
Cardiology: Normal Sinus Rhythm
Pulmonary: Clear
GI: Soft, Non Distended and Non Tender
Extremities: No Edema
Neuro: Non Focal
[2024-12-25] MEDS: DILAUDID 0.5 MG IV ×2 (07:44→21:52)
[2024-12-25] MEDS: HEPARIN 25000 UNITS/250 ML IV (07:45)
--- NOTE | 2024-12-25 07:56 | W.PN.CD ---
Today's Communication / Plan
-
- Heparin can be stopped and give Eliquis dose after 3-4 hours this AM
- ECHo today
Impression / Plan
-
New onset paroxysmal atrial fibrillation/flutter (type unknown):
- In setting of acute illness, which is being treated.
- Asymptomatic PAF/flutter.
- Patient has remained in sinus rhythm since 4 PM yesterday.
- Has baseline bradycardia; will place on no rate-controlling medications.
- [id number] score is 5 for age, female, PAD, HTN.
- Continue Heparin drip; transition to Eliquis 2.5 mg PO BID when able.
- Echocardiogram today (07/13 systolic murmur).
PAD:
- Vascular consulted on patient with recent RLE procedure
- After discussion with Vascular Surgery: Continue Plavix, discontinue aspirin as patient is on heparin with plan to transition to Eliquis.
- From cardiac stand point, heparin can be stopped and give Eliquis dose after 3-4 hours this AM
Probable nonocclusive, reversible mesenteric ischemia/ischemic colitis
-GI, surgery, and IM on the case
-No plans for emergent surgery at this time.
-on abx
UTI:
-on abx
HTN:
- Mildly elevated at times
- On CCB, ACEI/HCTZ as OP
- Resume meds once Kelly tolerating PO.
Hx Lung cancer -Keytruda
hx smoking
Physical Exam
Vital Signs/Labs
Vital Signs
Temp Pulse Resp BP Pulse Ox
97.9 F 58 24 148/65 92
12/25/24 04:05 12/25/24 06:00 12/25/24 06:00 12/25/24 06:00 12/25/24 06:00
12/25/24 05:04
12/25/24 05:04
PT 14.0 Sec (11.4-14.6) 12/25/24 05:04
INR 1.05 12/25/24 05:04
APTT 108.7 Sec (23.4-35.0) H 12/25/24 05:04
Magnesium 1.7 mg/dl (1.6-2.3) 12/25/24 05:04
Physical Exam
Constitutional: No acute distress and Comfortable
EENT: Anicteric and Moist mucous membranes
Cardiovascular: Rhythm & rate is regular, Pedal edema is absent, JVD pressure is normal and Systolic murmur present
Respiratory: Respiratory effort normal, Lungs clear to auscul. and Wheeze Absent
GI: Soft, Non tender and Normal bowel sounds
Neuro/Psych: Alert, Oriented and AO x 3
Data Reviewed
-
Date of Service: December 25, 2024
Medical Decision Making: Reviewed Test Results, Test Interpretation and Review of Case with other Provider
EKG: Tracing Personally Visualized and interpreted
Echo: Ordered by me
Labs: Labs Reviewed by me
Old Records: Reviewed
[2024-12-25 08:11] LABS: Glucose - Point of Care 91 mg/dl (70-99)
[2024-12-25 08:38] LABS: Nucleated Red Blood Cells % 0 %
[2024-12-25] MEDS: PROTONIX IV 40 MG IV (10:10)
[2024-12-25] MEDS: NSS (PRESERVATIVE FREE) 10 ML IV (10:11)
[2024-12-25] MEDS: PLAVIX 75 MG PO (10:11)
[2024-12-25] MEDS: SYNTHROID 100 MCG PO (10:11)
[2024-12-25] MEDS: APRESOLINE 10 MG IV (10:26)
[2024-12-25] MEDS: ZOFRAN 4 MG IV (11:21)
--- NOTE | 2024-12-25 11:21 | W.PN.HOSP.TC ---
Today's Communication/Plan
-
Full liquid diet.
Bladder scan, may require Kelly back if persistent retention
IV antibiotics, will be low threshold to discontinue if resolved GI symptoms
Echo
IV heparin with eventually transition to oral anticoagulation statin aspirin with continuation of Plavix
Replete potassium and follow BMP
Wound care
Assessment / Plan
Assessment / Plan
A/P: Patient is an 84y F with PMH significant for ASCVD / PAD, hypertension and lung cancer on Keytruda who presents to ED complaining of abdominal pain with N/V/D.
Diffuse Enterocolitis likely secondary to mesenteric ischemia suspected versus Keytruda associated
Lactic Acidosis
Leukocytosis
Nausea, vomiting and abdominal pain
Severe sepsis (leukocytosis, tachypnea, lactic acidosis)
- CT noncontrast shows bowel thickening of small and large intestine. Non-contrast study - unable to assess for vascular insufficiency / occlusion.
-Repeat CT scan with IV contrast with moderate enterocolitis.
- ? infectious v ischemic. Initial lactate is 4.4. Symptoms seem very abrupt in onset. Leukocytosis resolved
- pain control, antiemetics.
- Lactic acidosis resolved with aggressive IV fluid resuscitation
- Diet per GI. FLD
- Continue with Zosyn
- C. difficile negative
- Follow for clinical changes.
Urinary tract infection
Urine culture with Klebsiella low CFU.
Has been covered with Zosyn.
Urinary retention
Status post Kelly removed
Continue bladder scan.
Straight cath, may require Kelly
New onset of atrial fibrillation/flutter
- Patient with history of chronic bradycardia and no plan to add rate control agents currently. Remains in normall sinus rhythm. heart rate is controlled.
- Plan to start heparin drip for now and then eventually DOAC. Once transition to Eliquis plan is stop asa and cont plavix.
- Echocardiogram on Wednesday
- tele reviewed
- Cardiology following
Acute kidney injury likely multifactorial secondary to contrast exposure, dehydration, urinary retention, enterocolitis, also on KEITH/HCTZ related
- Monitor urinary output. Continue Kelly until patient ambulatory.
- Hold off on blood pressure medication of lisinopril/HCTZ.
- Avoid hypotension
- off IVF. Creatinine 1.0 Monitor closely.
Hypokalemia
- Replete and monitor
Hypoglycemia
- Continue with hypoglycemia protocol. D5 IV fluids started.
ASCVD / PAD
- Known vascular disease s/p RLE angio procedure on 12/19/24 with lithotripsy right lower extremity and ALONDRA to right popliteal artery and superficial femoral artery.
- Dusky appearance to bilateral feet / digits.
- Right lower extremity wound. Continue wound care
- L groin puncture site not bleeding.
- Continue ASA. Once transition to [facility] plan is stop asa and cont plavix.
Benign Hypertension
- Hold antihypertensive agents acutely. Avoid hypotension.
Hypothyroidism
- TSH normal continue T4 supplementation.
Lung Cancer
History of Breast Cancer
- s/p R upper lobectomy and XRT.
- s/p bilateral lumpectomies / axillary dissections.
- Now on Keytruda.
DVT Prophylaxis: heparin gtt
Code Status: DNR
Anticipated Discharge: 24 - 48 hours
Subjective/Interval History
-
Date of Service: December 25, 2024
Objective Data
-
Labs:
Laboratory Results
12/25/24
05:04
WBC 8.2
Hgb 9.0 L
Hct 28.4 L
Plt Count 194
PT 14.0
INR 1.05
APTT 108.7 H
Sodium 139
Potassium 3.3 L
Chloride 111 H
Carbon Dioxide 26
BUN 18 H
Creatinine 0.8
Glucose 64 L
Calcium 8.3 L
Total Bilirubin 0.4
AST 15
ALT < 10
Alkaline Phosphatase 67
Vital Signs:
Vital Signs
Temp Pulse Resp BP Pulse Ox
97.4 F 73 20 164/68 94
12/25/24 07:55 12/25/24 10:00 12/25/24 10:00 12/25/24 10:26 12/25/24 10:00
I&O
12/24/24 12/25/24 12/26/24
06:59 06:59 06:59
Intake Total 100 / 100 398 / 398
Output Total 100 / 100
Balance 0 / 0 398 / 398
Physical Exam
-
General: Well Developed and No Apparent Distress
HEENT: Normocephalic, Atraumatic and Moist Mucous Membranes
Respiratory: Clear to Auscultation
Cardiac: Regular Rhythm and S1/S2; Negative Murmur, Rub or Gallop
GI: Soft, Nontender, Nondistended and Normal Bowel Sounds; Negative Organomegaly
Rectal: Deferred by Provider
Musculoskeletal: No Clubbing, No Cyanosis and No Edema
Skin: Negative Rash
Neuro: Nonfocal/Grossly Intact
[2024-12-25] MEDS: KCL 40 MEQ PO (11:22)
[2024-12-25 11:59] LABS: Glucose - Point of Care 117 mg/dl (70-99)
--- NOTE | 2024-12-25 14:47 | WOUNDNOTE ---
[facility] RN note: Patient admitted with enteritis, lactic acidosis, CHELA. Patient lives alone and goes to [facility]. s/p RLE agram, lithotripsy, stent by Dr. Kelly 12/19/24.
See H&P for complete history.
PMH: ASCVD, PAD, breast cancer s/p lumpectomy and radiation therapy, lung ca s/p lobectomy on Keytruda, RLE agram, lithotripsy, stent by Dr. Kelly 12/19/24, HTN, Raynaud's, smoker, CKD3a.
Wound Location and type/assessment: Patient admitted with: full thickness LLE wound suspect r/t venous edema to subcutaneous layer, pink with small amount white fibrin. Scattered denuded skin R anterior medial lateral calf area suspect r/t edema
and general dry itching skin. Patient has dry rash like skin with scattered pinpoint dry scab r/t dry itchy skin. Dry itchy skin is not new. She has discussed with her physicians. Patient thinks it may be related to her Keytruda. Heels blanchable
red. Patient does her own wound care and applies a R knee high compression wrap (Setopress type) at home.
Appetite: poor.
Pressure redistribution devices in place: Centrella Max air bed. Patient can turn self in bed.
Plan: RLE dressing changed. Patient turned to R semi side lying position. Heels off bed with pillow and air chair cushion. Instructed patient pressure injury prevention measures.
Will confirm orders with Dr. Stauffer and discussed with ELENA Mccoy.
Care plan to be updated and will follow as needed.
Note to case management requested for discharge: VN if goes home.
Recommend follow up at wound care center and Dr. Kelly upon discharge.
--- NOTE | 2024-12-25 15:41 | CM ---
Addendum entered by Anmol Middleton 12/25/24 17:05:
Preferences chosen. Referrals forwarded.
Original Note:
Therapy has recommended patient for SNF. Spoke with patient and sister. Provided [employer] list for sister's as well as patient's zip codes. They will review and choose 5 preferences. Sister has tour arranged with Julia.
[2024-12-25 17:57] LABS: Glucose - Point of Care 110 mg/dl (70-99)
--- NOTE | 2024-12-25 18:31 | PTCARENOTE ---
OOB to bsc several times unable to void adequately- 30ml voided at 11am- pvr 540ml- Straight cathed 550ml. Remains on IV Heparin- therapeutic PTT. IV Zosyn as ordered. PRN IV Hydralyzine given x1 this shift for SBPs>160s. IV Zofran given for
nausea x1 this am with good relief. Accu check s performed no need for coverage. Diet increased to low residue she ordered dinner- no nausea presently.
[2024-12-25] MEDS: HYDROPHOR 1 APPLIC TOPICAL (21:54)
[2024-12-25] MEDS: ATARAX 10 MG PO (22:09)
[2024-12-25 22:40] LABS: Glucose - Point of Care 99 mg/dl (70-99)
[2024-12-25] MEDS: LIDOCAINE 4% PATCH TOPICAL (23:31)
--- NOTE | 2024-12-25 23:59 | PTCARENOTE ---
Pt having complaints of pain and itchiness. PRN medication given for pain and requested Atarax. New ointments placed allover itchy areas. Heparin gtt remains therapeutic at this time, repeat PTT order placed for AM labs. Howard byers with in reach,
assessment care and vitals as charted.
[2024-12-26] VITALS (13 sets, daily range): BP systolic 122–172; BP diastolic 48–147
[2024-12-26] MEDS: ROXICODONE 5 MG PO ×2 (01:02→20:54)
[2024-12-26] MEDS: TRIAMCINOLONE ACETONIDE 0.025% OINTMENT 1 APPLIC TOPICAL (01:03)
[2024-12-26] MEDS: ZOSYN 50 IV (05:12)
[2024-12-26] MEDS: HEPARIN 25000 UNITS/250 ML IV (05:14)
[2024-12-26 06:00] LABS: APTT 108.3 Sec (23.4-35.0)
[2024-12-26 06:13] LABS: Blood Urea Nitrogen 20 mg/dl (7-17); Calcium 9.3 mg/dl (8.4-10.2); Carbon Dioxide 25 mmol/L (22-30); Chloride 108 mmol/L (98-107); Estimated Creatinine Clearance 33 ml/min; Glucose 74 mg/dl (70-99); Potassium 3.8 mmol/L (3.5-5.1); Sodium 138 mmol/L (135-145); eGFR 55.21
[2024-12-26 06:26] LABS: Hematocrit 28.7 % (37.0-47.0); Hemoglobin 9.1 g/dL (12.0-16.0); Mean Corp Hgb Conc. 31.7 g/dL (33.0-37.0); Mean Corpuscular Volume 86.2 fL (81.0-99.0); Platelet Count 209 10^3/uL (130-400); Red Cell Dist. Width 15.9 % (11.5-14.5)
[2024-12-26 08:03] LABS: Glucose - Point of Care 80 mg/dl (70-99)
[2024-12-26] MEDS: PROTONIX IV 40 MG IV (08:18)
[2024-12-26] MEDS: HYDROPHOR 1 APPLIC TOPICAL (08:18)
[2024-12-26] MEDS: PLAVIX 75 MG PO (08:19)
[2024-12-26] MEDS: NSS (PRESERVATIVE FREE) 10 ML IV (08:19)
[2024-12-26] MEDS: SYNTHROID 100 MCG PO (08:19)
[2024-12-26 08:37] LABS: Nucleated Red Blood Cells % 0 %
--- NOTE | 2024-12-26 08:44 | W.PN.CD ---
Addendum entered and electronically signed by oJrdan Hopper MD 12/26/24 08:52:
correction decreased breath sounds left base
Original Note:
Today's Communication / Plan
-
remains in sinus
echo today
transition from heparin to Eliquis when ok with vacular and primary team
decreaed breath sounds right base. last abd CT 6 days ago with small effusions. CXR ordered
Impression / Plan
-
New onset paroxysmal atrial fibrillation/flutter (type unknown):
- In setting of acute illness, which is being treated.
- Asymptomatic PAF/flutter.
- Now in NSR
- Has baseline bradycardia; no rate-controlling medications.
- [id number] score is 5 for age, female, PAD, HTN.
- Continue Heparin drip; transition to Eliquis 2.5 mg PO BID when ok with vascular and primary team
- Echocardiogram 12/26/24(3/6 systolic murmur).
PAD:
- Vascular consulted on patient with recent RLE procedure
- Per last note from Dr Hay - discussion with Vascular Surgery: Continue Plavix, discontinue aspirin as patient is on heparin with plan to transition to Eliquis.
-
Probable nonocclusive, reversible mesenteric ischemia/ischemic colitis
-GI, surgery, and IM on the case
-No plans for emergent surgery at this time.
-on abx
UTI:
-on abx
HTN:
- Mildly elevated at times
- On CCB, ACEI/HCTZ as OP
- Resume meds once Kelly tolerating PO.
Hx Lung cancer -Keytruda
hx smoking
Physical Exam
Vital Signs/Labs
Vital Signs
Temp Pulse Resp BP Pulse Ox
98.2 F 60 13 135/48 94
12/26/24 03:00 12/26/24 06:03 12/26/24 06:03 12/26/24 06:03 12/25/24 21:40
12/26/24 05:20
12/26/24 05:20
PT 14.0 Sec (11.4-14.6) 12/25/24 05:04
INR 1.05 12/25/24 05:04
APTT 108.3 Sec (23.4-35.0) H 12/26/24 05:20
Magnesium 1.7 mg/dl (1.6-2.3) 12/25/24 05:04
Physical Exam
Constitutional: No acute distress
Cardiovascular: Rhythm & rate is regular and Systolic murmur present
Respiratory: Wheeze Absent, Rhonchi Absent and Other (decreased left base)
GI: Soft and Non tender
Neuro/Psych: Alert
Data Reviewed
-
Date of Service: December 26, 2024
Medical Decision Making: Reviewed Test Results
Echo: Ordered by me
Medical Tests (PFT, Pathology etc): Report Reviewed by me
Labs: Labs Reviewed by me
--- NOTE | 2024-12-26 10:35 | W.PN.HOSP.TC ---
Today's Communication/Plan
-
Transition to Eliquis
Continue tele
Stop antibiotics
Monitor for retention
ECHO
SNF discharge planing
Assessment / Plan
Assessment / Plan
A/P: Patient is an 84y F with PMH significant for ASCVD / PAD, hypertension and lung cancer on Keytruda who presents to ED complaining of abdominal pain with N/V/D.
Diffuse Enterocolitis likely secondary to mesenteric ischemia suspected versus Keytruda associated
Lactic Acidosis
Leukocytosis
Nausea, vomiting and abdominal pain
Severe sepsis (leukocytosis, tachypnea, lactic acidosis)
- CT noncontrast shows bowel thickening of small and large intestine. Non-contrast study - unable to assess for vascular insufficiency / occlusion.
-Repeat CT scan with IV contrast with moderate enterocolitis.
- ? infectious v ischemic. Initial lactate is 4.4. Symptoms seem very abrupt in onset. Leukocytosis resolved
- pain control, antiemetics.
- Lactic acidosis resolved with aggressive IV fluid resuscitation
- Diet had been advanced to LRD
- Continue with Zosyn
- C. difficile negative
- Follow for clinical changes.
Urinary tract infection
Urine culture with Klebsiella low CFU.
Has been covered with Zosyn thorough 12/25
Urinary retention
Status post Kelly removed
Continue bladder scan.
Straight cath, may require Kelly
New onset of atrial fibrillation/flutter
- Patient with history of chronic bradycardia and no plan to add rate control agents currently. Remains in normall sinus rhythm. heart rate is controlled.
- Transition off IV heparin to Eliquis. Continue along with Plavix stopping ASA. PPI changed to PO
- Echocardiogram pending
Acute kidney injury likely multifactorial secondary to contrast exposure, dehydration, urinary retention, enterocolitis, also on KEITH/HCTZ related
- Monitor urinary output. Continue Kelly until patient ambulatory.
- Hold off on blood pressure medication of lisinopril/HCTZ.
- Avoid hypotension
- off IVF. Creatinine 1.0 Monitor closely.
Hypokalemia
- Replete and monitor
Hypoglycemia
- Continue with hypoglycemia protocol. D5 IV fluids started.
ASCVD / PAD
- Known vascular disease s/p RLE angio procedure on 12/19/24 with lithotripsy right lower extremity and ALONDRA to right popliteal artery and superficial femoral artery.
- Dusky appearance to bilateral feet / digits.
- Right lower extremity wound. Continue wound care
- L groin puncture site not bleeding.
- Continue ASA. Once transition to [facility] plan is stop asa and cont plavix.
Benign Hypertension
- Hold antihypertensive agents acutely. Avoid hypotension.
Hypothyroidism
- TSH normal continue T4 supplementation.
Lung Cancer
History of Breast Cancer
- s/p R upper lobectomy and XRT.
Stable respiratory status.
CXR with BL changes correlating to recent PET CT
- s/p bilateral lumpectomies / axillary dissections.
- Now on Keytruda.
DVT Prophylaxis: heparin gtt
Code Status: DNR
Anticipated Discharge: 24 - 48 hours
Subjective/Interval History
-
Date of Service: December 26, 2024
Objective Data
-
Labs:
Laboratory Results
12/26/24
05:20
WBC 9.4
Hgb 9.1 L
Hct 28.7 L
Plt Count 209
APTT 108.3 H
Sodium 138
Potassium 3.8
Chloride 108 H
Carbon Dioxide 25
BUN 20 H
Creatinine 1.0
Glucose 74
Calcium 9.3
Vital Signs:
Vital Signs
Temp Pulse Resp BP Pulse Ox
98.2 F 60 13 135/48 94
12/26/24 03:00 12/26/24 06:03 12/26/24 06:03 12/26/24 06:03 12/25/24 21:40
I&O
12/25/24 12/26/24 12/27/24
06:59 06:59 06:59
Intake Total 398 / 398 1358 / 1358
Output Total 650 / 650
Balance 398 / 398 708 / 708
Physical Exam
-
General: Well Developed and No Apparent Distress
HEENT: Normocephalic, Atraumatic and Moist Mucous Membranes
Respiratory: Clear to Auscultation
Cardiac: Regular Rhythm and S1/S2; Negative Murmur, Rub or Gallop
GI: Soft, Nontender, Nondistended and Normal Bowel Sounds; Negative Organomegaly
Rectal: Deferred by Provider
Musculoskeletal: No Clubbing, No Cyanosis and No Edema
Skin: Negative Rash
Neuro: Nonfocal/Grossly Intact
[2024-12-26] MEDS: ZOSYN IV (10:55)
[2024-12-26 12:14] LABS: Glucose - Point of Care 99 mg/dl (70-99)
--- NOTE | 2024-12-26 14:40 | CM ---
Discharge POC: Therapy recommendation for SNF. Referrals previously forwarded. [facility] if not on Keytruda (cost). This CM reviewed medication records and discussed with attending. Patient is not currently on Keytruda and
there is no plan to have her on Keytruda at discharge. [facility] admissions aware and will accept if patient chooses [facility].
--- NOTE | 2024-12-26 17:27 | PTCARENOTE ---
report given to 4w RN. Pt transferred to 416.1 w/ all belongings.
--- NOTE | 2024-12-26 17:38 | PTCARENOTE ---
Pt received to 4 west awake alert and oriented. Oriented to room. Able to make her needs known. 1 assist with rolling walker. Call byers in reach.
[2024-12-26] MEDS: ELIQUIS 2.5 MG PO (20:51)
[2024-12-26] MEDS: LIDOCAINE 4% PATCH TOPICAL (20:52)
[2024-12-26 21:53] LABS: Glucose - Point of Care 105 mg/dl (70-99)
[2024-12-27] MEDS: APRESOLINE 10 MG IV (00:23)
--- NOTE | 2024-12-27 02:45 | DOWNTIME ---
There was a [employer] Clerk Downtime on 12/27/2024 from 0100 to 12/27/2024 at 0235. Downtime documentation of patient's care, including medication administrations, has been reconciled in the electronic record per guidelines. Refer to the
patient's paper chart under the miscellaneous tab to see printed paper medication records and downtime forms.
[2024-12-27 03:04] VITALS: BP 152/69
[2024-12-27 06:59] LABS: Hematocrit 30.7 % (37.0-47.0); Hemoglobin 9.8 g/dL (12.0-16.0); Mean Corp Hgb Conc. 31.9 g/dL (33.0-37.0); Mean Corpuscular Volume 86.7 fL (81.0-99.0); Platelet Count 213 10^3/uL (130-400); Red Cell Dist. Width 15.9 % (11.5-14.5)
[2024-12-27 07:21] LABS: Glucose - Point of Care 89 mg/dl (70-99)
[2024-12-27] MEDS: NSS (PRESERVATIVE FREE) IV (07:36)
[2024-12-27 07:45] LABS: Blood Urea Nitrogen 22 mg/dl (7-17); Calcium 9.4 mg/dl (8.4-10.2); Carbon Dioxide 26 mmol/L (22-30); Chloride 108 mmol/L (98-107); Estimated Creatinine Clearance 33 ml/min; Glucose 76 mg/dl (70-99); Potassium 3.7 mmol/L (3.5-5.1); Sodium 138 mmol/L (135-145); eGFR 55.21
[2024-12-27 07:51] VITALS: BP 152/50
[2024-12-27 07:58] LABS: Nucleated Red Blood Cells % 0 %
[2024-12-27] MEDS: PROTONIX 20 MG PO (08:06)
[2024-12-27] MEDS: SYNTHROID 100 MCG PO (08:06)
[2024-12-27] MEDS: HYDROPHOR 1 APPLIC TOPICAL (08:06)
[2024-12-27] MEDS: ELIQUIS 2.5 MG PO (08:06)
[2024-12-27] MEDS: TRIAMCINOLONE ACETONIDE 0.025% OINTMENT 1 APPLIC TOPICAL (08:06)
[2024-12-27] MEDS: PLAVIX 75 MG PO (08:06)
--- NOTE | 2024-12-27 09:41 | W.PN.CD ---
Today's Communication / Plan
-
Patient in sinus rhythm. Very brief PAF for seconds on monitor. Continue current therapy
Continue Eliquis
Abnormalities on chest x-ray which large amount of peripheral airspace consolidation left upper lobe and moderate peripheral groundglass airspace opacity right midlung. Radiology's differential included bilateral pneumonia or alveolar pulmonary
edema will review with primary team regarding management.
Impression / Plan
-
New onset paroxysmal atrial fibrillation/flutter (type unknown):
- In setting of acute illness, which is being treated.
- Asymptomatic PAF/flutter.
- Now in NSR
- Has baseline bradycardia; no rate-controlling medications.
- [id number] score is 5 for age, female, PAD, HTN.
- Heparin has been transitioned to Eliquis 2.5 mg PO BID
- Echocardiogram 12/26/24 normal left ventricular functionAnd mild aortic stenosis
Abnormal chest x-ray performed 12/27/2024
1. Large amount of peripheral airspace consolidation in the left upper lobe and moderate peripheral ground-glass airspace opacity in the right midlung. Diagnostic possibilities are (1) BILATERAL PNEUMONIA or (2) alveolar pulmonary edema.
2. Small bilateral pleural effusions.
See rest of report below
PAD:
- Vascular consulted on patient with recent RLE procedure
-
Probable nonocclusive, reversible mesenteric ischemia/ischemic colitis
-GI, surgery, and IM on the case
-No plans for emergent surgery at this time.
-on abx
UTI:
-on abx
HTN:
- Mildly elevated at times
- On CCB, ACEI/HCTZ as OP
- Resume meds once Kelly tolerating PO.
Hx Lung cancer -Keytruda
hx smoking
Chest x-ray performed 12/27/2024
1. Large amount of peripheral airspace consolidation in the left upper lobe and moderate peripheral ground-glass airspace opacity in the right midlung. Diagnostic possibilities are (1) BILATERAL PNEUMONIA or (2) alveolar pulmonary edema.
2. Small bilateral pleural effusions.
3. Solid pulmonary nodules in the lower lobes of both lungs (possibly pulmonary metastases).
4. Mild cardiomegaly.
5. Severe calcific atherosclerotic plaque in the thoracic aorta.
6. Previous right breast lumpectomy and right axillary lymph node dissection.
7. Right IJ chemotherapy Mediport in place.
Physical Exam
Vital Signs/Labs
Vital Signs
Temp Pulse Resp BP Pulse Ox
97.4 F 62 17 152/50 95
12/27/24 07:51 12/27/24 07:51 12/27/24 07:51 12/27/24 07:51 12/27/24 07:51
12/27/24 05:59
12/27/24 05:59
PT 14.0 Sec (11.4-14.6) 12/25/24 05:04
INR 1.05 12/25/24 05:04
APTT 108.3 Sec (23.4-35.0) H 12/26/24 05:20
Magnesium 1.7 mg/dl (1.6-2.3) 12/25/24 05:04
Physical Exam
Constitutional: No acute distress
Cardiovascular: Rhythm & rate is regular
Respiratory: Respiratory effort normal
GI: Soft
Data Reviewed
-
Date of Service: December 27, 2024
Medical Decision Making: Reviewed Test Results
Echo: Report Reviewed by me
Medical Tests (PFT, Pathology etc): Report Reviewed by me
Labs: Labs Reviewed by me
[2024-12-27] MEDS: ROXICODONE 5 MG PO (09:52)
[2024-12-27 11:24] LABS: Glucose - Point of Care 169 mg/dl (70-99)
[2024-12-27 11:25] VITALS: BP 114/61
[2024-12-27 11:26] VITALS: BP 114/61; PULSE 60; O2SAT 94
--- NOTE | 2024-12-27 14:07 | W.DS.TRANS ---
DC Summary - [facility]
-
Discharge Instructions:
Discharge Diagnosis/Procedures Enterocolitis
Afib new onset
Diet Regular
Instructions:
Stand-Alone Forms:
Changes to Home Medications: Yes
Discharge Medications:
DC Medications w/original date entered in [facility]
levothyroxine 100 mcg tablet 100 mcg PO DAILY Thyroid 07/04/10
inulin 2 gram chewable tablet (Fiber Delights) 2 g PO DAILY Constipation 12/15/24
polyethylene glycol 3350 17 gram oral powder packet (Miralax) 17 g PO DAILYPRN PRN constipation 12/15/24
clopidogrel 75 mg tablet 75 mg PO DAILY #90 tabs 12/19/24
Lactobac no.2-Bifidobac no.1-S. thermo 112.5 billion cell capsule (Visbiome) 1 cap PO DAILY Probiotic 12/20/24
apixaban 2.5 mg tablet (Eliquis) 2.5 mg PO BID #60 tabs 12/27/24
pantoprazole 20 mg tablet,delayed release 20 mg PO DAILY #30 tabs 12/27/24
Home Medication Changes
Amlodipine, Lisinopril, HCTZ stopped
Eliquis initiated.
Pending Results: No
--- NOTE | 2024-12-27 14:09 | CM ---
CM reviewed chart, patient seen bedside with Hospitalist, for discharge today to [facility]. left for patients sisterTarsha. Per patient, sister will provide transportation to facility. IMM verbally reviewed, provided with copy, placed
in chart. CM will continue to follow for all discharge planning needs.
Plan; [facility], sister to transport
[facility]
Report: [phone]
[2024-12-27 15:02] VITALS: BP 157/70
== END 2024-12-27 15:39 | DRG 871 ==
LOC: 4 WEST ACU 08:12
PROVIDERS: Hospitalist; Nurse Practitioner; Nurse Practitioner Family; Nurse Practitioner Gerontology; ADMITTING PHYSICIAN Hospitalist; ATTENDING PHYSICIAN Internal Medicine; CONSULT PHYSICIAN Internal Medicine; CONSULT PHYSICIAN Surgery; EMERGENCY PHYSICIAN Student in an Organized Health Care Education/Training Program; FAMILY PHYSICIAN Family Medicine; OTHER PHYSICIAN Surgery Vascular Surgery
DX: A41.9 Sepsis, unspecified organism (principal); K55.032 Diffuse acute (reversible) ischemia of large intestine; E87.20 Acidosis, unspecified; K55.9 Vascular disorder of intestine, unspecified; N17.9 Acute kidney failure, unspecified; N39.0 Urinary tract infection, site not specified; I48.92 Unspecified atrial flutter; C34.90 Malignant neoplasm of unspecified part of unspecified bronchus or lung; R65.20 Severe sepsis without septic shock; R33.9 Retention of urine, unspecified; F17.200 Nicotine dependence, unspecified, uncomplicated; E78.00 Pure hypercholesterolemia, unspecified; I10 Essential (primary) hypertension; M48.00 Spinal stenosis, site unspecified; M51.26 Other intervertebral disc displacement, lumbar region; K52.9 Noninfective gastroenteritis and colitis, unspecified; I48.0 Paroxysmal atrial fibrillation; E86.0 Dehydration; I25.10 Atherosclerotic heart disease of native coronary artery without angina pectoris; R15.9 Full incontinence of feces; D18.03 Hemangioma of intra-abdominal structures; I70.0 Atherosclerosis of aorta; I71.43 Infrarenal abdominal aortic aneurysm, without rupture; K44.9 Diaphragmatic hernia without obstruction or gangrene; E87.6 Hypokalemia; E16.2 Hypoglycemia, unspecified; D64.9 Anemia, unspecified; E03.9 Hypothyroidism, unspecified; K21.9 Gastro-esophageal reflux disease without esophagitis; I73.00 Raynaud's syndrome without gangrene; B96.1 Klebsiella pneumoniae [K. pneumoniae] as the cause of diseases classified elsewhere; Z66 Do not resuscitate; Z91.041 Radiographic dye allergy status; Z90.49 Acquired absence of other specified parts of digestive tract; Z90.710 Acquired absence of both cervix and uterus; Z85.3 Personal history of malignant neoplasm of breast; Z85.528 Personal history of other malignant neoplasm of kidney; Z92.3 Personal history of irradiation; Z79.82 Long term (current) use of aspirin; Z79.890 Hormone replacement therapy; Z79.02 Long term (current) use of antithrombotics/antiplatelets; Z79.891 Long term (current) use of opiate analgesic; Z90.2 Acquired absence of lung [part of]; Z86.0100 Personal history of colon polyps, unspecified; Z87.19 Personal history of other diseases of the digestive system
CPT/HCPCS: 71046; 74176; 74177; 80048; 80053; 81003; 81015; 82150; 82947; 82962; 83036; 83605; 83690; 83735; 84443; 85014; 85018; 85025; 85027; 85610; 85730; 87045; 87046; 87077; 87086; 87186; 87324; 87427; 87449; 93005; 93306; 97162; 97530; Q9967

== ENCOUNTER 2025-01-06 19:48 | Emergency (ER) | payer MEDICARE, OTHER, SELFPAY ==
[2025-01-06 19:49] VITALS: BP 158/55; BMI 26.6
[2025-01-06 19:56] VITALS: BP 158/55
[2025-01-06 20:00] VITALS: BP 150/65
[2025-01-06 20:42] LABS: Hematocrit 30.0 % (37.0-47.0); Hemoglobin 9.4 g/dL (12.0-16.0); Mean Corp Hgb Conc. 31.3 g/dL (33.0-37.0); Mean Corpuscular Volume 84.7 fL (81.0-99.0); Nucleated Red Blood Cells % 0 %; Platelet Count 222 10^3/uL (130-400); Red Cell Dist. Width 17.2 % (11.5-14.5)
[2025-01-06 20:52] LABS: INR 1.16; PT 15.1 Sec (11.4-14.6)
[2025-01-06 20:53] LABS: APTT 36.7 Sec (23.4-35.0)
[2025-01-06 21:00] VITALS: BP 99/80
[2025-01-06 21:09] LABS: ALT (SGPT) 17 U/L (0-35); AST (SGOT) 23 U/L (14-36); Albumin 2.9 g/dl (3.5-5.0); Alkaline Phosphatase 122 U/L (38-126); Blood Urea Nitrogen 24 mg/dl (7-17); Calcium 9.0 mg/dl (8.4-10.2); Carbon Dioxide 26 mmol/L (22-30); Chloride 109 mmol/L (98-107); Estimated Creatinine Clearance 37 ml/min; Glucose 99 mg/dl (70-99); Potassium 4.6 mmol/L (3.5-5.1); Sodium 138 mmol/L (135-145); Total Protein 5.5 g/dl (6.3-8.2); eGFR 55.21
--- NOTE | 2025-01-06 21:14 | ED.GENMED ---
History of Present Illness
General
Chief Complaint: Swelling
Source: patient
Exam Limitations: none
Time Seen by Provider: 01/06/25 20:02
Nursing documentation reviewed up to this point in time: agreed with
History of Present Illness
History of Present Illness:
84-year-old female past medical history of vascular disease multiple vascular surgery lithotripsy as well as stent placed to the right leg 3 weeks ago hypertension hyperlipidemia presenting to the emergency department today with concerns of
worsening edema of the lower extremities and left arm over the past but specifically worsening over the past day or 2. Has had chronic edema to the area but slightly worsened recently. Denies specific shortness of breath or chest pain. Has been
somewhat itchy. Does not take any diuretics. Is on Eliquis.
Past History
Past History
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
ED Past Surgical History: Cholecystectomy, Gynecological and Other ( hysterectomy, R lumpectomy with CA treated, now 11/2023 suspicious spot on mammogram, awaiting f/u mammogram,)
Social History
Tobacco: Smoker
Alcohol: None
Drug: None
Living: alone
Review of Systems
Review of Systems
Allergies reviewed?: Yes
All Other Systems: ROS reviewed and negative except as documented in HPI and ROS
Phy Exam
Physical Exam
Physical Exam:
GENERAL: Alert , in no apparent distress
EYE: pupils equal and reactive
NECK: Supple, no significant adenopathy.
ENT: o/p clr, mmm.
CARDIAC: Regular rate and rhythm .
LUNGS: Clear breath sounds bilaterally, no acute respiratory distress, no wheezes/rales/rhonchi
ABDOMEN: Soft, without focal tenderness, no r/g, no cvat
NEUROLOGICAL: Alert and oriented, no focal neuro deficits
SKIN: Warm and dry, skin intact.
MUSCULOSKELETAL: Edema diffusely lower extremities bilaterally, edema to the left arm
PSYCH: Normal and appropriate interaction.
Scores
Heart Failure Risk
Heart Failure Risk Score: Not Applicable
Course
Orders/Labs/Results
Orders:
Orders
01/06/25 20:36
Complete Blood Count/With Diff Routine
Comprehensive Metabolic Panel Routine
INR [Prothrombin Time] Urgent
PTT Routine
01/06/25 21:08
EKG [Electrocardiogram (*1)] Urgent
Reason for Study: Fatigue / Weakness
EKG- Treatment ONCE
01/06/25 21:11
Chest [CR Chest - 2 Views ] Urgent
Comment:
Reason For Exam: fluid overload
01/06/25 21:48
Pro-BNP [NT-proBNP] Urgent
Troponin I Urgent
01/06/25 23:38
Furosemide [Lasix] 40 mg IV ONCE ONE
Abnormal Lab Results
01/06/25
20:36
RBC 3.54 L 10^6/uL
(4.20-5.40)
Hgb 9.4 L g/dL
(12.0-16.0)
Hct 30.0 L %
(37.0-47.0)
MCH 26.6 L pg
(27.0-31.0)
MCHC 31.3 L g/dL
(33.0-37.0)
RDW 17.2 H %
(11.5-14.5)
Absolute Lymphs (auto) 0.7 L 10^3/uL
(1.2-3.4)
Lymphocytes % 10.8 L %
(20.5-51.1)
Eosinophils % 6.4 H %
(0-6)
PT 15.1 H Sec
(11.4-14.6)
APTT 36.7 H Sec
(23.4-35.0)
Chloride 109 H mmol/L
(98-107)
BUN 24 H mg/dl
(7-17)
Total Protein 5.5 L g/dl
(6.3-8.2)
Albumin 2.9 L g/dl
(3.5-5.0)
01/06/25 20:36
01/06/25 20:36
Vital Signs
Initial and Last Documented VS:
Initial Vital Signs
Temp Pulse Resp BP Pulse Ox
98.3 F 54 18 158/55 100
01/06/25 19:49 01/06/25 19:49 01/06/25 19:49 01/06/25 19:49 01/06/25 19:49
Last Documented Vital Signs
Temp Pulse Resp BP Pulse Ox
98.3 F 50 15 159/46 99
01/06/25 19:49 01/07/25 00:00 01/06/25 22:30 01/06/25 23:44 01/07/25 00:00
MDM/Problems Addressed
MDM/Problems Addressed:
84-year-old female presenting to the emergency department today with concerns of worsening edema over the past few days. Recently had multiple vascular surgeries to the right leg. Does not take any diuretics. Denies chest pain or shortness of
breath. Here she does have pulses of her feet bilaterally with Doppler. Otherwise your chest x-ray appears improved from previous BNP is 800 no old levels. Patient was given Lasix with good urine output advised to continue Lasix dosing and close
follow-up as an outpatient. Return precautions given.
*Pulse Oximetry
SaO2: 100
Oxygen Mode of Delivery: Room air
Patient hypoxic: no (99)
*Critical Care Note
Total Time (30-74mins, 75-104mins- exclusive of procedures): Not Applicable
ED Attending Note
-
Portions of this chart may have been created with voice recognition software.� Occasional wrong word or��sound alike� substitutions may have occurred due to the inherent limitations of voice recognition software.
Discharge Plan
Departure
Patient Disposition: Home (Routine Discharge)
Date of Disposition: 01/07/25
Time of Disposition: :19
Patient with high blood pressure during this ER visit?: No
Condition: Good
Covid-19: Not Applicable
Discharge Problem:
Edema
Instructions: Dependent Edema (DC), *CBC Heart Failure Instructions
Prescriptions:
New
furosemide [Lasix] 40 mg tablet
40 mg PO DAILY Qty: 14 0RF
No Action
levothyroxine 100 MCG tablet
100 mcg PO DAILY
Fiber Delights 2 gram Tablet,Chewable
2 g PO DAILY
polyethylene glycol 3350 [Miralax] 17 gram powder in packet
17 g PO DAILYPRN PRN (Reason: constipation)
clopidogrel 75 mg Tablet
75 mg PO DAILY Qty: 90 0RF
Rx Instructions:
to start 12/20/24
Visbiome 112.5 billion cell Capsule
1 cap PO DAILY
pantoprazole 20 mg Tablet,Delayed Release (Dr/Ec)
20 mg PO DAILY Qty: 30 0RF
Eliquis 2.5 mg Tablet
2.5 mg PO BID Qty: 60 0RF
Referrals:
Chriss Dobson MD [Family Provider, Family Practice]
Activity Restrictions/Additional Instructions:
You came to the emergency department today with concerns of edema. You were given Lasix. Please take this as prescribed and follow-up closely with cardiology. Return for any worsening, new or concerning symptoms.
Interventions
Interventions:
*Risk Screen - Suicide Last Done: 01/06/25 19:49
*General Assessment Last Done: 01/06/25 19:49
*Neglect/Abuse Screening Last Done: 01/06/25 19:49
*ED- Fall Risk Assessment Last Done: 01/06/25 19:49
*ED COVID-19 Vaccine History Last Done: 01/06/25 19:49
ED- Cardiac Assessment Last Done: 01/06/25 20:12
ED- Pulmonary Assessment Last Done: 01/06/25 20:12
ED-Skin Assessment Last Done: 01/06/25 20:12
Discharge Date and Time
Print Language: QATARI
[2025-01-06 22:00] VITALS: BP 128/45
[2025-01-06 22:34] LABS: Troponin I < 0.012 ng/ml
[2025-01-06 23:00] VITALS: BP 159/46
[2025-01-06 23:14] VITALS: BMI 26.0
[2025-01-06] MEDS: LASIX 40 MG IV (23:44)
== END 2025-01-07 01:28 ==
LOC: EMR 19:48
PROVIDERS: Physician Assistant; EMERGENCY PHYSICIAN Emergency Medicine; FAMILY PHYSICIAN Family Medicine
DX: R60.0 Localized edema (principal); I99.9 Unspecified disorder of circulatory system; I10 Essential (primary) hypertension; E78.00 Pure hypercholesterolemia, unspecified; M51.26 Other intervertebral disc displacement, lumbar region; M50.221 Other cervical disc displacement at C4-C5 level; M48.00 Spinal stenosis, site unspecified; F17.200 Nicotine dependence, unspecified, uncomplicated; Z79.01 Long term (current) use of anticoagulants; Z85.118 Personal history of other malignant neoplasm of bronchus and lung
CPT/HCPCS: 99284; 96374; 71046; 80053; 83880; 84484; 85025; 85610; 85730; 93005

== ENCOUNTER → 2025-01-22 12:39 | Outpatient (REF) | payer MEDICARE, OTHER, SELFPAY | LOC: RAD 12:39 | PROVIDERS: ATTENDING PHYSICIAN Surgery Vascular Surgery; FAMILY PHYSICIAN Family Medicine | DX: I73.9 Peripheral vascular disease, unspecified (principal) | CPT/HCPCS: 93922; 93925; 93978 ==

== ENCOUNTER 2025-05-01 14:17 | Outpatient (REF) | payer MEDICARE, OTHER, SELFPAY | END 2025-05-01 23:59 | disposition home or self-care (01) | LOC: WOUND 14:17 | PROVIDERS: ATTENDING PHYSICIAN Registered Nurse; FAMILY PHYSICIAN Internal Medicine Cardiovascular Disease | DX: T81.31XA Disruption of external operation (surgical) wound, not elsewhere classified, initial encounter (principal); Y83.8 Other surgical procedures as the cause of abnormal reaction of the patient, or of later complication, without mention of misadventure at the time of the procedure; L97.212 Non-pressure chronic ulcer of right calf with fat layer exposed; I87.2 Venous insufficiency (chronic) (peripheral); I73.9 Peripheral vascular disease, unspecified; C50.919 Malignant neoplasm of unspecified site of unspecified female breast; D41.01 Neoplasm of uncertain behavior of right kidney; I71.43 Infrarenal abdominal aortic aneurysm, without rupture; N18.31 Chronic kidney disease, stage 3a; C78.00 Secondary malignant neoplasm of unspecified lung; C34.90 Malignant neoplasm of unspecified part of unspecified bronchus or lung | CPT/HCPCS: 99213 ==